=== PATIENT | female | born 1965 | race Caucasian/White ===

== ENCOUNTER 2019-09-22 01:46 | Outpatient (CLI) | payer BC, SELFPAY ==
[2019-09-22 16:44] LABS: Abs Immature Grans 0.01 k/cumm (0.0-0.09); Absolute Basophil Count 0.04 k/cumm (0.0-0.2); Absolute Eosinophil Count 0.27 k/cumm (0.0-0.7); Absolute Lymphocyte Count 2.13 k/cumm (1.2-3.4); Absolute Monocyte Count 0.42 k/cumm (0.11-0.7); Absolute Neutrophil Count 3.82 k/cumm (1.2-6.7); Basophils % 0.6; HCT 42.5 % (36.0-46.0); HGB 14.6 g/dL (12.0-15.5); Immature Grans % 0.1 %; Lymphocytes % 31.8; Mean Corp. HGB Concentration 34.4 g/dL (32.0-36.0); Mean Corpuscular Hemoglobin 29.3 pg (27.0-33.0); Mean Corpuscular Volume 85.2 fL (80-95); Mean Platelet Volume 9.8 fL (8.0-11.0); Monocytes % 6.3; Neutrophils % 57.2; Platelet Count 262 x1000/uL (130-400); RBC 4.99 m/cumm (4.00-5.20); RBC Distribution Width 15.1 % (11.7-14.6); White Blood Cell Count 6.69 k/cumm (4.4-10.8)
[2019-09-22 18:22] LABS: ALT 23 U/L (14-59); AST 12 U/L (15-37); Albumin 4.1 g/dL (3.4-5.0); Alkaline Phosphatase 71 U/L (46-116); Anion Gap 8.8 mmol/L (3-11); BUN 11 mg/dL (7-18); Bilirubin, Total 0.2 mg/dL (0.2-1.0); CO2 27.2 mmol/L (21.0-32.0); CREATININE 0.71 mg/dL (0.55-1.02); Calcium 8.7 mg/dL (8.5-10.1); Chloride 104 mmol/L (98-107); Ferritin 162 ng/mL (8-252); Glucose 118 mg/dL (74-106); Potassium 3.8 mmol/L (3.5-5.1); Sodium 140 mmol/L (136-145); Total Protein 7.3 g/dL (6.4-8.2)
== END 2019-09-22 02:06 ==
PROVIDERS: PCP Physician Assistant Medical; Visit Provider Internal Medicine Hematology & Oncology
DX: D50.9 Iron deficiency anemia, unspecified (principal)
CPT/HCPCS: 36415; 80053; 82728; 85025

== ENCOUNTER 2021-04-14 01:17 | Outpatient (CLI) | payer BC, SELFPAY ==
[2021-04-14 13:11] LABS: Source Nasal/Nares
[2021-04-14 15:32] LABS: COVID-19 PCR Negative (Negative)
== END 2021-04-14 01:18 | disposition home or self-care (01) ==
LOC: LBO 01:17
PROVIDERS: PCP Physician Assistant Medical; Visit Provider Otolaryngology
DX: Z20.822 Contact with and (suspected) exposure to COVID-19 (principal); Z01.818 Encounter for other preprocedural examination
CPT/HCPCS: 87635

== ENCOUNTER 2021-04-17 06:17 | Day surgery (SDC) | payer BC, SELFPAY ==
[2021-04-17] VITALS (8 sets, daily range): BP systolic 93–147; BP diastolic 59–93; PULSE 66–76; RESP 16–21; TEMP 36.4–36.7; O2SAT 93–97; BMI 31.0
--- NOTE | 2021-04-17 06:49 | W.ANESPRE ---
General Info Date of Service Date Performed: 04/17/21 Height: 5 ft 7 in Weight: 89.8 kg Body Mass Index (BMI): 31.0 Surgical Procedure: Operation Date: 04/17/21 07:40 Proposed Procedures Side Surgeon p FESS WITH RT maxillary antrostomy, rt polyectomy Carlos Dobbins MD Meds Allergies and Home Medications Allergies Allergy/AdvReac Type Severity Reaction Status Date / Time seasonal environmental Allergy Uncoded 04/17/21 06:39 allergies Home Medication Medication Instructions Recorded L norgest/E estradiol-E estrad 1 tab PO DAILY 03/22/21 0.15 mg-30 mcg (84)/10 mcg(7) tabs,3mos escitalopram oxalate 20 mg tablet 20 mg PO DAILY 03/22/21 ibuprofen 200 mg tablet 200 mg PO Q6H PRN 03/22/21 meloxicam 7.5 mg tablet 7.5 mg PO DAILY 03/22/21 omeprazole 40 mg capsule,delayed 40 mg PO DAILY 03/22/21 release enalapril maleate 2.5 mg tablet 2.5 mg PO DAILY 04/03/21 Current Visit Medications: Current Medications Generic Name Dose Route Start Last Admin Trade Name Freq PRN Reason Stop Dose Admin Dexamethasone 12 mg 04/17/21 06:00 Dexamethasone 10 Mg/Ml Vial IVP 04/17/21 23:59 PREOP ART Ringer's Solution 1,000 mls @ 80 mls/hr 04/17/21 06:00 IV 05/14/21 23:59 INFUSION ART Cefazolin Sodium/Dextrose 2 gm in 50 mls @ 100 mls/hr 04/17/21 06:00 Ancef Duplex IVPB 05/14/21 23:59 PREOP ART Tranexamic Acid 1,000 mg/ 60 mls @ 360 mls/hr 04/17/21 06:00 Sodium Chloride IVPB 04/17/21 23:59 PREOP ART IV Miscellaneous Supplies 1 each 04/17/21 06:00 Iv Access IV 05/14/21 23:59 DIRECTED ART Sodium Chloride 0 ml 04/17/21 06:00 Normal Saline Flush 10 Ml Syr IV 05/14/21 23:59 PRN PRN Sodium Chloride 0 ml 04/17/21 06:00 Normal Saline 10 Ml Vial IJ 05/14/21 23:59 DIRECTED PRN Sterile Water 0 ml 04/17/21 06:00 Water,Injection,Sterile 10 Ml Vial IJ 05/14/21 23:59 DIRECTED PRN PFSH Active Problems Active Problems: Problem Status Onset Code Nasal obstruction J34.89 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 Hx of tubal ligation Z98.51 Low ferritin level R79.0 History of left lateral epicondylitis Z87.39 Lump of right breast N63.10 Hx of immune disorder Z86.2 Abnormal findings on diagnostic imaging of breast R92.8 Hyperglycemia R73.9 Lack of energy R53.83 Insomnia G47.00 Depressive disorder F32.9 Generalized anxiety disorder F41.1 Nasal polyp J33.9 Left shoulder pain M25.512 Medical History Medical History Abnormal findings on diagnostic imaging of breast Depressive disorder Generalized anxiety disorder History of left lateral epicondylitis Hx of immune disorder Hyperglycemia Insomnia Lack of energy Left shoulder pain Low ferritin level Lump of right breast Nasal polyp Surgical History Surgical History Hx of tubal ligation Tobacco Smoking/Tobacco Use Status: Never Alcohol Alcohol Intake: never Substance Use Substance use: Never Substance use type: does not use Vital Signs and Lab Results Vital Signs Most Recent Vital Signs in EMR: Most Recent Vital Signs Temp Pulse Resp BP Pulse Ox 36.6 C 74 16 147/72 H 95 04/17/21 06:32 04/17/21 06:32 04/17/21 06:32 04/17/21 06:32 04/17/21 06:32 Lab Results Blood Type / Crossmatch: No Data to Display Complete Blood Count: No Data to Display Complete Metabolic Panel: No Data to Display Liver Function Panel: No Data to Display Coagulation Panel: No Data to Display Cardiac Panel: No Data to Display Arterial Blood Gas: No Data to Display Venous Blood Gas: No Data to Display Pancreas Panel: No Data to Display Thyroid Panel: No Data to Display Infectious Disease: Coronavirus (COVID-19)(PCR) Negative (Negative) 04/14/21 10:11 04/14/21 Coronavirus 2019 Source Nasal/Nares 04/14/21 10:11 04/14/21 Blood Cultures: No Data to Display Toxicology Panel: No Data to Display Panel: No Data to Display Anesthesia Assessment and Plan Anesthesia History Personal History: No History of Anesthesia Complications Family History: No Family History of Anesthesia Complications Exercise Tolerance Exercise Tolerance: Metabolic Equivalents>4 Pertinent Negatives Pertinent Negatives: No Symptoms of GERD, No Major Cardiovascular Symptoms or Complaints, No Major Pulmonary Symptoms or Complaints and No History of CVA/TIA Cardiac & Pulmonary Exam Cardiac Exam: Normal S1/S2 Heart Sounds Pulmonary Exam: Clear Bilateral Breath Sounds Airway Exam Known Difficult Airway: No Mallampati Class: 2 Mouth Opening: Normal (> 3cm) Thyromental Distance: Greater than 3 cm Neck Range of Motion: Full ROM Neck Circumference: Normal Teeth Condition: Normal Dentition ASA Classification ASA Score: ASA 2 Emergency Case?: No NPO Status NPO Status: NPO Clears >2 hours, Solids >8 hours Status Status: Negative HCG Anesthesia Plan Resuscitation Status: Full Code Anesthesia Technique: General Anesthesia Airway Planned: Endotracheal Tube Monitors Used: Standard Monitors
[2021-04-17] MEDS: Lactated Ringers 1,000 ML 80 ML IV (06:50)
[2021-04-17] MEDS: ceFAZolin 2 GM/50 ML BAG IVPB (07:43)
[2021-04-17] MEDS: Dexamethasone 10 MG/ML VIAL 12 MG IVP (07:48)
--- NOTE | 2021-04-17 07:55 | SINUS_PTH ---
PATIENT: Isabel Austin LOC: [facility] U#:[id number] AGE/SX: 55/F ROOM: RE04/17/[address]: Carlos Dobbins MD : 1965 BED: DIS: 04/17/2021 SPEC #: [id number] RECD: 04/17/21 12:38 STATUS: JO-ANN REQ #: [id number] ABDIFATAH: 04/17/21 07:[address]: Carlos Dobbins DEPT: Surgical Specimen RECD BY: Desi Covington ENTERED: 04/17/21 12:40 SP TYPE: SINUS OTHR DR: Ivette Baron Tissues: 1 - SINUS BIOPSY Procedures: GROSS AND MICRO LEVEL 3 Comments: [id number]
[2021-04-17] MEDS: Cocaine Nasal 4% 4 ML BTL (08:04)
--- NOTE | 2021-04-17 08:26 | W.PM.DSUDISC ---
Discharge Plan Disposition Patient Disposition: HOME Condition: Good Discharge Details Attending Provider: Carlos Dobbins Primary Care Provider: Ivette Baron Home Meds and New Rx's Prescriptions: New cephalexin 750 mg capsule 750 mg PO BID 7 Days Qty: 14 RF: 0 prednisone 50 mg tablet 50 mg PO DAILY 7 Days Qty: 7 RF: 0 No Action escitalopram oxalate 20 mg tablet 20 mg PO DAILY RF: 0 ibuprofen 200 mg tablet 200 mg PO Q6H PRNRF: 0 meloxicam 7.5 mg tablet 7.5 mg PO DAILY RF: 0 omeprazole 40 mg capsule,delayed release(DR/EC) 40 mg PO DAILY RF: 0 L norgest/e.estradiol-e.estrad [Simpesse] 0.15 mg-30 mcg (84)/10 mcg (7) tablets,dose pack,3 month 1 tab PO DAILY RF: 0 enalapril maleate 2.5 mg tablet 2.5 mg PO DAILY RF: 0 Discharge Instructions Stand Alone Forms: ENT-FESS Instr. Shilpi Referrals: Carlos Dobbins MD [ [facility]] - (2 weeks, please call for appointment before patient departs) Diet:: As Tolerated Discharge Orders Discharge Orders: Discharge Order (Routine); Ordered 04/17/21 Ordered By: Carlos Dobbins
--- NOTE | 2021-04-17 08:27 | ROE_ITS ---
Operative Note Operative Note DATE OF PROCEDURE: 04/17/21 PRE-OP DIAGNOSIS: Right-sided polypoid mass arising from the maxillary sinus POST-OP DIAGNOSIS: same PROCEDURE: Functional endoscopic sinus surgery with right maxillary antrostomy, and the right polypectomy including debridement of the right maxillary sinus SURGEON: Carlos Dobbins ANESTHESIA TYPE: General LMA/ETT Refer to Anesthesia Record ESTIMATED BLOOD LOSS: 5 PATHOLOGY: other (Right nasal polypoid mass) COMPLICATIONS: None Patient was transported to: PACU Patient's condition: stable Indications: Patient with longstanding right-sided nasal obstruction secondary to a polypoid mass arising from the right maxillary sinus. Options were explained to the patient regarding further management. She wished to proceed. H&P was reviewed. Consent was reviewed. Findings: Right-sided transition polypoid mass emerging from the right maxillary sinus, without evidence of purulent debris or infection. Nothing to suggest secondary mass Procedure Description: The patient was positioned in a supine position and prepped and draped in appropriate fashion after obtaining an adequate level of general endotracheal anesthesia. 1% lidocaine with 1/100,000 epinephrine was injected into the uncinate process, right middle turbinate, and right inferior turbinate. Following this, cocaine soaked nasal pledgets were placed into the nasal cavity and left for 5 minutes. After 5 minutes these were removed and then using the 0 degree scope for visualization, and a StraightShot microdebrider with a 2 mm blade, the nasal cavity was examined and the polypoid mass identified. The polypoid mass was removed, with removal extending into the maxillary sinus. Wide maxillary antrostomy was performed. The uncinate process appear to be eroded by the polypoid mass. Once the polypoid mass had been debrided back to the mucosa within the maxillary sinus, the right maxillary sinus was examined using a 30 degree scope, revealing no fungal mycetoma, or evidence of secondary mass. Bleeding was minimal. No packing was applied. The patient was then awakened and extubated by anesthesia after ensuring that there were no other masses within the nasal cavity on either side. I was present throughout the entire case. Specimen was placed in formalin and sent to patholo gy
--- NOTE | 2021-04-17 08:51 | W.ANESPOSTOP ---
Postoperative Evaluation Date, Time and Location Date Performed: 04/17/21 Time Performed: 08:51 Patient Location: Day Surgery Unit Vital Signs Most Recent Imported Vital Signs: Most Recent Vital Signs Temp Pulse Resp BP Pulse Ox 36.7 C 67 16 130/84 94 04/17/21 08:40 04/17/21 08:40 04/17/21 08:40 04/17/21 08:40 04/17/21 08:40 Pain Score Most Recent Pain Score: Most Recent Pain Score Pain Level 2 04/17/21 08:40 Assessment Mental Status: Awake (Alert & Oriented to Patient Baseline) Airway and Respiratory Function: Patent airway with normal (patient baseline) respiratory exam Cardiovascular Function: Hemodynamically Stable Hydration Status: Adequately Hydrated Nausea & Vomiting: No Nausea or Vomiting Pain: Pt. Denies Any Pain Peripheral Nerve Block: Patient did not receive a nerve block
[2021-04-17] MEDS: Acetaminophen Solution 650 MG/20.3 ML CUP PO (08:56)
== END 2021-04-17 09:26 | disposition home or self-care (01) ==
PROVIDERS: PCP Physician Assistant Medical; Visit Provider Otolaryngology
PROC: 09QM4ZZ Repair Nasal Septum, Percutaneous Endoscopic Approach (ICD-10-PCS; CPT 30520; principal; 2021-04-17 07:30)
DX: J33.0 Polyp of nasal cavity (principal)
CPT/HCPCS: 31267; 88305; 88304; J0690; J1100; J2001; J2405

== ENCOUNTER 2022-01-30 02:09 | Outpatient (CLI) | payer BC, SELFPAY ==
--- OUTSIDE RECORDS SUMMARY | 2022-01-30 02:10 | XMS_ITS | Encounter Summary ---
:1965 [place] [address] Care Team Providers Name Role Phone Fox Tian MD Primary Care Provider Reason for Visit Reason Comments Medication Management Specialty Refill Management Encounter Details Date Type Department Care Team Description 10/16/2021 Specialty Pharmacy Pharmacy [place] [facility] Todd Haro, [facility] Specialty Refill [place], [place] Management [phone] Social History Tobacco Use Types Packs/Day Years Used Date Never Smoker Smokeless Tobacco: Never Used Alcohol Use Standard Drinks/Week Comments Not Currently 0 (1 standard drink = 0.6 oz pure alcoho l) Financial Resource Strain Answer Date Recorded How hard is it for you to pay for the very basics like Not v kenia hard 08/02/2021 food, housing, medical care, and heating? Transportation Needs Answer Date Recorded In the past 12 months, has lack of transportation kept you f rom No 08/02/2021 medical appointments or from getting medications? In the past 12 months, has lack of transportation kept you f rom No 08/02/2021 meetings, work, or getting things needed for daily living? Sex Assigned at Date Recorded Not on file documented as of this encounter Progress Notes Todd Haro [facility] - 10/16/2021 11:41 AM EDT Clinical Management Plan: Refill Specialty Pharmacy Consultation; Todd Haro [facility] Comprehensive Medication Management (CMM) Isabel Neeraj Norman Ms. Isabel Austin is a 56 y.o. (1965) female who was contacted in regard to a specialty medication refill reminder. Contact made with patient regarding Ibrance. A review of the medication therapy was performed. The medication was refilled as scheduled, and all medication related questions and concerns were addressed. The specialty pharmacy staff will follow up with the patient 5-7 days prior to next refill. Was a change made to the Care Plan: No Allergies and Drug intolerance: No Known Allergies Medication Reconciliation Discrepancies (compared to [facility] med list) No Specialty Pharmacy Refill Questionnaire Refill Questionnaire 10/16/2021 What is the name of the specialty medication you are refilling? ibrance Are you taking any new medications? No Any new medical condition? No Any new allergies? No Any new side effects that are bothersome? No What date will you need this fill by? 10/21/2021 Adherence: Any missed doses? No Patient understands no changes to current drug regimen were made. Todd Haro RPH 10/16/21 11:42 AM documented in this encounter Plan of Treatment Upcoming Encounters Date Type Specialty Care Team Description 01/30/2022 Infusion Hematology and Oncology 02/27/2022 Infusion Hematology and Oncology 03/27/2022 Infusion Hematology and Oncology 04/18/2022 [facility] HEMATOLOGY/[place], [place] [address] (Wo rk) documented as of this encounter Goals Goal Patient Goal Associated Recent Patient-Stated? Author Type Problems Progress DH Home Medication Patient No Dari marr, Compliance and Facing Vladimir Singh, Understanding Action Plan [facility] Note: Formatting of this note might be d ifferent from the original. Slow or prevent progression and maintain quality of life, based on outcomes and quality of life assessed at follow-up visits documented as of this encounter Visit Diagnoses Not on filedocumented in this encounter Care Teams Telephone Interviewer Relationship Specialty Start Date End Date Fox Tian MD PCP - General 06/06/[address] [place] [phone] documented as of this encounter
--- OUTSIDE RECORDS SUMMARY | 2022-01-30 02:10 | XMS_ITS | Encounter Summary ---
:1965 Author Organization [facility] [place] [address] Care Team Providers Name Role Phone Fox Tian MD Primary Care Provider Reason for Visit Diagnostic Test (Routine) - Closed Specialty Diagnoses / Procedures Referred By Contact Refer red To Contact Radiology Diagnoses Malignant neoplasm of upper-outer quadrant of right breast in female, estrogen receptor positive Carey Desai MD [facility] Rad Nuclear Med Procedures NM Bone Scan Whole Body [facility] HEMATOLOGY/[place] [address] [place] [address] Referral ID Status Reason Start Date Expiration Date Visits V isits Requested Authorized [id number] Closed Specialty 09/15/2021 03/18/2023 1 1 Service Requested Encounter Details Date Type Department Care Team Description 01/02/2022 Hospital Encounter Nuclear Medicine at [facility] Mary Hitchcock MD [place] [phone] HEMATOLOGY/ONCOLOGY [phone] [place], [place] [address] (Wo rk) Social History Tobacco Use Types Packs/Day Years [...] on file documented as of this encounter Medications at Time of Discharge Medication Sig Dispensed Refills Start Date End Date prochlorperazine (Compazine) Take 1 tablet by 30 tablet 0 0 09/28/2021 10 mg Tablet mouth every 6 hours as needed for Nausea. meloxicam (MOBIC) 15 mg Take 15 mg by mouth 0 Tablet daily. traZODone (DESYREL) 150 mg Take 1 tablet by 30 tablet 11 07/2021 Tablet mouth nightly. letrozole (Femara) 2.5 mg Take 1 tablet by 30 tablet 11 09/2021 Tablet mouth daily. palbociclib (Ibrance) 125 mg Take 1 tablet (125 21 tablet 11 08/17/2021 tabletIndications: mg) by mouth daily. HR-positive, HER2-negative Take for 21 days advanced breast cancer followed by 7 days off. Call clinic before starting medication. Indications: hormone receptor (HR)-positive, HER2-negative advanced breast cancer escitalopram (LEXAPRO) 20 mg TAKE ONE TABLET BY 3 01/17/2019 Tablet MOUTH EVERY DAY enalapril (VASOTEC) 2.5 mg 0 9 Tablet omeprazole (PRILOSEC) 40 mg TAKE ONE CAPSULE BY 14 12/27/2018 Capsule, Delayed MOUTH EVERY DAY Release(E.C.) documented as of this encounter Plan of Treatment Upcoming Encounters Date Type Specialty Care Team Description 01/30/2022 Infusion Hematology and Oncology 02/27/2022 Infusion Hematology and Oncology 03/27/2022 Infusion Hematology and Oncology 04/18/2022 Office Visit Hematology and Oncology Carey Higuera MD [facility], [place] [address] (Wo rk) documented as of this encounter Goals Goal Patient Goal Associated Recent Patient-Stated? Author Type Problems Progress Home Medication Patient No Dari n, Compliance and Facing Vladimir Singh, Understanding Action Plan [facility] Note: Formatting of this note might be d ifferent from the original. Slow or prevent progression and maintain quality of life, based on outcomes and quality of life assessed at follow-up visits documented as of this encounter Procedures Procedure Name Priority Date/Time Associated Diagnosis Comme nts NM BONE SCAN WHOLE Routine 01/02/2022 11:11 AM Malignant neopl asm Results for this BODY EDT of upper-outer procedure are in quadrant of right the result s breast in female, section. estrogen receptor positive documented in this encounter Results NM Bone Scan Whole Body (01/02/2022 11:11 AM EDT) Anatomical Region Laterality Modality Nuclear Medicine Specimen (Source) Anatomical Location Collection Method / Collectio n Time Received Time / Laterality Volume Impressions 01/02/2022 11:56 AM EDT 1. ??New MDP avid osseous metastases within the medial left iliac bone and in the superolateral left acetabulum correspond ing to sclerotic lesions on CT scan. 2. ??Interval decreased in intensity of previously seen MDP avid lesions in the T2 and T10 vertebra and in the left post erior third and right posterior sixth ribs. I have personally reviewed the image(s) and the resident's interpretation and agree with the findings, Neeraj Leary at 01/02/2022 11:56 AM Thank you for letting us participate in the care of this patient. ??If you are a health care provider and have any questi ons regarding this report, please contact the number below. ??For patients who have questions please contact the health manager medicare marketing that requested your imaging first. ? Narrative 01/02/2022 11:56 AM EDT EXAMINATION: NM BONE SCAN WHOLE BODY CLINICAL HISTORY: Breast cancer, assess treatment response TECHNIQUE: Three hours following the int ravenous administration of 22.4 mCi of technetium-99m MDP, planar images of the skeleton in anterior and posterior projection were obtained. COMPARISON: Nuclear medicine bone scan d ated 08/07/2021 as well as chest abdomen and pelvis dated 01/02/2022 FINDINGS: New MDP avid lesions in the medial left iliac bone and in the superolateral left acetabulum, which correspond to scleroti c lesions on CT from same day Persistent but modest interval decreased intensity of MDP avid lesions in the T2 and T10 vertebrae, as well as the left p osterior third and right posterior sixth ribs. Normal renally excreted activity in the kidneys and in the urinary bladder. Procedure Note Jorgito Cisse MD - 01/02/2022Formatti ng of this note might be different from the original. EXAMINATION: NM BONE SCAN WHOLE BODY CLINICAL HISTORY: Breast cancer, assess treatment response TECHNIQUE: Three hours following the int ravenous administration of 22.4 mCi of technetium-99m MDP, planar images of the skeleton in anterior and posterior projection were obtained. COMPARISON: Nuclear medicine bone scan d ated 08/07/2021 as well as chest abdomen and pelvis dated 01/02/2022 FINDINGS: New MDP avid lesions in the medial left iliac bone and in the superolateral left acetabulum, which correspond to scleroti c lesions on CT from same day Persistent but modest interval decreased intensity of MDP avid lesions in the T2 and T10 vertebrae, as well as the left p osterior third and right posterior sixth ribs. Normal renally excreted activity in the kidneys and in the urinary bladder. IMPRESSION 1. New MDP avid osseous metastases withi n the medial left iliac bone and in the superolateral left acetabulum correspond ing to sclerotic lesions on CT scan. 2. Interval decreased in intensity of pr eviously seen MDP avid lesions in the T2 and T10 vertebra and in the left post erior third and right posterior sixth ribs. I have personally reviewed the image(s) and the resident's interpretation and agree with the findings, Neeraj Leary at 01/02/2022 11:56 AM Thank you for letting us participate in the care of this patient. If you are a health care provider and have any questi ons regarding this report, please contact the number below. For patients w ho have questions please contact the health manager medicare marketing that requested your imaging first. Carey Desai MD IMG NM ORDERABLES documented in this encounter Visit Diagnoses Not on filedocumented in this encounter Care Teams Executive Assistant Relationship Specialty Start Date End Date Fox Tian MD PCP - General 06/06/[address] [place] [phone] documented as of this encounter
--- OUTSIDE RECORDS SUMMARY | 2022-01-30 02:10 | XMS_ITS | Encounter Summary ---
:1965 Author Organization [facility] Address [address] [place] [address] Care Team Providers Name Role Phone Fox Tian MD Primary Care Provider Reason for Visit Treatment/Therapy Plan Authorization (Routine) - Authorized Specialty Diagnoses / Procedures Referred By Contact Refer red To Contact Hematology and Oncology Diagnoses Malignant neoplasm of upper-outer quadrant of right breast in female, estrogen receptor positive Carey Desai, [facility] [place] [facility] Hem Onc 3k Procedures TC DENOSUMAB, 1MG, INJECTION [id number] (GOSERELIN) [facility] [address] JENNIFER Alfonso HEMATOLOGY/ONCOLOGY [address] [place] [address] Referral ID Status Reason Start Date Expiration Date Visits V isits Requested Authorized [id number] Authorized 09/01/2021 09/01/2022 99 99 Encounter Details Date Type Department Care Team Description 12/05/2021 Hospital Encounter Hematology and Maligna nt neoplasm of Oncology at [facility] upper-outer quadrant of [facility] right carine ast in female, [place] [address] positive [phone] Social History Tobacco Use Types Packs/Day Years [...] on file documented as of this encounter Last Filed Vital Signs Vital Sign Reading Time Taken Comments Blood Pressure - - Pulse - - Temperature - - Respiratory Rate - - Oxygen Saturation - - Inhaled Oxygen Concentration - - Weight 90.7 kg (199 lb 15.7 oz) 12/05/2021 2:39 PM EDT Height - - Body Mass Index 30.95 09/12/2021 10:06 AM EST documented in this encounter Medications at Time of Discharge [...] DAY Release(E.C.) documented as of this encounter Progress Notes Madeleine Pereyra RN - 12/05/2021 3:08 PM EDT Patient Name: Isabel Austin Patient Age: 56 y.o. Birthdate: 1965 Admit date: 12/05/2021 Attending Physician: No att. providers found Access visit. See MAR and/or flowsheet. documented in this encounter Plan of Treatment Upcoming Encounters Date Type Specialty Care Team Description 01/30/2022 Infusion Hematology and Oncology 02/27/2022 Infusion Hematology and Oncology 03/27/2022 Infusion Hematology and Oncology 04/18/2022 Office Visit Hematology and Oncology Carey Higuera MD [facility] MEDICAL [facility] HEMATOLOGY/ONCOL [place], [place] [address] (Wo rk) documented as of this encounter Goals Goal Patient Goal Associated Recent Patient-Stated? Author Type Problems Progress DH Home Medication Patient No Dari n, Compliance and Facing Vladimir Singh, Understanding Action Plan [facility] Note: Formatting of this note might be d ifferent from the original. Slow or prevent progression and maintain quality of life, based on outcomes and quality of life assessed at follow-up visits documented as of this encounter Visit Diagnoses Diagnosis Malignant neoplasm of upper-outer quadra nt of right breast in female, estrogen receptor positive documented in this encounter Administered Medications Inactive Administered Medications - up to 3 most recent administrations Medication Order MAR Action Action Date Dose Rate Site denosumab (Xgeva) (120 mg/1.7 Given 12/05/2021 3:08 PM EDT 120 m g Left Arm mL) subcutaneous injection 120 mg 120 mg, Subcutaneous, ONCE, 1 dose, On Sat12/05/21 at 1515, Bring to room temperature 15-30 mins before administration. goserelin (ZOLADEX) implant 3.6 mg Given 12/05/2021 3:01 PM EDT 3.6 mg 3.6 mg, Subcutaneous, ONCE, 1 dose, On Sat12/05/21 at 1515, Routine documented in this encounter Care Teams Power System Engineer Relationship Specialty Start Date End Date Fox Tian MD PCP - General 06/06/[address] [place] [phone] documented as of this encounter
--- OUTSIDE RECORDS SUMMARY | 2022-01-30 02:10 | XMS_ITS | Encounter Summary ---
:1965 Author Organization [facility] [place] [address] Care Team Providers Name Role Phone Fox Tian MD Primary Care Provider Reason for Visit Reason Comments Medication Refill Encounter Details Date Type Department Care Team Description 11/09/2021 Specialty Pharmacy Pharmacy at [facility] Joan Stephenson, [place] [phone] Social History Tobacco Use Types Packs/Day Years [...] documented as of this encounter Progress Notes Joan Stephenson [facility] - 11/09/2021 12:10 PM EDT Clinical Management Plan: Refill Specialty Pharmacy Consultation; Joan Stephenson [facility] Comprehensive Medication Management (CMM) Isabel Neeraj Norman [...] Known Allergies Medication Reconciliation Discrepancies ([facility]) No Specialty Pharmacy Refill Questionnaire Refill Questionnaire 11/09/2021 What is the name of the specialty medication you are refilling? Ibrance Are you taking any new medications? No Any new medical condition? No Any new allergies? - Any new side effects that are bothersome? No What date will you need this fill by? 11/18/2021 Adherence: Any missed doses? No Patient understands no changes to current drug regimen were made. Joan Stephenson RPH 11/09/21 12:11 PM documented in this encounter Plan of Treatment Upcoming Encounters Date Type Specialty Care Team Description 01/30/2022 Infusion Hematology and Oncology 02/27/2022 Infusion Hematology and Oncology 03/27/2022 Infusion Hematology and Oncology 04/18/2022 Office Visit Hematology and Oncology [facility] Carey villalpando MD [facility] HEMATOLOGY/ONCOL [place], [place] [address] (Wo rk) documented as of this encounter Goals Goal Patient Goal Associated Recent Patient-Stated? Author Type Problems Progress DH Home Medication Patient No Dari marr, Compliance and Facing Vladimir Singh, Understanding Action Plan [facility] Note: Formatting of this note might be d ifferent from the original. Slow or prevent progression and maintain quality of life, based on outcomes and quality of life assessed at follow-up visits documented as of this encounter Visit Diagnoses Not on filedocumented in this encounter Care Teams Bladder Tier Relationship Specialty Start Date End Date Fox Tian MD PCP - General 06/06/[address] [place] [phone] documented as of this encounter
--- OUTSIDE RECORDS SUMMARY | 2022-01-30 02:10 | XMS_ITS | Encounter Summary ---
:1965 Author Organization [facility] Address [address] [place] [address] Care Team Providers Name Role Phone Fox Tian MD Primary Care Provider Reason for Visit Reason Comments Specialty Pharmacy Review Ibrance Tablet Encounter Details Date Type Department Care Team Description 01/02/2022 Specialty Pharmacy Pharmacy at [facility] Shayna [facility] Review ([address] Tablet ) [place] [phone] Social History Tobacco Use Types Packs/Day Years [...] documented as of this encounter Progress Notes Shayna Black - 01/02/2022 11:59 PM EDT The [facility] has completed a benefits investigation for Isabel Austin to review their eligibility to fill at [facility]. Per patient's medication list they are prescribed Ibrance 125mg tablet and the medication is able to be filled at the [facility]. Patient is currently filling medication with [facility]. documented in this encounter Plan of Treatment Upcoming Encounters Date Type Specialty Care Team Description 01/30/2022 Infusion Hematology and Oncology 02/27/2022 Infusion Hematology and Oncology 03/27/2022 Infusion Hematology and Oncology 04/18/2022 [facility] HEMATOLOGY/ONCOL Valerio [place], [place] [address] (Wo rk) documented as of this encounter Goals Goal Patient Goal Associated Recent Patient-Stated? Author Type Problems Progress DH Home Medication Patient No Dari marr, Compliance and Facing Vladimir Singh, Understanding Action Plan [facility] Note: Formatting of this note might be d ifferent from the original. Slow or prevent progression and maintain quality of life, based on outcomes and quality of life assessed at follow-up visits documented as of this encounter Visit Diagnoses Not on filedocumented in this encounter Care Teams Boat Outboard Engine Mechanic Relationship Specialty Start Date End Date Fox Tian MD PCP - General 06/06/[address] [place] [phone] documented as of this encounter
--- OUTSIDE RECORDS SUMMARY | 2022-01-30 02:10 | XMS_ITS | Encounter Summary ---
:1965 Author Organization [facility] [place] [address] Care Team Providers Name Role Phone Fox Tian MD Primary Care Provider Reason for Referral Diagnostic Test (Routine) - Closed Specialty Diagnoses / Procedures Referred By Contact Refer red To Contact Radiology Diagnoses Malignant neoplasm of upper-outer quadrant of right breast in female, estrogen receptor positive Carey Desai MD [facility] Rad Nuclear Med Procedures NM Bone Scan Whole Body [facility] HEMATOLOGY/[place] [phone] [place] [address] Referral ID Status Reason Start Date Expiration Date Visits V isits Requested Authorized [id number] Closed Specialty 09/15/2021 03/18/2023 1 1 Service Requested Reason for Visit Diagnostic Test (Routine) - Closed Specialty Diagnoses / Procedures Referred By Contact Refer red To Contact Radiology Diagnoses Malignant neoplasm of upper-outer quadrant of right breast in female, estrogen receptor positive Caery Desai MD [facility] Rad Nuclear Med Procedures NM Bone Scan Whole Body [facility] HEMATOLOGY/[place] [address] [place] [address] Referral ID Status Reason Start Date Expiration Date Visits V isits Requested Authorized [id number] Closed Specialty 09/15/2021 03/18/2023 1 1 Service Requested Encounter Details Date Type Department Care Team Description 01/02/2022 Hospital Encounter Nuclear Medicine at Angie Desai Malignant neoplasm Carey Elizondo MD of [facility] ONE MEDICAL quadrant of [facility] breast in female, [place], [place] HEMATOLOGY/ONCOL estrogen re ceptor [phone] OGY positive [phone] [place] [address] Social History Tobacco Use Types Packs/Day Years [...] Higuera MD [facility] HEM[facility]/ONCOL Valerio [place], [place] [address] (Wo rk) documented as of this encounter Goals Goal Patient Goal Associated Recent Patient-Stated? Author Type Problems Progress DH Home Medication Patient No Dari n, Compliance and Facing Vladimir Singh, Understanding Action Plan [facility] Note: Formatting of this note might be [...] who have questions please contact the health career representative that requested your imaging first. ? Electronically signed by: Jorgito Cisse MD, [facility] ([phone]), at 01/02/2022 11:56 AM Narrative 01/02/2022 11:56 AM EDT EXAMINATION: NM [...] ho have questions please contact the health career representative that requested your imaging first. Electronically signed by: Jorgito Cisse MD, [facility] ([phone]), at 01/02/2022 11:56 AM Carey Desai MD IM NM ORDERABLES documented in this encounter Visit Diagnoses Diagnosis Malignant neoplasm of upper-outer quadra nt of right breast in female, estrogen receptor positive documented in this encounter Administered Medications Inactive Administered Medications - up to 3 most recent administrations Medication Order MAR Action Action Date Dose Rate Site technetium (Tc-99m) methylene Given 01/02/2022 8:25 AM 22.4 mCi Right Arm diphosphonate (MDP) injection EDT 0-30 mCi 0-30 mCi, Intravenous, ONCE PRN, 1 dose, Starting on Sat01/02/22 at 0830, Until Sat01/02/22 at 0825, Per Protocol, Radiology Contrast, Routine documented in this encounter Care Teams Pulp Roller Relationship Specialty Start Date End Date Fox Tian MD PCP - General 06/06/[address] [place] [phone] documented as of this encounter
--- OUTSIDE RECORDS SUMMARY | 2022-01-30 02:10 | XMS_ITS | Encounter Summary ---
:1965 Author Organization [facility] Address [address] [address] Care Team Providers Name Role Phone Fox Tian MD Primary Care Provider Reason for Visit Treatment/Therapy Plan Authorization (Routine) - Authorized Specialty Diagnoses / Procedures Referred By Contact Refer red To Contact Hematology and Oncology Diagnoses Malignant neoplasm of upper-outer quadrant of right breast in female, estrogen receptor positive Carey Desai, [facility] Hem Onc 3k Procedures TC DENOSUMAB, 1MG, INJECTION [id number] (GOSERELIN) [facility] Drive JENNIFER Alfonso HEMATOLOGY/ONCOLOGY [address] [place] [address] Referral ID Status Reason Start Date Expiration Date Visits V isits Requested Authorized [id number] Authorized 09/01/2021 09/01/2022 99 99 Encounter Details Date Type Department Care Team Description 01/02/2022 Hospital Encounter Hematology and Maligna nt neoplasm of Oncology at [facility] upper-outer quadrant of [facility] right carine ast in female, [place] [address] positive [phone] Social History Tobacco Use Types Packs/Day Years [...] documented as of this encounter Progress Notes Vega Leung RN - 01/02/2022 3:01 PM EDT Patient Name: Isabel Austin Patient Age: 56 y.o. Birthdate: 1965 Admit date: 01/02/2022 Attending Physician: Elena att. providers found Isabel Austin is a 56 y.o. female who presents to [facility] [place] today for medication injections of Xgeva & Zoladex. This patient meets criteria per their therapy plan to receive treatment at this date/time. Permission to treat from provider confirmed. See MAR for complete administration details. Injection administered to Left Arm for Xgeva & Left Lower Quadrant of Abdomen for Zoladex w/ lidocaine anesthetic premedicaiton. Tolerated well. documented in this encounter Plan of Treatment Upcoming Encounters Date Type Specialty Care Team Description 01/30/2022 Infusion Hematology and Oncology 02/27/2022 Infusion Hematology and Oncology 03/27/2022 Infusion Hematology and Oncology 04/18/2022 Office Visit Hematology and Oncology Carey Higuera MD [facility] HEMATOLOGY/ONCOL Valer[place], [place] [address] (Wo rk) documented as of this encounter Goals Goal Patient Goal Associated Recent Patient-Stated? Author Type Problems Progress DH Home Medication Patient No Dari marr, Compliance and Facing Vladimir Singh, Understanding Action Plan [facility] Note: Formatting of this note might be [...] Rate Site denosumab (Xgeva) (120 mg/1.7 Given 01/02/2022 2:47 PM EDT 120 m g Left Arm mL) subcutaneous injection 120 mg 120 mg, Subcutaneous, ONCE, 1 dose, On Sat01/02/22 at 1445, Bring to room temperature 15-30 mins before administration. goserelin (ZOLADEX) implant Given 01/02/2022 2:47 PM EDT 3.6 mg Left Lower Quadrant 3.6 mg 3.6 mg, Subcutaneous, ONCE, 1 dose, On Sat01/02/22 at 1445, Routine documented in this encounter Care Teams Algebra Tutor Relationship Specialty Start Date End Date Fox iTan MD PCP - General 06/06/[address] [place] [phone] documented as of this encounter
--- OUTSIDE RECORDS SUMMARY | 2022-01-30 02:10 | XMS_ITS | Encounter Summary ---
:1965 Author Organization [facility] Address [address] [place] [address] Care Team Providers Name Role Phone Fox Tian MD Primary Care Provider Encounter Details Date Type Department Care Team Description 01/02/2022 Hospital Encounter Hematology and Maligna nt [place] [facility]outer quadrant of [facility] right carine ast in female, [place] [address] positive [phone] Social History Tobacco Use Types Packs/Day Years [...] mg Take 1 tablet by 30 tablet 09/2021 Tablet mouth daily. palbociclib (Ibrance) 125 [...] Oncology 04/18/2022 [facility] HEMATOLOGY/ONCOL [place], [place] [address] (Wo rk) documented as of this encounter Goals Goal Patient Goal Associated Recent Patient-Stated? Author Type Problems Progress DH Home Medication Patient No Dari n, Compliance and Facing Vladimir Singh, Understanding Action Plan [facility] Note: Formatting of this note might be d ifferent from the original. Slow or prevent progression and maintain quality of life, based on outcomes and quality of life assessed at follow-up visits documented as of this encounter Procedures Procedure Name Priority Date/Time Associated Comments Diagnosis HEMOGRAM Routine 01/02/2022 12:57 Malignant neoplasm Resul ts for this PM EDT of upper-outer procedure are in quadrant of right the result s breast in female, section. estrogen receptor positive DIFFERENTIAL, Routine 01/02/2022 12:57 Malignant neoplasm Resu lts for this AUTOMATED PM EDT of upper-outer procedure are in quadrant of right the result s breast in female, section. estrogen receptor positive HC CA 15-3 (CANCER Routine 01/02/2022 12:57 Malignant neoplasm Results for this ANTIGEN) PM EDT of upper-outer procedure are in quadrant of right the result s breast in female, section. estrogen receptor positive HC CBC,PLT & AUTO DIFF Routine 01/02/2022 12:57 Malignant neop lasm PM EDT of upper-outer quadrant of right breast in female, estrogen receptor positive COMPREHENSIVE Routine 01/02/2022 12:57 Malignant neoplasm Resu lts for this METABOLIC PANEL PM EDT of upper-outer procedure are in (NON-FASTING) quadrant of right the resul ts breast in female, section. estrogen receptor positive documented in this encounter Results (ABNORMAL) Differential, Automated (01/02/2022 12:57 PM EDT) [facility] [place] gist Method Time Signature Neutrophils % 54.5 % [facility] Neutr Abs (ANC) 2.00 1.70 - [facility] 6.10 [facility] x10(3)/[facility] LABORATORY Lymphocytes % 36.0 % [facility] Lymphocytes Abs 1.3 0.9 - 3.2 [facility] x10(3)/[facility] LABORATORY Monocytes % 5.4 % [facility] Monocyte Abs 0.2 (L) 0.3 - 0.9 [facility] x10(3)/[facility] LABORATORY Eosinophils % 2.7 % [facility] Eosinophils Abs 0.1 0.0 - 0.4 [facility] x10(3)/[facility] LABORATORY Basophils % 1.1 % [facility] Basophils Abs 0.0 0.0 - 0.1 [facility] x10(3)/[facility] LABORATORY Immature Gran % 0.30 % [facility] Comment: Immature granulocytes(IG's)percentage an d absolute count will include metamyelocytes, myelocytes, and promyelo cytes. Blood smears from CBCs yielding IG's will be scanned manually for concor dance. If this scan disagrees with the automated IG or if promyelocytes are not ed, a manual differential will be performed. Mónica Gran Abs 0.01 0.00 - 0.04 x10(3)/[facility] LABORAT[facility] Specimen Anatomical Collection Method Collection Time Receive d Time (Source) Location / / Volume Laterality Blood 01/02/2022 12:57 01/02/2022 1:11 PM EDT PM EDT Resulting Agency Comment Spec In Lab Carey Desai MD HEMATOLOGY ORDERABLES Performing Organization Address City/State/[place] [address] (ABNORMAL) Hemogram (01/02/2022 12:57 PM EDT) Analysis Performed At Patho logist Time Signature WBC 3.7 (L) 4.0 - 9.5 [facility] LABORATORY RBC 4.19 4.00 - [facility] 5.21 [facility] x10(6)/[facility] LABORATORY Hemoglobin 13.8 11.7 - [facility] 15.5 g/dL [facility] LAB[facility]ORY Hematocrit 38.7 35.7 - [facility] 45.8 % [facility] LAB[facility] MCV 92.4 82.6 - [facility] 94.4 [facility] LABORATORY MCH 32.9 (H) 27.1 - [facility] 32.0 pg [facility]ORY MCHC 35.7 (H) 31.7 - [facility] 35.0 g/dL [facility] Platelets 273 145 - 357 [facility] x10(3)/[facility] LABORATORY RDWSD 46.3 (H) 37.0 - [facility] 46.0 [facility] LABORATORY RDWCV 13.7 11.5 - [facility] 14.1 % [facility] LABORATORY MPV 9.0 7.6 - 12.9 [facility] nRBC % Auto 0.0 % [facility] nRBC Abs Auto 0.000 0.000 - [facility] 0.000 [facility] x10(3)/[facility] LABORATORY Specimen Anatomical Collection Method Collection Time Receive d Time (Source) Location / / Volume Laterality Blood 01/02/2022 12:57 01/02/2022 1:11 PM EDT PM EDT Resulting Agency Comment Spec In Lab Carey Desai MD HEMATOLOGY ORDERABLES Performing Organization Address City/State/ZIP Code Ph[place] [address] Comprehensive metabolic panel (non-fasting) (01/02/2022 12:57 PM EDT) P athologist Signature Glucose Lvl 185 65 - 199 [facility] mg/dL [facility] Comment: Diabetes: >=200 mg/dL plus symp toms BUN 9 8 - 18 mg/dL [facility] Creatinine 0.81 0.70 - 1.20 mg/dL [facility] Sodium 138 135 - 145 mmol/L [facility] Potassium 3.7 3.5 - 5.0 mmol/L [facility] Comment: Please note: ??Patients with WBC >100,00 0 may have falsely elevated Potassium levels. ??For accurate Potassium quantif ication in these patients send serum separator tube (gold top) for subsequent determinations. ??Contact the Clinical Chemistry Laboratory if there are any qu estions. Chloride 101 98 - 107 mmol/L [facility] CO2 24 22 - 31 mmol/L [facility] Anion Gap 13 5 - 15 mmol/L [facility] Calcium 9.4 8.5 - 10.5 mg/dL [facility] Total Protein 7.1 6.1 - 8.0 g/dL [facility] Albumin 4.5 3.2 - 5.2 g/dL [facility] AST 23 0 - 30 unit/L [facility] ALT 26 0 - 30 unit/L [facility] Alk Phos 60 35 - 105 unit/L [facility] Total Bilirubin 0.2 0.2 - 1.3 mg/dL [facility] Estimated GFR 86 >=60 mL/min/1.73 m?? [facility] Comment: This patient's estimated GFR was calcula mae using the 2020 CKD-EPI equation. The estimated GFR can vary from the abel ured GFR by up to 30% in the absence of rapidly changing kidney function. Assess ment of the estimated GFR is not appropriate when creatinine concentratio ns are rapidly changing. For clinical situations in which a more precise estim ate of GFR is necessary, consider alternative methods of GFR estimation hardin ch as a 24-hour urine creatinine clearance. Assignment of CKD stage 1-5 for patients with an eGFR near the transition point between stages may be based on clinical assessment of muscle mass and symptoms in addition to eGFR. Specimen Anatomical Collection Method Collection Time Receive d Time (Source) Location / / Volume Laterality Blood 01/02/2022 12:57 01/02/2022 1:11 PM EDT PM EDT Resulting Agency Comment Spec In Lab Carey Desai MD CHEMISTRY ORDERABLES Performing Organization Address City/State/ZIP Code Phon e Number [address] (ABNORMAL) Cancer antigen 15-3 (01/02/2022 12:57 PM EDT) P athologist Signature CA 15-3 57 (H) <=25 [facility] unit/mL [facility] Comment: This result was generated using a Arthur Onelia immunoassay. ??Results obtained from other methods or manufacturers al ot be used interchangeably with this method. Specimen Anatomical Collection Method Collection Time Receive d Time (Source) Location / / Volume Laterality Blood 01/02/2022 12:57 01/02/2022 1:11 PM EDT PM EDT Resulting Agency Comment Spec In Lab Carey Desai MD CHEMISTRY ORDERABLES Performing Organization Address City/[facility]/ZIP [facility] [place] [address] documented in this encounter Visit Diagnoses Diagnosis Malignant neoplasm of upper-outer quadra nt of right breast in female, estrogen receptor positive documented in this encounter Care Teams Medical Administrative Assistant Relationship Specialty Start Date End Date Fox Tian MD PCP - General 06/06/[address] [place] [phone] documented as of this encounter
--- OUTSIDE RECORDS SUMMARY | 2022-01-30 02:10 | XMS_ITS | Encounter Summary ---
:1965 Author Organization [facility] [place] [address] Care Team Providers Name Role Phone Fox Tian MD Primary Care Provider Reason for Visit Reason Comments Medication Refill Encounter Details Date Type Department Care Team Description 01/04/2022 Specialty Pharmacy Pharmacy at [facility] [place] Joan Stephenson, [place] [phone] Social History Tobacco Use Types Packs/Day Years [...] of this encounter Progress Notes Joan Stephenson [facility] - 01/04/2022 2:11 PM EDT Clinical Management Plan: Refill Specialty Pharmacy Consultation; Joan Stephenson [facility] Comprehensive Medication Management (CMM) Isabel Neeraj Norman [...] Known Allergies Medication Reconciliation Discrepancies (compared to [facility] med list) No Specialty Pharmacy Refill Questionnaire Refill Questionnaire 01/04/2022 What is the name of the specialty medication you are refilling? Ibrance Are you taking any new medications? No Any new medical condition? No Any new allergies? No Any new side effects that are bothersome? No What date will you need this fill by? 01/12/2022 Adherence: Any missed doses? No Patient understands no changes to current drug regimen were made. Joan Stephenson RPH 01/04/22 2:13 PM documented in this encounter Plan of Treatment Upcoming Encounters Date Type Specialty Care Team Description 01/30/2022 Infusion Hematology and Oncology 02/27/2022 Infusion Hematology and Oncology 03/27/2022 Infusion Hematology and Oncology 04/18/2022 Office Visit Hematology and Oncology [facility] Carey villalpando MD [facility] HEMATOLOGY/ONCOL [place], [place] [address] (Wo rk) documented as of this encounter Goals Goal Patient Goal Associated Recent Patient-Stated? Author Type Problems Progress DH Home Medication Patient No Dari marr, Compliance and Facing Vladimir Singh, Understanding Action Plan [facility] Note: Formatting of this note might be d ifferent from the original. Slow or prevent progression and maintain quality of life, based on outcomes and quality of life assessed at follow-up visits documented as of this encounter Visit Diagnoses Not on filedocumented in this encounter Care Teams Basin Cleaner Relationship Specialty Start Date End Date Fox Tian MD PCP - General 06/06/[address] [place] [phone] documented as of this encounter
--- OUTSIDE RECORDS SUMMARY | 2022-01-30 02:10 | XMS_ITS | Encounter Summary ---
:1965 Author Organization [facility] Address [address] [place] [address] Care Team Providers Name Role Phone Fox Tian MD Primary Care Provider Encounter Details Date Type Department Care Team Description 11/07/2021 Hospital Encounter Hematology and Maligna nt neoplasm of Oncology at [facility] upper-outer quadrant of [facility] right carine ast in female, [place] [address] positive [phone] Social History Tobacco Use Types Packs/Day Years [...] Oncology 04/18/2022 [facility] HEMATOLOGY/ONCOL [place], [place] [address] (Wo rk) documented as of this encounter Goals Goal Patient Goal Associated Recent Patient-Stated? Author Type Problems Progress DH Home Medication Patient No Dari n, Compliance and Facing Vladimir Singh, Understanding Action Plan [facility] Note: Formatting of this note might be d ifferent from the original. Slow or prevent progression and maintain quality of life, based on outcomes and quality of life assessed at follow-up visits documented as of this encounter Procedures Procedure Name Priority Date/Time Associated Comments Diagnosis HEMOGRAM Routine 11/07/2021 1:55 Malignant neoplasm Resul ts for this PM EDT of upper-outer procedure are in quadrant of right the result s breast in female, section. estrogen receptor positive DIFFERENTIAL, Routine 11/07/2021 1:55 PM Malignant neoplasm Re sults for this AUTOMATED EDT of upper-outer procedure are in quadrant of right the result s breast in female, section. estrogen receptor positive HC VENIPUNCTURE Routine 11/07/2021 1:55 PM Malignant neoplasm Results for this EDT of upper-outer procedure are in quadrant of right the result s breast in female, section. estrogen receptor positive HC CBC,PLT & AUTO DIFF Routine 11/07/2021 1:55 PM Malignant ne oplasm EDT of upper-outer quadrant of right breast in female, estrogen receptor positive COMPREHENSIVE Routine 11/07/2021 1:55 PM Malignant neoplasm Re sults for this METABOLIC PANEL EDT of upper-outer procedure are in (NON-FASTING) quadrant of right the resul ts breast in female, section. estrogen receptor positive documented in this encounter Results (ABNORMAL) Differential, Automated (11/07/2021 1:55 PM EDT) [facility] gist Method Time Signature Neutrophils % 45.6 % [facility] Neutr Abs (ANC) 1.27 (L) 1.70 - [facility] 6.10 [facility] x10(3)/[facility] LABORATORY Lymphocytes % 41.7 % [facility] Lymphocytes Abs 1.2 0.9 - 3.2 [facility] x10(3)/[facility] LABORATORY Monocytes % 5.8 % [facility] Monocyte Abs 0.2 (L) 0.3 - 0.9 [facility] x10(3)/[facility] LABORATORY Eosinophils % 4.3 % [facility] Eosinophils Abs 0.1 0.0 - 0.4 [facility] x10(3)/[facility] LABORATORY Basophils % 2.2 % [facility] Basophils Abs 0.1 0.0 - 0.1 [facility] x10(3)/[facility] LABORATORY Immature Gran % 0.40 % [facility] Comment: Immature granulocytes(IG's)percentage an d absolute count will include metamyelocytes, myelocytes, and promyelo cytes. Blood smears from CBCs yielding IG's will be scanned manually for concor dance. If this scan disagrees with the automated IG or if promyelocytes are not ed, a manual differential will be performed. Mónica Gran Abs 0.01 0.00 - 0.04 x10(3)/[facility] LABORATORY Specimen Anatomical Collection Method Collection Time Receive d Time (Source) Location / / Volume Laterality Blood 11/07/2021 1:55 PM 2 1:58 EDT PM EDT Resulting Agency Comment Spec In Lab Helena Desai MD HEMATOLOGY ORDERABLES Performing Organization Address City/State/[place] [address] (ABNORMAL) Hemogram (11/07/2021 1:55 PM EDT) Analysis Performed At Patho logist Time Signature WBC 2.8 (L) 4.0 - 9.5 [facility] x10(3[facility] LABORATORY RBC 4.32 4.00 - [facility] 5.21 [facility] x10(6)/[facility] LABORATORY Hemoglobin 13.6 11.7 - [facility] g/dL [facility] Hematocrit 39.0 35.7 - [facility] 45.8 % [facility]ORATORY MCV 90.3 82.6 - [facility] 94.4 [facility] LABORATORY MCH 31.5 27.1 - [facility] 32.0 pg [facility]ORY MCHC 34.9 31.7 - [facility] 35.0 g/dL [facility] Platelets 252 145 - 357 [facility] x10(3)/[facility] LABORATORY RDWSD 51.8 (H) 37.0 - [facility] 46.0 [facility] LABORATORY RDWCV 15.7 (H) 11.5 - [facility] 14.1 % [facility] LABORATORY MPV 9.0 7.6 - 12.9 [facility] nRBC % Auto 0.0 % [facility] nRBC Abs Auto 0.000 0.000 - [facility] 0.000 [facility] x10(3)/[facility] LABORATORY Specimen Anatomical Collection Method Collection Time Receive d Time (Source) Location / / Volume Laterality Blood 11/07/2021 1:55 PM 2 1:58 EDT PM EDT Resulting Agency Comment Spec In Lab Helena Desai MD HEMATOLOGY ORDERABLES Performing Organization Address City/State/[place] [address] Comprehensive metabolic panel (non-fasting) (11/07/2021 1:55 PM EDT) P athologist Signature Glucose Lvl 112 65 - 199 [facility] mg/dL [facility]ORY Comment: Diabetes: >=200 mg/dL plus symp toms BUN 10 8 - 18 mg/dL [facility] LABORATORY Creatinine 0.96 0.70 - 1.20 mg/dL [facility] LABORATORY Sodium 141 135 - 145 mmol/L [facility] LABORATORY Potassium 3.9 3.5 - 5.0 mmol/L [facility] LABOR[facility]ORY Comment: Please note: ??Patients with WBC >100,00 0 may have falsely elevated Potassium levels. ??For accurate Potassium quantif ication in these patients send serum separator tube (gold top) for subsequent determinations. ??Contact the Clinical Chemistry Laboratory if there are any qu estions. Chloride 103 98 - 107 mmol/L [facility] CO2 25 22 - 31 mmol/L [facility] Anion Gap 13 5 - 15 mmol/L [facility] LABOR[facility]ORY Calcium 9.5 8.5 - 10.5 mg/dL [facility] LAB[facility]ORY Total Protein 7.0 6.1 - 8.0 g/dL [facility] LABORATORY Albumin 4.6 3.2 - 5.2 g/dL [facility] AST 21 0 - 30 unit/L [facility] ALT 29 0 - 30 unit/L [facility] LABOR[facility]ORY Alk Phos 68 35 - 105 unit/L [facility] Total Bilirubin 0.2 0.2 - 1.3 mg/dL [facility] LABORATORY Estimated GFR 67 >=60 mL/min/1.73 m?? [facility] Comment: This patient? s estimated glomerular filtration rate (eGFR) is between 67 mL/min/1.73 m2 (patients with less muscl e mass) and 77 mL/min/1.73 m2 (patients with more muscle mass) as determined by the CKD-EPI equation. Assessment of eGFR is not appropriate when creatinine concentrations are rapidly changing. For clinical decisions where creatinine clearance will affect therapy, a 24-hour urine creatinine clearance may b e advised. Assignment of CKD stage 1 - 5 for patien ts with an eGFR near the transition point between stages may be based on cli nical assessment of muscle mass and symptoms in addition to eGFR. Specimen Anatomical Collection Method Collection Time Receive d Time (Source) Location / / Volume Laterality Blood 11/07/2021 1:55 PM 2 1:58 EDT PM EDT Resulting Agency Comment Spec In Lab Helena Desai MD CHEMISTRY ORDERABLES Performing Organization Address City/State/ZIP Code Phon e Number [address] (ABNORMAL) Cancer antigen 15-3 (11/07/2021 1:55 PM EDT) P athologist Signature CA 15-3 59 (H) <=25 [facility] unit/mL [facility] LABORATORY Specimen Anatomical Collection Method Collection Time Receive d Time (Source) Location / / Volume Laterality Blood 11/07/2021 1:55 PM 2 1:58 EDT PM EDT Resulting Agency Comment Spec In Lab Helena Desai MD CHEMISTRY ORDERABLES Performing Organization Address City/State/[place] [address] documented in this encounter Visit Diagnoses Diagnosis 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
--- OUTSIDE RECORDS SUMMARY | 2022-01-30 02:10 | XMS_ITS | Encounter Summary ---
:1965 Author Organization [facility] Address [address] [place] [address] Care Team Providers Name Role Phone Fox Tian MD Primary Care Provider Encounter Details Date Type Department Care Team Description 12/05/2021 Hospital Encounter Hematology and Maligna nt neoplasm of Oncology at [facility] upper-outer quadrant of [facility] right carine ast in female, [place] [phone] positive [phone] Social History Tobacco Use Types Packs/Day Years [...] Oncology 04/18/2022 [facility] H[facility]/[place], [place] [address] (Wo rk) documented as of this encounter Goals Goal Patient Goal Associated Recent Patient-Stated? Author Type Problems Progress DH Home Medication Patient No Dari n, Compliance and Facing Vladimir Singh, Understanding Action Plan [facility] Note: Formatting of this note might be d ifferent from the original. Slow or prevent progression and maintain quality of life, based on outcomes and quality of life assessed at follow-up visits documented as of this encounter Procedures Procedure Name Priority Date/Time Associated Comments Diagnosis HEMOGRAM Routine 12/05/2021 2:01 Malignant neoplasm Resul ts for this PM EDT of upper-outer procedure are in quadrant of right the result s breast in female, section. estrogen receptor positive DIFFERENTIAL, Routine 12/05/2021 2:01 PM Malignant neoplasm Re sults for this AUTOMATED EDT of upper-outer procedure are in quadrant of right the result s breast in female, section. estrogen receptor positive HC CA 15-3 (CANCER Routine 12/05/2021 2:01 PM Malignant neopla sm Results for this ANTIGEN) EDT of upper-outer procedure are in quadrant of right the result s breast in female, section. estrogen receptor positive HC VENIPUNCTURE Routine 12/05/2021 2:01 PM Malignant neoplasm EDT of upper-outer quadrant of right breast in female, estrogen receptor positive COMPREHENSIVE Routine 12/05/2021 2:01 PM Malignant neoplasm Re sults for this METABOLIC PANEL EDT of upper-outer procedure are in (NON-FASTING) quadrant of right the resul ts breast in female, section. estrogen receptor positive documented in this encounter Results (ABNORMAL) Differential, Automated (12/05/2021 2:01 PM EDT) [facility] gist Method Time Signature Neutrophils % 45.1 % [facility] Neutr Abs (ANC) 1.52 (L) 1.70 - [facility] 6.10 [facility] x10(3)/[facility] LABORATORY Lymphocytes % 43.2 % [facility] Lymphocytes Abs 1.4 0.9 - 3.2 [facility] x10(3)/[facility] LABORATORY Monocytes % 6.3 % [facility] Monocyte Abs 0.2 (L) 0.3 - 0.9 [facility] x10(3)/[facility] LABORATORY Eosinophils % 3.3 % [facility] Eosinophils Abs 0.1 0.0 - 0.4 [facility] x10(3)/[facility] LABORATORY Basophils % 2.1 % [facility] Basophils Abs 0.1 0.0 - 0.1 [facility] x10(3)/[facility] LABORATORY Immature Gran % 0.00 % [facility] Comment: Immature granulocytes(IG's)percentage an d absolute count will include metamyelocytes, myelocytes, and promyelo cytes. Blood smears from CBCs yielding IG's will be scanned manually for concor dance. If this scan disagrees with the automated IG or if promyelocytes are not ed, a manual differential will be performed. Mónica Gran Abs 0.00 0.00 - 0.04 x10(3)/[facility] Specimen Anatomical Collection Method Collection Time Receive d Time (Source) Location / / Volume Laterality Blood 12/05/2021 2:01 PM 2 2:14 EDT PM EDT Resulting Agency Comment Spec In Lab Helena Desai MD HEMATOLOGY ORDERABLES Performing Organization Address City/State/[place] [address] (ABNORMAL) Hemogram (12/05/2021 2:01 PM EDT) Analysis Performed At Patho logist Time Signature WBC 3.4 (L) 4.0 - 9.5 [facility] x10(3)/[facility] LABORATORY RBC 4.55 4.00 - [place] 5.21 [facility] x10(6)/[facility] LABORATORY Hemoglobin 14.3 11.7 - [place] 15.5 g/dL [facility] Hematocrit 41.7 35.7 - [facility] 45.8 % [facility] MCV 91.6 82.6 - [facility] 94.4 [facility] LAB[facility] MCH 31.4 27.1 - [facility] 32.0 pg [facility] MCHC 34.3 31.7 - [facility] 35.0 g/dL [facility] Platelets 307 145 - 357 [facility] x10(3)/[facility] LABORATORY RDWSD 50.5 (H) 37.0 - [facility] 46.0 [facility] LABORATORY RDWCV 15.1 (H) 11.5 - [facility] 14.1 % [facility] MPV 8.9 7.6 - 12.9 [facility] nRBC % Auto 0.0 % [facility] nRBC Abs Auto 0.000 0.000 - [facility] 0.000 [facility] x10(3)/[facility] LABORATORY Specimen Anatomical Collection Method Collection Time Receive d Time (Source) Location / / Volume Laterality Blood 12/05/2021 2:01 PM 2 2:14 EDT PM EDT Resulting Agency Comment Spec In Lab Helena Desai MD HEMATOLOGY ORDERABLES Performing Organization Address City/State/ZIP Code Phon e Number [place] (ABNORMAL) Cancer antigen 15-3 (12/05/2021 2:01 PM EDT) athologist Signature CA 15-3 65 (H) <=25 [facility] unit/mL [facility] Specimen Anatomical Collection Method Collection Time Receive d Time (Source) Location / / Volume Laterality Blood 12/05/2021 2:01 PM 2 2:14 EDT PM EDT Resulting Agency Comment Spec In Lab Helena Desai MD CHEMISTRY ORDERABLES Performing Organization Address City/State/ZIP Code Phon e Number [address] Comprehensive metabolic panel (non-fasting) (12/05/2021 2:01 PM EDT) athologist Signature Glucose Lvl 105 65 - 199 [facility] mg/dL [facility] Comment: Diabetes: >=200 mg/dL plus symp toms BUN 9 8 - 18 mg/dL [facility] Creatinine 0.83 0.70 - 1.20 mg/dL [facility] Sodium 141 135 - 145 mmol/L [facility] Potassium 3.5 3.5 - 5.0 mmol/L [facility] Comment: Please note: ??Patients with WBC >100,00 0 may have falsely elevated Potassium levels. ??For accurate Potassium quantif ication in these patients send serum separator tube (gold top) for subsequent determinations. ??Contact the Clinical Chemistry Laboratory if there are any qu estions. Chloride 103 98 - 107 mmol/L [facility] CO2 25 22 - 31 mmol/L [facility] Anion Gap 13 5 - 15 mmol/L [facility] Calcium 9.7 8.5 - 10.5 mg/dL [facility] Total Protein 7.2 6.1 - 8.0 g/dL [facility] Albumin 4.7 3.2 - 5.2 g/dL [facility] AST 25 0 - 30 unit/L [facility] ALT 29 0 - 30 unit/L [facility] Alk Phos 68 35 - 105 unit/L [facility] Total Bilirubin 0.3 0.2 - 1.3 mg/dL [facility] Estimated GFR 79 >=60 mL/min/1.73 m?? [facility] Comment: This patient? 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
--- OUTSIDE RECORDS SUMMARY | 2022-01-30 02:10 | XMS_ITS | Encounter Summary ---
:1965 Author Organization [facility] [place] [address] Care Team Providers Name Role Phone Fox Tian MD Primary Care Provider Reason for Visit Reason Comments Medication Management Encounter Details Date Type Department Care Team Description 12/13/2021 Specialty Pharmacy Pharmacy at [facility], [facility] [place] [phone] Social History Tobacco Use Types Packs/Day Years [...] documented as of this encounter Progress Notes Lo Power RPH - 12/13/2021 4:03 PM EDT Clinical Management Plan: Refill Specialty Pharmacy Consultation; Lo Power [facility] Comprehensive Medication Management (CMM) Isabel Neeraj Austin Ms. Isabel Austin is a 56 y.o. [...] Known Allergies Medication Reconciliation Discrepancies (compared to [facility] med list) No Specialty Pharmacy Refill Questionnaire Refill Questionnaire 12/13/2021 What is the name of the specialty medication you are refilling? Ibrance Are you taking any new medications? No Any new medical condition? No Any new allergies? No Any new side effects that are bothersome? No What date will you need this fill by? 12/16/2021 Adherence: Any missed doses? No Patient understands no changes to current drug regimen were made. Lo Power RPH 12/13/21 4:04 PM documented in this encounter Plan of Treatment Upcoming Encounters Date Type Specialty Care Team Description 01/30/2022 Infusion Hematology and Oncology 02/27/2022 Infusion Hematology and Oncology 03/27/2022 Infusion Hematology and Oncology 04/18/2022 Office Visit Hematology and Oncology [facility] Carey villalpando MD [facility] HEMATOLOGY/[place], [place] [address] (Wo rk) documented as of this encounter Goals Goal Patient Goal Associated Recent Patient-Stated? Author Type Problems Progress DH Home Medication Patient No Dari marr, Compliance and Facing Vladimir Singh, Understanding Action Plan [facility] Note: Formatting of this note might be d ifferent from the original. Slow or prevent progression and maintain quality of life, based on outcomes and quality of life assessed at follow-up visits documented as of this encounter Visit Diagnoses Not on filedocumented in this encounter Care Teams Software Engineer Relationship Specialty Start Date End Date Fox Tian MD PCP - General 06/06/[address] [place] [phone] documented as of this encounter
--- OUTSIDE RECORDS SUMMARY | 2022-01-30 02:10 | XMS_ITS | Clinical Summary ---
:1965 Author Organization [facility] [place] [address] Care Team Providers Name Role Phone Fox Tian MD Primary Care Provider Allergies No known active allergies Medications Medication Sig Dispensed Refills Start Date End Date Status escitalopram (LEXAPRO) TAKE ONE TABLET 3 01/17/2019 Active 20 mg Tablet BY MOUTH EVERY DAY enalapril (VASOTEC) 2.5 0 01/30/2019 Active mg Tablet omeprazole (PRILOSEC) 40 TAKE ONE CAPSULE 14 12/28/19 19 Active mg Capsule, Delayed BY MOUTH EVERY Release(E.C.) DAY letrozole (Femara) 2.5 Take 1 tablet by 30 tablet 11 08/17/2021 Active mg Tablet mouth daily. palbociclib (Ibrance) Take 1 tablet 21 tablet 11 08/17/2021 Active 125 mg (125 mg) by tabletIndications: mouth daily. HR-positive, Take for 21 days HER2-negative advanced followed by 7 breast cancer days off. Call clinic before starting medication. Indications: hormone receptor (HR)-positive, HER2-negative advanced breast cancer traZODone (DESYREL) 150 Take 1 tablet by 30 tablet 11 2 Active mg Tablet mouth nightly. meloxicam (MOBIC) 15 mg Take 15 mg by 0 09/07/2021 Active Tablet mouth daily. prochlorperazine Take 1 tablet by 30 tablet 0 09/28/2021 Active (Compazine) 10 mg Tablet mouth every 6 hours as needed for Nausea. Active Problems Problem Noted Date Malignant neoplasm of upper-outer quadrant of right br east in female, 08/17/2021 estrogen receptor positive Malignant neoplasm of right breast in female, estrogen receptor positive 08/02/2021 Overview: 07/24/21 [facility]: ER+/DE+/HER2- right breast IDC and right axillary lymph node metastatic adenocarcinoma Encounters Date Type Specialty Care Team Description 01/04/2022 Specialty Pharmacy Pharmacy Joan Stephenson Medicat ion Refill R, [facility] 01/02/2022 Office Visit Hematology and Carey Desai Malignant neoplasm Oncology MD Caro of upper-outer quadrant of rig ht breast in [facility], estrogen recept or positive 01/02/2022 Hospital Encounter Hematology and Maligna nt neoplasm Oncology of upper-outer quadrant of rig ht breast in [facility], estrogen recept or positive 01/02/2022 Hospital Encounter Hematology and Maligna nt neoplasm Oncology of upper-outer quadrant of rig ht breast in [facility], estrogen recept or positive 01/02/2022 Hospital Encounter Radiology Carey Desai MD 01/02/2022 Hospital Encounter Radiology Carey Desai neoplasm MD Caro of upper-outer quadrant of rig ht breast in [facility], estrogen recept or positive 01/02/2022 Hospital Encounter Radiology Carey Desai neoplasm MD Caro of upper-outer quadrant of rig ht breast in [facility], estrogen recept or positive 01/02/2022 Specialty Pharmacy Pharmacy Shayna Black y Pharmacy Review (Ibrance Tablet ) 12/13/2021 Specialty Pharmacy Pharmacy Lo Power Medica tion [facility] Management 12/05/2021 Hospital Encounter Hematology and Maligna nt neoplasm Oncology of upper-outer quadrant of rig ht breast in [facility], estrogen recept or positive 12/05/2021 Hospital Encounter Hematology and Maligna nt neoplasm Oncology of upper-outer quadrant of rig ht breast in [facility], estrogen recept or positive 11/09/2021 Specialty Pharmacy Pharmacy Joan Stephenson Medicat ion Refill R, [facility] 11/07/2021 Hospital Encounter Hematology and Maligna nt neoplasm Oncology of upper-outer quadrant of rig ht breast in [facility], estrogen recept or positive 11/07/2021 Hospital Encounter Hematology and Maligna nt neoplasm Oncology of upper-outer quadrant of rig ht breast in [facility], estrogen recept or positive from Last 3 Months Immunizations Name Administration Dates Next Due Moderna Covid-19 (Heavy Line Technician 100mcg) Vaccine 08/18/2021, 2020, 10/14/2020 Family History Medical History Relation Comments Breast Cancer Sister Relation Status Comments Sister Social History Tobacco Use Types Packs/Day Years [...] Assigned at Date Recorded Not on file Last Filed Vital Signs Vital Sign Reading Time Taken Comments Blood Pressure 145/83 01/02/2022 1:06 PM EDT Pulse 97 01/02/2022 1:06 PM EDT Temperature 36.4 ??C (97.6 ??F) 01/02/2022 1:06 PM EDT Respiratory Rate 20 01/02/2022 1:06 PM EDT Oxygen Saturation 96% 01/02/2022 1:06 PM EDT Inhaled Oxygen Concentration - - Weight 92.5 kg (204 lb) 01/02/2022 1:06 PM EDT Height 172.3 cm (5' 7.84) 01/02/2022 1:06 PM EDT Body Mass Index 31.17 01/02/2022 1:06 PM EDT Plan of Treatment Upcoming Encounters Date Type Specialty Care Team Description 01/30/2022 Infusion Hematology and Oncology 02/27/2022 Infusion Hematology and Oncology 03/27/2022 Infusion Hematology and Oncology 04/18/2022 Office Visit Hematology and Oncology Carey Higuera MD [facility]/ONCOL DENNYValerio [place], [place] [address] (Wo rk) Health Maintenance Due Date Last Done Comments HIV screen 1984 Hepatitis C Screening 1984 Lipid Screening 1984 Tdap adult 1985 Tetanus vaccine 1985 HPV test 1996 PAP Smear 1996 Breast Cancer Share Decision 2006 Needed Colonoscopy 10/14/2011 Breast Cancer screening 2016 Zoster vaccine (1 of 2) 2016 Advance Directive 2021 Covid-19 Vaccine (4 - Booster for 12/16/2021 08/18/2021, , Moderna series) 10/14/2020 Influenza (Flu) vaccine (1 of 1 - 03/15/2022 Influenza standard series) Diabetes Screening (HgbA1C or 01/02/2025 01/02/2022, 2021, Glucose) 11/07/2021, Additional history exists Goals Goal Patient Goal Associated Recent Patient-Stated? Author Type Problems Progress DH Home Medication Patient No Dari marr, Compliance and Facing Vladimir Singh, Understanding Action Plan [facility] Note: Formatting of this note might be d ifferent from the original. Slow or prevent progression and maintain quality of life, based on outcomes and quality of life assessed at follow-up visits Procedures Procedure Name Priority Date/Time Associated Comments Diagnosis DIFFERENTIAL, Routine 01/02/2022 12:57 Malignant neoplasm Resu lts for this AUTOMATED PM EDT of upper-outer procedure are in quadrant of right the result s breast in female, section. estrogen receptor positive HEMOGRAM Routine 01/02/2022 12:57 Malignant neoplasm Resul [...] breast in female, section. estrogen receptor positive NM BONE SCAN WHOLE Routine 01/02/2022 11:11 Malignant neoplasm Results for this BODY AM EDT of upper-outer procedure are in quadrant of right the result s breast in female, section. estrogen receptor positive CT CHEST ABDOMEN Routine 01/02/2022 10:44 Malignant neoplasm R esults for this PELVIS W CONTRAST AM EDT of upper-outer procedur e are in (GENERIC) quadrant of right the result s breast in female, section. estrogen receptor positive DIFFERENTIAL, Routine 12/05/2021 2:01 PM Malignant neoplasm Re sults for this AUTOMATED EDT of upper-outer procedure are in quadrant of right the result s breast in female, section. estrogen receptor positive HEMOGRAM Routine 12/05/2021 2:01 PM Malignant neoplasm Res ults for this EDT of upper-outer procedure are in quadrant of right the result s breast in female, section. estrogen receptor positive HC CA 15-3 (CANCER Routine 12/05/2021 2:01 PM Malignant neopla sm Results for this ANTIGEN) EDT of upper-outer procedure are in quadrant of right the result s breast in female, section. estrogen receptor positive COMPREHENSIVE Routine 12/05/2021 2:01 PM Malignant neoplasm Re sults for this METABOLIC PANEL EDT of upper-outer procedure are in (NON-FASTING) quadrant of right the resul ts breast in female, section. estrogen receptor positive HC VENIPUNCTURE Routine 12/05/2021 2:01 PM Malignant neoplasm EDT of upper-outer quadrant of right breast in female, estrogen receptor positive DIFFERENTIAL, Routine 11/07/2021 1:55 PM Malignant neoplasm Re sults for this AUTOMATED EDT of upper-outer procedure are in quadrant of right the result s breast in female, section. estrogen receptor positive HEMOGRAM Routine 11/07/2021 1:55 PM Malignant neoplasm Res ults for this EDT of upper-outer procedure are [...] breast in female, section. estrogen receptor positive from Last 3 Months Results (ABNORMAL) Hemogram (01/02/2022 12:57 PM EDT)Only the most recent of3 results within the time period is included. Analysis Performed At Patho logist Time Signature WBC 3.7 (L) 4.0 - 9.5 [facility] x10(3)/[facility] LABORATORY RBC 4.19 4.00 - CAREY FREDA 5.21 [facility] x10(6)/[facility] LABORATORY Hemoglobin 13.8 11.7 - [facility] 15.5 g/dL [facility] LABORATORY Hematocrit 38.7 35.7 - [facility] 45.8 % [facility] LABORATORY MCV 92.4 82.6 - [facility] 94.4 [facility] LABORATORY MCH 32.9 (H) 27.1 - [facility] 32.0 pg [facility] LABORATORY MCHC 35.7 (H) 31.7 - [facility] 35.0 g/dL [facility] LABORATORY Platelets 273 145 - 357 [facility] x10(3)/[facility] LABORATORY RDWSD 46.3 (H) 37.0 - [facility] 46.0 [facility] LABORATORY RDWCV 13.7 11.5 - [facility] FREDA 14.1 % [facility] LABORATORY MPV 9.0 7.6 - 12.9 [facility] nRBC % Auto 0.0 % [facility] LABORATORY nRBC Abs Auto 0.000 0.000 - [facility] 0.000 [facility] x10(3)/[facility] LABORATORY Specimen Anatomical Collection Method Collection Time Receive d Time (Source) Location / / Volume Laterality Blood 01/02/2022 12:57 01/02/2022 1:11 PM EDT PM EDT Resulting Agency Comment Spec In Lab Carey Desai MD HEMATOLOGY ORDERABLES Performing Organization Address City/State/ZIP Code [place] [address] (ABNORMAL) Differential, Automated (01/02/2022 12:57 PM EDT)Only the most recent of3 resultswithin the time period is included. [facility] gist Method Time Signature Neutrophils % 54.5 % [facility] LABORATORY Neutr Abs (ANC) 2.00 1.70 - [facility] 6.10 [facility] x10(3)/[facility] LABORATORY Lymphocytes % 36.0 % [facility] LABORATORY Lymphocytes Abs 1.3 0.9 - 3.2 [facility] x10(3)/[facility] LABORATORY Monocytes % 5.4 % [facility] LABORATORY Monocyte Abs 0.2 (L) 0.3 - 0.9 [facility] x10(3)/[facility] LABORATORY Eosinophils % 2.7 % [facility] LABORATORY Eosinophils Abs 0.1 0.0 - 0.4 [facility] x10(3)/[facility] LABORATORY Basophils % 1.1 % [facility] LABORATORY Basophils Abs 0.0 0.0 - 0.1 [facility] x10(3)/[facility] LABORATORY Immature Gran % 0.30 % [facility] LABORATORY Comment: Immature granulocytes(IG's)percentage an d absolute count will include metamyelocytes, myelocytes, and promyelo cytes. Blood smears from CBCs yielding IG's will be scanned manually for concor dance. If this scan disagrees with the automated IG or if promyelocytes are not ed, a manual differential will be performed. Mónica Gran Abs 0.01 0.00 - 0.04 x10(3)/[facility] LABORATORY Specimen Anatomical Collection Method Collection Time Receive d Time (Source) Location / / Volume Laterality Blood 01/02/2022 12:57 01/02/2022 1:11 PM EDT PM EDT Resulting Agency Comment Spec In Lab Carey Desai MD HEMATOLOGY ORDERABLES Performing Organization Address City/State/ZIP [place] [address] (ABNORMAL) Cancer antigen 15-3 (01/02/2022 12:57 PM EDT)Only the most recent of3 resultswithin the time period is included. P athologist Signature CA 15-3 57 (H) <=25 [facility] unit/mL [facility] LABORATORY Comment: This result was generated using a Arthur Onelia immunoassay. ??Results obtained from other methods or manufacturers al ot be used interchangeably with this method. Specimen Anatomical Collection Method Collection Time Receive d Time (Source) Location / / Volume Laterality Blood 01/02/2022 12:57 01/02/2022 1:11 PM EDT PM EDT Resulting Agency Comment Spec In Lab Carey Desia MD CHEMISTRY ORDERABLES Performing Organization Address City/State/ZIP Code Phon e Number [place] [id number] Comprehensive metabolic panel (non-fasting) (01/02/2022 12:57 PM EDT)Only the most recent of3 resultswithin the time period is included. athologist Signature Glucose Lvl 185 65 - 199 [facility] mg/dL [facility] LABORATORY Comment: Diabetes: >=200 mg/dL plus symp toms BUN 9 8 - 18 mg/dL [facility] LABORATORY Creatinine 0.81 0.70 - 1.20 mg/dL [facility] LABORATORY Sodium 138 135 - 145 mmol/L [facility] LABORATORY Potassium 3.7 3.5 - 5.0 mmol/L [facility] LABORATORY Comment: Please note: ??Patients with WBC >100,00 0 may have falsely elevated Potassium levels. ??For accurate Potassium quantif ication in these patients send serum separator tube (gold top) for subsequent determinations. ??Contact the Clinical Chemistry Laboratory if there are any qu estions. Chloride 101 98 - 107 mmol/L [facility] LABORATORY CO2 24 22 - 31 mmol/L [facility] LABORATORY Anion Gap 13 5 - 15 mmol/L [facility] LABORATORY Calcium 9.4 8.5 - 10.5 mg/dL [facility] LABORATORY Total Protein 7.1 6.1 - 8.0 g/dL [facility] LABORATORY Albumin 4.5 3.2 - 5.2 g/dL [facility] LABORATORY AST 23 0 - 30 unit/L [facility] LABORATORY ALT 26 0 - 30 unit/L [facility] LABORATORY Alk Phos 60 35 - 105 unit/L [facility] LABORATORY Total Bilirubin 0.2 0.2 - 1.3 mg/dL [facility] LABORATORY Estimated GFR 86 >=60 mL/min/1.73 m?? [facility] LABORATORY Comment: This patient's estimated [...] Organization Address City/State/[place] [address] [place] Bone Scan Whole Body (01/02/2022 11:11 [...] who have questions please contact the health care associate that requested your imaging first. ? Narrative [...] ho have questions please contact the health care associate that requested your imaging first. Carey Desai MD IMG NM ORDERABLES CT Chest Abdomen Pelvis w Contrast (Generic) (01/02/2022 10:44 AM EDT) Anatomical Region Laterality Modality Abdomen, Pelvis Computed Tomography Specimen (Source) Anatomical Collection Method Collection Time Re ceived Time Location / / Volume Laterality 01/02/2022 11:00 AM EDT Impressions 01/02/2022 2:43 PM EDT 1. ??Decreased size of right breast mass . 2. ??Interval resolution of right-sided axillary lymphadenopathy. No new pathologically enlarged lymph nodes. 3. ??Decrease in size of liver metastase s. 4. ??Previously seen multifocal lytic os seous lesions are now sclerotic compatible with response to treatment. I t is not possible to determine if this there is residual tumor at these sites O RIF lesions have been completely treated. PET/CT may be useful if this di stinction is needed. 5. ??No new discrete osseous lesion is i dentified. No pathologic fracture. 6. ??Continued enlargement of heterogene ous right ovary. Ultrasound is recommended to ascertain for worrisome f eatures. I have personally reviewed the image(s) and the resident's interpretation and agree with the findings, Larisa Rucker MD at 01/02/2022 2:43 PM Thank you for letting us participate in the care of this patient. ??If you are a health care provider and have any questi ons regarding this report, please contact the number below. ??For patients who have questions please contact the health care associate that requested your imaging first. ? Narrative 01/02/2022 2:43 PM EDT EXAMINATION: CT CHEST ABDOMEN PELVIS W CONTRAST (GENERIC) CLINICAL HISTORY: Breast cancer, invasiv e, stage IV, assess treatment response TECHNIQUE: Helical CT of the chest, abdo men, and pelvis was performed following the intravenous administration of contra st. Administered 103.0 ml of OMNIPAQUE 300.00 mg/ml. Oral contrast was administ ered. COMPARISON: 08/03/2021. FINDINGS: Chest: Lungs and large airways: Trachea and kamron nstem bronchi are widely patent. No bronchiectasis. Dependent atelectasis. 3 subpleural rounded or ovoid nodules, 2 in the left lung, one in the right, are all unchanged. The largest is 7 mm (series 5 image 40, 47). These are favor ed to be intrapulmonary lymph nodes. No new findings. Pleura: No pleural effusion. Heart/vasculature: No cardiomegaly or pe ricardial effusion. No coronary artery calcification is. Left-sided 3 vessel ao rtic arch without aneurysm. The pulmonary arteries demonstrate normal co urse and caliber without central filling defect. Lymph nodes: No supraclavicular, axillar y, mediastinal, hilar, or internal mammary chain lymphadenopathy. There is a surgical clip within the right axilla. Mediastinum and maikel: Normal Soft tissues: Decreased size of right br east mass associated with surgical clip measuring 2.4 x 1.7 cm, previously 2.2 x 3.5 cm. Abdomen/pelvis: Liver: The liver is normal in size. Ther e is diffuse hypoattenuation of the liver parenchyma with sparing along the gallbladder fossa compatible with hepatic steatosis. Decreased size of ill -defined peripherally enhancing hypoattenuating lesions within the left and right lobes. The left lobe lesion measures 3.4 cm, previously 4.3 cm. The right lobe lesion measures 2.1 cm, previously 2.5 cm. The smaller lesion pr eviously seen in the dome of the liver is no longer identified. No new liver le sions. Bile ducts: Nondilated. Gallbladder: No calcified gallstones. No rmal caliber wall. Pancreas: Normal attenuation without daly radha dilatation. Spleen: Normal. Adrenals: Normal. Kidneys: Normal. Urinary Bladder: Decompressed. No wall t hickening or calculi. Vasculature: No aneurysm. Lymph Nodes: ??No enlarged lymph nodes. Bowel: Nondilated, no wall thickening. ? ?Normal terminal ileum and appendix. Mild, diffuse fecal loading of the colon . Peritoneum and mesentery: No ascites, fr ee air, or loculated fluid collection. No mesenteric inflammation. Reproductive organs: The uterus is sean l. The right ovary is enlarged to 4.4 x 4.7 x 5.4 cm, increased from 4.3 x 4.4 x 4.7 cm. It is heterogeneous in density. Normal left ovary, measuring 3.3 cm maxi cynthia, unchanged.. Osseous structures: Multifocal osseous l esions, most of which have now become completely or partially/peripherally scl erotic, compatible with osteoblastic response to treatment. No discrete new l esions identified. No pathologic fracture. Procedure Note Larisa Rucker MD - 01/02/2022Formatt ing of this note might be different from the original. EXAMINATION: CT CHEST ABDOMEN PELVIS W C ONTRAST (GENERIC) CLINICAL HISTORY: Breast cancer, invasiv e, stage IV, assess treatment response TECHNIQUE: Helical CT of the chest, abdo men, and pelvis was performed following the intravenous administration of contra st. Administered 103.0 ml of OMNIPAQUE 300.00 mg/ml. Oral contrast was administ ered. COMPARISON: 08/03/2021. FINDINGS: Chest: Lungs and large airways: Trachea and kamron nstem bronchi are widely patent. No bronchiectasis. Dependent atelectasis. 3 subpleural rounded or ovoid nodules, 2 in the left lung, one in the right, are all unchanged. The largest is 7 mm (series 5 image 40, 47). These are favor ed to be intrapulmonary lymph nodes. No new findings. Pleura: No pleural effusion. Heart/vasculature: No cardiomegaly or pe ricardial effusion. No coronary artery calcification is. Left-sided 3 vessel ao rtic arch without aneurysm. The pulmonary arteries demonstrate normal co urse and caliber without central filling defect. Lymph nodes: No supraclavicular, axillar y, mediastinal, hilar, or internal mammary chain lymphadenopathy. There is a surgical clip within the right axilla. Mediastinum and maikel: Normal Soft tissues: Decreased size of right br east mass associated with surgical clip measuring 2.4 x 1.7 cm, previously 2.2 x 3.5 cm. Abdomen/pelvis: Liver: The liver is normal in size. Ther e is diffuse hypoattenuation of the liver parenchyma with sparing along the gallbladder fossa compatible with hepatic steatosis. Decreased size of ill -defined peripherally enhancing hypoattenuating lesions within the left and right lobes. The left lobe lesion measures 3.4 cm, previously 4.3 cm. The right lobe lesion measures 2.1 cm, previously 2.5 cm. The smaller lesion pr eviously seen in the dome of the liver is no longer identified. No new liver le sions. Bile ducts: Nondilated. Gallbladder: No calcified gallstones. No rmal caliber wall. Pancreas: Normal attenuation without daly radha dilatation. Spleen: Normal. Adrenals: Normal. Kidneys: Normal. Urinary Bladder: Decompressed. No wall t hickening or calculi. Vasculature: No aneurysm. Lymph Nodes: No enlarged lymph nodes. Bowel: Nondilated, no wall thickening. N ormal terminal ileum and appendix. Mild, diffuse fecal loading of the colon . Peritoneum and mesentery: No ascites, fr ee air, or loculated fluid collection. No mesenteric inflammation. Reproductive organs: The uterus is sean l. The right ovary is enlarged to 4.4 x 4.7 x 5.4 cm, increased from 4.3 x 4.4 x 4.7 cm. It is heterogeneous in density. Normal left ovary, measuring 3.3 cm maxi cynthia, unchanged.. Osseous structures: Multifocal osseous l esions, most of which have now become completely or partially/peripherally scl erotic, compatible with osteoblastic response to treatment. No discrete new l esions identified. No pathologic fracture. IMPRESSION 1. Decreased size of right breast mass. 2. Interval resolution of right-sided ax illary lymphadenopathy. No new pathologically enlarged lymph nodes. 3. Decrease in size of liver metastases. 4. Previously seen multifocal lytic osse ous lesions are now sclerotic compatible with response to treatment. I t is not possible to determine if this there is residual tumor at these sites O RIF lesions have been completely treated. PET/CT may be useful if this di stinction is needed. 5. No new discrete osseous lesion is xavier ntified. No pathologic fracture. 6. Continued enlargement of heterogeneou s right ovary. Ultrasound is recommended to ascertain for worrisome f eatures. I have personally reviewed the image(s) and the resident's interpretation and agree with the findings, Larisa Rucker MD at 01/02/2022 2:43 PM Thank you for letting us participate in the care of this patient. If you are a health care provider and have any questi ons regarding this report, please contact the number below. For patients w ho have questions please contact the health care associate that requested your imaging first. Carey Desai MD IMG CT ORDERABLES from Last 3 Months Insurance Payer Benefit Plan Subscriber ID Effective Dates Phone Address Type / Group [facility] [id number] 2018-Presen [phone] [address] [facility] t 3 [facility] [id number] Advance Directives Latest Code Status on File Code Status Date Activated Date Inactivated Comments Attempt Cardiopulmonary Resuscitation - 08/28/2021 1:50 PM 022 4:34 AM Inpatient Code Status decision made by: Patient Care Teams Hand Cementer Relationship Specialty Start Date End Date Fox Tian MD PCP - General 06/06/[address] [place] [id number]
--- OUTSIDE RECORDS SUMMARY | 2022-01-30 02:10 | XMS_ITS | Encounter Summary ---
:1965 Author Organization [facility] Address [address] [place] [address] Care Team Providers Name Role Phone Fox Tian MD Primary Care Provider Reason for Visit Reason Comments Follow-up Encounter Details Date Type Department Care Team Description 01/02/2022 Office Visit Hematology and Carey Desai Malignant neoplasm of Oncology at [facility] [place] Caro upper-outer quadrant [facility] of right breast in Drive female, estrogen [place], [place] HEMATOLOGY/ONCOLOG receptor positive [phone] Y [phone] [place], [place] [address] Social History Tobacco Use Types Packs/Day Years [...] Mass Index 31.17 01/02/2022 1:06 PM EDT documented in this encounter Progress Notes Carey Desai MD - 01/02/2022 2:00 PM EDT Patient ID:??Isabel Austin??is a 56 y.o.??female. ?? Cc: breast cancer ?? Current treatment: First line letrozole + palbociclib + goserelin + xgeva started 09/12/21 Interval history: Etta is here with her daughter for f/u . She is doing well. Just finished out theschool year. 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 No new symptoms other than some mild achiness in her right hand/ wrist. No new repetitive motion activities. No regular exercise routine. Stable chronic left hip pain. No fevers/ chills/ sweats/ n/v/d/c. ?? HPI: ?? 55 yo who felt a lump in her right breast over the summer. Pain increased while laying on her right side and she sought medical attention. Imaging showed a mass in right UOQ and 1 abnormal lymph node with skin thickening, mild right nippleretraction. Mild chronic low back pain, and increasing pain in upper right back by shoulder blade. Taking meloxicam for back pain, doesn't really help with the shoulder pain. Lymph node biopsy was + for malignancy. She was referred for surgical and medical oncology consults with CT and bone scan for staging. Bone scan showed mets in 2 posterior ribs , T2 and T12. CT showed 2-3 large abnormal areas in the liver suspicious for metastases.? Started on letrozole and palbociclib + goserelin + xgeva with excellent tolerance. ? 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 Savage off, helps with grand children. Lives with , children and grand children near by.? HENT:??Negative. ?? Eyes:??Negative. ?? Respiratory:??Negative. ?? Cardiovascular:??Negative. ?? Gastrointestinal:??Negative. ?? Endocrine:??Negative. ?? Genitourinary: Positive for??menstrual problem.?Hx iron deficiency from heavy menses, started ocps for menses control several years ago, stopped at diagnosis of breast cancer; Ovarian function testing darrell-menopausal, now on goserelin. ?? 12 grandchildren.? Musculoskeletal: Positive for??arthralgias??and back pain. Skin:??Negative. ?? Allergic/Immunologic:??Negative. ?? Neurological:??Negative. ?? Hematological:??Negative. ?? Psychiatric/Behavioral:??Negative.? FHx: sister with breast cancer in her 20's, s/p double mastectomy doing well now. Parents , mother age 73 DM/ CHF; father at age 69 from [place]? Objective ?? Physical Exam Last value Range last 8 hrs Temperature Temp: 36.4 ??C (97.6 ??F) Temp: [36.4 ??C (97.6 ??F)] Heart Rate Heart Rate: 97 Heart Rate: [97] Blood Pressure BP: 145/83 BP: (145)/(83) Respiratory Rate Resp: 20 Resp: [20] SpO2 SpO2: 96 % SpO2: [96 %] Vitals??and nursing note??reviewed. Constitutional: ?Appearance: Normal appearance. HENT: ?Head: Normocephalic. Cardiovascular: ?Rate and Rhythm: Normal rate. ?Pulses: Normal pulses. Pulmonary: ?Effort: Pulmonary effort is normal. Musculoskeletal: ?General: Normal range of motion. ?Cervical back: Normal range of motion. Skin: ?General: Skin is warm??and dry. Neurological: ?General: No focal deficit??present. ?Mental Status: She is alert. Psychiatric: ?Mood and Affect: Mood??normal. ?Behavior: Behavior??normal. ?Thought Content: Thought content??normal. ?Judgment: Judgment??normal. ?CT, MRI, bone scan and labs viewed independently in detail and reviewed with Etta , comparing todays scan to last July. ?? Liver biopsy c/w same: er/pr + her2 neg ?Assessment & Plan ? No problem-specific Assessment & Plan notes found for this encounter. ?? 55 yo with de gini metastatic breast cancer. ER+ her2 neg. Excellent clinical and radiographic response to first 3 months of AI + CDK4/6 inhib. Doing well on current treatment. ? Bone mets at T2 and T10 improved, other areas in left iliac and left acetabulum asymptomatic. ? Pain currently well controlled on higher dose of meloxicam. ? Plan: continue Letrozole 2.5 mg daily Palbociclib 125 mg day 1-21, q 28 days Monitor blood counts monthly. xgeva monthly and Ovarian suppression with goserelin q 4 wks--arrange at [facility] ?? F/u 3 months with MD or PHOTONICS ENGINEERING TECHNOLOGIST? documented in this encounter Plan of Treatment Upcoming Encounters Date Type Specialty Care Team Description 01/30/2022 Infusion Hematology and Oncology 02/27/2022 Infusion Hematology and Oncology 03/27/2022 Infusion Hematology and Oncology 04/18/2022 Office Visit Hematology and Oncology Carey Higuera MD [facility] HEMAT[facility]/ONCOL [place], [place] [address] (Wo rk) documented as of this encounter Goals Goal Patient Goal Associated Recent Patient-Stated? Author Type Problems Progress DH Home Medication Patient No Dari marr, Compliance and Facing Vladimir Singh, Understanding Action Plan [facility] Note: Formatting of this note might be d ifferent from the original. Slow or prevent progression and maintain quality of life, based on outcomes and quality of life assessed at follow-up visits documented as of this encounter Visit Diagnoses Diagnosis Malignant neoplasm of upper-outer quadra nt of right breast in female, estrogen receptor positive documented in this encounter Care Teams Director Of Outreach Relationship Specialty Start Date End Date Fox Tian MD PCP - General 06/06/[address] [place] [phone] documented as of this encounter
--- OUTSIDE RECORDS SUMMARY | 2022-01-30 02:10 | XMS_ITS | Encounter Summary ---
:1965 Author Organization [facility] [address] Care Team Providers Name Role Phone Fox Tian MD Primary Care Provider Reason for Referral Diagnostic Test (Routine) - Closed Specialty Diagnoses / Procedures Referred By Contact Refer red To Contact Radiology Diagnoses Malignant neoplasm of upper-outer quadrant of right breast in female, estrogen receptor positive Carey Desai MD [facility] Rad Ct Scan Procedures CT Chest Abdomen Pelvis w Contrast (Generic) [facility] HEMATOLOGY/[place] [address] [place] [address] Referral ID Status Reason Start Date Expiration Date Visits V isits Requested Authorized [id number] Closed Specialty 12/22/2021 02/19/2022 1 1 Service Requested Reason for Visit Diagnostic Test (Routine) - Closed Specialty Diagnoses / Procedures Referred By Contact Refer red To Contact Radiology Diagnoses Malignant neoplasm of upper-outer quadrant of right breast in female, estrogen receptor positive Carey Desai MD [facility] Rad Ct Scan Procedures CT Chest Abdomen Pelvis w Contrast (Generic) [facility] HEMATOLOGY/[place] [address] [place] [address] Referral ID Status Reason Start Date Expiration Date Visits V isits Requested Authorized [id number] Closed Specialty 12/22/2021 02/19/2022 1 1 Service Requested Encounter Details Date Type Department Care Team Description 01/02/[address] Scan at [facility] [place] [place] Carey Desai Malignant neoplasm [facility] of right [employer], [place] CENTER breast in female, [phone] HEMATOLOGY/ONCOL estrogen receptor [phone] [place] [address] Social History Tobacco Use Types Packs/Day Years [...] Take 1 tablet by 30 tablet 11 0 09/2021 Tablet mouth daily. palbociclib (Ibrance) 125 [...] and Oncology Carey Higuera MD [facility] [address] (Wo rk) documented as of this encounter Goals Goal Patient Goal Associated Recent Patient-Stated? Author Type Problems Progress DH Home Medication Patient No Dari n, Compliance and Facing Vladimir Singh, Understanding Action Plan [facility] Note: Formatting of this note might be d ifferent from the original. Slow or prevent progression and maintain quality of life, based on outcomes and quality of life assessed at follow-up visits documented as of this encounter Procedures Procedure Name Priority Date/Time Associated Diagnosis Comme nts CT CHEST ABDOMEN Routine 01/02/2022 10:44 AM Malignant neoplas m Results for this PELVIS W CONTRAST EDT of upper-outer procedur e are in (GENERIC) quadrant of right the result s breast in female, section. estrogen receptor positive documented in this encounter Results CT Chest Abdomen Pelvis w Contrast (Generic) [...] have questions please contact the health career resource specialist that requested your imaging first. ? Electronically signed by: Larisa Rucker MD, [facility] ([phone]), at 01/02/2022 2:43 PM Narrative 01/02/2022 2:43 PM EDT EXAMINATION: CT [...] have questions please contact the health career resource specialist that requested your imaging first. Carey Desai MD IMG CT ORDERABLES documented in this encounter Visit Diagnoses Diagnosis Malignant neoplasm of upper-outer quadra nt of right breast in female, estrogen receptor positive documented in this encounter Administered Medications Inactive Administered Medications - up to 3 most recent administrations Medication Order MAR Action Action Date Dose Rate Site barium sulfate (Readi-Cat) 2.0 % Given 01/02/2022 10:45 AM EDT 9 00 mLs (w/v) oral liquid 450-900 mL 450-900 mL, Oral, ONCE PRN, 1 dose, Starting on Sat01/02/22 at 1045, Until Sat01/02/22 at 1045, Per Protocol, Radiology Contrast, Routine iohexoL (Omnipaque) (300 mg/mL) solution Given 01/02/2022 10:45 AM EDT 103 mLs 0-200 mL 0-200 mL, Intravenous, ONCE PRN, 1 dose, Starting on Sat01/02/22 at 1045, Until Sat01/02/22 at 1045, Per Protocol, Warning Vesicant/Irritant Medication , Radiology Contrast, Routine documented in this encounter Care Teams R And D Lab Technician Relationship Specialty Start Date End Date Fox Tian MD PCP - General 06/06/[address] [place] [phone] documented as of this encounter
--- OUTSIDE RECORDS SUMMARY | 2022-01-30 02:10 | XMS_ITS | Encounter Summary ---
:1965 Author Organization [facility] Address [address] [place] [address] Care Team Providers Name Role Phone Fox Tian MD Primary Care Provider Reason for Visit Treatment/Therapy Plan Authorization (Routine) - Authorized Specialty Diagnoses / Procedures Referred By Contact Refer red To Contact Hematology and Oncology Diagnoses Malignant neoplasm of upper-outer quadrant of right breast in female, estrogen receptor positive Carey Desai, [facility] Hem Onc 3k Procedures TC DENOSUMAB, 1MG, INJECTION [id number] (GOSERELIN) [facility] JENNIFER Alfonso HEMATOLOGY/ONCOLOGY [address] [place] [address] Referral ID Status Reason Start Date Expiration Date Visits V isits Requested Authorized [id number] Authorized 09/01/2021 09/01/2022 99 99 Encounter Details Date Type Department Care Team Description 11/07/2021 Hospital Encounter Hematology and Maligna nt neoplasm of Oncology at [facility] [place] upper-outer quadrant of [facility] right carine ast in female, [place] [address] positive [phone] Social History Tobacco Use Types Packs/Day Years [...] - Inhaled Oxygen Concentration - - Weight 92.1 kg (203 lb) 11/07/2021 3:02 PM EDT Height - - Body Mass Index 31.42 09/12/2021 10:06 AM EST documented in this [...] encounter Progress Notes Vega Leung RN - 11/07/2021 3:28 PM EDT Patient Name: Isabel Austin Patient Age: 56 y.o. Birthdate: 1965 Admit date: 11/07/2021 Attending Physician: No att. providers found Access visit. See MAR and/or flowsheet. Here for xgeva & zoladex injections. Tolerated well. documented in this encounter Plan of Treatment Upcoming Encounters Date Type Specialty Care Team Description 01/30/2022 Infusion Hematology and Oncology 02/27/2022 Infusion Hematology and Oncology 03/27/2022 Infusion Hematology and Oncology 04/18/2022 Office Visit Hematology and Oncology Carey Higuera MD [facility] HEMATOLOGY/ONCOL [place], [place] [address] (Wo rk) documented as of this encounter Goals Goal Patient Goal Associated Recent Patient-Stated? Author Type Problems Progress DH Home Medication Patient No Dari marr, Compliance and Facing Vladimir Singh, Understanding Action Plan [facility] Note: Formatting of this note might [...] Rate Site denosumab (Xgeva) (120 mg/1.7 Given 11/07/2021 3:17 PM EDT 120 m g Right Arm mL) subcutaneous injection 120 mg 120 mg, Subcutaneous, ONCE, 1 dose, On Sat11/07/21 at 1530, Bring to room temperature 15-30 mins before administration. goserelin (ZOLADEX) Given 11/07/2021 3:17 PM EDT 3.6 mg Right Upper Outer implant 3.6 mg Quadrant 3.6 mg, Subcutaneous, ONCE, 1 dose, On Sat11/07/21 at 1530, Routine documented in this encounter Care Teams Church Worker Relationship Specialty Start Date End Date Fox Tian MD PCP - General 06/06/[address] [place] [phone] documented as of this encounter
--- OUTSIDE RECORDS SUMMARY | 2022-01-30 02:10 | XMS_ITS | Encounter Summary ---
:1965 Author Organization [facility] Address [address] [address] Care Team Providers Name Role Phone Fox Tian MD Primary Care Provider Reason for Visit Treatment/Therapy Plan Authorization (Routine) - Authorized Specialty Diagnoses / Procedures Referred By Contact Refer red To Contact Hematology and Oncology Diagnoses Malignant neoplasm of upper-outer quadrant of right breast in female, estrogen receptor positive Carey Desai, [facility] [place] 3k Procedures TC DENOSUMAB, 1MG, INJECTION [id number] (GOSERELIN) [facility] [address] JENNIFER Alfonso HEMATOLOGY/ONCOLOGY [address] [place] [address] Referral ID Status Reason Start Date Expiration Date Visits V isits Requested Authorized [id number] Authorized 09/01/2021 09/01/2022 99 99 Encounter Details Date Type Department Care Team Description 10/10/2021 Hospital Encounter Hematology and Maligna [place] [facility] [place] upper-outer quadrant of [facility] right carine ast in female, [place] [address] positive [phone] Social History Tobacco Use Types Packs/Day Years [...] - Inhaled Oxygen Concentration - - Weight 92.8 kg (204 lb 9.6 oz) 10/10/2021 1:50 PM EDT Height - - Body Mass Index 31.66 09/12/2021 10:06 AM EST documented in this [...] encounter Progress Notes Madeleine Pereyra RN - 10/10/2021 3:01 PM EDT Patient Name: Isabel Austin Patient Age: 55 y.o. Birthdate: 1965 Admit date: 10/10/2021 Attending Physician: No att. providers found Access visit. See MAR and/or flowsheet. Xgeva and Zoladex given, tolerated well. documented in this encounter Plan of Treatment Upcoming Encounters Date Type Specialty Care Team Description 01/30/2022 Infusion Hematology and Oncology 02/27/2022 Infusion Hematology and Oncology 03/27/2022 Infusion Hematology and Oncology 04/18/2022 Office Visit Hematology and Oncology Carey Higuera MD [facility] HEMATOLOGY/ONCOL [place], [place] [address] (Wo rk) documented as of this encounter Goals Goal Patient Goal Associated Recent Patient-Stated? Author Type Problems Progress DH Home Medication Patient No Dari marr, Compliance and Facing Vladimir Singh, Understanding Action Plan [facility] Note: Formatting of this note might be [...] Rate Site denosumab (Xgeva) (120 mg/1.7 Given 10/10/2021 2:56 PM EDT 120 m g Left Arm mL) subcutaneous injection 120 mg 120 mg, Subcutaneous, ONCE, 1 dose, On Sat10/10/21 at 1500, Bring to room temperature 15-30 mins before administration. goserelin (ZOLADEX) implant Given 10/10/2021 2:59 PM EDT 3.6 mg Left Lower Quadrant 3.6 mg 3.6 mg, Subcutaneous, ONCE, 1 dose, On Sat10/10/21 at 1500, Routine documented in this encounter Care Teams Manager Film Relationship Specialty Start Date End Date Fox Tian MD PCP - General 06/06/[address] [place] [phone] documented as of this encounter
--- OUTSIDE RECORDS SUMMARY | 2022-01-30 02:11 | XMS_ITS | Encounter Summary ---
:1965 Author Organization [facility] [place] [address] Care Team Providers Name Role Phone Fox Tian MD Primary Care Provider Encounter Details Date Type Department Care Team Description 09/04/2021 Orders Only Hematology and Carey Desai Malignant [place]oplasm of [place] [facility] [place] Caro right breast in [facility] fem [place], estrogen [place] [address] HEMATOLOGY/ONCOLOG unspecified site of [phone] Y breast [place] [id number] Social History Tobacco Use Types Packs/Day Years [...] on file documented as of this encounter Plan of Treatment Upcoming Encounters Date Type Specialty Care Team Description 01/30/2022 Infusion Hematology and Oncology 02/27/2022 Infusion Hematology and Oncology 03/27/2022 Infusion Hematology and Oncology 04/18/2022 Office Visit Hematology and Oncology Carey Higuera MD [facility] HEMATOLOGY/ONCOL [place], [place] [address] (Wo rk) documented as of [...] follow-up visits documented as of this encounter Results (ABNORMAL) Vitamin D, 25-Hydroxy (09/12/2021 9:43 AM EST) [facility] gist Method Time Signature 25-OH Vit D 12 (L) 21 - 100 [facility] Total ng/mL [facility] 25-OH Vit D Deficient [facility] LABORATORY Specimen Anatomical Collection Method Collection Time Receive d Time (Source) Location / / Volume Laterality Blood 09/12/2021 9:43 AM 9:54 EST AM EST Resulting Agency Comment Spec In Lab Carey Desai MD CHEMISTRY ORDERABLES Performing Organization Address City/State/[place] [address] Comprehensive metabolic panel (non-fasting) (09/12/2021 9:43 AM EST) athologist Signature Glucose Lvl 130 65 - 199 [facility] mg/dL [facility] Comment: Diabetes: >=200 mg/dL plus symp toms BUN 11 8 - 18 mg/dL [facility] Creatinine 0.82 0.70 - 1.20 mg/dL [facility] Sodium 139 135 - 145 mmol/L [facility] Potassium 3.9 3.5 - 5.0 mmol/L [facility] Comment: Please note: ??Patients with WBC >100,00 0 may have falsely elevated Potassium levels. ??For accurate Potassium quantif ication in these patients send serum separator tube (gold top) for subsequent determinations. ??Contact the Clinical Chemistry Laboratory if there are any qu estions. Chloride 101 98 - 107 mmol/L [facility] CO2 25 22 - 31 mmol/L [facility] Anion Gap 13 5 - 15 mmol/L [facility] Calcium 9.9 8.5 - 10.5 mg/dL [facility] Total Protein 7.8 6.1 - 8.0 g/dL [facility] Albumin 5.0 3.2 - 5.2 g/dL [facility] AST 19 0 - 30 unit/L [facility] ALT 23 0 - 30 unit/L [facility] Alk Phos 103 35 - 105 unit/L [facility] Total Bilirubin 0.3 0.2 - 1.3 mg/dL [facility] Estimated GFR 81 >=60 mL/min/1.73 m?? [facility] Comment: This patient? s estimated glomerular filtration rate (eGFR) is between 81 mL/min/1.73 m2 (patients with less muscl e mass) and 94 mL/min/1.73 m2 (patients with more muscle mass) [...] (Source) Location / / Volume Laterality Blood 09/12/2021 9:43 AM 9:54 EST AM EST Resulting Agency Comment Spec In Lab Carey Desai MD CHEMISTRY ORDERABLES Performing Organization Address City/State/[place] [address] documented in this encounter Visit Diagnoses Diagnosis Malignant neoplasm of right breast in fe male, estrogen receptor positive, unspecified site of breast documented in this encounter Care Teams Sleeping Car Conductor Relationship Specialty Start Date End Date Fox Tian MD PCP - General 06/06/[address] [place] [phone] documented as of this encounter
--- OUTSIDE RECORDS SUMMARY | 2022-01-30 02:11 | XMS_ITS | Encounter Summary ---
:1965 Author Organization [facility] Address [place] [id number] Care Team Providers Name Role Phone Fox Tian MD Primary Care Provider Reason for Referral Diagnostic Test (Routine) - Closed Specialty Diagnoses / Procedures Referred By Contact Refer red To Contact Radiology Diagnoses Malignant neoplasm of upper-outer quadrant of right breast in female, estrogen receptor positive Carey Desai MD [facility] Rad Nuclear Med Procedures NM Bone Scan Whole Body [facility] HEMATOLOGY/[place] [address] [place] [address] Referral ID Status Reason Start Date Expiration Date Visits V isits Requested Authorized [id number] Closed Specialty 09/15/2021 03/18/2023 1 1 Service Requested Diagnostic Test (Routine) - Closed Specialty Diagnoses / Procedures Referred By Contact Refer red To Contact Radiology Diagnoses Malignant neoplasm of upper-outer quadrant of right breast in female, estrogen receptor positive Carey Desai MD [facility] Rad Ct Scan Procedures CT Chest Abdomen Pelvis w Contrast (Generic) [facility] HEMATOLOGY/[place] [address] [place] [address] Referral ID Status Reason Start Date Expiration Date Visits V isits Requested Authorized [id number] Closed Specialty 12/22/2021 02/19/2022 1 1 Service Requested Reason for Visit Reason Comments Follow-up Encounter Details Date Type Department Care Team Description 09/12/2021 Office Visit Hematology and Carey Desai MD [facility] HEMATOLOGY/[place] [address] Malignant neoplasm of [place]cology [place] [facility] [place], [facility] HEMATOLOGY/[place] [address] upper-outer quadrant [facility] of right breast in Drive female, estrogen [place], [place] [address] Social History Tobacco Use Types Packs/Day Years [...] Sign Reading Time Taken Comments Blood Pressure 127/87 09/12/2021 10:06 AM EST Pulse 85 09/12/2021 10:06 AM EST Temperature 36.9 ??C (98.4 ??F) 09/12/2021 10:06 AM EST Respiratory Rate 16 09/12/2021 10:06 AM EST Oxygen Saturation 97% 09/12/2021 10:06 AM EST Inhaled Oxygen Concentration - - Weight 89.4 kg (197 lb 3.2 oz) 09/12/2021 10:06 AM EST Height 171.2 cm (5' 7.4) 09/12/2021 10:06 AM EST Body Mass Index 30.52 09/12/2021 10:06 AM EST documented in this encounter Progress Notes Carey Desai MD - 09/12/2021 10:30 AM EST Patient ID: Isabel Austin is a 55 y.o. female. Cc: breast cancer Current treatment: First line letrozole + palbociclib, starting goserelin + xgeva today HPI: ?? 55 yo who felt a [...] abnormal areas in the liver suspicious for metastases. Started on letrozole and palbociclib with excellent tolerance. ?? Review of Systems Constitutional: Negative. 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 Lives with , children and grand children near by. HENT: Negative. Eyes: Negative. Respiratory: Negative. Cardiovascular: Negative. Gastrointestinal: Negative. Endocrine: Negative. Genitourinary: Positive for menstrual problem. Hx iron deficiency from heavy menses, started ocps for menses control several years ago, stopped atdiagnosis of breast cancer; no bleeding since. Ovarian function testing darrell-menopausal. ?? 12 grandchildren. Musculoskeletal: Positive for arthralgias and back pain. Skin: Negative. Allergic/Immunologic: Negative. Neurological: Negative. Hematological: Negative. Psychiatric/Behavioral: Negative. ?? FHx: sister with breast cancer in her 20's, s/p double mastectomy doing well now. Parents , mother age 73 DM/ CHF; father at age 69 from ID ? Objective Physical Exam Last value Range last 8 hrs Temperature Temp: 36.9 ??C (98.4 ??F) Temp: -- Heart Rate Heart Rate: 85 Heart Rate: -- Blood Pressure BP: 127/87 BP: -- Respiratory Rate Resp: 16 Resp: -- SpO2 SpO2: 97 % SpO2: -- Vitals and nursing note reviewed. Constitutional: Appearance: Normal appearance. HENT: Head: Normocephalic. Cardiovascular: Rate and Rhythm: Normal rate. Pulses: Normal pulses. Pulmonary: Effort: Pulmonary effort is normal. Musculoskeletal: General: Normal range of motion. Cervical back: Normal range of motion. Skin: General: Skin is warm and dry. Neurological: General: No focal deficit present. Mental Status: She is alert. Psychiatric: Mood and Affect: Mood normal. Behavior: Behavior normal. Thought Content: Thought content normal. Judgment: Judgment normal. ? CT, MRI, bone scan and labs reviewed Liver biopsy c/w same: er/pr + her2 neg ??Assessment & Plan ? No problem-specific Assessment & Plan notes found for this encounter. ?? 55 yo with de gini metastatic breast cancer. ER+ her2 neg Doing well on current treatment. ?? Bone mets to be treated with xgeva. She will contact her dentist for a check up. ?? Pain currently well controlled on higher dose of meloxicam. ?? Plan: continue Letrozole 2.5 mg daily Palbociclib 125 mg day 1-21, q 28 days Monitor blood counts monthly. xgeva monthly Ovarian suppression with goserelin q 4 wks ?? F/u 4 wks Restage in 3 months ? documented in this encounter Plan of Treatment Upcoming Encounters Date Type Specialty Care Team Description 01/30/2022 Infusion Hematology and Oncology 02/27/2022 Infusion Hematology and Oncology 03/27/2022 Infusion Hematology and Oncology 04/18/2022 Office Visit Hematology and Oncology Carey Higuera MD [facility] HEMATOLOGY/ONCOL [place], [place] [address] (Wo rk) Scheduled Orders Name Type Priority Associated Diagnoses Order S chedule CBC (with Diff) Lab Routine Malignant neoplasm of Demi ry 4 Weeks for 11 upper-outer quadrant Occurre nces starting of right breast in 2 until female, estrogen 09/15/2022, 4 completed receptor positive Comprehensive metabolic Lab Routine Malignant neoplas m of Every 4 Weeks for 11 panel (non-fasting) upper-outer quadrant Occurrences starting of right breast in 2 until female, estrogen 09/15/2022, 4 completed receptor positive Cancer antigen 15-3 Lab Routine Malignant neoplasm of Every 4 Weeks for 11 upper-outer quadrant Occurre nces starting of right breast in 2 until female, estrogen 09/15/2022, 4 completed receptor positive documented as of this encounter Goals Goal Patient Goal Associated Recent Patient-Stated? Author Type Problems Progress DH Home Medication Patient No Dari marr, Compliance and Facing Vladimir Singh, Understanding Action Plan [facility] Note: Formatting of this note might be d ifferent from the original. Slow or prevent progression and maintain quality of life, based on outcomes and quality of life assessed at follow-up visits documented as of this encounter Results (ABNORMAL) Cancer antigen 15-3 (01/02/2022 12:57 PM EDT) athologist Signature CA 15-3 57 (H) <=25 [facility] unit/mL [facility] Comment: This result was generated [...] Organization Address City/State/[place] [address] Comprehensive metabolic panel (non-fasting) (01/02/2022 12:57 PM EDT) athologist Signature Glucose Lvl 185 65 - 199 [facility] mg/dL [facility] Comment: Diabetes: >=200 mg/dL plus symp toms BUN 9 8 - 18 mg/dL [facility] Creatinine 0.81 0.70 - 1.20 mg/dL [facility] Sodium 138 135 - 145 mmol/L [facility] Potassium 3.7 3.5 - 5.0 mmol/L [facility] Comment: Please note: ??Patients with WBC >100,00 0 may have falsely elevated Potassium levels. ??For accurate Potassium quantif ication in these patients send serum separator tube (gold top) for subsequent determinations. ??Contact the Clinical Chemistry Laboratory if there are any qu estions. Chloride 101 98 - 107 mmol/L [facility] CO2 24 22 - 31 mmol/L [facility] Anion Gap 13 5 - 15 mmol/L [facility] Calcium 9.4 8.5 - 10.5 mg/dL [facility] Total Protein 7.1 6.1 - 8.0 g/dL [facility] Albumin 4.5 3.2 - 5.2 g/dL [facility] AST 23 0 - 30 unit/L [facility] ALT 26 0 - 30 unit/L [facility] Alk Phos 60 35 - 105 unit/L [facility] Total Bilirubin 0.2 0.2 - 1.3 mg/dL [facility] Estimated GFR 86 >=60 mL/min/1.73 m?? [facility] Comment: This patient's estimated GFR was [...] Organization Address City/State/ZIP Code Phon e Number [place] [phone] [place] Bone Scan Whole [...] who have questions please contact the health medicare specialist that requested your imaging first. ? Narrative [...] ho have questions please contact the health medicare specialist that requested your imaging first. Carey [...] who have questions please contact the health medicare specialist that requested your imaging first. ? Narrative [...] ho have questions please contact the health medicare specialist that requested your imaging first. Carey Desai MD IMG CT ORDERABLES (ABNORMAL) Cancer antigen 15-3 (12/05/2021 2:01 PM EDT) athologist Signature CA 15-3 65 (H) <=25 [facility] unit/mL [facility] Specimen Anatomical Collection Method Collection Time Receive d Time (Source) Location / / Volume Laterality Blood 12/05/2021 2:01 PM 2 2:14 EDT PM EDT Resulting Agency Comment Spec In Lab Carey Desai MD CHEMISTRY ORDERABLES Performing Organization Address City/State/[place] [address] Comprehensive metabolic panel (non-fasting) (12/05/2021 2:01 PM EDT) athologist Signature Glucose Lvl 105 65 - 199 [facility] mg/dL [facility] Comment: Diabetes: >=200 mg/dL plus symp toms BUN 9 8 - 18 mg/dL [facility] Creatinine 0.83 0.70 - 1.20 mg/dL [facility] Sodium 141 135 - 145 mmol/L [facility] Potassium 3.5 3.5 - 5.0 mmol/L [facility] Comment: Please note: ??Patients with WBC >100,00 0 may have falsely elevated Potassium levels. ??For accurate Potassium quantif ication in these patients send serum separator tube (gold top) for subsequent determinations. ??Contact the Clinical Chemistry Laboratory if there are any qu estions. Chloride 103 98 - 107 mmol/L [facility] CO2 25 22 - 31 mmol/L [facility] Anion Gap 13 5 - 15 mmol/L [facility] Calcium 9.7 8.5 - 10.5 mg/dL [facility] Total Protein 7.2 6.1 - 8.0 g/dL [facility] Albumin 4.7 3.2 - 5.2 g/dL [facility] AST 25 0 - 30 unit/L [facility] ALT 29 0 - 30 unit/L [facility] Alk Phos 68 35 - 105 unit/L [facility] Total Bilirubin 0.3 0.2 - 1.3 mg/dL [facility] Estimated GFR 79 >=60 mL/min/1.73 m?? [facility] Comment: This patient? s estimated [...] Organization Address City/State/[place] [address] (ABNORMAL) Cancer antigen 15-3 (11/07/2021 1:55 PM EDT) P athologist Signature CA 15-3 59 (H) <=25 [facility] unit/mL [facility] Specimen Anatomical Collection Method Collection Time Receive d Time (Source) Location / / Volume Laterality Blood 11/07/2021 1:55 PM 2 1:58 EDT PM EDT Resulting Agency Comment Spec In Lab Carey Desai MD CHEMISTRY ORDERABLES Performing Organization Address City/State/[place] [address] Comprehensive metabolic panel (non-fasting) (11/07/2021 1:55 PM EDT) P athologist Signature Glucose Lvl 112 65 - 199 [facility] mg/dL [facility] Comment: Diabetes: >=200 mg/dL plus symp toms BUN 10 8 - 18 mg/dL [facility] Creatinine 0.96 0.70 - 1.20 mg/dL [facility] Sodium 141 135 - 145 mmol/L [facility] Potassium 3.9 3.5 - 5.0 mmol/L [facility] Comment: Please note: ??Patients with WBC >100,00 0 may have falsely elevated Potassium levels. ??For accurate Potassium quantif ication in these patients send serum separator tube (gold top) for subsequent determinations. ??Contact the Clinical Chemistry Laboratory if there are any qu estions. Chloride 103 98 - 107 mmol/L [facility] CO2 25 22 - 31 mmol/L [facility] Anion Gap 13 5 - 15 mmol/L [facility] Calcium 9.5 8.5 - 10.5 mg/dL [facility] Total Protein 7.0 6.1 - 8.0 g/dL [facility] Albumin 4.6 3.2 - 5.2 g/dL [facility] AST 21 0 - 30 unit/L [facility] ALT 29 0 - 30 unit/L [facility] Alk Phos 68 35 - 105 unit/L [facility] Total Bilirubin 0.2 0.2 - 1.3 mg/dL [facility] Estimated GFR 67 >=60 mL/min/1.73 m?? [facility] Comment: This patient? s estimated [...] Organization Address City/State/ZIP Code Phon e Number [address] (ABNORMAL) Cancer antigen 15-3 (10/10/2021 1:40 PM EDT) P athologist Signature CA 15-3 67 (H) <=25 [facility] unit/mL [facility] Specimen Anatomical Collection Method Collection Time Receive d Time (Source) Location / / Volume Laterality Blood 10/10/2021 1:40 PM 2 1:48 EDT PM EDT Resulting Agency Comment Spec In Lab Carey Desai MD CHEMISTRY ORDERABLES Performing Organization Address City/State/[place] [address] Comprehensive metabolic panel (non-fasting) (10/10/2021 1:40 PM EDT) athologist Signature Glucose Lvl 126 65 - 199 [facility] mg/dL [facility] Comment: Diabetes: >=200 mg/dL plus symp toms BUN 10 8 - 18 mg/dL [facility] Creatinine 0.82 0.70 - 1.20 mg/dL [facility] Sodium 138 135 - 145 mmol/L [facility] Potassium 3.8 3.5 - 5.0 mmol/L [facility] Comment: Please note: ??Patients with WBC >100,00 0 may have falsely elevated Potassium levels. ??For accurate Potassium quantif ication in these patients send serum separator tube (gold top) for subsequent determinations. ??Contact the Clinical Chemistry Laboratory if there are any qu estions. Chloride 104 98 - 107 mmol/L [facility] CO2 25 22 - 31 mmol/L [facility] Anion Gap 9 5 - 15 mmol/L [facility] Calcium 9.2 8.5 - 10.5 mg/dL [facility] Total Protein 7.1 6.1 - 8.0 g/dL [facility] Albumin 4.7 3.2 - 5.2 g/dL [facility] AST 17 0 - 30 unit/L [facility] ALT 26 0 - 30 unit/L [facility] Alk Phos 80 35 - 105 unit/L [facility] Total Bilirubin 0.2 0.2 - 1.3 mg/dL [facility] Estimated GFR 81 >=60 mL/min/1.73 m?? [facility] Comment: This patient? s estimated [...] (Source) Location / / Volume Laterality Blood 10/10/2021 1:40 PM 2 1:48 EDT PM EDT Resulting Agency Comment Spec In Lab Carey Desai MD CHEMISTRY ORDERABLES Performing Organization Address City/State/ZIP Code Phon e Number [place] [phone] documented in this encounter Visit Diagnoses Diagnosis Malignant neoplasm of upper-outer quadra nt of right breast in female, estrogen receptor positive Malignant neoplasm of upper-outer quadra nt of right breast in female, estrogen receptor positive Malignant neoplasm of upper-outer quadra nt of right breast in female, estrogen receptor positive documented in this encounter Care Teams 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
--- OUTSIDE RECORDS SUMMARY | 2022-01-30 02:11 | XMS_ITS | Encounter Summary ---
:1965 Author Organization [facility] [place] [address] Care Team Providers Name Role Phone Fox Tian MD Primary Care Provider Encounter Details Date Type Department Care Team Description 07/28/2021 Telephone Hematology [place] [address] Social History Tobacco Use Types Packs/Day Years Used Date Never Smoker Smokeless Tobacco: Never Used Financial Resource Strain Answer Date Recorded How [...] on file documented as of this encounter Miscellaneous Notes Telephone Encounter - Joan Burger - 07/28/2021 9:41 AM EST Patient Name: Isabel Austin Patient : 1965 Attn: [facility] Image Library From: [facility] - [phone] Fed-Ex# [id number] - Please overnight [x] Urgent [x] For Review [] Please Reply [] Please Recycle Pursuant to the Federal Mammography Quality Standards Act-Section 900.12(c), (4), (ii) Comments: Please send all Mammograms, Ultrasounds & Breast MRIs or any scan pertaining to breastcancer. (CD, Films, Electronic Transfer & Reports) to [facility], [place] [address] If Questions call [phone] Notice of Confidentiality: The documents accompanying this FAX transmission cover contain information from [facility] that is confidential and privileged. The information is intended for the use of the individual or entity named on this transmittal sheet. If you are not the intended recipient, be aware that any disclosure, copying, distribution or use of the contents is prohibited. If you have received the FAX in error, please notify us by telephone (collect) immediately to permit us to arrange for theretrieval of the documents at no cost to you. documented in this encounter Plan of Treatment Upcoming Encounters Date Type Specialty Care Team Description 01/30/2022 Infusion Hematology and Oncology 02/27/2022 Infusion Hematology and Oncology 03/27/2022 Infusion Hematology and Oncology 04/18/2022 Office Visit Hematology and Oncology Carey Higuera MD [facility] HEMATOLOGY/ONCOL [place] [phone] (Wo rk) documented as of this encounter Visit Diagnoses Not on filedocumented in this encounter Care Teams Auto Tech Relationship Specialty Start Date End Date Fox Tian MD PCP - General 06/06/[address] [place] [phone] documented as of this encounter
--- OUTSIDE RECORDS SUMMARY | 2022-01-30 02:11 | XMS_ITS | Encounter Summary ---
:1965 Author Organization [facility] [place] [address] Care Team Providers Name Role Phone Fox Tian MD Primary Care Provider Reason for Visit Reason Comments Medication Management Patient Education Encounter Details Date Type Department Care Team Description 08/23/2021 Specialty Pharmacy Pharmacy [place] [facility] Vladimir Velasco Medication [facility], [facility] Managemen t; [place] [phone] Social History Tobacco Use Types Packs/Day Years [...] documented as of this encounter Progress Notes Vladimir Velasco RPH - 08/23/2021 12:56 PM EST Specialty Pharmacy Consultation; Vladimir Velasco RPH Comprehensive Medication Management (CMM) Isabel Neeraj Norman Diagnosis: breast cancer, metastatic Therapy Start Date: ~ 08/28/2021 Contact in person or via telephone: telephone Ms. Isabel Austin is a 55 y.o. (1965) female who was called today. I spoke with the patient regarding their specialty medication IBRANCE and a review of the drug therapy was performed. The medication was filled as scheduled, and all related questions and concerns were addressed. The specialty pharmacy staff will follow up with the patient 5-7 days prior to next refill. Is the patient willing to proceed with the Clinical Assessment? Yes Summary and Recommendations: Provided initial consultation and assessment with Isabel regarding her new Ibrance therapy. She will take one tablet (125mg) daily by mouth for 21 days followed by 7 days off. She was advised to takethe Ibrance at the same time everyday. She will take letrozole concomitantly every day. Isabel doesn't think she will need a calendar to keep track of her Ibrance regimen. We reviewed the warning andprecautions around hematologic and pulmonary toxicity, as well as common side effects - fatigue, gastrointestinal (poor appetite, nausea, diarrhea, mouth sores), rash, importance of checking blood chemistries when ordered, fever, and the importance of infection control, especially in the event of neutropenia. Additionally we will provide her with a drug monograph with each fill. She was advised to call the clinic and report any new symptoms which are bothersome and which she suspects may be side effects of the Ibrance. She also knows that she can call the pharmacy at any time with any questions or concerns. We reviewed her allergy list and reconciled her medication list. One drug interaction was found which could be considered significant (omeprazole can reduce absorption of Ibance) and how this might be mitigated by taking the Ibrance with a meal, but this will also be reported to her provider who may have further thoughts. Isabel's goal is to slow or prevent progression and maintain her quality of life. She presently rates her quality of lift at 8 on a scale of 1 to 10 (very good), has a minor complaint of rib pain which she rates at 2 or 3 on a scale of zero to 10, and said that her moodvaries sometimes. I offered to do a PHQ9 but she declined. I let her know that we have very good resources in the event that she ever feels she could use support for her mood. We discussed safe handling and storage and home safety in the context of possible fatigue from the Ibrance. We will ship the ibrance on 08/24/21 and Isabel will contact the clinic when she receives it, before using it. Clinic follow-up needed: yes - Isabel has regularly scheduled follow-up visits Allergies and Drug intolerance: No Known Allergies Problem List: Patient Active Problem List Diagnosis Code ??? Malignant neoplasm of right breast in female, estrogen receptor positive C50.911, Z17.0 ??? Malignant neoplasm of upper-outer quadrant of right breast in female, estrogen receptor heejlrsjQ91.411, Z17.0 Special Dietary or Hydration Requirements: no Medication reconciliation discrepancies (compared to [facility] med list): no Medication List: Current Outpatient Medications Medication Sig Note Dispense Refill ??? letrozole (Femara) 2.5 mg Tablet Take 1 tablet by mouth daily. 30 tablet 11 ??? palbociclib (Ibrance) 125 mg tablet Take 1 tablet (125 mg) by mouth daily. Take for 21 days followed by 7 days off. Call clinic before starting medication. Indications: hormone receptor (HR)-positive, HER2-negative advanced breast cancer 21 tablet 11 ??? escitalopram (LEXAPRO) 20 mg Tablet TAKE ONE TABLET BY MOUTH EVERY DAY 3 ??? meloxicam (MOBIC) 7.5 mg Tablet TAKE ONE TABLET BY MOUTH EVERY DAY 3 ??? enalapril (VASOTEC) 2.5 mg Tablet ??? omeprazole (PRILOSEC) 40 mg Capsule, Delayed Release(E.C.) TAKE ONE CAPSULE BY MOUTH EVERY DAY 14 ??? ALPRAZolam (XANAX) 0.25 mg Tablet TAKE 1 2 TABLETS BY MOUTH FOUR TIMES A DAY FOR SEVERE MUSCLE CRAMPS 08/23/2021: Not using 0 ??? amitriptyline (ELAVIL) 50 mg Tablet 08/23/2021: Not taking No current facility-administered medications for this visit. Most Recent Vitals: Ht Readings from Last 1 Encounters: 08/17/21 170.5 cm (5' 7.13) Wt Readings from Last 3 Encounters: 08/17/21 91.7 kg (202 lb 3.2 oz) 07/31/21 93 kg (205 lb) 07/31/21 93 kg (205 lb) Temp Readings from Last 3 Encounters: 08/17/21 36.2 ??C (97.2 ??F) (Temporal) 08/03/19 36.7 ??C (98.1 ??F) (Oral) 07/27/19 36.4 ??C (97.5 ??F) (Oral) BP Readings from Last 3 Encounters: 08/17/21 (!) 147/98 08/03/19 (!) 117/91 07/27/19 147/65 Pulse Readings from Last 3 Encounters: 08/17/21 80 08/03/19 71 07/27/19 71 There is no height or weight on file to calculate BMI. Pertinent Lab values: Lab Results Component Value Date NA 137 08/17/2021 K 3.6 08/17/2021 CL 103 08/17/2021 CO2 24 08/17/2021 BUN 7 (L) 08/17/2021 CREATININE 0.67 (L) 08/17/2021 GLUCOSE 120 08/17/2021 CALCIUM 9.6 08/17/2021 Lab Results Component Value Date ALT 18 08/17/2021 AST 20 08/17/2021 ALKPHOS 75 08/17/2021 BILITOT <0.2 (L) 08/17/2021 ALBUMIN 4.5 08/17/2021 PROT 7.2 08/17/2021 Lab Results Component Value Date WBC 6.2 08/17/2021 HGB 14.2 08/17/2021 HCT 42.2 08/17/2021 MCV 87.0 08/17/2021 PLATELET 252 08/17/2021 No results found for: HA1C There is no immunization history on file for this patient. Assessment and Recommendations: Patient Counseling Patient accepted offer to direct care counselor: select all, adherence/missed doses, cost of medications/cost implications, doses and administration, possible drug/OTC drug and food interactions, possible adverse side effects and management, pharmacy contact information, lab monitoring/follow up, possible drug/Rx drug interactions, safe handling, storage, and disposal, therapeutic rationale Other Topic: recommended no grapefruit juice Medication Management Summary Topics discussed: medication safety precautions education provided, drug interaction education provided to patient, safe handling, storage, and disposal discussed, possible adverse effects and management discussed, lab monitoring and follow-up discussed, cost of medications and cost implications discussed, adherence and missed doses discussed, health goals discussed, monitoring medication discussed, over the counter products discussed, recommendations to doctor discussed, reminder to refill or sweet pickle maker medication discussed, start medication discussed, timing of medications discussed, referral needs discussed Number of adverse drug events identified: 0 Time spent: 16-30 min Treatment Outcomes 08/23/2021 1442 Disease progression: Stable Patient Overall Status: Stable Reviewed in detail with patient: Dose appropriateness based on recommended standard dosing Current medication list including OTC medications Medication and disease problems Allergies Comorbid conditions/ Problem List Past adverse events if any Special needs of the patient including physical and cognitive limitations Goals of therapy and management strategies Warnings, precautions, and contraindications Side effects Drug-drug and drug-food interactions Administration instructions including dose, frequency and method Handling, storage, and disposal Verifying expiration dates on products before use Rotating medication inventory to use oldest product first Relevant lab data Treatments impact on disease Dose appropriateness based on recommended standard dosing schedule, including any variations from FDA approved dosing Patient verbalizes understanding and is able to read-back instructions on self-administration/injection, proper storage, drug stability, importance of adherence and management strategies, side effect avoidance and mitigation strategies, and interruptions in therapy: Yes Patient is aware a licensed pharmacist is available 24 hours a day, 7 days a week to discuss medication-related questions or concerns: Yes Patient verbalizes understanding of the common side effect profile of their medication. The patient is able to call 911 or seek urgent care if signs/symptoms of allergy or harmful adverse reactions occur: Yes Additional care/services needed: No Additional equipment/supplies required: No Patient satisfied with care/services provided: Yes Specialty Assessment: Physical and Cognitive Assessment: Functional limitations identified: No Cognitive limitations identified: No Concern regarding orientation/memory: No Concern with reasoning/judgement: No Is patient a fall risk: No Social Assessment: Does patient have a primary care administrative tech: No Does patient have an emergency contact on file: Yes Does patient need referral to social service liaison: No Does patient need referral to advocacy group: No Home Health Assessment: Is the patient in a safe home environment?: Yes Is the patient able to store their medication as directed?: Yes Does the patient have a support network at home?: Yes Reviewed potential home safety hazards with patient: Yes Economic Assessment: Patient is agreeable to medication copay: Yes Actual Copay: $: 0 Days Supply: 28 Welcome Packet and Rights and Responsibilities: Patient provided welcome packet/rights and responsibilities: Yes Specialty Med Adherence Patient Demonstrates Understanding of Importance of Adherence: Yes Therapy Assessment: Current Medication Dosing/Route/Frequency: IBRANCE: Take one tablet (125mg) by mouth daily. Take for21 days followed by 7 days off. Appropriate therapy: Yes Patient's Problems/Needs: recently diagnosed breast cancer with mets to lymph node, some rib pain Expected outcome: slow or prevent progression of the breast cancer Monitoring requirements for prescribed medication: CBC, periodic scans / labs, side effect monitoring, adherence monitoring Patient Goals: Hematology/Oncology related goals may include remission, palliative or hospice care, a bridge to future surgery, transplant, and radiation or infusion therapy. Patient's specific desired goal: slow or prevent progression and maintain quality of life Measured by: Imaging and labs, provider assessments, patient-reported symptoms, quality of life Time-frame to meet goal: assessed every 1 to 3 months or less frequently if outcomes are positive Care Plan Reviewed and Approved by both Pharmacist and Patient: Yes Interventions (if applicable): No Patient Status and Counseling: Is the patient experiencing pain? mild rib pain rated at 2 or 3 on a scale of zero to 10 Relevant monitoring results reviewed for bone marrow suppression, opportunistic infection, tumor lysis syndrome, metabolic disturbance and end organ dysfunction yes - discussed warnings and precautionsin detail. Pharmacist follow-up needed: Yes Patient understands any changes to current drug regimen were made at the appointment and that [facility] isprov[facility] recommendations (summary located at top of note) for provider review and follow up. Vladimir Velasco RPH 08/23/21 2:43 PM documented in this encounter Plan of Treatment Upcoming Encounters Date Type Specialty Care Team Description 01/30/2022 Infusion Hematology and Oncology 02/27/2022 Infusion Hematology and Oncology 03/27/2022 Infusion Hematology and Oncology 04/18/2022 Office Visit Hematology and Oncology Carey Higuera MD [facility] [place] [address] (Wo rk) documented as of this encounter Goals Goal Patient Goal Associated Recent Patient-Stated? Author Type Problems Progress DH Home Medication Patient No Dari marr, Compliance and Facing Vladimir Singh, Understanding Action Plan [facility] Note: Formatting of this note might be d ifferent from the original. Slow or prevent progression and maintain quality of life, based on outcomes and quality of life assessed at follow-up visits documented as of this encounter Visit Diagnoses Not on filedocumented in this encounter Care Teams Galvanizing Pot Runner Relationship Specialty Start Date End Date Fox Tian MD PCP - General 06/06/[address] [place] [phone] documented as of this encounter
--- OUTSIDE RECORDS SUMMARY | 2022-01-30 02:11 | XMS_ITS | Encounter Summary ---
:1965 Author Organization [facility] [place] [address] Care Team Providers Name Role Phone Fox Tian MD Primary Care Provider Encounter Details Date Type Department Care Team Description 07/28/2021 Telephone [place] [phone] Social History Tobacco Use Types Packs/Day Years [...] Miscellaneous Notes Telephone Encounter - Joan Burger Nelly - 07/28/2021 9:43 AM EST Isabel M Norman 1965 [id number] Referring provider: Ivette Baron Date of Referral: 07.27.2021 Please review outside breast imaging dated: 07.13.2021 Reason for exam and clinical history: Right breast solid mass 10 o'clock, abnormal lymph node right axilla Category: 5 Questions to be answered:?BX Sending Institution: [facility] Patient would like [place]: [facility] [place] pt at: documented in this encounter Plan of Treatment Upcoming Encounters Date Type Specialty Care Team Description 01/30/2022 Infusion Hematology and Oncology 02/27/2022 Infusion Hematology and Oncology 03/27/2022 Infusion Hematology and Oncology 04/18/2022 Office Visit Hematology and Oncology Carey Higuera MD [facility] HEMATOLOGY/[place], [place] [address] (Wo rk) documented as of this encounter Visit Diagnoses Not on filedocumented in this encounter Care Teams Cotton Bag Clipper Relationship Specialty Start Date End Date Fox Tian MD PCP - General 06/06/[address] [place] [phone] documented as of this encounter
--- OUTSIDE RECORDS SUMMARY | 2022-01-30 02:11 | XMS_ITS | Encounter Summary ---
:1965 Author Organization [facility] [place] [address] Care Team Providers Name Role Phone Fox Tian MD Primary Care Provider Encounter Details Date Type Department Care Team Description 07/24/2021 Ancillary Procedure Radiology Library at [id number] [place] [phone] Social History Tobacco Use Types Packs/Day Years [...] Visit Hematology and Oncology Carey Higuera MD [facility] [place] [address] (Wo rk) documented as of this encounter Procedures Procedure Name Priority Date/Time Associated Diagnosis Comme nts FILM Routine 07/24/2021 12:05 AM Results for this LIBRARY-STORAGE EST procedure ar e in ONLY US BREAST the results section. documented in this encounter Results Film Library Storage Only US Breast (07/24/2021 12:05 AM EST) Specimen (Source) Anatomical Location Collection Method / Collectio n Time Received Time / Laterality Volume Narrative DUSTIN - 07/28/2021 11:40 AM EST This exam is auto-finalizing. It's purpo se is for storage only. Ivette BRADLEY IMG FILM LIBRARY ORDERABLES Performing Organization Address City/State/ZIP Code Phon e Number [place], [place] documented in this encounter Visit Diagnoses Not on filedocumented in this encounter Care Teams Dramatic Director Relationship Specialty Start Date End Date Fox Tian MD PCP - General 06/06/[address] [place] [phone] documented as of this encounter
--- OUTSIDE RECORDS SUMMARY | 2022-01-30 02:11 | XMS_ITS | Encounter Summary ---
:1965 Author Organization [facility] [place] [address] Care Team Providers Name Role Phone Fox Tian MD Primary Care Provider Reason for Visit Reason Comments Medication Management Encounter Details Date Type Department Care Team Description 09/14/2021 Specialty Pharmacy Pharmacy at [facility] [place] [address] Social History Tobacco Use Types Packs/Day Years [...] documented as of this encounter Progress Notes Lore James RPH - 09/14/2021 9:23 AM EST Specialty Pharmacy Consultation; Lore James RPH Comprehensive Medication Management (CMM) Isabel M Norman Diagnosis: Breast cancer, metastatic Therapy Start Date: 08/26/21 Contact in person or via telephone:phone Ms. Isabel Austin is a 55 y.o. (1965) female who was contacted in regard to specialty medication. Spoke with patient regarding Ibrance. A review of the medication therapy was performed. The medication was Refilled as scheduled, and all medication related questions and concerns were addressed. The specialty pharmacy staff will follow up with the patient 5-7 days prior to next refill. Is the patient willing to proceed with the Clinical Assessment? Yes Summary and Recommendations: The patient was feeling well today and not experiencing any side effects such as nausea, rash, CONTRERAS, or edema. She did state that she felt her appetite had decreased and is trying to eat small, frequent, and flavorful meals. Medication list reviewed with no major interactions identified. The patient was asked to try and stop use of Omeprazole or take it only sparingly as it may diminish the effects ofthe Ibrance. She reports her meloxicam is working well and she just started trazodone for sleep but no longer uses lorazepam. Her blood pressure remains stable on recent visits and her eGFR was WNL. The patient is aware of the importance of lab follow up and infection prevention precautions such as pro per hand washing, appropriate vaccination, and wearing a mask during an illness. The importance of adherence to treatment and strategies to improve compliance including use of pill boxes, calendar reminders, or routine alarms was discussed. The patient was instructed to notify the clinic of any upcoming procedures or new medications and OTC products. Resources are available to the patient from the cancer center from dieticians to 7th grade social studies teacher. Administration, allergies, dosage, safe storage away from pets or children, handling and disposal was reviewed. The pharmacy's contact information and oper ating hours on-call services were given to the patient verbally as well as in writing. The medication will be mailed out for a $0 copay. Clinic follow-up needed: no Allergies and Drug intolerance: No Known Allergies Problem List: Patient Active Problem List Diagnosis Code ??? Malignant neoplasm of right breast in female, estrogen receptor positive C50.911, Z17.0 ??? Malignant neoplasm of upper-outer quadrant of right breast in female, estrogen receptor ljajulwsV27.411, Z17.0 Special Dietary or Hydration Requirements: no Medication Reconciliation Discrepancies (compared to [facility] med list) no Medication List: Current Outpatient Medications Medication Sig Dispense Refill ??? meloxicam (MOBIC) 15 mg Tablet Take 15 mg by mouth daily. ??? traZODone (DESYREL) 150 mg Tablet Take 1 tablet by mouth nightly. 30 tablet 11 ??? letrozole (Femara) 2.5 mg Tablet Take [...] ONE CAPSULE BY MOUTH EVERY DAY 14 No current facility-administered medications for this visit. Most Recent Vitals: Ht Readings from Last 1 Encounters: 09/12/21 171.2 cm (5' 7.4) Wt Readings from Last 3 Encounters: 09/12/21 89.4 kg (197 lb 3.2 oz) 08/17/21 91.7 kg (202 lb 3.2 oz) 07/31/21 93 kg (205 lb) Temp Readings from Last 3 Encounters: 09/12/21 36.9 ??C (98.4 ??F) (Temporal) 08/28/21 35.9 ??C (96.7 ??F) (Temporal) 08/17/21 36.2 ??C (97.2 ??F) (Temporal) BP Readings from Last 3 Encounters: 09/12/21 127/87 08/28/21 113/69 08/17/21 (!) 147/98 Pulse Readings from Last 3 Encounters: 09/12/21 85 08/28/21 66 08/17/21 80 There is no height or weight on file to calculate BMI. Pertinent Lab values: Lab Results Component Value Date NA 139 09/12/2021 K 3.9 09/12/2021 CL 101 09/12/2021 CO2 25 09/12/2021 BUN 11 09/12/2021 CREATININE 0.82 09/12/2021 GLUCOSE 130 09/12/2021 CALCIUM 9.9 09/12/2021 Lab Results Component Value Date ALT 23 09/12/2021 AST 19 09/12/2021 ALKPHOS 103 09/12/2021 BILITOT 0.3 09/12/2021 ALBUMIN 5.0 09/12/2021 PROT 7.8 09/12/2021 Lab Results Component Value Date WBC 2.6 (L) 09/12/2021 HGB 15.1 09/12/2021 HCT 44.4 09/12/2021 MCV 85.9 09/12/2021 PLATELET 176 09/12/2021 No results found for: HA1C There is no immunization history on file for this patient. Assessment and Recommendations: Patient Counseling Patient informed of specialty services: Yes Patient accepted offer to credit support counselor: adherence/missed doses, cost of medications/cost implications, doses and administration, possible drug/OTC drug and food interactions, possible adverse side effects and management, pharmacy contact information, lab monitoring/follow up, possible drug/Rx drug interactions, safe handling, storage, and disposal Medication Management Summary Topics discussed: lab monitoring and follow-up discussed, adherence and missed doses discussed, health goals discussed Number of adverse drug events identified: 0 Time spent: 16-30 min Treatment Outcomes 09/14/2021 0951 Disease progression: Stable Patient Overall Status: Stable [...] Social Assessment: Does patient have a primary animal care specialist: No Does patient have an emergency contact on file: Yes Does patient need referral to 7th grade social studies teacher: No Does patient need referral to advocacy [...] Demonstrates Understanding of Importance of Adherence: Yes Educational Information or Adherence Tools Provided: Yes Patient Reported X Missed Doses in the Last Month: 0 Provider-Estimated Medication Adherence Level: 90-100% Adherence Tools Used: alarm Therapy Assessment: Current Medication Dosing/Route/Frequency: Ibrance 125mg PO QD Appropriate Therapy: Yes Effective: to be determined with labs (CA 15-3) and scans at upcoming office visit Patient-Reported Side Effects: loss of appetite Patient assessed for pertinent side effects such as arthralgia, neuropathy, vision changes, cough, rash, hand/foot syndrome, hot flashes, nausea, and diarrhea or constipation. Adjunct medication needed? no Is the patient experiencing pain? no Patient Goals: Hematology/Oncology related goals may include remission, palliative or hospice care, a bridge to future surgery, transplant, and radiation or infusion therapy. Goals ??? DH Home Medication Compliance and Understanding Slow or prevent progression and maintain quality of life, based on outcomes and quality of life assessed at follow-up visits Is the patient on track to achieve goals of therapy? Yes Care Plan and Interventions: Care Plan Reviewed and Approved by both Pharmacist and Patient: Yes Did Care Plan Change? No Interventions (if applicable): no Patient experienced change in condition that affects treatment: no Patient Satisfied with Therapy: yes - . Pharmacist follow-up needed: No Patient understands no changes to current drug regimen were made at the appointment and that [facility] is providing recommendations (summary located at top of note) for provider review and follow up. Lore James RPH 09/14/21 9:51 AM documented in this encounter Plan of Treatment Upcoming Encounters Date Type Specialty Care Team Description 01/30/2022 Infusion Hematology and Oncology 02/27/2022 Infusion Hematology and Oncology 03/27/2022 Infusion Hematology and Oncology 04/18/2022 Office Visit Hematology and Oncology [facility] Carey villalpando MD [facility] HEMATOLOGY/[place], [place] [address] (Wo rk) documented as of this encounter Goals Goal Patient Goal Associated Recent Patient-Stated? Author Type Problems Progress DH Home Medication Patient No Dari n, Compliance and Facing Vladimir Singh, Understanding Action Plan [facility] Note: Formatting of this note might be d ifferent from the original. Slow or prevent progression and maintain quality of life, based on outcomes and quality of life assessed at follow-up visits documented as of this encounter Visit Diagnoses Not on filedocumented in this encounter Care Teams Photo Finisher Relationship Specialty Start Date End Date oFx Tian MD PCP - General 06/06/[address] [place] [phone] documented as of this encounter
--- OUTSIDE RECORDS SUMMARY | 2022-01-30 02:11 | XMS_ITS | Encounter Summary ---
:1965 Author Organization [facility] [place] [address] Care Team Providers Name Role Phone Fox Tian MD Primary Care Provider Encounter Details Date Type Department Care Team Description 07/24/2021 Ancillary Procedure Radiology Library at [facility] [place] [phone] Social History Tobacco Use Types Packs/Day Years [...] Visit Hematology and Oncology Carey Higuera MD [facility] HEMATOLOGY/[place], [place] [address] (Wo rk) documented as of this encounter Procedures Procedure Name Priority Date/Time Associated Diagnosis Comme nts FILM LIBRARY Routine 07/24/2021 12:00 AM Results for this STORAGE ONLY MAMMO EST procedure are in the results section. documented in this encounter Results Film Library- Storage Only Mammo (07/24/2021 12:00 AM EST) Specimen (Source) Anatomical Location Collection Method / Collectio n Time Received Time / Laterality Volume Narrative DUSTIN - 07/28/2021 11:38 AM EST This exam is auto-finalizing. It's purpo se is for storage only. Ivette BRADLEY IMG FILM LIBRARY ORDERABLES Performing Organization Address City/State/ZIP Code Phon e Number [place], [place] documented in this encounter Visit Diagnoses Not on filedocumented in this encounter Care Teams Edm Operator Relationship Specialty Start Date End Date Fox Tian MD PCP - General 06/06/[address] [place] [phone] documented as of this encounter
--- OUTSIDE RECORDS SUMMARY | 2022-01-30 02:11 | XMS_ITS | Encounter Summary ---
:1965 Author Organization [facility] [place] [address] Care Team Providers Name Role Phone Fox Tian MD Primary Care Provider Encounter Details Date Type Department Care Team Description 08/02/2021 Patient Outreach Hematology and Oncology José Miguel Kitchen, at [facility] [place] [address] Social History Tobacco Use Types Packs/Day Years Used Date Never Smoker Smokeless Tobacco: Never Used Financial Resource Strain Answer Date Recorded How hard is it for you to pay for the very basics like Not v kneia hard 08/02/2021 food, housing, medical care, and [...] documented as of this encounter Progress Notes Yessica Kitchen, RN - 08/02/2021 4:41 PM EST [facility] Nurse Navigation Patient Care Plan for the Comprehensive Breast Program (CBP) Reason for call: contacted Isabel Austin via phone to assess for nurse navigation services, per CBP notification, and to see if she had any questions prior to her surgical and medical oncology consultations at [facility]. Introduced her to the CBP. Isabel Austin is a 55 y.o. 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 Etta sounds positive and has support from her , children and grandchildren. Her son and his son live upstairs from them. Her other son lives down the road and her third child is nearby. Her will accompany her to appointments via phone. She appears to be coping ok but is anxious to meetwith a breast surgeon and medical oncologist to determine a treatment plan. 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 She's not sleeping very well right now and does have an appt. on 08/03 with her family doctor. She will discuss sleep/sleep aidesat that time. Menopausal status: LMP (Addendum 08/07: requested Etta please call back with this information) Dai is active. Plan: Appointments for breast MRI, CT, bone scan, and consultations with a breast surgeon and a medical oncologist have been scheduled. She was introduced to the CBP and told she would receive information about her diagnosis and treatment for her review (the Breast Cancer Treatment Handbook; [facility] Early- Stage: Invasive Breast Cancer and Early-Stage Breast Cancer: Systemic Adjuvant Treatment Options programs provided). Plan to meet with on the day of her consult apts. She understands that Kourtney Toro, SIOBHAN, CINDY and I are available to her for support/concerns. Addressed her questions and encouraged her to contact me with any additional questions or concerns. She has our contact information. FAMILY HISTORY Breast Cancer: Sister in her late 20's. She opted for b/l mastectomy. Etta does not believe she had any genetic testing. We did not discuss genetic counseling/testing for Etta. Laterality:Right Is this a recurrence:No Family history of breast cancer:Yes Family history of ovarian cancer: No Personal history or breast cancer:No Method of detection: Patient detected Method of diagnosis: Ultrasound Core Biopsy Identified Barriers: Patient comments or concerns: none identified at this time. She has applied for family emergency medical leave at school (up to 60 days) and will bring any forms for completion to her consutlation. Shehas no concerns regarding insurance, finances (for now) or transportation. documented in this encounter Plan of Treatment Upcoming Encounters Date Type Specialty Care Team Description 01/30/2022 Infusion Hematology and Oncology 02/27/2022 Infusion Hematology and Oncology 03/27/2022 Infusion Hematology and Oncology 04/18/2022 Office Visit Hematology and Oncology Carey Higuera MD [facility] HEMAT[facility]Y/[place] [address] (Wo rk) documented as of this encounter Visit Diagnoses Not on filedocumented in this encounter Care Teams Supervisor Cellars Relationship Specialty Start Date End Date Fox Tian MD PCP - General 06/06/[address] [place] [address] [phone] documented as of this encounter
--- OUTSIDE RECORDS SUMMARY | 2022-01-30 02:11 | XMS_ITS | Encounter Summary ---
:1965 Author Organization [facility] [place] [address] Care Team Providers Name Role Phone Fox Tina MD Primary Care Provider Encounter Details Date Type Department Care Team Description 08/02/2021 [place] [address] Social History Tobacco Use Types Packs/Day [...] Sig Dispensed Refills Start Date End Date escitalopram (LEXAPRO) 20 TAKE ONE TABLET BY 3 mg Tablet MOUTH EVERY DAY enalapril (VASOTEC) 2.5 mg 0 9 Tablet omeprazole (PRILOSEC) 40 TAKE ONE CAPSULE BY 14 mg Capsule, Delayed MOUTH EVERY DAY Release(E.C.) levonorgestrel-ethinyl Take by mouth 0 08/17/2021 estradiol (SEASONIQUE) daily. 0.15 mg-30 mcg (84)/10 mcg (7) Tablet, Dose Pack, 3 Months ALPRAZolam (XANAX) 0.25 mg TAKE 1 2 TABLETS BY 0 02/17/2019 09/04/2021 Tablet MOUTH FOUR TIMES A DAY FOR SEVERE MUSCLE CRAMPS meloxicam (MOBIC) 7.5 mg TAKE ONE TABLET BY 3 09/14/2021 Tablet MOUTH EVERY DAY amitriptyline (ELAVIL) 50 0 11/23/2018 09/04/2021 mg Tablet documented as of this encounter Plan of Treatment Upcoming Encounters Date Type Specialty Care Team Description 01/30/2022 Infusion Hematology and Oncology 02/27/2022 Infusion Hematology and Oncology 03/27/2022 Infusion Hematology and Oncology 04/18/2022 Office Visit Hematology and Oncology [facility] Carey villalpando MD [facility]/[place], [place] [address] (Wo rk) documented as of this encounter Procedures Procedure Name Priority Date/Time Associated Diagnosis Comme [facility] SURGICAL PATHOLOGY Routine 08/02/2021 3:05 PM Res ults for this REPORT EST procedure are i n the results section. documented in this encounter Results Surgical Pathology Report (08/02/2021 3:05 PM EST) Component Value Ref Test Analysis Performed At [facility] Method Time Signature Surgical [id number] ? Location: [facility] Pathology FREDA Report The signing pathologist has (i) examined the relevant preparation(s) for the [facility] specimen(s) and (ii) rendered or confirmed the diagnosis(es) . HOSPITAL LABORATORY . ?Surgic al Pathology DIAGNOSIS CONSULTATION CASE A- Needle biopsies: ?? Right breast, 10:30, 6 cm from nipple Diagnosis: ?- Invasive ductal carcinoma ? 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 of Pathology, [place], [place] SPECIMEN(S) SUBMITTED CONSULTATION CASE A - 11 slide(s) labeled [id number], collection date 07/24/19 22. [id number] Report to: [facility] Surgical Pathology Department [facility], [facility], [address], [place] ??[address] CLINICAL INFORMATION A. 3.2 cm irregular right br east mass; 10:30 6 cm FN; 1 12g cores; B. 2.2 cm right axillary lymph node; 3 18g cores SPECIMEN PROCESSING [facility] ([facility]) pathology slide(s) are reviewed. ??Refer to Diagnosis and Specimen Submitted for specific case infor dulce. For the full text of the [facility] report(s) please refer t o Non- Documentation Pathology in the electronic health record ( ?? eDH). Specimen (Source) Anatomical Collection Method Collection Time Re ceived Time Location / / Volume Laterality 08/02/2021 3:05 PM EST Carey Desai MD PATHOLOGY/CYTOLOGY ORDERABLE S Performing Organization Address City/State/[place] [address] documented in this encounter Visit Diagnoses Not on filedocumented in this encounter Care Teams Certified Pedorthotist Relationship Specialty Start Date End Date Fox Tian MD PCP - General 06/06/[address] [place] [phone] documented as of this encounter
--- OUTSIDE RECORDS SUMMARY | 2022-01-30 02:11 | XMS_ITS | Encounter Summary ---
:1965 Author Organization [facility] Address [address] [place] [address] Care Team Providers Name Role Phone Fox Tian MD Primary Care Provider Reason for Visit Reason Onset Date Comments Prior Authorization 09/08/2021 Molecular cancer danny ting - CPT 44330 is a covered benefit Encounter Details Date Type Department Care Team Description 09/08/2021 Telephone Revenue Management Corrie Dove Prior Authorization Division (Molecular cancer testing [facility] - CPT [address] benefit) [place] [address] Social History Tobacco Use Types Packs/Day [...] this encounter Miscellaneous Notes Telephone Encounter - Corrie Dove - 09/08/2021 7:16 AM EST Molecular cancer testing - CPT 42758 is a covered benefit: I received an e-mail from Kaia in [email or web address] and [employer] ([id number]) requesting coverage review for CPT 52446 which is to be done on the patient's right breast cancer tissue obtained on 08/28/21. Ordering provider is Carey Desai MD. Upon review, the patient's [place] [employer] policy [id number] is active. Per [employer]'s return, the PCP listed on the policy is Fox Tian MD. Per [place] [employer]'s website, CPT 20827 is a covered benefit with no authorization needed. I will e-mail Kaia to let her know CPT 90019 is a covered benefit for this member. documented in this encounter Plan of Treatment Upcoming Encounters Date Type Specialty Care Team Description 01/30/2022 Infusion Hematology and Oncology 02/27/2022 Infusion Hematology and Oncology 03/27/2022 Infusion Hematology and Oncology 04/18/2022 Office Visit Hematology and Oncology Carey Higuera MD [facility] HEMATOLOGY/ONCOL [place], [place] [address] (Wo rk) documented as of [...] on filedocumented in this encounter Care Teams Geothermal Production Manager Relationship Specialty Start Date End Date Fox Tian MD PCP - General 06/06/[address] [place] [phone] documented as of this encounter
--- OUTSIDE RECORDS SUMMARY | 2022-01-30 02:11 | XMS_ITS | Encounter Summary ---
:1965 Author Organization [facility] [place] [address] Care Team Providers Name Role Phone Fox Tian MD Primary Care Provider Reason for Referral Diagnostic Test (Routine) - Closed Specialty Diagnoses / Procedures Referred By Contact Refer red To Contact Radiology Diagnoses Malignant neoplasm of upper-outer quadrant of right breast in female, estrogen receptor positive Carey Desai MD [facility] Rad Ct Scan Procedures CT Guided Biopsy Liver [facility] HEMATOLOGY/[place] [address] [place] [address] Referral ID Status Reason Start Date Expiration Date Visits V isits Requested Authorized [id number] Closed Specialty 08/17/2021 02/14/2023 1 1 Service Requested Reason for Visit Diagnostic Test (Routine) - Closed Specialty Diagnoses / Procedures Referred By Contact Refer red To Contact Radiology Diagnoses Malignant neoplasm of upper-outer quadrant of right breast in female, estrogen receptor positive Carey Desai MD [facility] Rad Ct Scan Procedures CT Guided Biopsy Liver [facility] HEMATOLOGY/[place] [address] [place] [address] Referral ID Status Reason Start Date Expiration Date Visits V isits Requested Authorized [id number] Closed Specialty 08/17/2021 02/14/2023 1 1 Service Requested Encounter Details Date Type Department Care Team Description 08/28/[address] Scan at [facility] Carey Desai Malignant neoplasm [facility] MD aCro of upper-[address] [facility] quadrant of right [place], [place] [facility] breast in female, [id number] HEMATOLOGY/ONCOL estrogen receptor [phone] [place] [address] Social History Tobacco Use Types Packs/Day Years [...] Sign Reading Time Taken Comments Blood Pressure 113/69 08/28/2021 5:00 PM EST Pulse 66 08/28/2021 3:20 PM EST Temperature 35.9 ??C (96.7 ??F) 08/28/2021 3:33 PM EST Respiratory Rate 16 08/28/2021 5:00 PM EST Oxygen Saturation 93% 08/28/2021 5:00 PM EST Inhaled Oxygen Concentration - - Weight - - Height - - Body Mass Index - - documented in this encounter Discharge Instructions Discharge InstructionsFox Munson RN - 08/28/2021 2:43 PM EST [facility] Vascular and Interventional Radiology Biopsy Discharge Instructions Liver biopsy: call your doctor immediately if you develop a sudden onset of weakness, increased painor swelling at the biopsy site or heavy bleeding at the biopsy site. Activity And Diet: Go home and rest quietly for the remainder of the day. You may resume your normal activities tomorrow. Resume your usual diet after the procedure. Do not drive, sign any important/legal documents, or make any important decisions for 24 hours following sedation medications. When to call your healthcare provider: If you see any redness, swelling or drainage at the biopsy site. If you develop chills. If you have a fever greater than or equal to 101 degrees Fahrenheit. If you develop pain around the biopsy site. Bandage: Check the dressing/bandaid throughout the day for an increase in drainage. Keep the biopsy site dry for 24 hours. Replace the bandaid as needed. You may shower 24 hours after the biopsy. Medication: DO NOT take aspirin-containing products, ibuprofen, or blood-thinning medication for the next 24 hours unless your clinician says you may do so. Generally you may use acetaminophen as needed for discomfort unless you have liver disease and are instructed not to take acetaminophen. Biopsy Results The results of your biopsy should be available within 5 business days and will be reported to you byyour primary care coordinator or the clinician who ordered the biopsy. Please do not call us for results as we will not have them. If you have not been contacted by your clinician within 5 business days you should call that officefor further information. When to call the Interventional Radiology Department: Please call with any questions or concerns. Ifit is during regular office hours, please call [phone]. If it is after regular office hours, oron weekends or holidays, please call [phone] and ask to speak to the Technical Designer on callfor Interventional Radiology. You have received medication during your procedure to help lessen anxiety and keep you comfortable.These medications affect judgement and reaction time. We recommend that you do not drive, operate equipment, sign any important documents, or smoke unattended for 24 hours following your procedure. Because of the sedation, be careful on stairs, as you may be unsteady on your feet. You may resume your regular diet as tolerated. IV site -- slight redness, or tenderness is normal, you can use a warm compress. If tenderness and redness increases or foul drainage occurs, please contact your M. D. Revised 04/30/19 documented in this encounter Medications at Time of Discharge Medication Sig Dispensed Refills Start Date End Date letrozole (Femara) 2.5 mg Take 1 tablet by 30 tablet 11 09/2021 Tablet mouth daily. palbociclib (Ibrance) 125 Take 1 tablet (125 21 tablet 11 mg tabletIndications: mg) by mouth daily. HR-positive, Take for 21 days HER2-negative advanced followed by 7 days breast cancer off. Call clinic before starting medication. Indications: hormone receptor (HR)-positive, HER2-negative advanced breast cancer escitalopram (LEXAPRO) 20 TAKE ONE TABLET BY 3 mg Tablet MOUTH EVERY DAY enalapril (VASOTEC) 2.5 0 01/30/2019 mg Tablet omeprazole (PRILOSEC) 40 TAKE ONE CAPSULE BY 14 mg Capsule, Delayed MOUTH EVERY DAY Release(E.C.) ALPRAZolam (XANAX) 0.25 TAKE 1 2 TABLETS BY 0 12/201809/04/2021 mg Tablet MOUTH FOUR TIMES A DAY FOR SEVERE MUSCLE CRAMPS meloxicam (MOBIC) 7.5 mg TAKE ONE TABLET BY 3 09/14/2021 Tablet MOUTH EVERY DAY amitriptyline (ELAVIL) 50 0 11/23/2018 09/04/2021 mg Tablet documented as of this encounter Progress Notes Fox Munson RN - 08/28/2021 2:23 PM EST [facility] Name: ROWDY VEGA Date of : 1965 AGE: 55 y.o. Address: [address] [place] [phone] (home) Mobile: Telephone Information: Referring Provider: Carey Desai REASON FOR VISIT: Order Questions Answers Where will study be performed? [facility] Radiology [120] Is the patient on anticoagulant / antiplatelet therapy ? No Is this biopsy due to suspicion for disease progression Yes Does the patient have any pertinent outside imaging? No Reason for exam and clinical history: new dx breast cancer, abnormal liver CT Is the patient ? No Stat read required? No Does patient require sedation? None No Known Allergies Pertinent PMH: Patient Active Problem List Diagnosis Code ??? Malignant neoplasm of right breast in female, estrogen receptor positive C50.911, Z17.0 ??? Malignant neoplasm of upper-outer quadrant of right breast in female, estrogen receptor vubevkmgO58.411, Z17.0 Date/Procedure Meds Given/Comments 08/28/2021 Liver Biopsy Fentanyl 250mcg IV Midazolam 4mg IV Tolerated the procedure well. Never became sleepy 1423 to procedure room [address]1 via stretcher. Onto table supine. All monitors, O2, safety strap in place. Meds per protocol. Laboratory Results: Lab Results Component Value Date CREATININE 0.67 (L) 08/17/2021 Lab Results Component Value Date K 3.6 08/17/2021 Lab Results Component Value Date PLATELET 252 08/17/2021 Juliet Cope RN - 08/23/2021 10:41 AM EST [facility] DATABASE Name: ROWDY VEGA Date of : 1965 AGE: 55 y.o. Address: [address] [place] [phone] (home) Mobile: Telephone Information: Referring Provider: Carey Desai REASON FOR VISIT: Order Questions Answers Where will study be performed? [facility] Radiology [120] Is the patient on anticoagulant / antiplatelet therapy ? No Is this biopsy due to suspicion for disease progression Yes Does the patient have any pertinent outside imaging? No Reason for exam and clinical history: new dx breast cancer, abnormal liver CT Is the patient ? No Stat read required? No Does patient require sedation? None No Known Allergies Pertinent PMH: Patient Active Problem List Diagnosis Code ??? Malignant neoplasm of right breast in female, estrogen receptor positive C50.911, Z17.0 ??? Malignant neoplasm of upper-outer quadrant of right breast in female, estrogen receptor ajfaamuiU63.411, Z17.0 Date/Procedure Meds Given/Comments Laboratory Results: Lab Results Component Value Date CREATININE 0.67 (L) 08/17/2021 Lab Results Component Value Date K 3.6 08/17/2021 Lab Results Component Value Date PLATELET 252 08/17/2021 documented in this encounter H&P Notes Narda Angeles PA - 08/28/2021 1:50 PM EST INTERVENTIONAL RADIOLOGY FOCUSED H&P: Procedure: CT-guided liver biopsy The patient's history and physical exam have been reviewed and completed. There has been no intervalchange from that of the pre-operative history and physical exam done within the last 30 days. Physical Exam: Cardiovascular: Regular, Normal Pulmonary: Breath sounds clear to auscultation The planned procedure (and sedation plan if appropriate) , its benefits and risks, and alternatives were discussed with the patient. The patient consented to the procedure. PRE-SEDATION ASSESSMENT: Sedation Plan: moderate (conscious sedation) ASA: 2: Patient with mild systemic disease Mallampati: III: only the base of the uvula can be seen Confirm NPO status: Yes History of anesthetic complications: No Current medications reviewed: Yes Allergies reviewed: Yes Source Note - Heriberto Weathers MD - 08/18/2021 1:22 PM EST Images from the original note were not included. INTERVENTIONAL RADIOLOGY FOCUSED H&P and PRE-PROCEDURE NOTE: PCP: Fox Tian MD Referring Provider: No ref. provider found Planned Procedure: Planned procedure: liver lesion biopsy Procedure Indication: Staging/molecular profiling Procedure request received through Interventional Radiology eDH order queue. Presenting Diagnosis/ Complaint: Rowdy Vega is a 55 y.o. female with newly diagnosised breast cancer with axillary, bone and liver lesions on 08/11/21 CT. IR History: None Past Medical/Surgical History: Patient Active Problem List Diagnosis Code ??? Malignant neoplasm of right breast in female, estrogen receptor positive C50.911, Z17.0 ??? Malignant neoplasm of upper-outer quadrant of right breast in female, estrogen receptor swypbvcbR32.411, Z17.0 Past Medical History: Diagnosis Date ??? Malignant neoplasm of right breast in female, estrogen receptor positive 08/02/2021 07/24/21 bx [place]: ER+/SC+/HER2- right breast IDC and right axillary lymph node metastatic adenocarcinoma No past surgical history on file. Medications: Current Outpatient Medications on File Prior to Visit Medication Sig Dispense Refill ??? letrozole (Femara) 2.5 mg Tablet Take 1 tablet by mouth daily. 30 tablet 11 ??? palbociclib (Ibrance) 125 mg tablet Take 1 tablet (125 mg) by mouth daily. Take for 21 days followed by 7 days off. Call clinic before starting medication. Indications: hormone receptor (HR)-positive, HER2-negative advanced breast cancer 21 tablet 11 ??? ALPRAZolam (XANAX) 0.25 mg Tablet TAKE 1 2 TABLETS BY MOUTH FOUR TIMES A DAY FOR SEVERE MUSCLE CRAMPS 0 ??? escitalopram (LEXAPRO) 20 mg Tablet TAKE ONE TABLET BY MOUTH EVERY DAY 3 ??? meloxicam (MOBIC) 7.5 mg Tablet TAKE ONE TABLET BY MOUTH EVERY DAY 3 ??? amitriptyline (ELAVIL) 50 mg Tablet ??? enalapril (VASOTEC) 2.5 mg Tablet ??? omeprazole (PRILOSEC) 40 mg Capsule, Delayed Release(E.C.) TAKE ONE CAPSULE BY MOUTH EVERY DAY 14 No current facility-administered medications on file prior to visit. Allergies: Patient has no known allergies. Social History and Habits: Social History Socioeconomic History ??? Marital status: Spouse name: Not on file ??? Number of children: Not on file ??? Years of education: Not on file ??? Highest education level: Not on file Occupational History ??? Not on file Tobacco Use ??? Smoking status: Never Smoker ??? Smokeless tobacco: Never Used Vaping Use ??? Vaping Use: Never used Substance and Sexual Activity ??? Alcohol use: Not on file ??? Drug use: Not on file ??? Sexual activity: Not on file Other Topics Concern ??? Not on file Social History Narrative ??? Not on file Social Determinants of Health Financial Resource Strain: Low Risk ??? Difficulty of Paying Living Expenses: Not very hard Food Insecurity: Not on file Transportation Needs: No Transportation Needs ??? Lack of Transportation (Medical): No ??? Lack of Transportation (Non-Medical): No Physical Activity: Not on file Housing Stability: Not on file Significant Family History: Family History Problem Relation Age of Onset ??? Breast Cancer Sister Pertinent ROS: as per HPI Labs: Lab Results Component Value Date WBC 6.2 08/17/2021 ANC 3.82 09/22/2019 HCT 42.2 08/17/2021 PLATELET 252 08/17/2021 BUN 7 (L) 08/17/2021 CREATININE 0.67 (L) 08/17/2021 ALKPHOS 75 08/17/2021 AST 20 08/17/2021 ALBUMIN 4.5 08/17/2021 BILITOT <0.2 (L) 08/17/2021 ALT 18 08/17/2021 PROT 7.2 08/17/2021 K 3.6 08/17/2021 Imaging: Physical Exam: Pending (to be performed in angio the day of procedure) ASA: Pending (to be assessed in angio the day of procedure) Mallampati Class: Pending (to be assessed in angio the day of procedure) Assessment: 55 y.o. female with breast cancer and liver lesions with request for biopsy of liver lesion for staging and molecular characterization. I have reviewed the images and the target lesions is amenable to CT or US guided biopsy. Plan: Planned procedure: liver lesion biopsy Labs to be performed day of procedure: No labs Sedation: Moderate (Conscious sedation) Prophylactic antibiotic : None Contrast: No contrast Additional medications for procedure: Lidocaine Planned access site: RUQ Position: Supine Consent: Pending Medications to discontinue (and days held): None Case Urgency:: G- Other (non E or F elective cases) 08/18/2021 documented in this encounter Procedure Notes Milind Padilla MD - 08/28/2021 3:28 PM EST Images from the original note were not included. IR PROCEDURE NOTE Procedure: CT guided liver biopsy. Indication for Procedure: Per Rowdy Colmenares Norman is a 55 y.o. female with newly diagnosised breast cancer with axillary, bone and liver lesions on 08/11/21 CT. Procedure events and findings: After obtaining informed consent, pt was positioned supine. Initial non-contrast localizing scan was obtained showing two low-attenuation lesions as on prior CT. A site for bx was chosen targeting the more lateral, shorter distance and hoping to avoid costochondral cartilage. Access site was identified on the skin with the assistance of the CT laser lights. Due to the painful nature of the procedure, patient received split doses of intravenous fentanyl and versed from the IR nurse while pulse, pressure, and oxygen saturation were continuously monitored. The skin was marked and prepped, maximum sterile barrier technique was used throughout. Local anesthesia provided with 1% lidocaine, a 19ga coaxial needle was directed to the more lateral lesion with CT guidance. Due to respiration and rib location was not able to readily access the lesion. A new skinentry site was then chosen anteriorly targeting the midline hepatic lesion. The skin was again prepped and draped. Local anesthesia provided with 1% lidocaine. A 19- gauge coaxial needle was directed into the lesion with CT guidance. Three 20- gauge 2 cm core biopsies were obtained. Post scan performed with no evidence of complication. Medications: Fentanyl 250mcg IV, Versed 4mg IV, 1% Lidocaine <10ccs subcutaneous. Est Blood Loss: <5cc. Complications: No immediate. Impression: 1. Low attenuation hepatic lesions as on prior CT. 2. CT-guided biopsy of the larger, midline lesion with three 20-gauge cores obtained. Had initially tried unsuccessfully to biopsy the smaller more lateral lesion. 3. Post biopsy CT showed no evidence of complication. 4. Monitor in Recovery for 2 hours following biopsy. Resident/Fellow: None. Attending: Dr. Randy Roberts performed this procedure. I was present during the intraservice time as documented by the IR Nurse. documented in this encounter Plan of Treatment Upcoming Encounters Date Type Specialty Care Team Description 01/30/2022 Infusion Hematology and Oncology 02/27/2022 Infusion Hematology and Oncology 03/27/2022 Infusion Hematology and Oncology 04/18/2022 [facility] HEMAT[facility]/ONCOL [place], [place] [address] (Wo rk) documented as of this [...] Priority Date/Time Associated Diagnosis Comme nts CT GUIDED LIVER Routine 08/28/2021 3:37 PM Malignant neoplasm Results for this BIOPSY EST of upper-outer procedure are in quadrant of right the result s breast in female, section. estrogen receptor positive SURGICAL PATHOLOGY Routine 08/28/2021 2:47 PM Res ults for this REPORT EST procedure are i n the results section. SPECIMEN TO Routine 08/28/2021 2:17 PM Results f or this PATHOLOGY EST procedure are i n the results section. documented in this encounter Results CT Guided Biopsy Liver (08/28/2021 3:37 PM EST) Anatomical Region Laterality Modality Computed Tomography Specimen (Source) Anatomical Location Collection Method / Collectio n Time Received Time / Laterality Volume Narrative 08/28/2021 4:09 PM EST IR PROCEDURE NOTE ?? Procedure: CT guided liver biopsy. ?? Indication for Procedure: Per Dr. Gideon dial, ??Rowdy Vega??is a 55 y.o.??femal e??with newly diagnosised breast cancer with axillary, bone and liver les ions on 08/11/21 CT. ?? Procedure events and findings: After obt aining informed consent, pt was positioned supine. ??Initial non-contras t localizing scan was obtained showing two low-attenuation lesions as o n prior CT. ??A site for bx was chosen targeting the more lateral, short er distance and hoping to avoid costochondral cartilage. ??Access site w as identified on the skin with the assistance of the CT laser lights. ??Due to the painful nature of the procedure, patient received split doses of intravenous fentanyl and versed from the IR nurse while pulse, pressure, and oxygen saturation were continuously monitored. ?? The skin was marked and prepped, maximum sterile barrier technique was used throughout. ??Local anesthesia prov ided with 1% lidocaine, a 19ga coaxial needle was directed to the more lateral lesion with CT guidance. ?? Due to respiration and rib location was not able to readily access the lesion. ??A new skin entry site was then chosen anteriorly targeting the midline hepatic lesion. ??The skin was a gain prepped and draped. ??Local anesthesia provided with 1% lidocaine. ? ?A 19-gauge coaxial needle was directed into the lesion with CT guidanc e. ??Three 20-gauge 2 cm core biopsies were obtained. Post scan perfor med with no evidence of complication. ?? Medications: Fentanyl ??250mcg IV, Verse d 4mg IV, 1% Lidocaine <10ccs subcutaneous. ?? Est Blood Loss: <5cc. ?? Complications: ??No immediate. ?? Impression: ?? 1. ??Low attenuation hepatic lesions as on prior CT. ?? 2. ??CT-guided biopsy of the larger, mid line lesion with three 20-gauge cores obtained. ??Had initially tried un successfully to biopsy the smaller more lateral lesion. ?? 3. ??Post biopsy CT showed no evidence o f complication. ?? 4. ??Monitor in Recovery for 2 hours fol lowing biopsy. ?? Resident/Fellow: ??None. ?? Attending: I, Dr. Padilla performed this procedure. ??I was present during the intraservice time as documented by soy [place] Nurse.? Carey Desai MD IMG CT ORDERABLES Surgical Pathology Report (08/28/2021 2:47 PM EST) Component Value Ref Test Analysis Performed At [facility] Range Method Time Signature Surgical [id number] ? Location: [address] [place] [address] Pathology [facility] Report The signing pathologist has (i) examined the relevant preparation(s) for the [facility] specimen(s) and (ii) rendered or confirmed the diagnosis(es) . HOSPITAL LABORATORY . ?[facility] RESULTS TEST: HER2 (ERBB2) FISH, breast METHOD: Fluorescence in situ hybridization (FISH) with chromosome 17 centromere (17p11.1-q11.1) probe and a locus specific probe for the HER2 gene locus (17q11.2- q12). SAMPLE ANALYZED: A1-12 RESULT: ?NEGATIVE FOR HER2/JOHN AMPLIFICATION ? TOTAL # SIGNALS/TOTAL # NUCLEI COUNTED FOR H ER2 PROBE = 83 ? TOTAL # SIGNALS/TOTAL # NUCLEI COUNTED FOR CEP-17 PROBE = 83 ? HER2 TO CEP- 17 RATIO = 1.0 ?(NORMAL RANGE <2.0) ? TOTAL # NUCLEI COUNTED = 40 ? AVERAGE # HER2 signals/cell = 2.1 Interpretation: ??Paraffin-embedded tissue sections were s ubmitted for HER2 (ERBB2) gene amplification analysis by FISH. ??Direct analysis was performed using the [employer] Kit. ??Slide adequacy and signal enumeration were evaluated and satisfactory for both contr ol and patient slides. ??A signal ratio derived from the HER2 probe and the CEP-17 c entromere probe of ?2.0 is considered positive for HER2 gene amplification. The 2013 ASCO/CAP guideline recommendation for HER2 testing in breast cancer states that samples with a HER2 to CEP-17 ratio of les s than 2.0 are non-amplified. Specimens with a HER2 to CE P-17 range of ?2.0 are considered amplified. This test is approved by the U.S. FDA for clinical diagnosti c use. Reference: Massimo PERDOMO et al. Recommendations for human epidermal growth factor receptor 2 testing in breas t cancer: [place] Society of Clinical Oncology/College of [place]ologists cl inical practice guideline update. J Clin Oncol. 2013 May 15. Massimo PERDOMO et al. Human Epide rmal Growth Factor Receptor 2 Testing in Breast Cancer: [place] Society of Clinica l Oncology/College of [place] Clinical Practice Guideline Focused Update. Arch Pathol Lab Med. 2018 December 11/J Clin Oncol. 2017December 11. Electronically signed by: ?Chana Barnes MD Verified: ??09/08/2021 17:28 ??Pathologist Performed at: ??-[facility] Dept. of Pathology, [place], [place] ? Addendum ADDENDUM DISCUSSION Immunohistochemistry Studies . ADDENDUM DISCUSSION Specimen: Liver, core needle biopsy (A1) ER immunoreactivity: Positive (>90% cancer cells with immuno staining) Stain intensity: Strong SC immunoreactivity: Positive (20-30% cancer cells with immu nostaining) Stain intensity: Weak to moderate HER2 immunoreactivity: Equivocal (2+) Note: HER2 FISH is pending. ? *Diagnostic franks for hormone receptors (ASCO/CAP GUIDELINES, 2020): ?Negative immunoreactivity: <1% tumor cells with immuno staining ?Positive immunoreactivity: >=1% tumor cells with immun ostaining ??Low Positive: 1-10% tumor cells with immunostaining* *There are limited data on t he overall benefit of endocrine therapies for patients with low level (1-10%) ER e xpression, but they currently suggest possible benefit, so patients are considered eligible for endocrine treatment. There are data that suggest invasive cancers wi th these results are heterogeneous in both behavior and biology and often have gene expression profiles more similar to ER-negative cancers. [id number] Overexpression Assessment ?------- ?----- Interpretation ?Score ?Criteria ?------- ?----- Negative ?(0) ?No staining observe d or membrane ? staining that is incomplete and is ? faint/barely perceptible and within ?10% ? of tumor cells Negative ?(1+) ? Incomplete mem brane staining that is ? faint/barely perceptible and within >10% ? of tumor cells Equivocal ? (2+ ) ? Weak to moderate complete membrane staining ? observed within >10% of tumor cells Positive ?(3+) ? Circumferential membrane staining that ? is complete, intense, and within >10% of ? tumor cells Diagnostic categories have b een adjusted to reflect treatment guidelines (ASCO/CAP guidelines 2018) Immunohistochemical assays w ere performed on paraffin-embedded tissue sections fixed in 10% neutral buffered for [place] for 6-72 hours using the polymer system technique with appropriate positive a nd negative controls. The assays were performed according to the ceramic design engineer ' s ins tructions using Anti-ER (SP1), Anti-SC (16), and Anti-HER2 (4B5) antibodies. These tests were developed and their per formance characteristics determined by [facility]. They may not have been cleared or approved by the [place] Food and Drug Adm inistration. The FDA does not require such tests to go through premarket FDA revie w. These tests are used for clinical purposes and should not be regarded as investig ational or for research. This laboratory is certified . ADDENDUM DISCUSSION under the Clinical Laborato ry Improvement Amendments (CLIA) as qualified to perform high complexity clinical laboratory testing. Electronically signed by: ?Netta KEY, Jose Enrique Elizondo Verified: ??09/04/2021 10:12 ??Pathologist Performed at: ??-[facility] Dept. 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 Electronically signed by: ?Diandra KEY PhD, Lizabeth Verified: ??09/01/2021 16:13 ??Pathologist Performed at: ??-[facility] Dept. of Pathology, [place], [place] DISCUSSION The tumor in the present bio psy is morphologically similar to the patient's breast ductal carcinoma ([id number]). ADDITIONAL STUDIES Immunohistochemistry Studies: Formalin-fixed, paraffin-emb edded tissue sections are studied using the polymer technique with appropriate positive and negative controls. ?These IHC studies provide the pathologist wit h adjunctive diagnostic information. Antibody specificity has been verified by testin g antibodies on a series of in-house tissues with known immunohistochemical perform ance characteristics. The clinical interpretation of any antibody positive stain ing or its absence is evaluated within the context of clinical presentation, morp hology, histopathological criteria and other diagnostic tests. Block ? Antibody ?Result (Positive /Negative) A1 ? GATA3 ?Positive (strong , diffuse) A1 ? CK7 ?Positive A1 ? Mammaglobin ?Negative A1 ? CK20 ? Negative A1 ? CDX2 ? Negative SPECIMEN(S) SUBMITTED A - Liver, biopsy (Multiple) CLINICAL INFORMATION New diagnosis of breast canc er, abnormal liver CT, malignant neoplasm of upper outer quadrant of right breast and female, estrogen receptor posi tive SPECIMEN PROCESSING A - Labeled/Fixative: Liver, formalin. Quantity/Size: Three, averaging 1.1 x 0.1 cm Tissue Description: Wispy, olivo-white needle core biopsies. Sections/Processin-72 hours fixation ensured. Entirely submitted in 1 cassette labeled A1. ??pps Specimen (Source) Anatomical Collection Method Collection Time Re ceived Time Location / / Volume Laterality 08/28/2021 2:47 PM EST Carey Desai MD PATHOLOGY/CYTOLOGY ORDERABLE S Performing Organization Address City/[facility]/[place]IP [place] [address] Specimen to Pathology (08/28/2021 2:17 PM EST) Specimen Anatomical Collection Method Collection Time Receive d Time (Source) Location / / Volume Laterality AP Specimen 08/28/2021 2:17 PM 2 2:18 EST PM EST Narrative [facility] - 08/28/2021 2:18 PM EST Specimen requisition ordered. 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 - Titration dose 25-50 mcg IV, (based on patient response) every 3 minutes PRN, to maintain procedural pain less than 2 per pain Scale. Maximum dose: 50 mcg/dose, 250 mcg/hour For use in Interventional Radiology (IR) only for procedural sedation with direct provider supervision and verbal order., Angio/IR (Day of Procedure), Routine Given 08/28/2021 3:00 PM EST 50 mcg Given 08/28/2021 2:55 PM EST 50 mcg fentaNYL (PF) (Sublimaze) 50 mcg/mL inje ction 1 dose, Starting on Sat08/28/21 at 1418, Until Sat08/28/21 at 1435, Fox Munson.: cabinet override midazolam (pf) (Versed) (1 mg/mL) multi-dose Given 08/28/2021 3: 00 PM EST 1 mg injection 0.5-1 mg 0.5-1 mg, Intravenous, EVERY 3 MIN PRN, Starting on Sat08/28/21 at 1347, Until Sat08/28/21 at 1752, Sleep, - Start dose; 1 mg (Reduce dose to 0.5 mg if history of sedation sensitivity). - Titration dose: 0.5 mg - 1 mg (based on patient response) every 3 minutes PRN to obtain RASS score of -3. Maximum dose: 1 mg per dose, 5 mg/hour. For use in Interventional Radiology (IR) only for procedural sedation with direct provider supervision and verbal order., Angio/IR (Day of Procedure), Routine Given 08/28/2021 2:55 PM EST 1 mg Given 08/28/2021 2:50 PM EST 1 mg midazolam (PF) (Versed) 1 mg/mL injectio n 1 dose, Starting on Sat08/28/21 at 1419, Until Sat08/28/21 at 1435, Fox Munson: cabinet override documented in this encounter Care Teams Mine Safety Manager Relationship Specialty Start Date End Date Fox Tian MD PCP - General 06/06/[address] [place] [phone] documented as of this encounter
--- OUTSIDE RECORDS SUMMARY | 2022-01-30 02:11 | XMS_ITS | Encounter Summary ---
:1965 Author Organization [facility] [place] [address] Care Team Providers Name Role Phone Fox Tian MD Primary Care Provider Encounter Details Date Type Department Care Team Description 07/13/2021 Ancillary Procedure Radiology Library at [facility] [id number] [place] [phone] Social History Tobacco Use Types Packs/Day Years [...] Visit Hematology and Oncology Carey Higuera MD [facility] HEMATOLOGY/[place], [place] [address] (Wo rk) documented as of this encounter Procedures Procedure Name Priority Date/Time Associated Diagnosis Comme nts FILM LIBRARY Routine 07/13/2021 12:05 AM Results for this STORAGE ONLY MAMMO EST procedure are in the results section. documented in this encounter Results Film Library- Storage Only Mammo (07/13/2021 12:05 AM EST) Specimen (Source) Anatomical Location Collection Method / Collectio n Time Received Time / Laterality Volume Narrative DUSTIN - 07/28/2021 11:44 AM EST This exam is auto-finalizing. It's purpo se is for storage only. Ivette BRADLEY IMG FILM LIBRARY ORDERABLES Performing Organization Address City/State/ZIP Code Phon e Number [place], [place] documented in this encounter Visit Diagnoses Not on filedocumented in this encounter Care Teams Shoe Shiner Relationship Specialty Start Date End Date Fox Tian MD PCP - General 06/06/[address] [place] [phone] documented as of this encounter
--- OUTSIDE RECORDS SUMMARY | 2022-01-30 02:11 | XMS_ITS | Encounter Summary ---
:1965 Author Organization [facility] [place] [address] Care Team Providers Name Role Phone Fox Tian MD Primary Care Provider Encounter Details Date Type Department Care Team Description 08/01/2021 Telephone Hematology and Oncol dae at [facility] [place] [place] [phone] Social History Tobacco Use Types Packs/Day [...] this encounter Miscellaneous Notes Telephone Encounter - Melissa Patterson - 08/03/2021 11:14 AM EST Called [facility] at [phone] to check status, but was on hold for almost 30 minutes. Sent [email or web address] to request status update Telephone Encounter - Melissa Patterson - 08/01/2021 12:32 PM EST Faxed PA request for OncoType testing [id number] to [facility] at [phone] documented in this encounter Plan of Treatment Upcoming Encounters Date Type Specialty Care Team Description 01/30/2022 Infusion Hematology and Oncology 02/27/2022 Infusion Hematology and Oncology 03/27/2022 Infusion Hematology and Oncology 04/18/2022 Office Visit Hematology and Oncology Carey Higuera MD [facility] HEMATOLOGY/[place], [place] [address] (Wo rk) documented as of this encounter Visit Diagnoses Not on filedocumented in this encounter Care Teams Industrial Sweeper Cleaner Relationship Specialty Start Date End Date Fox Tian MD PCP - General 06/06/[address] [place] [phone] documented as of this encounter
--- OUTSIDE RECORDS SUMMARY | 2022-01-30 02:11 | XMS_ITS | Encounter Summary ---
:1965 Author Organization [facility] Address [facility] [place] [address] Care Team Providers Name Role Phone Fox Tian MD Primary Care Provider Reason for Visit Reason Comments Specialty Pharmacy Review palbociclib (Ibrance) 125 mg tablet Encounter Details Date Type Department Care Team Description 08/17/2021 Specialty Pharmacy Pharmacy at [facility] Special[facility] Pharm[facility] Lisa Howard Review (p [facility] [address] (Ibrance) 125 mg [place], [place] tablet ) [id number] Social History Tobacco Use Types Packs/Day Years [...] documented as of this encounter Progress Notes Lisa Snowden - 08/17/2021 11:59 PM EST The [facility] has completed a benefits investigation for Isabel Austin to review their eligibility to fill at [facility]. Per patient's medication list they are prescribed Ibrance 125mg tablet and the medication is able to be filled at the [facility]. documented in this encounter Plan of Treatment Upcoming Encounters Date Type Specialty Care Team Description 01/30/2022 Infusion Hematology and Oncology 02/27/2022 Infusion Hematology and Oncology 03/27/2022 Infusion Hematology and Oncology 04/18/2022 Office Visit Hematology and Oncology Carey Higuera MD [facility]/[place], [place] [address] (Wo rk) documented as of this encounter Goals Goal Patient Goal Associated Recent Patient-Stated? Author Type Problems Progress DH Home Medication Patient No Dari n, Compliance and Facing Vladimir Singh, Understanding Action Plan [facility] Note: Formatting of this note might be d ifferent from the original. Slow or prevent progression and maintain quality of life, based on outcomes and quality of life assessed at follow-up visits documented as of this encounter Visit Diagnoses Not on filedocumented in this encounter Care Teams Employment Coach Relationship Specialty Start Date End Date Fox Tian MD PCP - General 06/06/[address] [place] [phone] documented as of this encounter
--- OUTSIDE RECORDS SUMMARY | 2022-01-30 02:11 | XMS_ITS | Encounter Summary ---
:1965 Author Organization [facility] [place] [address] Care Team Providers Name Role Phone Fox Tian MD Primary Care Provider Encounter Details Date Type Department Care Team Description 08/04/2021 Telephone Hematology and Oncol dea at [facility] [place] [phone] Social History Tobacco Use Types Packs/Day [...] Notes Telephone Encounter - Melissa Patterson - 08/15/2021 12:55 PM EST Per [employer] web site, specimen was received on 08/09, but no ERD yet. Called [employer] at [phone], and spoke with Rachel who let me know that there was discrepency with accession number. They expected [id number] per our path report, but specimen from [facility] was labeled [id number]. Confirmed that this is the same sample and correct to test, so she will push along to the lab. Telephone Encounter - Melissa Patterson - 08/08/2021 12:36 PM EST Case marked as pending for PA. Called [employer] at [phone], 2 for billing and spoke with Sully who took PA info Telephone Encounter - Melissa Patterson - 08/08/2021 10:[address] Desai reached out to patient with CT results and let me know that she is pre-menopausal. Submitted request for OncoType testing online with [facility] Telephone Encounter - Melissa Patterson - 08/04/2021 4:01 PM EST Received and scanned approval letter from [facility]- auth# [id number]; valid 08/01/21-01/29/22 for [id number]. Requested patient's menopausal status, as this is required from [employer] for node+ patients- will submit when I have this info. documented in this encounter Plan of Treatment Upcoming Encounters Date Type Specialty Care Team Description 01/30/2022 Infusion Hematology and Oncology 02/27/2022 Infusion Hematology and Oncology 03/27/2022 Infusion Hematology and Oncology 04/18/2022 Office Visit Hematology and Oncology Carey Higuera MD [facility]AT[facility]/[place], [place] [address] (Wo rk) documented as of this encounter Visit Diagnoses Not on filedocumented in this encounter Care Teams Stone Mill Operator Relationship Specialty Start Date End Date Fox Tian MD PCP - General 06/06/[address] [place] [phone] documented as of this encounter
--- OUTSIDE RECORDS SUMMARY | 2022-01-30 02:11 | XMS_ITS | Encounter Summary ---
:1965 Author Organization [facility] [address] Care Team Providers Name Role Phone Fox Tian MD Primary Care Provider Reason for Referral Diagnostic Test (Routine) - Closed Specialty Diagnoses / Procedures Referred By Contact Refer red To Contact Radiology Diagnoses Malignant neoplasm of upper-outer quadrant of right breast in female, estrogen receptor positive Carey Desai MD [facility] Rad [facility] Scan Procedures CT Guided Biopsy Liver [facility] HEMATOLOGY/[place] [address] [place] [address] Referral ID Status Reason Start Date Expiration Date Visits V isits Requested Authorized [id number] Closed Specialty 08/17/2021 02/14/2023 1 1 Service Requested Reason for Visit Reason Comments Advice Only Consultation (Routine) - Closed Specialty Diagnoses / Procedures Referred By Contact Refer red To Contact Hematology and Oncology Diagnoses Breast cancer R IDC ER/MS +, Her2-, NODE + C/W KIERRA (dc) Ivette aBron, Carey Perez, Procedures [facility] [address] [facility] [phone] HEMATOLOGY/O NCOLOGY [place], [place] [address] Phone: Fax: Referral ID Status Reason Start Date Expiration Date Visits Requ ested Visits Authorized [id number] Closed 08/17/2021 08/17/2022 1 1 Encounter Details Date Type Department Care Team Description 08/17/2021 Office Visit Hematology and Carey Desai MD [facility] HEMATOLOGY/[place] [address] Malignant neoplasm of Oncology at [facility] Yessica Kitchen RN upper-outer quadrant [facility] of right breast in Drive female, estrogen [place], [place] [phone] Social History Tobacco Use Types Packs/Day Years [...] Sign Reading Time Taken Comments Blood Pressure 147/98 08/17/2021 11:02 AM EST Pulse 80 08/17/2021 11:02 AM EST Temperature 36.2 ??C (97.2 ??F) 08/17/2021 11:02 AM EST Respiratory Rate 18 08/17/2021 11:02 AM EST Oxygen Saturation 95% 08/17/2021 11:02 AM EST Inhaled Oxygen Concentration - - Weight 91.7 kg (202 lb 3.2 oz) 08/17/2021 11:02 AM EST Height 170.5 cm (5' 7.13) 08/17/2021 11:02 AM EST Body Mass Index 31.55 08/17/2021 11:02 AM EST documented in this encounter Progress Notes Carey Desai MD - 08/17/2021 11:00 AM EST Subjective Patient ID: Isabel Austin is a 55 y.o. female. 55 yo who felt a lump in [...] areas in the liver suspicious for metastases. Review of Systems Constitutional: Negative. 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 Lives with , children and grand children near by. HENT: Negative. Eyes: Negative. Respiratory: Negative. Cardiovascular: Negative. Gastrointestinal: Negative. Endocrine: Negative. Genitourinary: Positive for menstrual problem. Hx iron deficiency from heavy menses, started ocps for menses control several years ago, stopped atdiagnosis of breast cancer; no bleeding since. 12 grandchildren. Musculoskeletal: Positive for arthralgias and back pain. Skin: Negative. Allergic/Immunologic: Negative. Neurological: Negative. Hematological: Negative. Psychiatric/Behavioral: Negative. FHx: sister with breast cancer in her 20's, s/p double mastectomy doing well now. Parents , mother age 73 DM/ CHF; father at age 69 from [place] Objective Last value Range last 8 hrs Temperature Temp: 36.2 ??C (97.2 ??F) Temp: [36.2 ??C (97.2 ??F)] Heart Rate Heart Rate: 80 Heart Rate: [80] Blood Pressure BP: (!) 147/98 BP: (147)/(98) Respiratory Rate Resp: 18 Resp: [18] SpO2 SpO2: 95 % SpO2: [95 %] Physical Exam Vitals and nursing note reviewed. Constitutional: Appearance: [...] Content: Thought content normal. Judgment: Judgment normal. CT, MRI, bone scan and labs reviewed Recent Results (from the past 24 hour(s)) Cancer antigen 15-3 Result Value Ref Range CA 15-3 67 (H) <=25 unit/mL Comprehensive metabolic panel (non-fasting) Result Value Ref Range Glucose Lvl 120 65 - 199 mg/dL BUN 7 (L) 8 - 18 mg/dL Creatinine 0.67 (L) 0.70 - 1.20 mg/dL Sodium 137 135 - 145 mmol/L Potassium 3.6 3.5 - 5.0 mmol/L Chloride 103 98 - 107 mmol/L CO2 24 22 - 31 mmol/L Anion Gap 10 5 - 15 mmol/L Calcium 9.6 8.5 - 10.5 mg/dL Total Protein 7.2 6.1 - 8.0 g/dL Albumin 4.5 3.2 - 5.2 g/dL AST 20 0 - 30 unit/L ALT 18 0 - 30 unit/L Alk Phos 75 35 - 105 unit/L Total Bilirubin <0.2 (L) 0.2 - 1.3 mg/dL Estimated GFR 100 >=60 mL/min/1.73 m?? Estradiol Result Value Ref Range Estradiol 33 pg/mL Luteinizing Hormone Result Value Ref Range LH 7.1 mlU/ML Follicle Stimulating Hormone Result Value Ref Range FSH 15.1 mlU/ML Hemogram Result Value Ref Range WBC 6.2 4.0 - 9.5 x10(3)/mcL RBC 4.85 4.00 - 5.21 x10(6)/mcL Hemoglobin 14.2 11.7 - 15.5 g/dL Hematocrit 42.2 35.7 - 45.8 % MCV 87.0 82.6 - 94.4 fL MCH 29.3 27.1 - 32.0 pg MCHC 33.6 31.7 - 35.0 g/dL Platelets 252 145 - 357 x10(3)/mcL RDWSD 42.0 37.0 - 46.0 fL RDWCV 13.2 11.5 - 14.1 % MPV 10.1 7.6 - 12.9 fL nRBC % Auto 0.0 % nRBC Abs Auto 0.000 0.000 - 0.000 x10(3)/mcL Differential, Automated Result Value Ref Range Neutrophils % 63.2 % Neutr Abs (ANC) 3.89 1.70 - 6.10 x10(3)/mcL Lymphocytes % 26.6 % Lymphocytes Abs 1.6 0.9 - 3.2 x10(3)/mcL Monocytes % 6.3 % Monocyte Abs 0.4 0.3 - 0.9 x10(3)/mcL Eosinophils % 3.1 % Eosinophils Abs 0.2 0.0 - 0.4 x10(3)/mcL Basophils % 0.5 % Basophils Abs 0.0 0.0 - 0.1 x10(3)/mcL Immature Gran % 0.30 % Mónica Gran Abs 0.02 0.00 - 0.04 x10(3)/mcL Assessment & Plan No problem-specific Assessment & Plan notes found for this encounter. 55 yo with de gini metastatic breast cancer. ER+ her2 neg We discussed the diagnosis, pathology, biology, treatment options, prognostic and predictive features and the plan from here in detail with Etta and her daughter . First line therapy is AI + cdk4/6 inhibitor. Blood tests suggest she is pre-menopausal so given dysmennorrhea, will recommend OS + AI which will also control menses. Tissue biopsy for metastatic disease will confirm this is all one process, and allow for tissue for molecular profiling to assist with future treatment options. Bone mets to be treated with xgeva. Pain currently moderate, she will try increasing meloxicam, and we will hold off on RT for now. Plan: CT guided biopsy liver Letrozole 2.5 mg daily Palbociclib 125 mg day 1-21, q 28 days Monitor blood counts monthly. xgeva monthly Ovarian suppression with goserelin q 4 wks F/u 4 wks Restage in 3 months Isabel Diamond RN - 08/17/2021 11:00 AM EST Oral Chemotherapy Check Note 08/25/2021 Isabel Austin, 1965 Prescriptions for oral chemotherapy were reviewed as follows: Oral Chemotherapy Order palbociclib Ibrance: Order details: ?? Dose: 125 mg ?? Route: oral ?? Quantity to be dispensed #: 21 tablets ?? Number of refills: 11 eleven ?? Instructions: Take 1 tablet (125 mg) by mouth daily. Take for 21 days followed by 7 days off. ?? Cycle number and length: 21 days ?? Start date: 08/26/21 Plan of care compared to information in the medical record, including note from provider on 08/17/21 (date). The prescription was found To be complete and accurate. It was e-prescribed to Specialty pharmacy. Oral Chemotherapy Assessment Note 08/25/2021 Isabel Austin, 1965 Assessment of Isabel Austin???s living situation reveals that she lives with a caregiver. Name and contact information for caregiver: . The patient will be responsible for her medication administration. Medications reviewed, including prescription and non-prescription medications. Isabel Austin has no insurance coverage issues and co-pay is manageable The patient reports that he/she: ?? is able to swallow pills. ?? is able to open medication bottles/packages without problems. ?? is not experiencing any symptoms that will affect the ability to keep down medications (no nausea, vomiting, mucositis, or difficulty swallowing). ?? is willing to fill prescriptions with Specialty [facility]. What pharmacy would the patient like to have the medication dispensed from? [facility] The patient verifies: ?? ability to read and understand the drug label instructions. ?? understanding of treatment plan with oral chemotherapy. ?? understanding that medication will be dispensed from specialty pharmacy. This medication will be delivered to the home (instructed to call nurse if he/she does not hear from the pharmacy regarding delivery). documented in this encounter Plan of Treatment Upcoming Encounters Date Type Specialty Care Team Description 01/30/2022 Infusion Hematology and Oncology 02/27/2022 Infusion Hematology and Oncology 03/27/2022 Infusion Hematology and Oncology 04/18/2022 Office Visit Hematology and Oncology [facility] Carey villalpando MD [facility] HEMATOLOGY/ONCOL [place], [place] [address] (Wo rk) documented as of this encounter Goals Goal Patient Goal Associated Recent Patient-Stated? Author Type Problems Progress Home Medication Patient No Dari marr, Compliance and Facing Vladimir Singh, Understanding Action Plan [facility] Note: Formatting of this note might be d ifferent from the original. Slow or prevent progression and maintain quality of life, based on outcomes and quality of life assessed at follow-up visits documented as of this encounter Procedures Procedure Name Priority Date/Time Associated Comments Diagnosis HEMOGRAM Routine 08/17/2021 12:30 Malignant neoplasm Resul ts for this PM EST of upper-outer procedure are in quadrant of right the result s breast in female, section. estrogen receptor positive DIFFERENTIAL, Routine 08/17/2021 12:30 Malignant neoplasm Resu lts for this AUTOMATED PM EST of upper-outer procedure are in quadrant of right the result s breast in female, section. estrogen receptor positive HC CA 15-3 (CANCER Routine 08/17/2021 12:30 Malignant neoplasm Results for this ANTIGEN) PM EST of upper-outer procedure are in quadrant of right the result s breast in female, section. estrogen receptor positive HC ESTRADIOL, SERUM Routine 08/17/2021 12:30 Malignant neoplas m Results for this PM EST of upper-outer procedure are in quadrant of right the result s breast in female, section. estrogen receptor positive HC CBC,PLT & AUTO DIFF Routine 08/17/2021 12:30 Malignant neop lasm PM EST of upper-outer quadrant of right breast in female, estrogen receptor positive HC LH ASSAY, SERUM Routine 08/17/2021 12:30 Malignant neoplasm Results for this PM EST of upper-outer procedure are in quadrant of right the result s breast in female, section. estrogen receptor positive HC FSH ASSAY, SERUM Routine 08/17/2021 12:30 Malignant neoplas m Results for this PM EST of upper-outer procedure are in quadrant of right the result s breast in female, section. estrogen receptor positive COMPREHENSIVE Routine 08/17/2021 12:30 Malignant neoplasm Resu lts for this METABOLIC PANEL PM EST of upper-outer procedure are in (NON-FASTING) quadrant of right the resul ts breast in female, section. estrogen receptor positive documented in this encounter Results CT Guided Biopsy Liver (08/28/2021 3:37 PM EST) Anatomical Region Laterality Modality Computed Tomography Specimen (Source) Anatomical Location Collection Method / Collectio n Time Received Time / Laterality Volume Narrative 08/28/2021 4:09 PM EST IR PROCEDURE NOTE ?? Procedure: CT guided liver biopsy. ?? Indication for Procedure: Per Dr. Gideon dial, ??Isabel Austin??is a 55 y.o.??femal e??with newly diagnosised breast [...] the intraservice time as documented by soy guy IR Nurse.? Carey Desai MD IMG CT ORDERABLES Differential, Automated (08/17/2021 12:30 PM EST) P athologist Signature Neutrophils % 63.2 % [facility] Neutr Abs (ANC) 3.89 1.70 - [facility] 6.10 [facility] x10(3)/[facility] LABORATORY Lymphocytes % 26.6 % [facility] Lymphocytes Abs 1.6 0.9 - 3.2 [facility] x10(3)/[facility] LABORATORY Monocytes % 6.3 % [facility] Monocyte Abs 0.4 0.3 - 0.9 [facility] x10(3)/[facility] LABORATORY Eosinophils % 3.1 % [facility] Eosinophils Abs 0.2 0.0 - 0.4 [facility] x10(3)/[facility] LABORATORY Basophils % 0.5 % [facility] Basophils Abs 0.0 0.0 - 0.1 [facility] x10(3)/[facility]ORY Immature Gran % 0.30 % [facility] Comment: Immature granulocytes(IG's)percentage an d absolute count will include metamyelocytes, myelocytes, and promyelo cytes. Blood smears from CBCs yielding IG's will be scanned manually for concor dance. If this scan disagrees with the automated IG or if promyelocytes are not ed, a manual differential will be performed. Mónica Gran Abs 0.02 0.00 - 0.04 x10(3)/[facility] Specimen Anatomical Collection Method Collection Time Receive d Time (Source) Location / / Volume Laterality Blood 08/17/2021 12:30 08/17/2021 PM EST 12:39 PM EST Resulting Agency Comment Spec In Lab Carey Desai MD HEMATOLOGY ORDERABLES Performing Organization Address City/State/[place] [address] Hemogram (08/17/2021 12:30 PM EST) athologist Signature WBC 6.2 4.0 - 9.5 [facility] RBC 4.85 4.00 - [facility] 5.21 [facility] x10(6)/[facility] Hemoglobin 14.2 11.7 - [facility] g/dL [facility] Hematocrit 42.2 35.7 - [facility] 45.8 % [facility] MCV 87.0 82.6 - [facility] 94.4 [facility] LABORATORY MCH 29.3 27.1 - [facility] 32.0 pg [facility] MCHC 33.6 31.7 - [facility] 35.0 g/dL [facility] Platelets 252 145 - 357 [facility] x10(3)/[facility]ORY RDWSD 42.0 37.0 - [facility] 46.0 [facility]ATORY RDWCV 13.2 11.5 - [facility] 14.1 % [facility] MPV 10.1 7.6 - 12.9 [facility] FR[facility] LABORATORY nRBC % Auto 0.0 % [facility] nRBC Abs Auto 0.000 0.000 - [facility] x10(3)/[facility] LABORATORY Specimen Anatomical Collection Method Collection Time Receive d Time (Source) Location / / Volume Laterality Blood 08/17/2021 12:30 08/17/2021 PM EST 12:39 PM EST Resulting Agency Comment Spec In Lab Carey Desai MD HEMATOLOGY ORDERABLES Performing Organization Address City/State/[place] [address] (ABNORMAL) Cancer antigen 15-3 (08/17/2021 12:30 PM EST) athologist Signature CA 15-3 67 (H) <=25 [facility] unit/mL [facility] Specimen Anatomical Collection Method Collection Time Receive d Time (Source) Location / / Volume Laterality Blood 08/17/2021 12:30 08/17/2021 PM EST 12:39 PM EST Resulting Agency Comment Spec In Lab Carey Desai MD CHEMISTRY ORDERABLES Performing Organization Address City/State/[place] [address] (ABNORMAL) Comprehensive metabolic panel (non-fasting) (08/17/2021 12:30 PM EST) P athologist Signature Glucose Lvl 120 65 - 199 [facility] mg/dL [facility] Comment: Diabetes: >=200 mg/dL plus symp toms BUN 7 (L) 8 - 18 mg/dL [facility] Creatinine 0.67 (L) 0.70 - 1.20 mg/dL [facility] Sodium 137 135 - 145 mmol/L [facility] Potassium 3.6 3.5 - 5.0 mmol/L [facility] Comment: Please note: ??Patients with WBC >100,00 0 may have falsely elevated Potassium levels. ??For accurate Potassium quantif ication in these patients send serum separator tube (gold top) for subsequent determinations. ??Contact the Clinical Chemistry Laboratory if there are any qu estions. Chloride 103 98 - 107 mmol/L [facility] CO2 24 22 - 31 mmol/L [facility] Anion Gap 10 5 - 15 mmol/L [facility] Calcium 9.6 8.5 - 10.5 mg/dL [facility] Total Protein 7.2 6.1 - 8.0 g/dL [facility] Albumin 4.5 3.2 - 5.2 g/dL [facility] AST 20 0 - 30 unit/L [facility] ALT 18 0 - 30 unit/L [facility] Alk Phos 75 35 - 105 unit/L [facility] Total Bilirubin <0.2 (L) 0.2 - 1.3 mg/dL [facility] Estimated GFR 100 >=60 mL/min/1.73 m?? [facility] Comment: This patient? s estimated glomerular filtration rate (eGFR) is between 100 mL/min/1.73 m2 (patients with less muscl e mass) and 115 mL/min/1.73 m2 (patients with more muscle mass) as dete rmined by the CKD-EPI equation. Assessment of eGFR is not appropriate wh en creatinine concentrations are rapidly changing. For clinical decisions where creatinine clearance will affect therapy, a 24-hour urine creatinine yosef boris may be advised. Assignment of CKD stage 1 - 5 for patien ts with an eGFR near the transition point between stages may be based on cli nical assessment of muscle mass and symptoms in addition to eGFR. Specimen Anatomical Collection Method Collection Time Receive d Time (Source) Location / / Volume Laterality Blood 08/17/2021 12:30 08/17/2021 PM EST 12:39 PM EST Resulting Agency Comment Spec In Lab Carey Desai MD CHEMISTRY ORDERABLES Performing Organization Address City/State/[place] [address] Estradiol (08/17/2021 12:30 PM EST) athologist Signature Estradiol 33 pg/mL [facility] Comment: Reference ranges: Males: Adult: ? 11 to 43 pg/mL Females: Non- females: ?Follicular: ??12-233 pg/m L ?Ovulation: ?? 41-398 pg/m L ?Luteal: ?22-341 pg /mL ?Postmenopausal: ?? <5 - 1 38 pg/mL females: ?1st trimester: ??154-3243 pg/mL ?2nd trimester: ??1561-212 80 pg/mL ?3rd trimester: ??8525- >3 0000 pg/mL Specimen Anatomical Collection Method Collection Time Receive d Time (Source) Location / / Volume Laterality Blood 08/17/2021 12:30 08/17/2021 PM EST 12:39 PM EST Resulting Agency Comment Spec In Lab Carey Desai MD CHEMISTRY ORDERABLES Performing Organization Address City/[facility]/ZIP Code Phon e Dayan [address] Luteinizing Hormone (08/17/2021 12:30 PM EST) P athologist Signature LH 7.1 mlU/ML [facility] Comment: Reference Ranges Male: ? 1.7-8.6 mIU/mL Female ?? Follicular: ?2.4-12.6 m IU/mL ?? Ovulation: ? 14.0-95.6 mIU/mL ?? Luteal: ?1.0-11.4 mIU/mL ?? Postmenopausal: ?7.7-58.5 mIU /mL Specimen Anatomical Collection Method Collection Time Receive d Time (Source) Location / / Volume Laterality Blood 08/17/2021 12:30 08/17/2021 PM EST 12:39 PM EST Resulting Agency Comment Spec In Lab Carey Desai MD CHEMISTRY ORDERABLES Performing Organization Address [facility] Phon e Dayan MALIK [address] Follicle Stimulating Hormone (08/17/2021 12:30 PM EST) P athologist Signature FSH 15.1 mlU/ML [facility] Comment: Reference Ranges Male: ? 1.5-12. 4 mIU/mL Female ?? Follicular: ?3.5-12.5 m IU/mL ?? Ovulation: ? 4.7-21.5 m IU/mL ?? Luteal: ?1.7-7.7 mIU/mL ?? Postmenopausal: ?25.8-134.8 m IU/mL Specimen Anatomical Collection Method Collection Time Receive d Time (Source) Location / / Volume Laterality Blood 08/17/2021 12:30 08/17/2021 PM EST 12:39 PM EST Resulting Agency Comment Spec In Lab Carey Desai MD CHEMISTRY ORDERABLES Performing Organization Address City/State/[place] [address] documented in this encounter Visit Diagnoses Diagnosis Malignant neoplasm of upper-outer quadra nt of right breast in female, estrogen receptor positive Malignant neoplasm of upper-outer quadra nt of right breast in female, estrogen receptor positive documented in this encounter Care Teams Tso Relationship Specialty Start Date End Date Fox Tian MD PCP - General 06/06/[address] [place] [phone] documented as of this encounter
--- OUTSIDE RECORDS SUMMARY | 2022-01-30 02:11 | XMS_ITS | Encounter Summary ---
:1965 Author Organization [facility] [place] [address] Care Team Providers Name Role Phone Fox Tian MD Primary Care Provider Encounter Details Date Type Department Care Team Description 09/14/2021 Orders Only Pharmacy at [facility] Lore Taylor, [facility] [place] [address] Social History Tobacco Use Types Packs/Day [...] Visit Hematology and Oncology Carey Higuera MD [facility] HEMATOLOGY/ONCOL [place], [place] [address] (Wo rk) documented as of this encounter Goals Goal Patient Goal Associated Recent Patient-Stated? Author Type Problems Progress DH Home Medication Patient No Dari n, Compliance and Facing Vladimir Singh, Understanding Action Plan [facility] Note: Formatting of this note might be d ifferent from the original. Slow or prevent progression and maintain quality of life, based on outcomes and quality of life assessed at follow-up visits documented as of this encounter Visit Diagnoses Not on filedocumented in this encounter Care Teams Security Escort Relationship Specialty Start Date End Date Fox Tian MD PCP - General 06/06/[address] [place] [phone] documented as of this encounter
--- OUTSIDE RECORDS SUMMARY | 2022-01-30 02:11 | XMS_ITS | Encounter Summary ---
:1965 Author Organization [facility] [place] [address] Care Team Providers Name Role Phone Fox Tian MD Primary Care Provider Encounter Details Date Type Department Care Team Description 08/02/2021 External Results Medical Records Provider, [place] [phone] Social History Tobacco Use Types Packs/Day [...] Visit Hematology and Oncology Carey Higuera MD [facility] HEMATOLOGY/[place]COL [place], [place] [address] (Wo rk) documented as of this encounter Procedures Procedure Name Priority Date/Time Associated Diagnosis Comme nts SURGICAL PATHOLOGY Routine 08/02/2021 Results f or this SCAN procedure are i n the results section . documented in this encounter Results Scan Doc: Surgical Pathology (08/02/2021) Narrative This result has an attachment that is no t available. Historical Provider MEDIA MGR SCAN EXT ORDR/RSLT documented in this encounter Visit Diagnoses Not on filedocumented in this encounter Care Teams Product Manufacturing Professional Relationship Specialty Start Date End Date Fox Tian MD PCP - General 06/06/[address] [place] [address] [phone] documented as of this encounter
--- OUTSIDE RECORDS SUMMARY | 2022-01-30 02:11 | XMS_ITS | Encounter Summary ---
:1965 Author Organization [facility] Address [address] [place] [address] Care Team Providers Name Role Phone Fox Tian MD Primary Care Provider Encounter Details Date Type Department Care Team Description 09/12/2021 Hospital Encounter Hematology and Maligna nt [place] of [place] [facility] [place] in female, [address] [facility] [address] receptor [address] positive, [place] [address] site of breast [phone] Social History Tobacco Use Types Packs/Day Years [...] Sig Dispensed Refills Start Date End Date meloxicam (MOBIC) 15 mg Take 15 mg by mouth 0 Tablet daily. letrozole (Femara) 2.5 mg Take 1 tablet [...] mg Capsule, Delayed MOUTH EVERY DAY Release(E.C.) meloxicam (MOBIC) 7.5 mg TAKE ONE TABLET BY 3 09/14/2021 Tablet MOUTH EVERY DAY documented as of this encounter Plan of Treatment Upcoming Encounters Date Type Specialty Care Team Description 01/30/2022 Infusion Hematology and Oncology 02/27/2022 Infusion Hematology and Oncology 03/27/2022 Infusion Hematology and Oncology 04/18/2022 Office Visit Hematology and Oncology Helena Higuera MD [facility] HEM[facility]Y/[place]COL [place], [place] [address] (Wo rk) documented as of this encounter Goals Goal Patient Goal Associated Recent Patient-Stated? Author Type Problems Progress DH Home Medication Patient No Dari marr, Compliance and Facing Vladimir Singh, Understanding Action Plan [facility] Note: Formatting of this note might be d ifferent from the original. Slow or prevent progression and maintain quality of life, based on outcomes and quality of life assessed at follow-up visits documented as of this encounter Procedures Procedure Name Priority Date/Time Associated Comments Diagnosis SCAN, PERIPHERAL BLOOD Routine 09/12/2021 9:43 AM Results for this EST procedure are i n the results section. HEMOGRAM Routine 09/12/2021 9:43 AM Malignant neoplasm Res ults for this EST of right breast in procedure are in female, estrogen the results receptor positive, section. unspecified site of breast DIFFERENTIAL, Routine 09/12/2021 9:43 AM Malignant neoplasm Re sults for this AUTOMATED EST of right breast in procedure are in female, estrogen the results receptor positive, section. unspecified site of breast HC VITAMIN D TOTAL-25 Routine 09/12/2021 9:43 AM Malignant laura plasm Results for this HYDROXY EST of right breast in procedure are in female, estrogen the results receptor positive, section. unspecified site of breast HC VENIPUNCTURE Routine 09/12/2021 9:43 AM Malignant neoplasm EST of right breast in female, estrogen receptor positive, unspecified site of breast COMPREHENSIVE Routine 09/12/2021 9:43 AM Malignant neoplasm Re sults for this METABOLIC PANEL EST of right breast in proced ure are in (NON-FASTING) female, estrogen the result s receptor positive, section. unspecified site of breast documented in this encounter Results Scan, Peripheral Blood (09/12/2021 9:43 AM EST) [facility] zweitgeist Method Time Signature Plat Estimate Normal [facility] RBC Morphology Normal [facility] Atypical Lymph Moderate [facility] Specimen Anatomical Collection Method Collection Time Receive d Time (Source) Location / / Volume Laterality Blood 09/12/2021 9:43 AM 9:54 EST AM EST Resulting Agency Comment Spec In Lab Helena Desai MD HEMATOLOGY ORDERABLES Performing Organization Address City/State/ZIP Code Phon e Number [place] [phone] (ABNORMAL) Differential, Automated (09/12/2021 9:43 AM EST) [facility] zweitgeist Method Time Signature Neutrophils % 45.9 % [facility] Neutr Abs (ANC) 1.21 (L) 1.70 - [facility] 6.10 [facility] x10(3)/[facility] L LABORATORY Lymphocytes % 46.4 % [facility] Lymphocytes Abs 1.2 0.9 - 3.2 [facility] x10(3)/[facility] LABORATORY Monocytes % 4.2 % [facility] Monocyte Abs 0.1 (L) 0.3 - 0.9 [facility] x10(3)/[facility] LABORATORY Eosinophils % 2.7 % [facility] Eosinophils Abs 0.1 0.0 - 0.4 [facility] x10(3)/[facility] LABORATORY Basophils % 0.8 % [facility] Basophils Abs 0.0 0.0 - 0.1 [facility] x10(3)/[facility] LABORATORY Immature Gran % 0.00 % [facility] Comment: Immature granulocytes(IG's)percentage an d absolute count will include metamyelocytes, myelocytes, and promyelo cytes. Blood smears from CBCs yielding IG's will be scanned manually for concor dance. If this scan disagrees with the automated IG or if promyelocytes are not ed, a manual differential will be performed. Mónica Gran Abs 0.00 0.00 - 0.04 x10(3)/[facility] MAR Y [facility] Specimen Anatomical Collection Method Collection Time Receive d Time (Source) Location / / Volume Laterality Blood 09/12/2021 9:43 AM 9:54 EST AM EST Resulting Agency Comment Spec In Lab Helena Desai MD HEMATOLOGY ORDERABLES Performing Organization Address City/State/Z[place] [address] (ABNORMAL) Hemogram (09/12/2021 9:43 AM EST) P athologist Signature WBC 2.6 (L) 4.0 - 9.5 [facility] x10(3)/[facility] LABORATORY RBC 5.17 4.00 - [facility] 5.21 [facility] x10(6)/[facility] LABORATORY Hemoglobin 15.1 11.7 - [facility] 15.5 g/dL [facility] Hematocrit 44.4 35.7 - [facility] 45.8 % [facility] MCV 85.9 82.6 - [facility] 94.4 [facility]OR[facility]ORY MCH 29.2 27.1 - [facility] 32.0 pg [facility] MCHC 34.0 31.7 - [facility] 35.0 g/dL [facility] Platelets 176 145 - 357 [facility] x10(3)/[facility] LABORATORY RDWSD 40.3 37.0 - [facility] FR[facility] 46.0 [facility] LABORATORY RDWCV 13.3 11.5 - [facility] 14.1 % [facility] MPV 9.0 7.6 - 12.9 [facility] LABORATORY nRBC % Auto 0.0 % [facility] nRBC Abs Auto 0.000 0.000 - [facility] 0.000 [facility] x10(3)/[facility] LABORATORY Specimen Anatomical Collection Method Collection Time Receive d Time (Source) Location / / Volume Laterality Blood 09/12/2021 9:43 AM 2 9:54 EST AM EST Resulting Agency Comment Spec In Lab Helena Desai MD HEMATOLOGY ORDERABLES Performing Organization Address City/[facility]/ZIP Code Phon e Number [address] (ABNORMAL) Vitamin D, 25-Hydroxy (09/12/2021 9:43 AM EST) Patholo gist Method Time Signature 25-OH Vit D 12 (L) 21 - 100 [facility] Total ng/mL [facility] 25-OH Vit D Deficient [facility] LABORATORY Specimen Anatomical Collection Method Collection Time Receive d Time (Source) Location / / Volume Laterality Blood 09/12/2021 9:43 AM 2 9:54 EST AM EST Resulting Agency Comment Spec In Lab Helena Desai MD CHEMISTRY ORDERABLES Performing Organization Address City/[facility]/[place] [address] Comprehensive metabolic panel (non-fasting) (09/12/2021 9:43 AM EST) P athologist Signature Glucose Lvl 130 65 - 199 [facility] mg/dL [facility] Comment: Diabetes: >=200 mg/dL plus symp toms BUN 11 8 - 18 mg/dL [facility] Creatinine 0.82 0.70 - 1.20 mg/dL [facility] Sodium 139 135 - 145 mmol/L [facility] Potassium 3.9 3.5 - 5.0 mmol/L [facility] Comment: Please note: ??Patients with WBC >100,00 0 may have falsely elevated Potassium levels. ??For accurate Potassium quantif ication in these patients send serum separator tube (gold top) for subsequent determinations. ??Contact the Clinical Chemistry Laboratory if there are any qu estions. Chloride 101 98 - 107 mmol/L [facility] CO2 25 22 - 31 mmol/L [facility] Anion Gap 13 5 - 15 mmol/L [facility] Calcium 9.9 8.5 - 10.5 mg/dL [facility] Total Protein 7.8 6.1 - 8.0 g/dL [facility] Albumin 5.0 3.2 - 5.2 g/dL [facility] AST 19 0 - 30 unit/L [facility] ALT 23 0 - 30 unit/L [facility] Alk Phos 103 35 - 105 unit/L [facility] Total Bilirubin 0.3 0.2 - 1.3 mg/dL [facility] Estimated GFR 81 >=60 mL/min/1.73 m?? [facility] Comment: This patient? s estimated [...] EST Resulting Agency Comment Spec In Lab Helena Desai MD CHEMISTRY ORDERABLES Performing Organization Address City/State/Z[place] [address] documented in this encounter Visit Diagnoses Diagnosis Malignant neoplasm of right breast in fe male, estrogen receptor positive, unspecified site of breast documented in this encounter Care Teams Premium Service Representative Relationship Specialty Start Date End Date Fox Tian MD PCP - General 06/06/[address] [place] [address] [phone] documented as of this encounter
--- OUTSIDE RECORDS SUMMARY | 2022-01-30 02:11 | XMS_ITS | Encounter Summary ---
:1965 Author Organization [facility] Address [place] [id number] Care Team Providers Name Role Phone Fox Tian MD Primary Care Provider Reason for Referral Diagnostic Test (Routine) - Closed Specialty Diagnoses / Procedures Referred By Contact Refer red To Contact Radiology Diagnoses Malignant neoplasm of right breast in female, estrogen receptor positive, unspecified site of breast Eliud Carty MD [facility] Rad Mri Procedures MRI Breast [place] [address] [place] [address] Referral ID Status Reason Start Date Expiration Date Visits V isits Requested Authorized [id number] Closed Specialty 08/04/2021 10/02/2021 1 1 Service Requested Reason for Visit Diagnostic Test (Routine) - Closed Specialty Diagnoses / Procedures Referred By Contact Refer red To Contact Radiology Diagnoses Malignant neoplasm of right breast in female, estrogen receptor positive, unspecified site of breast Eliud Carty MD [facility] Rad Mri Procedures MRI Breast [place] [address] [place] [address] Referral ID Status Reason Start Date Expiration Date Visits V isits Requested Authorized [id number] Closed Specialty 08/04/2021 10/02/2021 1 1 Service Requested Encounter Details Date Type Department Care Team Description 08/11/2021 Hospital Encounter MRI at [facility] Eliud Carty Malignant neoplasm [facility] MD Nelly of right breast in Drive [facility] female, estrogen [place], [place]ENTER receptor positive, [phone] GENERAL SURGERY unspecified site of [phone] [place] breast [address] Social History Tobacco Use Types Packs/Day Years [...] [facility] [place] [address] (Wo rk) documented as of this encounter Procedures Procedure Name Priority Date/Time Associated Diagnosis Comme nts MRI BREAST WWO Routine 08/11/2021 7:35 PM Malignant neoplasm R esults for this CONTRAST BILAT EST of right breast in procedu re are in female, estrogen the results receptor positive, section. unspecified site of breast documented in this encounter Results MRI Breast wwo Contrast Bilat (08/11/2021 7:35 PM EST) Anatomical Region Laterality Modality Breast N/A Magnetic Resonance Specimen (Source) Anatomical Location Collection Method / Collectio n Time Received Time / Laterality Volume Impressions 08/14/2021 10:03 AM EST 1. ??Limited study due to suboptimal con trast enhancement. 2. ??Large spiculated enhancing mass of the upper outer quadrant of the right breast measuring 7.5 x 4.9 x 6.2 cm, wit h associated nipple involvement and additional dermal tethering and involvem ent within the upper outer breast. Additional foci of disease are identifie d within the right breast consistent with multifocal disease. 3. ??Right axillary level 1 and 2 lympha denopathy, better characterized on CT 08/11/2021. 4. ??Limited evaluation of the left peter st, however no gross evidence of disease involvement. 5. 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 RECOMMENDATION:Clinical and/or surgical follow-up for known metastatic disease. LEFT BREAST BIRADS BI-RADS Category 1: N egative RIGHT BREAST BIRADS BI-RADS Category 6: Known Biopsy-Proven Malignancy I have personally reviewed the image(s) and the resident's interpretation and agree with the findings, Melissa mario MD at 08/14/2021 10:03 AM Thank you for letting us participate in the care of this patient. ??If you are a health care provider and have any questi ons regarding this report, please contact the number below. ??For patients who have questions please contact the health patient care representative that requested your imaging first. ? Electronically signed by: Melissa kan MD, [facility] ([phone]), at 08/14/2021 10:03 AM Narrative 08/14/2021 10:03 AM EST BILATERAL BREAST MRI CLINICAL INDICATION: Breast staging. 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 TECHNIQUE: Multiplanar sequences were obtained pre- and post- Dotarem enhancement, to include SPGR weighted dynamic run-off an d subtraction sequences obtained after the intravenous administration of 20 ccs of Dotarem. Computer algorithm analysis for lesion detection and kinetic contras t enhancement curve analysis was performed, using [employer] software. COMPARISON STUDIES: Compared and/or correlated with prior st udies including mammogram 07/13/2021, chest abdomen and pelvis 08/11/2021. FINDINGS: Background Enhancement Pattern (first po st Dotarem image): Marked (>75% breast) Amount of Fibroglandular Tissue: Extreme fibroglandular tissue LEFT Breast: No morphologic abnormalitie s on a background of extreme fibroglandular tissue. There are subopti mal enhancement characteristics, significantly limiting the evaluation. RIGHT Breast: There is suboptimal enhancement characte rized by little to no background or focal enhancement within the right breas t, limiting evaluation and further characterization (including enhancement kinetics) of disease involvement. Allowing for the study limitations, ther e is a large spiculated enhancing mass of the upper outer quadrant of the right breast measuring approximately 7.5 cm anterior-posterior by 4.9 cm craniocauda l by 6.2 cm transverse dimensions. The mass begins in the retroareolar region w ith associated nipple retraction and extends into the posterior third of the upper-outer quadrant, approximately 8 cm from the nipple. There is associated ski n tethering and thickening of the upper quadrant of the right breast adjacent to the skin marker. Additional foci of disease characterized by irregular spicu lated masses are seen within the anterior third of the lower outer and up per inner breast, consistent with multicentric disease. There is suboptima l enhancement characterized by no background or focal enhancement within t he right breast, limiting evaluation and further characterization of the disease involvement. Lymph Node Basins/Other: There are at least 8 enlarged and morpho logically abnormal lymph nodes, primarily of level 1, with a single lymp h node seen at level 2. The lymph nodes are better characterized on recent CT ch est abdomen pelvis 08/11/2021. No significant abnormalities are seen in th e chest wall. Liver metastases are redemonstrated, and better characterized on CT 08/11/2021. An area of enhancement in the inferior sternum suggest skeletal metastasis. Eliud Carty MD IMG MRI ORDERABLES documented in this encounter Visit Diagnoses Diagnosis Malignant neoplasm of right breast in fe male, estrogen receptor positive, unspecified site of breast documented in this encounter Administered Medications Inactive Administered Medications - up to 3 most recent administrations Medication Order MAR Action Action Date Dose Rate Site gadoterate meglumine (Dotarem) Given 08/11/2021 8:24 PM EST 20 m Ls (0.5 mMol/mL) injection solution 0-100 mL 0-100 mL, Intravenous, ONCE PRN, 1 dose, Starting on Sat08/11/21 at 2023, Until Sat08/11/21 at 2023, Per Protocol, Radiology Contrast, Routine documented in this encounter Care Teams Private Chef Relationship Specialty Start Date End Date Fox Tian MD PCP - General 06/06/[address] [place] [address] [phone] documented as of this encounter
--- OUTSIDE RECORDS SUMMARY | 2022-01-30 02:11 | XMS_ITS | Encounter Summary ---
:1965 Author Organization [facility] [place] [address] Care Team Providers Name Role Phone Fox Tian MD Primary Care Provider Reason for Referral Diagnostic Test (Routine) - Closed Specialty Diagnoses / Procedures Referred By Contact Refer red To Contact Radiology Diagnoses Malignant neoplasm of right breast in female, estrogen receptor positive, unspecified site of breast Eliud Carty MD [facility] Rad Nuclear Med Procedures [place] [address] [place] [address] Referral ID Status Reason Start Date Expiration Date Visits V isits Requested Authorized [id number] Closed Specialty 07/31/2021 01/28/2023 1 1 Service Requested Reason for Visit Diagnostic Test (Routine) - Closed Specialty Diagnoses / Procedures Referred By Contact Refer red To Contact Radiology Diagnoses Malignant neoplasm of right breast in female, estrogen receptor positive, unspecified site of breast Eliud Carty MD [facility] Rad Nuclear Med Procedures [place] [address] [place] [address] Referral ID Status Reason Start Date Expiration Date Visits V isits Requested Authorized [id number] Closed Specialty 07/31/2021 01/28/2023 1 1 Service Requested Encounter Details Date Type Department Care Team Description 08/07/2021 Hospital Encounter Nuclear Medicine at [facility], Leiud Malignant neoplasm Carey Villegas MD of right breast in [facility] female, e [facility] DR receptor positive, [place], [place] [address] [place], [place] breast [phone] [facility] Social History Tobacco Use Types Packs/Day Years [...] Higuera MD [facility]/[place] [place], [place] [address] (Wo rk) documented as of this encounter Procedures Procedure Name Priority Date/Time Associated Diagnosis Comme nts NM BONE SCAN WHOLE Routine 08/07/2021 2:51 PM Malignant neopla sm Results for this BODY EST of right breast in procedure are in female, estrogen the results receptor positive, section. unspecified site of breast documented in this encounter Results NM Bone Scan Whole Body (08/07/2021 2:51 PM EST) Anatomical Region Laterality Modality Nuclear Medicine Specimen (Source) Anatomical Location Collection Method / Collectio n Time Received Time / Laterality Volume Impressions 08/07/2021 4:19 PM EST 1. ??MDP avid lesions in the T2 and T12 vertebra, left posterior third rib, and right posterior sixth rib, highly suspic ious for osseous metastases. 2. ??These lesions will be further tio cterized on upcoming CT chest abdomen and pelvis which is scheduled to be performe d on 08/11/2021. I have personally reviewed the image(s) and the resident's interpretation and agree with the findings, Neeraj Leary at 08/07/2021 4:19 PM Thank you for letting us participate in the care of this patient. ??If you are a health care provider and have any questi ons regarding this report, please contact the number below. ??For patients who have questions please contact the health respiratory care program director that requested your imaging first. ? Electronically signed by: Jorgito Cisse MD, [facility] ([phone]), at 08/07/2021 4:19 PM Narrative 08/07/2021 4:19 PM EST EXAMINATION: NM BONE SCAN WHOLE BODY CLINICAL HISTORY: Breast cancer, staging known breast cancer TECHNIQUE: Three hours following the int ravenous administration of 25.2 mCi of technetium-99m MDP, planar images of the skeleton in anterior and posterior projection were obtained. COMPARISON: None FINDINGS: MDP avid lesions in the T2 and T12 verte bra, left posterior third rib, and right posterior sixth rib. Normal renally excreted activity in the kidneys and in the urinary bladder. Procedure Note Jorgito Cisse MD - 08/07/2021Formatti ng of this note might be different from the original. EXAMINATION: NM BONE SCAN WHOLE BODY CLINICAL HISTORY: Breast cancer, staging known breast cancer TECHNIQUE: Three hours following the int ravenous administration of 25.2 mCi of technetium-99m MDP, planar images of the skeleton in anterior and posterior projection were obtained. COMPARISON: None FINDINGS: MDP avid lesions in the T2 and T12 verte bra, left posterior third rib, and right posterior sixth rib. Normal renally excreted activity in the kidneys and in the urinary bladder. IMPRESSION 1. MDP avid lesions in the T2 and T12 ve rtebra, left posterior third rib, and right posterior sixth rib, highly suspic ious for osseous metastases. 2. These lesions will be further charact erized on upcoming CT chest abdomen and pelvis which is scheduled to be performe d on 08/11/2021. I have personally reviewed the image(s) and the resident's interpretation and agree with the findings, Neeraj Leary at 08/07/2021 4:19 PM Thank you for letting us participate in the care of this patient. If you are a health care provider and have any questi ons regarding this report, please contact the number below. For patients w ho have questions please contact the health respiratory care program director that requested your imaging first. Electronically signed by: Jorgito Cisse MD, [facility] ([phone]), at 08/07/2021 4:19 PM Eliud Carty MD [facility] NM ORDERABLES documented in this encounter Visit Diagnoses Diagnosis Malignant neoplasm of right breast in fe male, estrogen receptor positive, unspecified site of breast documented in this encounter Administered Medications Inactive Administered Medications - up to 3 most recent administrations Medication Order MAR Action Action Date Dose Rate Site technetium (Tc-99m) methylene Given 08/07/2021 11:45 AM EST 25.2 mCi diphosphonate (MDP) injection 0-30 mCi 0-30 mCi, Intravenous, ONCE PRN, 1 dose, Starting on Sat08/07/21 at 1150, Until Sat08/07/21 at 1145, Per Protocol, Radiology Contrast, Routine documented in this encounter Care Teams Spray Crew Relationship Specialty Start Date End Date Fox Tian MD PCP - General 06/06/[address] [place] [address] [phone] documented as of this encounter
--- OUTSIDE RECORDS SUMMARY | 2022-01-30 02:11 | XMS_ITS | Encounter Summary ---
:1965 Author Organization [facility] [place] [address] Care Team Providers Name Role Phone Fox Tian MD Primary Care Provider Encounter Details Date Type Department Care Team Description 08/11/2021 Laboratory Appointment Lab 3L [facility] Malignant neoplasm of [facility] right breast in [facility] female, e [address] receptor positive, [place], [place] [phone] breast [phone] Social History Tobacco Use Types Packs/Day Years [...] and Oncology Carey Higuera MD [facility] HEMATOLOGY/[facility] [place], [place] [address] (Wo rk) documented as of this encounter Procedures Procedure Name Priority Date/Time Associated Diagnosis Comme nts HEMOGRAM Routine 08/11/2021 3:53 PM Malignant neoplasm Res ults for this EST of right breast in procedure are in female, estrogen the results receptor positive, section. unspecified site of breast DIFFERENTIAL, Routine 08/11/2021 3:53 PM Malignant neoplasm Re sults for this AUTOMATED EST of right breast in procedure are in female, estrogen the results receptor positive, section. unspecified site of breast HC CBC,PLT & AUTO Routine 08/11/2021 3:53 PM Malignant neoplas m DIFF EST of right breast in female, estrogen receptor positive, unspecified site of breast HC VENIPUNCTURE Routine 08/11/2021 3:53 PM Malignant neoplasm Results for this EST of right breast in procedure are in female, estrogen the results receptor positive, section. unspecified site of breast documented in this encounter Results Differential, Automated (08/11/2021 3:53 PM EST) P athologist Signature Neutrophils % 59.2 % [facility] Neutr Abs (ANC) 3.83 1.70 - [facility] 6.10 [facility] x10(3)/[facility] LABORATORY Lymphocytes % 30.5 % [facility] Lymphocytes Abs 2.0 0.9 - 3.2 [facility] x10(3)/[facility] LABORATORY Monocytes % 7.1 % [facility] Monocyte Abs 0.5 0.3 - 0.9 [facility] x10(3)/[facility] LABORATORY Eosinophils % 2.2 % [facility] Eosinophils Abs 0.1 0.0 - 0.4 [facility] x10(3)/[facility] LABORATORY Basophils % 0.8 % [facility] Basophils Abs 0.0 0.0 - 0.1 [facility] x10(3)/[facility] LABORATORY Immature Gran % 0.20 % [facility] Comment: Immature granulocytes(IG's)percentage an d absolute count will include metamyelocytes, myelocytes, and promyelo cytes. Blood smears from CBCs yielding IG's will be scanned manually for concor dance. If this scan disagrees with the automated IG or if promyelocytes are not ed, a manual differential will be performed. Mónica Gran Abs 0.01 0.00 - 0.04 x10(3)/[facility] MAR Y [facility] LABORATORY Specimen Anatomical Collection Method Collection Time Receive d Time (Source) Location / / Volume Laterality Blood 08/11/2021 3:53 PM 2 4:04 EST PM EST Resulting Agency Comment Spec In Lab Eliud Carty MD HEMATOLOGY ORDERABLES Performing Organization Address City/State/[place] [address] Hemogram (08/11/2021 3:53 PM EST) athologist Signature WBC 6.5 4.0 - 9.5 [facility] x10(3)/[facility] LABORATORY RBC 4.99 4.00 - [facility] 5.21 [facility] x10(6)/[facility] LABORATORY Hemoglobin 14.6 11.7 - [facility] 15.5 g/dL [facility] LAB[facility]ORY Hematocrit 42.1 35.7 - [facility] 45.8 % [facility] MCV 84.4 82.6 - [facility] 94.4 [facility] LABORATORY MCH 29.3 27.1 - [facility] 32.0 pg [facility] MCHC 34.7 31.7 - [facility] 35.0 g/dL [facility] Platelets 262 145 - 357 [facility] x10(3)/[facility] LABORATORY RDWSD 40.0 37.0 - [facility] 46.0 [facility] LABORATORY RDWCV 13.0 11.5 - [facility] 14.1 % [facility] LABORATORY MPV 10.0 7.6 - 12.9 [facility] LABORATORY nRBC % Auto 0.0 % [facility] nRBC Abs Auto 0.000 0.000 - [facility] 0.000 [facility] x10(3)/[facility] LABORATORY Specimen Anatomical Collection Method Collection Time Receive d Time (Source) Location / / Volume Laterality Blood 08/11/2021 3:53 PM 2 4:04 EST PM EST Resulting Agency Comment Spec In Lab Eliud Carty MD HEMATOLOGY ORDERABLES Performing Organization Address City/State/[place] [address] (ABNORMAL) Comprehensive metabolic panel (non-fasting) (08/11/2021 3:53 PM EST) P athologist Signature Glucose Lvl 94 65 - 199 [facility] mg/dL [facility] Comment: Diabetes: >=200 mg/dL plus symp toms BUN 9 8 - 18 mg/dL [facility] Creatinine 0.81 0.70 - 1.20 mg/dL [facility] Sodium 138 135 - 145 mmol/L [facility] Potassium 4.0 3.5 - 5.0 mmol/L [facility] Comment: Please note: ??Patients with WBC >100,00 0 may have falsely elevated Potassium levels. ??For accurate Potassium quantif ication in these patients send serum separator tube (gold top) for subsequent determinations. ??Contact the Clinical Chemistry Laboratory if there are any qu estions. Chloride 104 98 - 107 mmol/L [facility] CO2 23 22 - 31 mmol/L [facility] Anion Gap 11 5 - 15 mmol/L [facility] Calcium 9.9 8.5 - 10.5 mg/dL [facility] Total Protein 7.4 6.1 - 8.0 g/dL [facility] Albumin 4.7 3.2 - 5.2 g/dL [facility] AST 18 0 - 30 unit/L [facility] ALT 18 0 - 30 unit/L [facility] Alk Phos 74 35 - 105 unit/L [facility] Total Bilirubin <0.2 (L) 0.2 - 1.3 mg/dL [facility] Estimated GFR 82 >=60 mL/min/1.73 m?? [facility] Comment: This patient? s estimated glomerular filtration rate (eGFR) is between 82 mL/min/1.73 m2 (patients with less muscl e mass) and 95 mL/min/1.73 m2 (patients with more muscle mass) [...] (Source) Location / / Volume Laterality Blood 08/11/2021 3:53 PM 2 4:04 EST PM EST Resulting Agency Comment Spec In Lab Eliud Carty MD CHEMISTRY ORDERABLES Performing Organization Address City/State/[place] [address] documented in this encounter Visit Diagnoses Diagnosis Malignant neoplasm of right breast in fe male, estrogen receptor positive, unspecified site of breast documented in this encounter Care Teams Hospital Medicine Director Relationship Specialty Start Date End Date Fox Tian MD PCP - General 06/06/[address] [place] [address] [phone] documented as of this encounter
--- OUTSIDE RECORDS SUMMARY | 2022-01-30 02:11 | XMS_ITS | Encounter Summary ---
:1965 Author Organization [place] [address] Care Team Providers Name Role Phone Fox Tian MD Primary Care Provider Reason for Referral Diagnostic Test (Routine) - Closed Specialty Diagnoses / Procedures Referred By Contact Refer red To Contact Radiology Diagnoses Malignant neoplasm of right breast in female, estrogen receptor positive, unspecified site of breast Eliud Carty MD [facility] Rad Ct Scan Procedures CT Chest Abdomen Pelvis w Contrast (Generic) [place] [address] [place] [address] Referral ID Status Reason Start Date Expiration Date Visits V isits Requested Authorized [id number] Closed Specialty 08/04/2021 10/02/2021 1 1 Service Requested Reason for Visit Diagnostic Test (Routine) - Closed Specialty Diagnoses / Procedures Referred By Contact Refer red To Contact Radiology Diagnoses Malignant neoplasm of right breast in female, estrogen receptor positive, unspecified site of breast Eliud Carty MD [facility] Rad Ct Scan Procedures CT Chest Abdomen Pelvis w Contrast (Generic) [place] [address] [place] [address] Referral ID Status Reason Start Date Expiration Date Visits V isits Requested Authorized [id number] Closed Specialty 08/04/2021 10/02/2021 1 1 Service Requested Encounter Details Date Type Department Care Team Description 08/11/[address] [place] [facility] Eliud Carty Malignant neoplasm [facility] MD Nelly of right breast in [facility] female, estrogen [place], [place] receptor positive, [phone] GENERAL SURGERY unspecified site of [phone] [place] breast [address] Social History Tobacco Use Types Packs/Day Years [...] MD [facility] HEMATOLOGY/[facility] [place], [place] [address] (Wo rk) documented as of this encounter Procedures Procedure Name Priority Date/Time Associated Diagnosis Comme nts CT CHEST ABDOMEN Routine 08/11/2021 6:43 PM Malignant neoplasm Results for this PELVIS W CONTRAST EST of right breast in proc edure are in (GENERIC) female, estrogen the results receptor positive, section. unspecified site of breast documented in this encounter Results CT Chest Abdomen Pelvis w Contrast (Generic) (08/11/2021 6:43 PM EST) Anatomical Region Laterality Modality Abdomen, Pelvis Computed Tomography Specimen (Source) Anatomical Collection Method Collection Time Re ceived Time Location / / Volume Laterality 08/11/2021 7:00 PM EST Impressions 08/11/2021 8:00 PM EST Metastatic breast cancer with multiple o sseous metastases, right axillary lymph node metastases, liver metastases, and b ilateral adnexal masses, which may also represent breast cancer metastases. Thank you for letting us participate in the care of this patient. ??If you are a health care provider and have any questi ons regarding this report, please contact the number below. ??For patients who have questions please contact the health team primary care physician that requested your imaging first. ? Narrative 08/11/2021 8:00 PM EST EXAMINATION: CT CHEST ABDOMEN PELVIS W CONTRAST (GENERIC) CLINICAL HISTORY: Breast cancer, staging TECHNIQUE: Helical CT of the chest, abdo men, and pelvis was performed following the intravenous administration of contra st. Administered 110.0 ml of OMNIPAQUE 350.00 mg/ml. Oral contrast was administ ered. COMPARISON: None FINDINGS: Chest: A mass in the right breast contai izzy a biopsy clip, 3.5 cm in size. Lungs and large airways: Normal. Pleura: No effusion. Heart/vasculature: Normal. Lymph nodes: At least 4 enlarged rounded lymph nodes in the right axilla, the largest 1.9 cm in diameter containing a biopsy clip. Mediastinum and maikel: Normal. Abdomen/pelvis: Liver: three poorly marginated heterogen eously hypodense masses in segments II, Mallorie and V/VIII. The largest mass in segm ent II measures 4.3 cm in size. Focal fatty infiltration adjacent to the gallb ladder fossa in segment IVb. Bile ducts: Nondilated. Gallbladder: No calcified gallstones. No rmal caliber wall. Pancreas: Normal attenuation without daly radha dilatation. Spleen: Normal. Adrenals: Normal. Kidneys: Normal. Urinary Bladder: Normal. Vasculature: No aneurysm. Lymph Nodes: ??No enlarged lymph nodes. Bowel: Nondilated, no wall thickening. N ormal appendix. Peritoneum and mesentery: No ascites, fr ee air, or loculated fluid collection. No mesenteric inflammation. Abdominal wall: Intact. Reproductive organs: 4.3 cm right, and 3 .3 cm left heterogeneously hypodense ovarian masses. Osseous structures: Lytic lesions in the right aspect of C7 vertebral body, and the lamina, posterior aspect of the left third rib, posterior aspect of the right sixth rib, anterior aspects of T9 and T10 vertebral bodies, a possible small focus in the anterior T12 vertebra l body, anterior aspect of L3 vertebral body, 3 lesions in the left ilium (serie s 3 image 125, 136, and 146), consistent with metastases. Procedure Note Devonte Villa MD - 08/11/2021For matting of this note might be different from the original. EXAMINATION: CT CHEST ABDOMEN PELVIS W C ONTRAST (GENERIC) CLINICAL HISTORY: Breast cancer, staging TECHNIQUE: Helical CT of the chest, abdo men, and pelvis was performed following the intravenous administration of contra st. Administered 110.0 ml of OMNIPAQUE 350.00 mg/ml. Oral contrast was administ ered. COMPARISON: None FINDINGS: Chest: A mass in the right breast contai izzy a biopsy clip, 3.5 cm in size. Lungs and large airways: Normal. Pleura: No effusion. Heart/vasculature: Normal. Lymph nodes: At least 4 enlarged rounded lymph nodes in the right axilla, the largest 1.9 cm in diameter containing a biopsy clip. Mediastinum and maikel: Normal. Abdomen/pelvis: Liver: three poorly marginated heterogen eously hypodense masses in segments II, Mallorie and V/VIII. The largest mass in segm ent II measures 4.3 cm in size. Focal fatty infiltration adjacent to the gallb ladder fossa in segment IVb. Bile ducts: Nondilated. Gallbladder: No calcified gallstones. No rmal caliber wall. Pancreas: Normal attenuation without daly radha dilatation. Spleen: Normal. Adrenals: Normal. Kidneys: Normal. Urinary Bladder: Normal. Vasculature: No aneurysm. Lymph Nodes: No enlarged lymph nodes. Bowel: Nondilated, no wall thickening. N ormal appendix. Peritoneum and mesentery: No ascites, fr ee air, or loculated fluid collection. No mesenteric inflammation. Abdominal wall: Intact. Reproductive organs: 4.3 cm right, and 3 .3 cm left heterogeneously hypodense ovarian masses. Osseous structures: Lytic lesions in the right aspect of C7 vertebral body, and the lamina, posterior aspect of the left third rib, posterior aspect of the right sixth rib, anterior aspects of T9 and T10 vertebral bodies, a possible small focus in the anterior T12 vertebra l body, anterior aspect of L3 vertebral body, 3 lesions in the left ilium (serie s 3 image 125, 136, and 146), consistent with metastases. IMPRESSION Metastatic breast cancer with multiple o sseous metastases, right axillary lymph node metastases, liver metastases, and b ilateral adnexal masses, which may also represent breast cancer metastases. Thank you for letting us participate in the care of this patient. If you are a health care provider and have any questi ons regarding this report, please contact the number below. For patients w ho have questions please contact the health team primary care physician that requested your imaging first. Eliud Carty MD IMG CT ORDERABLES documented in this encounter Visit Diagnoses Diagnosis Malignant neoplasm of right breast in fe male, estrogen receptor positive, unspecified site of breast documented in this encounter Administered Medications Inactive Administered Medications - up to 3 most recent administrations Medication Order MAR Action Action Date Dose Rate Site iohexoL (Omnipaque) (350 mg/mL) Given 08/11/2021 6:43 PM EST 110 mLs solution 0-200 mL 0-200 mL, Intravenous, ONCE PRN, 1 dose, Starting on Sat08/11/21 at 1843, Until Sat08/11/21 at 1843, Per Protocol, Warning Vesicant/Irritant Medication , Radiology Contrast, Routine iohexoL (Omnipaque) (350 mg/mL) solution 0-50 Given 6:43 PM EST 50 mLs mL 0-50 mL, Oral, ONCE PRN, 1 dose, Starting on Sat08/11/21 at 1843, Until Sat08/11/21 at 1843, Per Protocol, Warning Vesicant/Irritant Medication , Radiology Contrast, Routine documented in this encounter Care Teams Professional Volleyball Player Relationship Specialty Start Date End Date Fox Tian MD PCP - General 06/06/[address] [place] [phone] documented as of this encounter
--- OUTSIDE RECORDS SUMMARY | 2022-01-30 02:11 | XMS_ITS | Encounter Summary ---
:1965 Author Organization [place] [address] Care Team Providers Name Role Phone Fox Tian MD Primary Care Provider Encounter Details Date Type Department Care Team Description 09/04/2021 Orders Only Hematology and Oncology at Carey Nobles MD [facility] Caro bowser HEMATOLOGY/[place] [address] [place] [address] [phone] (Wo rk) Social History Tobacco Use Types [...] documented as of this encounter Progress Notes Carey Desai MD - 09/04/2021 9:45 AM EST GERMÁN Quiles to review liver biopsy results. Procedure went ok, a little sore, now better. Pathology consistent with metastatic breast cancer to liver, as expected. Starting goserelin and xgeva next week, reviewed process and risks/ benefits. Doing ok with letrozole and palbociclib. Pain control improved on higher dose of meloxicam. Sleep is fitful, wakes up and can't get back to sleep. Doesn't feel like it's pain that's waking herup, more likely stress. We will review that at her f/u next week, consider trazodone, counseling, pal care referral, etc. She agrees and her questions were answered. documented in this encounter Plan of Treatment Upcoming Encounters Date Type Specialty Care Team Description 01/30/2022 Infusion Hematology and Oncology 02/27/2022 Infusion Hematology and Oncology 03/27/2022 Infusion Hematology and Oncology 04/18/2022 Office Visit Hematology and Oncology Carey Higuera MD [facility] HEMATOLOGY/[place], [place] [address] (Wo rk) documented as of this encounter Goals Goal Patient Goal Associated Recent Patient-Stated? Author Type Problems Progress DH Home Medication Patient No Dari n, Compliance and Facing Vladimir Singh, Understanding Action Plan [facility] Note: Formatting of this note might be d ifferent from the original. Slow or prevent progression and maintain quality of life, based on outcomes and quality of life assessed at follow-up visits documented as of this encounter Visit Diagnoses Not on filedocumented in this encounter Care Teams Machine Operator Transplanter Relationship Specialty Start Date End Date Fox Tian MD PCP - General 06/06/[address] [place] [address] [phone] documented as of this encounter
--- OUTSIDE RECORDS SUMMARY | 2022-01-30 02:11 | XMS_ITS | Encounter Summary ---
:1965 Author Organization [facility] [place] [address] Care Team Providers Name Role Phone Fox Tian MD Primary Care Provider Encounter Details Date Type Department Care Team Description 07/31/2021 [facility] [place] [address] Social History Tobacco Use Types Packs/Day Years [...] Notes Telephone Encounter - Joan Burger - 07/31/2021 10:56 AM EST Patient Info: Isabel Austin 1965 Attn: [facility] Pathology Department From: Comprehensive Breast [facility] [phone] [x]Urgent [x] For Review [] Please Reply []Please Recycle Comments: Please overnight all Pathology slides to include Core Biopsy's and Surgical Path. Slides to include ER/SC & Her2. Mail to: Department of Pathology, [facility], Attn: [place] [address] Fed-Ex # [phone] If questions please call [phone] Notice of Confidentiality: The documents accompanying this FAX transmission cover contain information from [facility] that is confidential and privileged. The [...] of the documents at no cost to you documented in this encounter Plan of Treatment Upcoming Encounters Date Type Specialty Care Team Description 01/30/2022 Infusion Hematology and Oncology 02/27/2022 Infusion Hematology and Oncology 03/27/2022 Infusion Hematology and Oncology 04/18/2022 Office Visit Hematology and Oncology Carey Higuera MD [facility] HEMATOLOGY/[place]COL [place], [place] [address] (Wo rk) documented as of this encounter Visit Diagnoses Not on filedocumented in this encounter Care Teams Refractory Technician Relationship Specialty Start Date End Date Fox Tian MD PCP - General 06/06/[address] [place] [address] [phone] documented as of this encounter
--- OUTSIDE RECORDS SUMMARY | 2022-01-30 02:11 | XMS_ITS | Encounter Summary ---
:1965 Author Organization [facility] [place] [address] Care Team Providers Name Role Phone Fox Tian MD Primary Care Provider Reason for Referral Diagnostic Test (Routine) - Closed Specialty Diagnoses / Procedures Referred By Contact Refer red To Contact Radiology Diagnoses Malignant neoplasm of right breast in female, estrogen receptor positive, unspecified site of breast Eliud Carty MD [facility] Rad Nuclear Med Procedures [place] [address] [place] [address] Referral ID Status Reason Start Date Expiration Date Visits V isits Requested Authorized [id number] Closed Specialty 07/31/2021 01/28/2023 1 1 Service Requested iagnostic Test (Routine) - Closed Specialty Diagnoses / Procedures Referred By Contact Refer red To Contact Radiology Diagnoses Malignant neoplasm of right breast in female, estrogen receptor positive, unspecified site of breast Eliud Carty MD [facility] Rad Mri Procedures MRI Breast [place] [address] [place] [address] Referral ID Status Reason Start Date Expiration Date Visits V isits Requested Authorized [id number] Closed Specialty 08/04/2021 10/02/2021 1 1 Service Requested iagnostic Test (Routine) - Closed Specialty Diagnoses / Procedures Referred By Contact Refer red To Contact Radiology Diagnoses Malignant neoplasm of right breast in female, estrogen receptor positive, unspecified site of breast Eliud Carty MD [facility] Rad Ct Scan Procedures CT Chest Abdomen Pelvis w Contrast (Generic) [facility] [address] [place] [address] [place] [address] Referral ID Status Reason Start Date Expiration Date Visits V isits Requested Authorized [id number] Closed Specialty 08/04/2021 10/02/2021 1 1 Service Requested Encounter Details Date Type Department Care Team Description 07/31/2021 Orders Only General Surgery at Eliud Carty Mali gnreno neoplasm of [facility] MD right breast in [facility] fem [place], estrogen Drive DR receptor positive, [place] [address] GENERAL SURGERY unspecified site of [phone] [place], [place] [address] breast Social History Tobacco Use Types Packs/Day Years [...] 04/18/2022 Office Visit Hematology and Oncology Carey Higeura MD [facility] HEMATOLOGY/[place], [place] [address] (Wo rk) documented as of this encounter Results MRI Breast wwo Contrast [...] who have questions please contact the health rn critical care that requested your imaging first. ? Electronically signed by: Melissa kan MD, [facility] ([phone]), at 08/14/2021 10:03 AM Narrative 08/14/2021 10:03 [...] t enhancement curve analysis was performed, using [employer] software. COMPARISON STUDIES: Compared and/or correlated with [...] metastasis. Eliud Carty MD IMG MRI ORDERABLES CT Chest Abdomen Pelvis w Contrast [...] who have questions please contact the health rn critical care that requested your imaging first. ? Narrative [...] ho have questions please contact the health rn critical care that requested your imaging first. Eliud Carty MD IMG CT ORDERABLES (ABNORMAL) Comprehensive metabolic panel (non-fasting) (08/11/2021 3:53 PM EST) athologist Signature Glucose Lvl 94 65 - 199 [facility] mg/dL [facility] Comment: Diabetes: >=200 mg/dL plus symp toms BUN 9 8 - 18 mg/dL [facility] Creatinine 0.81 0.70 - 1.20 mg/dL [facility] Sodium 138 135 - 145 mmol/L [facility] Potassium 4.0 3.5 - 5.0 mmol/L [facility] Comment: Please note: ??Patients with WBC >100,00 0 may have falsely elevated Potassium levels. ??For accurate Potassium quantif ication in these patients send serum separator tube (gold top) for subsequent determinations. ??Contact the Clinical Chemistry Laboratory if there are any qu estions. Chloride 104 98 - 107 mmol/L [facility] CO2 23 22 - 31 mmol/L [facility] Anion Gap 11 5 - 15 mmol/L [facility] Calcium 9.9 8.5 - 10.5 mg/dL [facility] Total Protein 7.4 6.1 - 8.0 g/dL [facility] Albumin 4.7 3.2 - 5.2 g/dL [facility] AST 18 0 - 30 unit/L [facility] ALT 18 0 - 30 unit/L [facility] Alk Phos 74 35 - 105 unit/L [facility] Total Bilirubin <0.2 (L) 0.2 - 1.3 mg/dL [facility] Estimated GFR 82 >=60 mL/min/1.73 m?? [facility] Comment: This patient? s estimated [...] / Volume Laterality Blood 08/11/2021 3:53 PM 4:04 EST PM EST Resulting Agency Comment Spec In Lab Eliud Carty MD CHEMISTRY ORDERABLES Performing Organization Address City/State/[place] [address] NM Bone Scan Whole Body (08/07/2021 2:51 [...] who have questions please contact the health rn critical care that requested your imaging first. ? Narrative 08/07/2021 4:19 PM EST EXAMINATION: NM [...] ho have questions please contact the health rn critical care that requested your imaging first. Electronically signed by: Jorgito Cisse MD, [facility] ([phone]), at 08/07/2021 4:19 PM Eliud Carty MD [facility] [place] ORDERABLES documented in this encounter Visit Diagnoses Diagnosis Malignant neoplasm of right breast in fe male, estrogen receptor positive, unspecified site of breast Malignant neoplasm of right breast in fe male, estrogen receptor positive, unspecified site of breast Malignant neoplasm of right breast in fe male, estrogen receptor positive, unspecified site of breast Malignant neoplasm of right breast in fe male, estrogen receptor positive, unspecified site of breast documented in this encounter Care Teams Operating Room Tech Relationship Specialty Start Date End Date Fox Tian MD PCP - General 06/06/[address] [place] [phone] documented as of this encounter
--- OUTSIDE RECORDS SUMMARY | 2022-01-30 02:11 | XMS_ITS | Encounter Summary ---
:1965 Author Organization [facility] Address [address] [place] [address] Care Team Providers Name Role Phone Fox Tian MD Primary Care Provider Encounter Details Date Type Department Care Team Description 10/10/2021 Hospital Encounter Hematology and Maligna nt neoplasm of Oncology at [facility] upper-outer quadrant of [facility] right carine ast in female, [place] [address] positive [phone] Social History Tobacco Use Types Packs/Day Years [...] Oncology 04/18/2022 [facility] HEMATOLOGY/[place], [place] [address] (Wo rk) documented as of this encounter Goals Goal Patient Goal Associated Recent Patient-Stated? Author Type Problems Progress DH Home Medication Patient No Dari n, Compliance and Facing Vladimir Singh, Understanding Action Plan [facility] Note: Formatting of this note might be d ifferent from the original. Slow or prevent progression and maintain quality of life, based on outcomes and quality of life assessed at follow-up visits documented as of this encounter Procedures Procedure Name Priority Date/Time Associated Comments Diagnosis HEMOGRAM Routine 10/10/2021 1:40 Malignant neoplasm Resul ts for this PM EDT of upper-outer procedure are in quadrant of right the result s breast in female, section. estrogen receptor positive DIFFERENTIAL, Routine 10/10/2021 1:40 PM Malignant neoplasm Re sults for this AUTOMATED EDT of upper-outer procedure are in quadrant of right the result s breast in female, section. estrogen receptor positive HC VENIPUNCTURE Routine 10/10/2021 1:40 PM Malignant neoplasm Results for this EDT of upper-outer procedure are in quadrant of right the result s breast in female, section. estrogen receptor positive HC CBC,PLT & AUTO DIFF Routine 10/10/2021 1:40 PM Malignant ne oplasm EDT of upper-outer quadrant of right breast in female, estrogen receptor positive COMPREHENSIVE Routine 10/10/2021 1:40 PM Malignant neoplasm Re sults for this METABOLIC PANEL EDT of upper-outer procedure are in (NON-FASTING) quadrant of right the resul ts breast in female, section. estrogen receptor positive documented in this encounter Results (ABNORMAL) Differential, Automated (10/10/2021 1:40 PM EDT) [facility] gist Method Time Signature Neutrophils % 53.9 % [facility] Neutr Abs (ANC) 1.74 1.70 - [facility] 6.10 [facility] x10(3)/[facility] LABORATORY Lymphocytes % 36.8 % [facility] Lymphocytes Abs 1.2 0.9 - 3.2 [facility] x10(3)/[facility] LABORATORY Monocytes % 5.3 % [facility] Monocyte Abs 0.2 (L) 0.3 - 0.9 [facility] x10(3)/[facility] LABORATORY Eosinophils % 2.2 % [facility] Eosinophils Abs 0.1 0.0 - 0.4 [facility] x10(3)/[facility] LABORATORY Basophils % 1.5 % [facility] Basophils Abs 0.0 0.0 - 0.1 [facility] x10(3)/[facility] LABORATORY Immature Gran % 0.30 % [facility] Comment: Immature granulocytes(IG's)percentage an d absolute count will include metamyelocytes, myelocytes, and promyelo cytes. Blood smears from CBCs yielding IG's will be scanned manually for concor dance. If this scan disagrees with the automated IG or if promyelocytes are not ed, a manual differential will be performed. Mónica Gran Abs 0.01 0.00 - 0.04 x10(3)/[facility] Specimen Anatomical Collection Method Collection Time Receive d Time (Source) Location / / Volume Laterality Blood 10/10/2021 1:40 PM 2 1:48 EDT PM EDT Resulting Agency Comment Spec In Lab Helena Desai MD HEMATOLOGY ORDERABLES Performing Organization Address City/State/[place] [address] (ABNORMAL) Hemogram (10/10/2021 1:40 PM EDT) Analysis Performed At Patho logist Time Signature WBC 3.2 (L) 4.0 - 9.5 [facility] LABORATORY RBC 4.50 4.00 - [facility] FREDA 5.21 [facility] x10(6)/[facility] LABORATORY Hemoglobin 13.7 11.7 - [facility] 15.5 g/dL [facility] Hematocrit 40.4 35.7 - [facility] 45.8 % [facility] MCV 89.8 82.6 - [facility] 94.4 [facility] LABORATORY MCH 30.4 27.1 - [facility] FREDA 32.0 pg [facility] MCHC 33.9 31.7 - [facility] 35.0 g/dL [facility] Platelets 266 145 - 357 [facility] x10(3)/[facility] LABORATORY RDWSD 50.2 (H) 37.0 - [facility] 46.0 [facility] LABORATORY RDWCV 15.5 (H) 11.5 - [facility] 14.1 % [facility] MPV 9.0 7.6 - 12.9 [facility] LABORATORY nRBC % Auto 0.0 % [facility] nRBC Abs Auto 0.000 0.000 - [facility] 0.000 [facility] x10(3)/[facility] LABORATORY Specimen Anatomical Collection Method Collection Time Receive d Time (Source) Location / / Volume Laterality Blood 10/10/2021 1:40 PM 2 1:48 EDT PM EDT Resulting Agency Comment Spec In Lab Helena Desai MD HEMATOLOGY ORDERABLES Performing Organization Address City/[facility]/[place]IP [place] [address] Comprehensive metabolic panel (non-fasting) (10/10/2021 1:40 PM EDT) athologist Signature Glucose Lvl 126 65 - 199 [facility] mg/dL [facility] Comment: Diabetes: >=200 mg/dL plus symp toms BUN 10 8 - 18 mg/dL [facility] Creatinine 0.82 0.70 - 1.20 mg/dL [facility] Sodium 138 135 - 145 mmol/L [facility] Potassium 3.8 3.5 - 5.0 mmol/L [facility] Comment: Please note: ??Patients with WBC >100,00 0 may have falsely elevated Potassium levels. ??For accurate Potassium quantif ication in these patients send serum separator tube (gold top) for subsequent determinations. ??Contact the Clinical Chemistry Laboratory if there are any qu estions. Chloride 104 98 - 107 mmol/L [facility] CO2 25 22 - 31 mmol/L [facility] Anion Gap 9 5 - 15 mmol/L [facility] Calcium 9.2 8.5 - 10.5 mg/dL [facility] Total Protein 7.1 6.1 - 8.0 g/dL [facility] Albumin 4.7 3.2 - 5.2 g/dL [facility] AST 17 0 - 30 unit/L [facility] ALT 26 0 - 30 unit/L [facility] Alk Phos 80 35 - 105 unit/L [facility] Total Bilirubin 0.2 0.2 - 1.3 mg/dL [facility] Estimated GFR 81 >=60 mL/min/1.73 m?? [facility] Comment: This patient? s estimated [...] Organization Address City/State/[place] [address] (ABNORMAL) Cancer antigen 15-3 (10/10/2021 1:40 PM EDT) P athologist Signature [place] 15-3 67 (H) <=25 [facility] unit/mL [facility] Specimen Anatomical Collection Method Collection Time Receive d Time (Source) Location / / Volume Laterality Blood 10/10/2021 1:40 PM 2 1:48 EDT PM EDT Resulting Agency Comment Spec In Lab Helena Desai MD CHEMISTRY ORDERABLES Performing Organization Address City/State/[place] [address] documented in this encounter Visit Diagnoses Diagnosis 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
--- OUTSIDE RECORDS SUMMARY | 2022-01-30 02:11 | XMS_ITS | Encounter Summary ---
:1965 Author Organization [facility] Address [address] [place] [address] Care Team Providers Name Role Phone Fox Tian MD Primary Care Provider Reason for Visit (Routine) - Pending Review Specialty Diagnoses / Procedures Referred By Contact Refer red To Contact Radiology Diagnoses Breast mass, right Ivette Baron PA Procedures Request for 2nd read Mammo [address] [place] [id number] Referral ID Status Reason Start Date Expiration Date Visits V isits Requested Authorized [id number] Pending 07/28/2021 07/28/2022 1 1 Review Encounter Details Date Type Department Care Team Description 07/28/2021 Ancillary Procedure Radiology Library at [place], Breast mass, right [facility] KIRK Steele [address] [phone] Social History Tobacco Use Types Packs/Day Years [...] and Oncology Carey Higuera MD [facility] HEMATOLOGY/[place], [place] [address] (Wo rk) documented as of this encounter Procedures Procedure Name Priority Date/Time Associated Diagnosis Comme nts REQUEST FOR 2ND Routine 07/28/2021 12:12 PM Breast mass, right Results for this READ MAMMO EST procedure are i n the results section. documented in this encounter Results Request for 2nd read Mammo (07/28/2021 12:12 PM EST) Anatomical Region Laterality Modality SO Specimen (Source) Anatomical Location Collection Method / Collectio n Time Received Time / Laterality Volume Narrative 07/28/2021 2:37 PM EST INTERPRETATION OF OUTSIDE BREAST IMAGING I have been asked to consult on this pat ient by provider KIRK Glez because he/she believes a review of this study may change or alter the care of this patient. STUDIES FROM: [facility] DATES: 07/13/2021 TYPE OF EXAM: Screening mammogram CLINICAL HISTORY: ? BX; [facility]; Date of exam [id number]; I believe a reinterpretation o f this exam may alter care of Patient. Yes; Right breast solid mass 10 o'clock, abnormal lymph node right axilla, CAT 5, pt would like treatment at [facility]. ?? COMPARISONS: Images were available for comparison TECHNIQUE: CC and MLO views were obtaine d of bilateral breasts. 2-D directed digital capture, 3-D ??tomosynthesis and computer aided detection (CAD) were used. FINDINGS: FINDINGS: Breast density:The breasts are heterogen eously dense, which may obscure small masses Right breast: Right Breast Lesion # 1: 2 cm irregular hypodensity mass with indistinct margins within the upper outer quadrant, 10:30 a nd 6.5 - 7 cm from the nipple. Right Breast Lesion # 2: 0.7 cm group of fine pleomorphic and round calcifications, 4:00 radian and 3.0 cm f rom the nipple. Additional well-circumscribed retroareolar masses a re present as well as round calcifications. There is generalized increased density t hroughout the right breast parenchyma and there is skin thickening with mild r ight nipple retraction. Left breast: There are no suspicious microcalcificati ons, masses, or areas of distortion. Ultrasound was performed of the right br east and confirms the irregular mass in the right breast measures up to 3.8 cm i n diameter. There is at least one markedly abnormal right axillary lymph n ode suspicious for metastasis. Ultrasound-guided core biopsy was perfor med of the mass and axillary lymph node. Both sites were marked with cylinder sha ped clips. CONCLUSION: Findings consistent with loc ally advanced disease right breast cancer with skin thickening and adenopat hy, biopsy-proven metastatic disease to an axillary lymph node. BI-RADS Category 6: Known Biopsy-Proven Malignancy Please note: The interpretation of the [facility] Breast Imaging Radiologist subspecialist may differ fro m the original radiologists interpretation. This is usually not due to a deficiency of the original interpreting radiologist, rather due to the greater skill level afforded by sub-specialization in the field and/or r easonable variations in interpretations. If you have a concern regarding the D- interpretation you may contact the [facility] Breast Technical Manager Office at . I have personally reviewed the image(s) and the resident's interpretation and agree with the findings, Melissa mario MD at 07/28/2021 2:37 PM Thank you for letting us participate in the care of this patient. ??If you are a health care provider and have any questi ons regarding this report, please contact the number below. ??For patients who have questions please contact the health direct care counselor that requested your imaging first. ? Procedure Note Melissa Hennessy MD - 07/28/2021Form atting of this note might be different from the original. INTERPRETATION OF OUTSIDE BREAST IMAGING I have been asked to consult on this pat ient by provider KIRK Glez because he/she believes a review of this study may change or alter the care of this patient. STUDIES FROM: [facility] DATES: 07/13/2021 TYPE OF EXAM: Screening mammogram CLINICAL HISTORY: ? BX; [facility]; Date of exam [id number]; I believe a reinterpretation o f this exam may alter care of Patient. Yes; Right breast solid mass 10 o'clock, abnormal lymph node right axilla, CAT 5, pt would like treatment at [facility]. COMPARISONS: Images were available for comparison TECHNIQUE: CC and MLO views were obtaine d of bilateral breasts. 2-D directed digital capture, 3-D tomosynthesis and c omputer aided detection (CAD) were used. FINDINGS: FINDINGS: Breast density:The breasts are heterogen eously dense, which may obscure small masses Right breast: Right Breast Lesion # 1: 2 cm irregular hypodensity mass with indistinct margins within the upper outer quadrant, 10:30 a nd 6.5 - 7 cm from the nipple. Right Breast Lesion # 2: 0.7 cm group of fine pleomorphic and round calcifications, 4:00 radian and 3.0 cm f rom the nipple. Additional well-circumscribed retroareolar masses a re present as well as round calcifications. There is generalized increased density t hroughout the right breast parenchyma and there is skin thickening with mild r ight nipple retraction. Left breast: There are no suspicious microcalcificati ons, masses, or areas of distortion. Ultrasound was performed of the right br east and confirms the irregular mass in the right breast measures up to 3.8 cm i n diameter. There is at least one markedly abnormal right axillary lymph n ode suspicious for metastasis. Ultrasound-guided core biopsy was perfor med of the mass and axillary lymph node. Both sites were marked with cylinder sha ped clips. CONCLUSION: Findings consistent with loc ally advanced disease right breast cancer with skin thickening and adenopat hy, biopsy-proven metastatic disease to an axillary lymph node. BI-RADS Category 6: Known Biopsy-Proven Malignancy Please note: The interpretation of the [facility] Breast Imaging Radiologist subspecialist may differ fro m the original radiologists interpretation. This is usually not due to a deficiency of the original interpreting radiologist, rather due to the greater skill level afforded by sub-specialization in the field and/or r easonable variations in interpretations. If you have a concern regarding the D- interpretation you may contact the [facility] Breast Technical Manager Office at . I have personally reviewed the image(s) and the resident's interpretation and agree with the findings, Melissa mario MD at 07/28/2021 2:37 PM Thank you for letting us participate in the care of this patient. If you are a health care provider and have any questi ons regarding this report, please contact the number below. For patients w ho have questions please contact the health direct care counselor that requested your imaging first. Electronically signed by: Melissa kan MD, [facility] ([phone]), at 07/28/2021 2:37 PM Ivette BRADLEY IMG OUTSIDE INTERPRETATION O RDERABLES documented in this encounter Visit Diagnoses Diagnosis Breast mass, right Lump or mass in breast documented in this encounter Care Teams Optometry Doctor Relationship Specialty Start Date End Date Fox Tian MD PCP - General 06/06/[address] [place] [phone] documented as of this encounter
--- OUTSIDE RECORDS SUMMARY | 2022-01-30 02:11 | XMS_ITS | Encounter Summary ---
:1965 Author Organization [facility] [place] [address] Care Team Providers Name Role Phone Fox Tian MD Primary Care Provider Reason for Visit Reason Onset Date Comments Medication Refill 09/27/2021 Encounter Details Date Type Department Care Team Description 09/27/2021 Refill Hematology and Oncol [place]arily[place] [facility] [place], [place] [address] Social History Tobacco Use Types Packs/Day [...] this encounter Miscellaneous Notes Telephone Encounter - Isabel Sharma RN - 09/28/2021 3:00 PM EDT Received request via surescripts for refill ofCompazine. Per review of medical record, refill is appropriate. Script prepared and sent to provider for review, signature and escribe. documented in this encounter Plan of Treatment Upcoming Encounters Date Type Specialty Care Team Description 01/30/2022 Infusion Hematology and Oncology 02/27/2022 Infusion Hematology and Oncology 03/27/2022 Infusion Hematology and Oncology 04/18/2022 Office Visit Hematology and Oncology Carey Higuera MD [facility] HEMATOLOGY/ONCOL [place], [place] [address] (Wo rk) documented as of this encounter Goals Goal Patient Goal Associated Recent Patient-Stated? Author Type Problems Progress DH Home Medication Patient No Dari marr, Compliance and Facing Vladimir Singh, Understanding Action Plan [facility] Note: Formatting of this note might be d ifferent from the original. Slow or prevent progression and maintain quality of life, based on outcomes and quality of life assessed at follow-up visits documented as of this encounter Visit Diagnoses Not on filedocumented in this encounter Care Teams Passenger Coach Driver Relationship Specialty Start Date End Date Fox Tian MD PCP - General 06/06/[address] [place] [phone] documented as of this encounter
--- OUTSIDE RECORDS SUMMARY | 2022-01-30 02:11 | XMS_ITS | Encounter Summary ---
:1965 Author Organization [facility] Address [place] [address] Care Team Providers Name Role Phone Fox Tian MD Primary Care Provider Reason for Visit Reason Comments Prior Authorization Ibrance 125mg Tablets Encounter Details Date Type Department Care Team Description 08/18/2021 Specialty Pharmacy Pharm[place] [facility] [place]ana Watts Prior Authorization [facility] (Ibrance 125[address] Drive Tablets) [place] [id number] Social History Tobacco Use Types Packs/Day Years [...] documented as of this encounter Progress Notes Lana Watts W - 08/18/2021 10:22 AM EST [facility], Medication Prior Authorization Submission Patient: Isabel Austin Patient : 1965 Patient Address: [address] [facility] [address] (home) Medication Name: IBRANCE 125 MG TABLET Medication ID: [id number] Subscriber Insurance: Subscriber Insurance Comment: [facility] (IR[facility]) Fax: Physician: HELENA DESAI Physician Comment: Sent Via: [employer] Luna: [id number] Ref/Case/PA#: Medication Strength Frequency Requested: Take 1 tablet (125 mg) by mouth daily Qty/Day Supply: New Start: New to Therapy Diagnosis & ICD-10 Code: Malignant neoplasm of upper-outer quadrant of right breast in female, estrogen receptor positive - C50.411 Patient Notified: No Submission Notes: None Lana Watts 08/18/21 10:24 AM Lana Watts - 08/18/2021 10:22 AM EST [facility], Prior Authorization Denial Medication Name: IBRANCE 125 MG TABLET Medication ID: [id number] Case/Reference # : Denial Summary: Our pharmacist, Cristy is going to work on the appeal for this. Patient Notified of Denial: No Additional Information from insurance carrier. Please see below: None For any questions relating to this denial please reach out directly to your section's specialty pharmacist, or the specialty pharmacy team at [facility] Lana Watts 08/18/21 1:39 PM Cristy Andrew [facility] - 08/18/2021 10:22 AM EST [facility], Prior Authorization Appeal Patient: Isabel Austin Patient : 1965 Medication: Ibrance Physician: Dr. Helena Desai Sent Via: Fax Ref/Case/PA#: [id number] Appeal response time: 72 hours for verbal response Tamera Mart - 08/18/2021 10:22 AM EST [facility], Prior Authorization Appeal Approval Medication Name: IBRANCE 125 MG TABLET Medication ID: Appeal Result: Approved Appeal Decision Date: 08/22/2021 3:15 PM Approved from: 08/22/2021 to 08/22/2059 Reference Number: [id number] Can be filled with: [facility] Fillable at [facility]: Yes Patient Notified of Approval: To be contacted by [facility] for consult Additional Information regarding this Appeal: None For any questions relating to this appeal please reach out directly to your section's specialty pharmacist. Tamera Mart 08/23/21 8:41 AM documented in this encounter Plan of Treatment Upcoming Encounters Date Type Specialty Care Team Description 01/30/2022 Infusion Hematology and Oncology 02/27/2022 Infusion Hematology and Oncology 03/27/2022 Infusion Hematology and Oncology 04/18/2022 Office Visit Hematology and Oncology Helena Higuera MD [facility] HEMATOLOGY/ONCOL [place], [place] [address] (Wo rk) documented as of this encounter Goals Goal Patient Goal Associated Recent Patient-Stated? Author Type Problems Progress DH Home Medication Patient No Dari n, Compliance and Facing Vladimir P, Understanding Action Plan [facility] Note: Formatting of this note might be d ifferent from the original. Slow or prevent progression and maintain quality of life, based on outcomes and quality of life assessed at follow-up visits documented as of this encounter Visit Diagnoses Not on filedocumented in this encounter Care Teams Capacity Analyst Relationship Specialty Start Date End Date Fox Tian MD PCP - General 06/06/[address] [place] [phone] documented as of this encounter
--- OUTSIDE RECORDS SUMMARY | 2022-01-30 02:11 | XMS_ITS | Encounter Summary ---
:1965 Author Organization [facility] [place] [address] Care Team Providers Name Role Phone Fox Tian MD Primary Care Provider Encounter Details Date Type Department Care Team Description 08/18/2021 Notes Only Radiology at [facility] Heriberto Weathers MD [facility] [place] [address] RADIOLOGY DEPT [phone] [place] [phone] (Wo rk) Social History Tobacco Use Types [...] on file documented as of this encounter H&P Notes Heriberto Weathers MD - 08/18/2021 1:22 PM EST Images from the original note were not included. INTERVENTIONAL RADIOLOGY FOCUSED H&P and PRE-PROCEDURE NOTE: PCP: Fox Tian MD Referring Provider: No ref. provider found Planned Procedure: Planned procedure: liver lesion biopsy Procedure Indication: Staging/molecular profiling Procedure request received through Interventional Radiology [facility] order queue. Presenting Diagnosis/ Complaint: Isabel Austin is a 55 y.o. female with newly diagnosised breast cancer with axillary, bone and liver lesions on 08/11/21 CT. IR History: None Past Medical/Surgical History: Patient Active Problem List Diagnosis Code ??? Malignant neoplasm of right breast in female, estrogen receptor positive C50.911, Z17.0 ??? Malignant neoplasm of upper-outer quadrant of right breast in female, estrogen receptor czllrcslM03.411, Z17.0 Past Medical History: Diagnosis Date ??? Malignant neoplasm of right breast in female, estrogen receptor positive 08/02/2021 07/24/21 bx [place]: ER+/NE+/HER2- right breast IDC and right axillary lymph [...] elective cases) 08/18/2021 documented in this encounter Plan of Treatment Upcoming Encounters Date Type Specialty Care Team Description 01/30/2022 Infusion Hematology and Oncology 02/27/2022 Infusion Hematology and Oncology 03/27/2022 Infusion Hematology and Oncology 04/18/2022 Office Visit Hematology and Oncology Carey Higuera MD [facility] HEMATOLOGY/ONCOL [place], [place] [address] (Wo rk) documented as of this encounter Visit Diagnoses Not on filedocumented in this encounter Care Teams Grinder Watch Parts Relationship Specialty Start Date End Date Fox Tian MD PCP - General 06/06/[address] [place] [phone] documented as of this encounter
--- OUTSIDE RECORDS SUMMARY | 2022-01-30 02:11 | XMS_ITS | Encounter Summary ---
:1965 Author Organization [facility] [place] [address] Care Team Providers Name Role Phone Fox Tian MD Primary Care Provider Reason for Visit Reason Onset Date Comments Other 08/25/2021 Oral chemo check Encounter Details Date Type Department Care Team Description 08/25/2021 Telephone Hematology and Isabel Sharma, Other (Oral chemo Oncology at [facility] RN check) [place] [address] Social History Tobacco Use Types Packs/Day [...] Telephone Encounter - Isabel Sharma RN - 08/25/2021 3:51 PM EST Images from the original note were not included. Call received from patient Etta. She received her oral chemotherapy Ibrance and would like to check it over with RN. Medication checked with patient. Patient reports that pharmacist told her that she is taking omerprozole for acid reflux and that shereally should not take with Ibrance. Patient states she has been taking for years. Ivette Baron, PCP prescribes Would like to start tomorrow. Plan of care to start Ibrance tomorrow 08/26/21 and not take her omeprozole unless she has heartburn. RN will confirm with provider plan for medications and send [facility] to patient for an update. Message sent to provider. Carey Desai MD Andrews, Patricia A, RN Cc: P [facility] Hem Onc Breast Oncology Scheduling Yes if she can take the omeprazole and ibrance 12 hours apart that should work, I don't want her to stop the omeprazole altogether, thank you Etta reports she did have some heartburn after stopping her omeprazole this last weekend. Etta agrees to take the omeprazole at night 12 hours off from her Ibrance. If this does not work torelieve her heart burn she [facility] and go back to omeprazole in the AM. Wediscussed the best way to make this change if needed as we do not want her to take two doses in a 24hour period so she knows to skip a night and wait until the following night if this change is needed. documented in this encounter Plan of Treatment Upcoming Encounters Date Type Specialty Care Team Description 01/30/2022 Infusion Hematology and Oncology 02/27/2022 Infusion Hematology and Oncology 03/27/2022 Infusion Hematology and Oncology 04/18/2022 Office Visit Hematology and Oncology Carey Higuera MD [facility] HEMATOLOGY/ONCOL [place], [place] [address] (Wo rk) documented as of this encounter Goals Goal Patient Goal Associated Recent Patient-Stated? Author Type Problems Progress DH Home Medication Patient No Dari marr, Compliance and Facing Vladimir Singh, Understanding Action Plan [facility] Note: Formatting of this note might be d ifferent from the original. Slow or prevent progression and maintain quality of life, based on outcomes and quality of life assessed at follow-up visits documented as of this encounter Visit Diagnoses Not on filedocumented in this encounter Care Teams It Lead Relationship Specialty Start Date End Date Fox Tian MD PCP - General 06/06/[address] [place] [phone] documented as of this encounter
--- OUTSIDE RECORDS SUMMARY | 2022-01-30 02:11 | XMS_ITS | Encounter Summary ---
:1965 Author Organization [facility] [place] [address] Care Team Providers Name Role Phone Fox Tian MD Primary Care Provider Reason for Visit Diagnostic Test (Routine) - Closed Specialty Diagnoses / Procedures Referred By Contact Refer red To Contact Radiology Diagnoses Malignant neoplasm of right breast in female, estrogen receptor positive, unspecified site of breast Eliud Carty MD [facility] Rad Nuclear Med Procedures NM Bone Scan Whole Body [facility] [place] [address] [place] [address] Referral ID Status Reason Start Date Expiration Date Visits V isits Requested Authorized [id number] Closed Specialty 07/31/2021 01/28/2023 1 1 Service Requested Encounter Details Date Type Department Care Team Description 08/07/2021 [facility] [place] [address] [place] [address] [phone] (Wo rk) Social History Tobacco Use Types [...] and Oncology Carey Higuera MD [facility] HEMATOLOGY/ONCOL [place], [place] [address] (Wo rk) documented as of [...] who have questions please contact the health before and after school daycare worker that requested your imaging first. ? Electronically signed by: Jorgito Cisse MD, [facility] ([phone]), at 08/07/2021 4:19 PM Narrative 08/07/2021 4:19 [...] ho have questions please contact the health before and after school daycare worker that requested your imaging first. Electronically signed by: Jorgito Cisse MD, [facility] ([phone]), at 08/07/2021 4:19 PM Eliud Carty MD IMG NM ORDERABLES documented in this encounter Visit Diagnoses Not on filedocumented in this encounter Care Teams Beer Runner Relationship Specialty Start Date End Date Fox Tian MD PCP - General 06/06/[address] [place] [phone] documented as of this encounter
--- OUTSIDE RECORDS SUMMARY | 2022-01-30 02:11 | XMS_ITS | Encounter Summary ---
:1965 Author Organization [facility] [place] [address] Care Team Providers Name Role Phone Fox Tian MD Primary Care Provider Encounter Details Date Type Department Care Team Description 08/15/2021 Telephone Hematology and Oncology at Carey Nobles MD [facility] Caro bowser HEMATOLOGY/[place] [address] [place] [address] [phone] (Wo rk) Social History Tobacco Use Types [...] this encounter Miscellaneous Notes Telephone Encounter - Carey Desai MD - 08/15/2021 6:01 PM EST TC to Etta to review the CT results and to check in before her appt on . She saw the CT and MRI reports from Saturday. She understands the cancer has most likely spread beyond the breast and therefore surgery is no longer the first step in her treatment. Her surgical consultation with Dr. Carty has been canceled. She reports aching and itchiness in the right breast but not skin involvement, no redness or bleeding or discharge. She has mild to moderate pain in her shoulder but no back pain, numbness or tingling,or urinary retention or incontinence. We discussed the need for a liver biopsy which will be set up in the near future. She asked about the cyst on her ovary on the CT scan, says that's been there for many years. LMP was 3 yrs ago, but she's on ocp's for menses control of heavy bleeding. We discussed the most likely plan of ovarian suppression + palbociclib or abemaciclib. She'd like regular appts for labs and injections to be at [facility] which is closer for her. RT or surgery may be involved at some point to control symptoms. She was encouraged to bring someone with her to the appointment and to let us know any issues or concerns she may have regarding finances, employment, medication access, etc. We will review all of thisin detail at her appointment on . If the weather is bad she will call and change to telehealth. documented in this encounter Plan of Treatment Upcoming Encounters Date Type Specialty Care Team Description 01/30/2022 Infusion Hematology and Oncology 02/27/2022 Infusion Hematology and Oncology 03/27/2022 Infusion Hematology and Oncology 04/18/2022 Office Visit Hematology and Oncology Carey Higuera MD [facility] HEMATOLOGY/ONCOL [place], [place] [address] (Wo rk) documented as of this encounter Visit Diagnoses Not on filedocumented in this encounter Care Teams Communication Equipment Repairer Relationship Specialty Start Date End Date Fox Tian MD PCP - General 06/06/[address] [place] [phone] documented as of this encounter
--- OUTSIDE RECORDS SUMMARY | 2022-01-30 02:11 | XMS_ITS | Encounter Summary ---
:1965 Author Organization [facility] [address] Care Team Providers Name Role Phone Fox Tian MD Primary Care Provider Encounter Details Date Type Department Care Team Description 07/13/2021 Ancillary Procedure Radiology Library at [address] [place] [phone] Social History Tobacco Use Types Packs/Day Years [...] Visit Hematology and Oncology Carey Higuera MD [facility] HEMATOLOGY/ONCOL [place], [place] [address] (Wo rk) documented as of this encounter Procedures Procedure Name Priority Date/Time Associated Diagnosis Comme nts FILM Routine 07/13/2021 12:00 AM Results for this LIBRARY-STORAGE EST procedure ar e in ONLY US BREAST the results section. documented in this encounter Results Film Library Storage Only US Breast (07/13/2021 12:00 AM EST) Specimen (Source) Anatomical Location Collection Method / Collectio n Time Received Time / Laterality Volume Narrative DUSTIN - 07/28/2021 11:42 AM EST This exam is auto-finalizing. It's purpo se is for storage only. Ivette BRADLEY IMG FILM LIBRARY ORDERABLES Performing Organization Address City/State/ZIP Code Phon e Number [place], [place] documented in this encounter Visit Diagnoses Not on filedocumented in this encounter Care Teams Plastic Jig And Fixture Builder Relationship Specialty Start Date End Date Fox Tian MD PCP - General 06/06/[address] [place] [phone] documented as of this encounter
--- OUTSIDE RECORDS SUMMARY | 2022-01-30 02:11 | XMS_ITS | Encounter Summary ---
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 The bone scan showed suspicious areas in T2, T12, and bilateral posterior ribs. Ms Austin did look at the results in her portal and states she's had lower back pain off and on for years. She also had a fall at a pool last summer with right sided rib pain and did go in for xrays that did not show any fractures. The pain lasted several weeks. She first felt a lump in her breast 6 or so months ago, and noticed that it started causing pain when she laid on it a certain way, and that's when she sought medical attention. She isn't sure if the lump has grown since she first found it. I explained the breast cancer is ER+ so is often treated with 1-2 pills she can take by mouth every day. The bone scan looks possibly suspicious for the cancer having spread to the bone but that still needs to be verified by the CT scan and possibly by a biopsy. If it has, she likely won't be having breast surgery right away but she will still see Dr. Carty as planned next week to confirm once we have all the information. The treatment for this kind of breast cancer is very effective and can often control her symptoms and prevent further spread of the disease for a long time, often many years before the treatment has tochange. Ms Austin didn't have any more questions, and understands we will see her as planned next week to review all the results and information and the plan from here. documented in this encounter Plan of Treatment Upcoming Encounters Date Type Specialty Care Team Description 01/30/2022 Infusion Hematology and Oncology 02/27/2022 Infusion Hematology and Oncology 03/27/2022 Infusion Hematology and Oncology 04/18/2022 Office Visit Hematology and Oncology Carey Higuera MD [facility] HEMATOLOGY/ONCOL [place], [place] [address] (Wo rk) documented as of this encounter Visit Diagnoses Not on filedocumented in this encounter Care Teams Wildlife Conservation Officer Relationship Specialty Start Date End Date Fox Tian MD PCP - General 06/06/[address] [place] [phone] documented as of this encounter
--- OUTSIDE RECORDS SUMMARY | 2022-01-30 02:11 | XMS_ITS | Encounter Summary ---
:1965 Author Organization [facility] Address [facility] [place] [address] Care Team Providers Name Role Phone Fox Tian MD Primary Care Provider Reason for Visit Treatment/Therapy Plan Authorization (Routine) - Authorized Specialty Diagnoses / Procedures Referred By Contact Refer red To Contact Hematology and Oncology Diagnoses Malignant neoplasm of upper-outer quadrant of right breast in female, estrogen receptor positive Carey Desai, [facility] 3k Procedures TC DENOSUMAB, 1MG, INJECTION [id number] (GOSERELIN) [facility] [address] JENNIFER Alfonso HEMATOLOGY/ONCOLOGY [phone] [place] [address] Referral ID Status Reason Start Date Expiration Date Visits V isits Requested Authorized [id number] Authorized 09/01/2021 09/01/2022 99 99 Encounter Details Date Type Department Care Team Description 09/12/2021 Hospital Encounter Hematology and Maligna nt neoplasm of Oncology at [facility] upper-outer quadrant of [facility] right carine ast in female, [place] [address] positive [phone] Social History Tobacco Use Types Packs/Day Years [...] mouth 0 Tablet daily. traZODone (DESYREL) 150 Take 1 tablet by 30 tablet 11 2021 mg Tablet mouth nightly. letrozole (Femara) 2.5 mg [...] EVERY DAY documented as of this encounter Progress Notes Vega Leung RN - 09/12/2021 11:40 AM EST Patient Name: Isabel Austin Patient Age: 55 y.o. Birthdate: 1965 Admit date: 09/12/2021 Attending Physician: Elena att. providers found Access visit. See MAR and/or flowsheet. Here for subcutaneous injections of denosumab (xgeva) and goserelin (zoladex). Medication information packets provided.Tolerated injections well. documented in this encounter Plan of Treatment Upcoming Encounters Date Type Specialty Care Team Description 01/30/2022 Infusion Hematology and Oncology 02/27/2022 Infusion Hematology and Oncology 03/27/2022 Infusion Hematology and Oncology 04/18/2022 Office Visit Hematology and Oncology Carey Higuera MD [facility] HEMATOLOGY/ONCOL [place], [place] [address] (Wo rk) documented as of this encounter Goals Goal Patient Goal Associated Recent Patient-Stated? Author Type Problems Progress DH Home Medication Patient No Dari marr, Compliance and Facing Vladimir Singh, Understanding Action Plan [facility] Note: Formatting of this note [...] Rate Site denosumab (Xgeva) (120 mg/1.7 Given 09/12/2021 11:34 AM EST 120 mg Right Arm mL) subcutaneous injection 120 mg 120 mg, Subcutaneous, ONCE, 1 dose, On Sat09/12/21 at 1130, Bring to room temperature 15-30 mins before administration. goserelin (ZOLADEX) Given 09/12/2021 11:38 AM EST 3.6 mg Right Lower Quadrant implant 3.6 mg 3.6 mg, Subcutaneous, ONCE, 1 dose, On Sat09/12/21 at 1130, Routine documented in this encounter Care Teams Linen Controller Relationship Specialty Start Date End Date Fox Tian MD PCP - General 06/06/[address] [place] [phone] documented as of this encounter
--- OUTSIDE RECORDS SUMMARY | 2022-01-30 02:12 | XMS_ITS | Encounter Summary ---
:1965 Author Organization [facility] Address [address] [place] [address] Care Team Providers Name Role Phone Fox Tian MD Primary Care Provider Encounter Details Date Type Department Care Team Description 02/15/2014 [facility]illary [id number] [place] [phone] Social History Tobacco Use Types Packs/Day Years Used Date Never Assessed Financial Resource Strain Answer Date Recorded How [...] Higuera MD [facility] HEMATOLOGY/ONCOL [place], [place] [address] (Wo rk) documented as of this encounter Procedures Procedure Name Priority Date/Time Associated Diagnosis Comme nts FILM Routine 02/15/2014 12:00 AM Results for this LIBRARY-STORAGE EDT procedure ar e in ONLY US BREAST the results section. documented in this encounter Results Film Library Storage Only US Breast (02/15/2014 12:00 AM EDT) Specimen (Source) Anatomical Location Collection Method / Collectio n Time Received Time / Laterality Volume Narrative DUSTIN - 07/28/2021 11:47 AM EST This exam is auto-finalizing. It's purpo se is for storage only. Ivette BRADLEY IMKassie FILM LIBRARY ORDERABLES Performing Organization Address City/State/ZIP Code Phon e Number [place], [place] documented in this encounter Visit Diagnoses Not on filedocumented in this encounter Care Teams Orthotist Or Prosthetist Relationship Specialty Start Date End Date Fox Tian MD PCP - General 06/06/[address] [place] [address] [phone] documented as of this encounter
--- OUTSIDE RECORDS SUMMARY | 2022-01-30 02:12 | XMS_ITS | Encounter Summary ---
:1965 Author Organization [facility] Address [facility] [place] [address] Care Team Providers Name Role Phone Fox Tian MD Primary Care Provider Encounter Details Date Type Department Care Team Description 09/23/2019 External Results Hematology and Ignacia Enrique Iron d eficiency Oncology at [facility] [place] anemia, unspecified [facility] iron [place] [phone] Social History Tobacco Use Types Packs/Day Years [...] Visit Hematology and Oncology Carey Higuera MD [facility] HEMATOLOGY/[place], [place] 0[address] (Wo rk) documented as of this encounter Procedures Procedure Name Priority Date/Time Associated Comments Diagnosis CBC (WITH DIFF) Routine 09/22/2019 4:28 PM Iron deficiency Res ults for this EDT anemia, unspecified procedur e are in iron deficiency the results anemia type section. FERRITIN Routine 09/22/2019 4:28 PM Iron deficiency Result s for this EDT anemia, unspecified procedur e are in iron deficiency the results anemia type section. COMPREHENSIVE Routine 09/22/2019 4:28 PM Iron deficiency Resul ts for this METABOLIC PANEL EDT anemia, unspecified proce dure are in (NON-FASTING) iron deficiency the results anemia type section. documented in this encounter Results Ferritin (09/22/2019 4:28 PM EDT) P athologist Signature Ferritin 162 8 - 252 EXTERNAL LAB Specimen (Source) Anatomical Collection Method Collection Time Re ceived Time Location / / Volume Laterality Blood specimen 09/22/2019 4:28 PM (specimen) EDT Jesus Del Rio MD CHEMISTRY ORDERABLES Performing Organization Address City/State/ZIP Code Phon e Number EXTERNAL FACILITY EXTERNAL LAB (ABNORMAL) Comprehensive metabolic panel (non-fasting) (09/22/2019 4:28 PM EDT) Patholo gist Method Time Signature Glucose Lvl 118 74 - 106 EXTERNAL LAB (EXTERNAL/ ABN) BUN 11 7 - 18 EXTERNAL LAB Creatinine 0.71 0.55 - EXTERNAL LAB 1.02 Estimated GFR >60 EXTERNAL LAB Sodium 140 136 - 145 EXTERNAL LAB Potassium 3.8 3.5 - 5.1 EXTERNAL LAB Chloride 104 98 - 107 EXTERNAL LAB CO2 27 EXTERNAL LAB Calcium 8.7 8.5 - 10.1 EXTERNAL LAB Total Protein 7.3 6.4 - 8.2 EXTERNAL LAB Albumin 4.1 3.4 - 5.0 EXTERNAL LAB Total Bilirubin 0.2 0.2 - 1.0 EXTERNAL LAB Alk Phos 71 46 - 116 EXTERNAL LAB AST 12 15 - 37 EXTERNAL LAB (EXTERNAL/ ABN) ALT 23 14 - 59 EXTERNAL LAB Specimen (Source) Anatomical Collection Method Collection Time Re ceived Time Location / / Volume Laterality Blood specimen 09/22/2019 4:28 PM (specimen) EDT Jesus Del Rio MD CHEMISTRY ORDERABLES Performing Organization Address City/State/ZIP Code Phon e Number EXTERNAL FACILITY EXTERNAL LAB CBC (with Diff) (09/22/2019 4:28 PM EDT) P athologist Signature WBC 6.69 4.4 - 10.8 EXTERNAL LAB Hemoglobin 14.6 12.0 - EXTERNAL LAB 15.5 Hematocrit 42.5 36.0 - EXTERNAL LAB 46.0 Platelets 262 130 - 400 EXTERNAL LAB Neutr Abs (ANC) 3.82 1.2 - 6.7 EXTERNAL LAB Lymphocyte Abs 2.13 1.2 - 3.4 EXTERNAL LAB Specimen (Source) Anatomical Collection Method Collection Time Re ceived Time Location / / Volume Laterality Blood specimen 09/22/2019 4:28 PM (specimen) EDT Jesus Del Rio MD HEMATOLOGY ORDERABLES Performing Organization Address City/State/ZIP Code Phon e Number EXTERNAL FACILITY EXTERNAL LAB documented in this encounter Visit Diagnoses Diagnosis Iron deficiency anemia, unspecified iron deficiency anemia type documented in this encounter Care Teams Pipe Fitter Marine Relationship Specialty Start Date End Date Fox Tian MD PCP - General 06/06/[address] [place] [address] [phone] documented as of this encounter
--- OUTSIDE RECORDS SUMMARY | 2022-01-30 02:12 | XMS_ITS | Encounter Summary ---
:1965 Author Organization [facility] Address [facility] [place] [address] Care Team Providers Name Role Phone Fox Tian MD Primary Care Provider Encounter Details Date Type Department Care Team Description 05/08/2012 [facility] [id number] [place] [phone] Social History Tobacco Use Types Packs/Day Years [...] Hematology and Oncology Carey Higuera MD [facility] HEMATOLOGY/[place]COL [place], [place] [address] (Wo rk) documented as of this encounter Procedures Procedure Name Priority Date/Time Associated Diagnosis Comme nts FILM Routine 05/08/2012 12:00 AM Results for this LIBRARY-STORAGE EDT procedure ar e in ONLY US BREAST the results section. documented in this encounter Results Film Library Storage Only US Breast (05/08/2012 12:00 AM EDT) Specimen (Source) Anatomical Location Collection Method / Collectio n Time Received Time / Laterality Volume Narrative DUSTIN - 07/28/2021 11:50 AM EST This exam is auto-finalizing. It's purpo se is for storage only. Ivette BRADLEY IMKassie FILM LIBRARY ORDERABLES Performing Organization Address City/State/ZIP Code Phon e Number [place], [place] documented in this encounter Visit Diagnoses Not on filedocumented in this encounter Care Teams Civil Structural Engineer Relationship Specialty Start Date End Date Fox Tian MD PCP - General 06/06/[address] [place] [address] [phone] documented as of this encounter
--- OUTSIDE RECORDS SUMMARY | 2022-01-30 02:12 | XMS_ITS | Encounter Summary ---
:1965 Author Organization [facility] Address [place] [address] Care Team Providers Name Role Phone Fox Tian MD Primary Care Provider Encounter Details Date Type Department Care Team Description 08/02/2016 [facility]illary [id number] [place] [phone] Social History Tobacco Use Types Packs/Day Years [...] Visit Hematology and Oncology Carey Higuera MD [facility] HEMATOLOGY/ONCOL [place]PH [place], [place] 0[address] (Wo rk) documented as of this encounter Procedures Procedure Name Priority Date/Time Associated Diagnosis Comme nts FILM LIBRARY Routine 08/02/2016 12:00 AM Results for this STORAGE ONLY MAMMO EST procedure are in the results section. documented in this encounter Results Film Library- Storage Only Mammo (08/02/2016 12:00 AM EST) Specimen (Source) Anatomical Location Collection Method / Collectio n Time Received Time / Laterality Volume Narrative [facility] - 07/28/2021 11:42 AM EST This exam is auto-finalizing. It's purpo se is for storage only. Ivette BRADLEY IMKassie FILM LIBRARY ORDERABLES Performing Organization Address City/State/ZIP Code Phon e Number [place], [place] documented in this encounter Visit Diagnoses Not on filedocumented in this encounter Care Teams Oncology Navigator Relationship Specialty Start Date End Date Fox Tian MD PCP - General 06/06/[address] [place] [phone] documented as of this encounter
--- OUTSIDE RECORDS SUMMARY | 2022-01-30 02:12 | XMS_ITS | Encounter Summary ---
:1965 Author Organization [facility] Address [facility] [place] [address] Care Team Providers Name Role Phone Fox Tian MD Primary Care Provider Reason for Visit Reason Comments IV Medication Venofer Encounter Details Date Type Department Care Team Description 07/27/2019 Infusion [facility] [address] anemia type [place], [place] [phone] Social History Tobacco Use Types Packs/Day Years [...] Sign Reading Time Taken Comments Blood Pressure 147/65 07/27/2019 2:16 PM EST Pulse 71 07/27/2019 2:16 PM EST Temperature 36.4 ??C (97.5 ??F) 07/27/2019 2:16 PM EST Respiratory Rate 18 07/27/2019 2:16 PM EST Oxygen Saturation 96% 07/27/2019 2:16 PM EST Inhaled Oxygen Concentration - - Weight 92.7 kg (204 lb 6.4 oz) 07/27/2019 2:16 PM EST Height - - Body Mass Index 32.01 07/20/2019 2:04 PM EST documented in this encounter Progress Notes Desi Mercado RN - 07/27/2019 2:00 PM EST INFUSION THERAPY ADMINISTRATION NOTES DIAGNOSIS: Iron Deficiency REASON FOR VISIT: Armandofer, Week 2 of 3 SUBJECTIVE Etta offers no complaints. OBJECTIVE IV ACCESS: PIV REACTIONS (DESCRIPTION, TIME, INTERVENTION AND EFFECTIVENESS) none ASSESSMENT Isabel Austin was awake, alert and tolerated treatment well. Patient remained in clinic for 30 min post infusion to monitor for reactions. PLAN Return to clinic next week for week 3 of 3. documented in this encounter Plan of Treatment Upcoming Encounters Date Type Specialty Care Team Description 01/30/2022 Infusion Hematology and Oncology 02/27/2022 Infusion Hematology and Oncology 03/27/2022 Infusion Hematology and Oncology 04/18/2022 Office Visit Hematology and Oncology [facility] Carey villalpando MD [facility] HEMATOLOGY/[place]COL [place], [place] [address] (Wo rk) documented as of this encounter Visit Diagnoses Diagnosis Iron deficiency anemia, unspecified iron deficiency anemia type documented in this encounter Administered Medications Inactive Administered Medications - up to 3 most recent administrations Medication Order MAR Action Action Date Dose Rate Site iron sucrose (Venofer) 300 New Bag 07/27/2019 2:25 PM EST 300 mg 76.7 mL/hr mg in sodium chloride 0.9% 115 mL 300 mg, Intravenous, ONCE, 1 dose, On 07/27/19 at 1430, Administer over 90 Minutes, Week 3 Infusion, Outpatient Transfusion documented in this encounter Care Teams Injection Molding Machine Setter Relationship Specialty Start Date End Date Fox Tian MD PCP - General 06/06/[address] [place] [phone] documented as of this encounter
--- OUTSIDE RECORDS SUMMARY | 2022-01-30 02:12 | XMS_ITS | Encounter Summary ---
:1965 Author Organization [facility] Address [facility] [address] [place] [address] Care Team Providers Name Role Phone Fox Tian MD Primary Care Provider Reason for Visit Consultation (Routine) - Closed Specialty Diagnoses / Procedures Referred By Contact Refer red To Contact Hematology and Diagnoses Other specified abnormalities of plasma proteins FERRITIN LEVEL LOW Ivette Baron PA [facility] Hem Onc 3k Oncology [address] [place] [address] [place] [address] Phone: Fax: Referral ID Status Reason Start Date Expiration Date Visits V isits Requested Authorized [id number] Closed Consult, 02/19/2019 02/19/2020 1 [facility] Encounter Details Date Type Department Care Team Description 03/20/2019 Office Visit Hematology and Jesus Del Rio Iron def iciency Oncology at [facility] MD Shefali anemia, unspecified [facility] iro n deficiency anemia [address] [place], [place] [address] [phone] Social History Tobacco Use Types Packs/Day Years [...] Sign Reading Time Taken Comments Blood Pressure 133/75 03/20/2019 2:45 PM EDT Pulse 78 03/20/2019 2:45 PM EDT Temperature 37 ??C (98.6 ??F) 03/20/2019 2:45 PM EDT Respiratory Rate 17 03/20/2019 2:45 PM EDT Oxygen Saturation 94% 03/20/2019 2:45 PM EDT Inhaled Oxygen Concentration - - Weight 93.9 kg (207 lb) 03/20/2019 2:45 PM EDT Height 170.5 cm (5' 7.13) 03/20/2019 2:45 PM EDT Body Mass Index 32.3 03/20/2019 2:45 PM EDT documented in this encounter Progress Notes Jesus Del Rio MD - 03/20/2019 3:00 PM EDT OUTPATIENT HEMATOLOGY/ ONCOLOGY CONSULTATION HISTORY PRESENT ILLNESS This patient is a 53 y.o. female presenting for evaluation of iron deficiency, as referred by Fox Tian MD. Initial Presentation (03/20/19): This is a 53-year-old female with heavy menstrual periods and diffusemuscle cramps, and especially restless legs at night, who presents for evaluation of low iron. She has had similar symptoms when she was . At that time, she had a pretty significant anemia per her report. More recently, the symptoms have returned. The fact all of her large muscle groups.She has been taking oral iron every other day, but her ferritin has not risen, and the symptoms havenot improved. She denies fever, chills, night sweats. She denies any blood in her stools. She does endorse heavy menstrual periods, which she has had for her adult life. Ferritin=12 Hgb= 14.3, MCV=82 Treatment Course ?? 04/02- venofer 300mg IV x 3 doses INTERIM HISTORY See presentation SOCIAL HISTORY- reviewed with significant changes noted , 3 children, 12 grand children MEDICATIONS AND ALLERGIES- reviewed at this visit Medications 03/20/19 1451 Medication Sig Taking? ALPRAZolam (XANAX) 0.25 mg Tablet TAKE 1 2 TABLETS BY MOUTH FOUR TIMES A DAY FOR SEVERE MUSCLE CRAMPS Yes escitalopram (LEXAPRO) 20 mg Tablet TAKE ONE TABLET BY MOUTH EVERY DAY Yes meloxicam (MOBIC) 7.5 mg Tablet TAKE ONE TABLET BY MOUTH EVERY DAY Yes amitriptyline (ELAVIL) 50 mg Tablet Yes enalapril (VASOTEC) 2.5 mg Tablet Yes omeprazole (PRILOSEC) 40 mg Capsule, Delayed Release(E.C.) TAKE ONE CAPSULE BY MOUTH EVERY DAY Yes PAST MEDICAL HISTORY- reviewed Depression/ anxiety Insomnia due to restless legs PAST SURGICAL HISTORY No abdominal surgeries FAMILY HISTORY- reviewed Non contributory Father had CVA Sister - breast cancer Mother- DM COMPREHENSIVE REVIEW OF SYSTEMS Besides what is mentioned in the HPI, all other systems are negative PHYSICAL EXAMINATION Most Recent Vitals: 03/20/19 1445 BP: 133/75 Pulse: 78 Resp: 17 Temp: 37 ??C (98.6 ??F) SpO2: 94% NAD, pleasant, Heart is RRR Lung sounds are CTAB Abd is soft, NT/ ND, there is no palpable organomegally Lymphadenopathy is not appreciated in neck or axilla Joints are not swollen or inflamed There are no gross neurologic deficits. Facial movement is symmetric. Speech is fluent and congruent. Gait and balance are normal Affect and mood are appropriate for the situation There are no appreciable rashes LABORATORY EVALUATION No results found for this or any previous visit (from the past 24 hour(s)). RADIOGRAPHIC EVALUATION As above PATHOLOGY EVALUATION As above ASSESSMENT: Isabel Austin is a 53 y.o. female presents with low iron that has not responded to oral replacement. She is symptomatic in terms of diffuse muscle cramps and restless leg syndrome. Although she is not anemic, the symptoms, especially restless leg syndrome, can be attributed to theiron. Since she has not improved with oral iron, and she continues to have heavy menstrual periods, I would recommend 3 doses of IV iron. I did caution her that I am not sure this will help, but the symptoms are severe enough that it warrants a trial. I also encouraged her to talk with her PCP about some sort of contraception to help reduce the menses bleeding. I will see her back in 10 weeks to follow-up. Jesus Del Rio MD Pager: [phone] 03/20/2019 documented in this encounter Plan of Treatment Upcoming Encounters Date Type Specialty Care Team Description 01/30/2022 Infusion Hematology and Oncology 02/27/2022 Infusion Hematology and Oncology 03/27/2022 Infusion Hematology and Oncology 04/18/2022 Office Visit Hematology and Oncology Chamberl inCarey MD [facility] HEMATOLOGY/ONCOL [place], [place] [address] (Wo rk) documented as of this encounter Results (ABNORMAL) Ferritin (06/19/2019 1:13 PM EST) athologist Signature Ferritin 16 (L) 30 - 400 [facility] ng/mL [facility] Comment: Pediatric reference ranges not verified at [facility], interpret with caution. Reference ranges for females greater cinthia n 50 years of age approach values for men, i.e., 30-400 ng/mL. Specimen Anatomical Collection Method Collection Time Receive d Time (Source) Location / / Volume Laterality Blood specimen 06/19/2019 1:13 PM 019 1:21 (specimen) EST PM EST Resulting Agency Comment Spec In Lab Jesus Del Rio MD CHEMISTRY ORDERABLES Performing Organization Address City/State/[place] [address] documented in this encounter Visit Diagnoses Diagnosis Iron deficiency anemia, unspecified iron deficiency anemia type documented in this encounter Care Teams Head Sugar Reprocess Operator Relationship Specialty Start Date End Date Fox Tian MD PCP - General 06/06/10 [address] [place] [phone] documented as of this encounter
--- OUTSIDE RECORDS SUMMARY | 2022-01-30 02:12 | XMS_ITS | Encounter Summary ---
:1965 Author Organization [facility] Address [address] [place] [address] Care Team Providers Name Role Phone Fox Tian MD Primary Care Provider Reason for Visit Reason Comments IV Medication Week 2 Venofer Encounter Details Date Type Department Care Team Description 04/09/2019 Infusion [facility] [address] anemia type [place], [place] [phone] Social History Tobacco Use [...] Sign Reading Time Taken Comments Blood Pressure 135/63 04/09/2019 1:58 PM EDT Pulse 73 04/09/2019 1:58 PM EDT Temperature 36.8 ??C (98.2 ??F) 04/09/2019 1:58 PM EDT Respiratory Rate 18 04/09/2019 1:58 PM EDT Oxygen Saturation 97% 04/09/2019 1:58 PM EDT Inhaled Oxygen Concentration - - Weight 93.8 kg (206 lb 12.8 oz) 04/09/2019 1:58 PM EDT Height - - Body Mass Index 32.27 03/20/2019 2:45 PM EDT documented in this encounter Progress Notes Zahida Mercedes RN - 04/09/2019 2:00 PM EDT INFUSION THERAPY ADMINISTRATION NOTES DIAGNOSIS: Iron Deficiency REASON FOR VISIT: Venofer SUBJECTIVE Etta offers no complaints. OBJECTIVE VSS IV ACCESS: PIV #22 in top of left hand, site flushes easily with excellent blood return noted. PIV flushed with NS and removed after completion of treatment. REACTIONS (DESCRIPTION, TIME, INTERVENTION AND EFFECTIVENESS) none [...] Oncology 04/18/2022 Office Visit Hematology and Oncology [facility] Carey villalpando MD [facility] HEMATOLOGY/[place], [place] [address] (Wo rk) documented as of this encounter Visit Diagnoses Diagnosis Iron deficiency anemia, unspecified iron deficiency anemia type documented in this encounter Administered Medications Inactive Administered Medications - up to 3 most recent administrations Medication Order MAR Action Action Date Dose Rate Site iron sucrose (VENOFER) 300 New Bag 04/09/2019 2:23 PM EDT 300 mg 76.7 mL/hr mg in sodium chloride 0.9% 115 mL 300 mg, Intravenous, ONCE, 1 dose, On Mari 04/09/19 at 1430, Administer over 90 Minutes, Week 2 Infusion, Outpatient Transfusion documented in this encounter Care Teams Pipe Turner Relationship Specialty Start Date End Date Fox Tian MD PCP - General 06/06/[address] [place] [address] [phone] documented as of this encounter
--- OUTSIDE RECORDS SUMMARY | 2022-01-30 02:12 | XMS_ITS | Encounter Summary ---
:1965 Author Organization [facility] Address [address] [place] [address] Care Team Providers Name Role Phone Fox Tian MD Primary Care Provider Reason for Visit Reason Comments IV Medication Venofer Encounter Details Date Type Department Care Team Description 04/16/2019 Infusion Hematology Oncology at [facility] deficiency [facility] unspecified iron deficiency [address] anemia type [place], [place] [phone] Social History Tobacco Use [...] Sign Reading Time Taken Comments Blood Pressure 112/51 04/16/2019 1:55 PM EDT Pulse 72 04/16/2019 1:55 PM EDT Temperature 36.6 ??C (97.9 ??F) 04/16/2019 1:55 PM EDT Respiratory Rate 18 04/16/2019 1:55 PM EDT Oxygen Saturation - - Inhaled Oxygen Concentration - - Weight - - Height - - Body Mass Index - - documented in this encounter Progress Notes Jelena Patterson RN - 04/16/2019 2:00 PM EDT INFUSION THERAPY ADMINISTRATION NOTES DIAGNOSIS: Iron Deficiency REASON FOR VISIT: Venofer SUBJECTIVE Etta offers no complaints. OBJECTIVE VSS IV ACCESS: PIV #22 in top of Right hand, site flushes easily with excellent blood [...] Oncology 04/18/2022 Office Visit Hematology and Oncology [facility] Carey villalpando MD [facility] HEMATOLOGY/ONCOL [place], [place] [address] (Wo rk) documented as of this encounter Visit Diagnoses Diagnosis Iron deficiency anemia, unspecified iron deficiency anemia type documented in this encounter Administered Medications Inactive Administered Medications - up to 3 most recent administrations Medication Order MAR Action Action Date Dose Rate Site iron sucrose (VENOFER) 300 New Bag 04/16/2019 2:23 PM EDT 300 mg 76.7 mL/hr mg in sodium chloride 0.9% 115 mL 300 mg, Intravenous, ONCE, 1 dose, On Mari 04/16/19 at 1415, Administer over 90 Minutes, Week 3 Infusion, Outpatient Transfusion documented in this encounter Care Teams Water Chemist Relationship Specialty Start Date End Date Fox Tian MD PCP - General 06/06/[address] [place] [address] [phone] documented as of this encounter
--- OUTSIDE RECORDS SUMMARY | 2022-01-30 02:12 | XMS_ITS | Encounter Summary ---
:1965 Author Organization [facility] Address [facility] [place] [address] Care Team Providers Name Role Phone Fox Tian MD Primary Care Provider Encounter Details Date Type Department Care Team Description 02/15/2014 [id number] [place] [phone] Social History Tobacco Use Types Packs/Day Years [...] Oncology Carey Higuera MD [facility] HEMATOLOGY/ONCOL JOSEPH [place], [place] [address] (Wo rk) documented as of this encounter Procedures Procedure Name Priority Date/Time Associated Diagnosis Comme nts FILM LIBRARY Routine 02/15/2014 12:05 AM Results for this STORAGE ONLY MAMMO EDT procedure are in the results section. documented in this encounter Results Film Library- Storage Only Mammo (02/15/2014 12:05 AM EDT) Specimen (Source) Anatomical Location Collection Method / Collectio n Time Received Time / Laterality Volume Narrative DUSTIN - 07/28/2021 11:47 AM EST This exam is auto-finalizing. It's purpo se is for storage only. Ivette BRADLEY IMKassie FILM LIBRARY ORDERABLES Performing Organization Address City/State/ZIP Code Phon e Number [place], [place] documented in this encounter Visit Diagnoses Not on filedocumented in this encounter Care Teams Rice Dryer Mechanic Relationship Specialty Start Date End Date Fox Tian MD PCP - General 06/06/[address] [place] [phone] documented as of this encounter
--- OUTSIDE RECORDS SUMMARY | 2022-01-30 02:12 | XMS_ITS | Encounter Summary ---
:1965 Author Organization [facility] Address [facility] [place] [address] Care Team Providers Name Role Phone Fox Tian MD Primary Care Provider Encounter Details Date Type Department Care Team Description 09/18/2019 Orders Only Hematology and Jennifer Jay Iron defi ciency Oncology [place] [facility] Neeraj RN anemia, unspecified [facility] iron defi [place] [address] Social History Tobacco Use Types Packs/Day [...] Visit Hematology and Oncology Carey Higuera MD [facility] HEMATOLOGY/ONCOL DEN[place]erio [place], [place] [address] (Wo rk) documented as of this encounter Results Ferritin (09/22/2019 4:28 PM EDT) athologist Signature Ferritin 162 8 - 252 EXTERNAL LAB Specimen (Source) Anatomical Collection Method Collection Time Re ceived Time Location / / Volume Laterality Blood specimen 09/22/2019 4:28 PM (specimen) EDT Jesus Del Rio MD CHEMISTRY ORDERABLES Performing Organization Address City/State/ZIP Code Phon e Number EXTERNAL FACILITY EXTERNAL LAB (ABNORMAL) Comprehensive metabolic panel (non-fasting) (09/22/2019 4:28 PM EDT) [facility] gist Method Time Signature Glucose Lvl 118 [...] CBC (with Diff) (09/22/2019 4:28 PM EDT) athologist Signature WBC 6.69 4.4 - 10.8 [...] type documented in this encounter Care Teams Science Instructor Relationship Specialty Start Date End Date Fox Tian MD PCP - General 06/06/[address] [place] [phone] documented as of this encounter
--- OUTSIDE RECORDS SUMMARY | 2022-01-30 02:12 | XMS_ITS | Encounter Summary ---
:1965 Author Organization [facility] Address [facility] [place] [address] Care Team Providers Name Role Phone Fox Tian MD Primary Care Provider Encounter Details Date Type Department Care Team Description 02/04/2012 [facility]illary [id number] [place] [phone] [phone] Social History Tobacco Use Types Packs/Day Years [...] MD [facility] HEMATOLOGY/ONCOL JOSEPH [place], [place] [address] (Wo rk) documented as of this encounter Procedures Procedure Name Priority Date/Time Associated Diagnosis Comme nts FILM LIBRARY Routine 02/04/2012 12:00 AM Results for this STORAGE ONLY MAMMO EDT procedure are in the results section. documented in this encounter Results Film Library- Storage Only Mammo (02/04/2012 12:00 AM EDT) Specimen (Source) Anatomical Location Collection Method / Collectio n Time Received Time / Laterality Volume Narrative DUSTIN - 07/28/2021 11:43 AM EST This exam is auto-finalizing. It's purpo se is for storage only. Ivette BRADLEY IMKassie FILM LIBRARY ORDERABLES Performing Organization Address City/State/ZIP Code Phon e Number [place], [place] documented in this encounter Visit Diagnoses Not on filedocumented in this encounter Care Teams Mid Level Java Developer Relationship Specialty Start Date End Date Fox Tian MD PCP - General 06/06/[address] [place] [phone] documented as of this encounter
--- OUTSIDE RECORDS SUMMARY | 2022-01-30 02:12 | XMS_ITS | Encounter Summary ---
:1965 Author Organization [facility] Address [facility] [place] [id number] Care Team Providers Name Role Phone Fox Tian MD Primary Care Provider Encounter Details Date Type Department Care Team Description 11/13/2019 TH Visit Hematology and Jesus Del Rio Iron def iciency (TeleHealth) Oncology at [facility] MD Shefali anemia, unspecified [facility] iron defi ciency [facility] Dr anemia type [place] [phone] Social History Tobacco Use Types Packs/Day Years [...] documented as of this encounter Progress Notes Jesus Del Rio MD - 11/13/2019 10:00 AM EDT Heme Onc Telephone Note Due to the ID- break out, our Institution has decided to limit medical appointments that are not absolutely necessary. After weighing the risks vs benefits of a face-to- face encounter, I decided to call this patient, as I felt the risks of exposure in the clinic were too high, and the purpose ofthe appointment could be met through a telephone encounter. I called Isabel to discuss her case. She is a 54-year-old female with history of heavy menses, whopresented for iron deficiency. While her hemoglobin was normal, she was having diffuse muscle aches and restless leg syndrome at night. We repleted her iron with a 6 doses of Venofer. At last check, her ferritin was in the 150s. Her hemoglobin was 14.6. Unfortunately, the iron infusions have not significantly helped. She continues to have restless leg syndrome, and myalgias. She thinks the myalgias may have improved slightly. Given that the iron level is currently normal, I do not think that these issues are related to iron deficiency. I was hopeful that they might improve, but now that they have not I do not think further iron infusions will be helpful. In addition, she is started on a control to control her menses.She has not had her menses in a few months. I do not expect iron deficiency to return. I only had necessarily need to see Isabel again on a routine basis. I would encourage her PCP to check her iron roughly every year, and if it gets low I would be happy to see her back. 16 minutes were spent on this phone encounter Jesus Del Rio MD documented in this encounter Plan of Treatment Upcoming Encounters Date Type Specialty Care Team Description 01/30/2022 Infusion Hematology and Oncology 02/27/2022 Infusion Hematology and Oncology 03/27/2022 Infusion Hematology and Oncology 04/18/2022 Office Visit Hematology and Oncology Carey Higuera MD [facility] HEMATOLOGY/ONCOL [place], [place] [address] (Wo rk) documented as of this encounter Visit Diagnoses Diagnosis Iron deficiency anemia, unspecified iron deficiency anemia type documented in this encounter Care Teams Pathology Supervisor Relationship Specialty Start Date End Date Fox Tian MD PCP - General 06/06/[address] [place] [phone] documented as of this encounter
--- OUTSIDE RECORDS SUMMARY | 2022-01-30 02:12 | XMS_ITS | Encounter Summary ---
:1965 Author Organization [facility] Address [facility] [place] [address] Care Team Providers Name Role Phone Fox Tian MD Primary Care Provider Reason for Visit Reason Comments IV Medication Venofer week 1 of 3 Encounter Details Date Type Department Care Team Description 04/02/2019 Infusion Hematology Oncology at [facility] deficiency [facility] unspecified iron deficiency [address] anemia type [place], [place] [phone] Social History Tobacco Use [...] Sign Reading Time Taken Comments Blood Pressure 137/61 04/02/2019 1:41 PM EDT Pulse 58 04/02/2019 1:41 PM EDT Temperature 36.5 ??C (97.7 ??F) 04/02/2019 1:41 PM EDT Respiratory Rate 18 04/02/2019 1:41 PM EDT Oxygen Saturation 97% 04/02/2019 1:41 PM EDT Inhaled Oxygen Concentration - - Weight 94.8 kg (209 lb) 04/02/2019 1:41 PM EDT Height - - Body Mass Index 32.61 03/20/2019 2:45 PM EDT documented in this encounter Progress Notes Harish Davsi RN - 04/02/2019 2:00 PM EDT INFUSION THERAPY ADMINISTRATION NOTES DIAGNOSIS: Iron Deficiency REASON FOR VISIT: Venofer SUBJECTIVE Etta offers no complaints. OBJECTIVE LAB DATA: Ferritin done at [facility] on 01/19/19 was 12. IV ACCESS: PIV #24 in top of right hand, site flushes easily with excellent blood return noted. PIV flushed with NS and removed after completion of treatment. REACTIONS (DESCRIPTION, TIME, INTERVENTION AND EFFECTIVENESS) none ASSESSMENT Isabel Austin was awake, alert and tolerated treatment well. Patient remained in clinic for 30 min post infusion to monitor for reactions. PLAN Return to clinic next 04/09 for week 2 of 3. documented in this encounter Plan of Treatment Upcoming Encounters Date Type Specialty Care Team Description 01/30/2022 Infusion Hematology and Oncology 02/27/2022 Infusion Hematology and Oncology 03/27/2022 Infusion Hematology and Oncology 04/18/2022 Office Visit Hematology and Oncology [facility] Carey villalpando MD [facility] HEMATOLOGY/ONCOL [place], [place] [address] (Wo rk) documented as of this encounter Visit Diagnoses Diagnosis Iron deficiency anemia, unspecified iron deficiency anemia type documented in this encounter Administered Medications Inactive Administered Medications - up to 3 most recent administrations Medication Order MAR Action Action Date Dose Rate Site iron sucrose (VENOFER) 300 New Bag 04/02/2019 2:04 PM EDT 300 mg 76.7 mL/hr mg in sodium chloride 0.9% 115 mL 300 mg, Intravenous, ONCE, 1 dose, On Mari 04/02/19 at 1400, Administer over 90 Minutes, Week 1 Infusion, Outpatient Transfusion documented in this encounter Care Teams Green Chain Operator Relationship Specialty Start Date End Date Fox Tian MD PCP - General 06/06/[address] [place] [phone] documented as of this encounter
--- OUTSIDE RECORDS SUMMARY | 2022-01-30 02:12 | XMS_ITS | Encounter Summary ---
:1965 Author Organization [facility] Address [facility] [address] [place] [address] Care Team Providers Name Role Phone Fox Tian MD Primary Care Provider Encounter Details Date Type Department Care Team Description 02/05/2013 [facility]illary [facility] [place] [phone] Social History Tobacco Use Types Packs/Day Years [...] Visit Hematology and Oncology Carey Higuera MD [facility] HEMATOLOGY/ONCOL JOSEPH [place], [place] [address] (Wo rk) documented as of this encounter Procedures Procedure Name Priority Date/Time Associated Diagnosis Comme nts FILM Routine 02/05/2013 12:05 AM Results for this LIBRARY-STORAGE EDT procedure ar e in ONLY US BREAST the results section. documented in this encounter Results Film Library Storage Only US Breast (02/05/2013 12:05 AM EDT) Specimen (Source) Anatomical Location Collection Method / Collectio n Time Received Time / Laterality Volume Narrative DUSTIN - 07/28/2021 11:50 AM EST This exam is auto-finalizing. It's purpo se is for storage only. Ivette BRADLEY IMKassie FILM LIBRARY ORDERABLES Performing Organization Address City/State/ZIP Code Phon e Number [place], [place] documented in this encounter Visit Diagnoses Not on filedocumented in this encounter Care Teams Relationship Mgr Relationship Specialty Start Date End Date Fox Tian MD PCP - General 06/06/[address] [place] [phone] documented as of this encounter
--- OUTSIDE RECORDS SUMMARY | 2022-01-30 02:12 | XMS_ITS | Encounter Summary ---
:1965 Author Organization [facility] Address [facility] [place] [address] Care Team Providers Name Role Phone Fox Tian MD Primary Care Provider Encounter Details Date Type Department Care Team Description 02/05/2013 [facility] [place] [phone] Social History Tobacco Use Types Packs/Day Years [...] MD [facility] HEMATOLOGY/ONCOL JOSEPH [place], [place] [address] (Wo rk) documented as of this encounter Procedures Procedure Name Priority Date/Time Associated Diagnosis Comme nts FILM LIBRARY Routine 02/05/2013 12:00 AM Results for this STORAGE ONLY MAMMO EDT procedure are in the results section. documented in this encounter Results Film Library- Storage Only Mammo (02/05/2013 12:00 AM EDT) Specimen (Source) Anatomical Location Collection Method / Collectio n Time Received Time / Laterality Volume Narrative DUSTIN - 07/28/2021 11:49 AM EST This exam is auto-finalizing. It's purpo se is for storage only. Ivette BRADLEY IMKassie FILM LIBRARY ORDERABLES Performing Organization Address City/State/ZIP Code Phon e Number [place], [place] documented in this encounter Visit Diagnoses Not on filedocumented in this encounter Care Teams Mortgage Banker Relationship Specialty Start Date End Date Fox Tian MD PCP - General 06/06/[address] [place] [phone] documented as of this encounter
--- OUTSIDE RECORDS SUMMARY | 2022-01-30 02:12 | XMS_ITS | Encounter Summary ---
:1965 Author Organization [facility] [place] [address] Care Team Providers Name Role Phone Fox Tian MD Primary Care Provider Encounter Details Date Type Department Care Team Description 06/19/2019 Hospital Encounter Hematology and Iron de ficiency anemia, Oncology at [facility] unspecified iron [facility] [place] [address] Social History Tobacco Use Types Packs/Day [...] 04/18/2022 Office Visit Hematology and Oncology [facility] Helena villalpando MD [facility] HEMATOLOGY/ONCOL [place]PH [place], [place] [address] (Wo rk) documented as of this encounter Procedures Procedure Name Priority Date/Time Associated Diagnosis Comme nts HEMOGRAM Routine 06/19/2019 1:13 PM Iron deficiency Result s for this EST anemia, unspecified procedur e are in iron deficiency the results anemia type section. DIFFERENTIAL, Routine 06/19/2019 1:13 PM Iron deficiency Resul ts for this AUTOMATED EST anemia, unspecified procedur e are in iron deficiency the results anemia type section. HC CBC,PLT & AUTO Routine 06/19/2019 1:13 PM Iron deficiency DIFF EST anemia, unspecified iron deficiency anemia type HC FERRITIN, SERUM Routine 06/19/2019 1:13 PM Iron deficiency Results for this EST anemia, unspecified procedur e are in iron deficiency the results anemia type section. documented in this encounter Results Differential, Automated (06/19/2019 1:13 PM EST) P athologist Signature Neutrophils % 64.7 % [facility] Neutr Abs (ANC) 4.05 1.70 - [facility] 6.10 [facility] x10(3)/[facility] LABORATORY Lymphocytes % 27.2 % [facility] Lymphocytes Abs 1.7 0.9 - 3.2 [facility] x10(3)/[facility] LABORATORY Monocytes % 4.3 % [facility] Monocyte Abs 0.3 0.3 - 0.9 [facility] x10(3)/[facility] LABORATORY Eosinophils % 3.0 % [facility] Eosinophils Abs 0.2 0.0 - 0.4 [facility] x10(3)/[facility] LABORATORY Basophils % 0.6 % [facility] Basophils Abs 0.0 0.0 - 0.1 [facility] x10(3)/[facility] LABORATORY Immature Gran % 0.20 % [facility] Comment: Immature granulocytes(IG's)percentage an d absolute count will include metamyelocytes, myelocytes, and promyelo cytes. Blood smears from CBCs yielding IG's will be scanned manually for concor dance. If this scan disagrees with the automated IG or if promyelocytes are not ed, a manual differential will be performed. Mónica Gran Abs 0.01 0.00 - 0.04 x10(3)/[facility] Y [facility] LABORATORY Specimen Anatomical Collection Method Collection Time Receive d Time (Source) Location / / Volume Laterality Blood specimen 06/19/2019 1:13 PM 019 1:21 (specimen) EST PM EST Resulting Agency Comment Spec In Lab Jesus Del Rio MD HEMATOLOGY ORDERABLES Performing Organization Address City/State/[place] [address] Hemogram (06/19/2019 1:13 PM EST) P athologist Signature WBC 6.3 4.0 - 9.5 [facility] x10(3)/[facility] LABORATORY RBC 4.96 4.00 - [facility] 5.21 [facility] x10(6)/[facility] LABORATORY Hemoglobin 14.1 11.7 - [facility] 15.5 gm/dL [facility] Hematocrit 42.5 35.7 - [facility] 45.8 % [facility] MCV 85.7 82.6 - [facility] 94.4 fL [facility] LABORATORY MCH 28.4 27.1 - [facility] 32.0 pg [facility] LABOR[facility] MCHC 33.2 31.7 - HELENA BARBA 35.0 gm/dL [facility] LABORATORY Platelets 246 145 - 357 HELENA BARBA x10(3)/[facility] LABORATORY RDWSD 42.6 37.0 - HELENA DOYLECOCK 46.0 [facility] LABORATORY RDWCV 13.6 11.5 - HELENA BARBA 14.1 % [facility] LABORATORY MPV 10.2 7.6 - 12.9 HELENA BARBA [facility] LABORATORY nRBC % Auto 0.0 % [facility] LABORATORY nRBC Abs Auto 0.000 0.000 - HELENA BARBA 0.000 [facility] x10(3)/[facility] LABORATORY Specimen Anatomical Collection Method Collection Time Receive d Time (Source) Location / / Volume Laterality Blood specimen 06/19/2019 1:13 PM 019 1:21 (specimen) EST PM EST Resulting Agency Comment Spec In Lab Jesus Del Rio MD HEMATOLOGY ORDERABLES Performing Organization Address City/State/[place] [address] (ABNORMAL) Ferritin (06/19/2019 1:13 PM EST) athologist Signature Ferritin 16 (L) 30 - 400 HELENA FREDA ng/mL [facility] Comment: Pediatric reference ranges not verified at [facility], interpret with caution. Reference ranges for females [...] Organization Address City/State/[place] [address] documented in this encounter Visit Diagnoses Diagnosis Iron deficiency anemia, unspecified iron deficiency anemia type documented in this encounter Care Teams Spring Fitter Relationship Specialty Start Date End Date Fox Tian MD PCP - General 06/06/[address] [place] [phone] documented as of this encounter
--- OUTSIDE RECORDS SUMMARY | 2022-01-30 02:12 | XMS_ITS | Encounter Summary ---
:1965 Author Organization [facility] [place] [address] Care Team Providers Name Role Phone Fox Tian MD Primary Care Provider Encounter Details Date Type Department Care Team Description 09/18/2019 Telephone Hematology and Oncology [place] [phone] Social History Tobacco Use Types Packs/Day [...] this encounter Miscellaneous Notes Telephone Encounter - Jennifer Jay RN - 09/18/2019 12:30 PM EST Message received from secretary book keeper: Injection/Infusion Referral Services to be provided for pt are: LABS AT [facility] orders faxed to [facility]([phone]). documented in this encounter Plan of Treatment Upcoming Encounters Date Type Specialty Care Team Description 01/30/2022 Infusion Hematology and Oncology 02/27/2022 Infusion Hematology and Oncology 03/27/2022 Infusion Hematology and Oncology 04/18/2022 Office Visit Hematology and Oncology Carey Higuera MD [facility] HEMATOLOGY/ONCOL [place]PH [place], [place] [address] (Wo rk) documented as of this encounter Visit Diagnoses Not on filedocumented in this encounter Care Teams Mattress Filling Machine Tender Relationship Specialty Start Date End Date Fox Tian MD PCP - General 06/06/[address] [place] [phone] documented as of this encounter
--- OUTSIDE RECORDS SUMMARY | 2022-01-30 02:12 | XMS_ITS | Encounter Summary ---
:1965 Author Organization [facility] Address [address] [place] [address] Care Team Providers Name Role Phone Fox Tian MD Primary Care Provider Encounter Details Date Type Department Care Team Description 06/19/2019 Office Visit Hematology and Dav Del Rio MD [facility] [place] [address] Iron deficiency Oncology at [facility] Tiffany Gage MD [facility] DR HEMATOLOGY/[place] [address] anemia, unspecified [facility] iron [place] [address] Social History Tobacco Use Types Packs/Day Years [...] Sign Reading Time Taken Comments Blood Pressure 156/82 06/19/2019 2:35 PM EST Pulse 92 06/19/2019 2:35 PM EST Temperature 36.5 ??C (97.7 ??F) 06/19/2019 2:35 PM EST Respiratory Rate 12 06/19/2019 2:35 PM EST Oxygen Saturation 96% 06/19/2019 2:35 PM EST Inhaled Oxygen Concentration - - Weight 92.7 kg (204 lb 6.4 oz) 06/19/2019 2:35 PM EST Height 170.2 cm (5' 7) 06/19/2019 2:35 PM EST Body Mass Index 32.01 06/19/2019 2:35 PM EST documented in this encounter Progress Notes Jesus Del Rio MD - 06/19/2019 2:30 PM EST OUTPATIENT HEMATOLOGY/ ONCOLOGY CONSULTATION HISTORY PRESENT ILLNESS [...] 300mg IV x 3 doses INTERIM HISTORY Pt returns after 3 doses of venofer. She had a prolonged menses after starting control to control bleeding. Since then, she has not bled. No fevers/ chills/ night sweats. No infections. No issueswith venofer infusions. SOCIAL HISTORY- reviewed with significant changes noted , 3 children, 12 grand children MEDICATIONS AND ALLERGIES- reviewed at this visit Medications 06/19/19 5560 Medication Sig Taking? levonorgestrel-ethinyl estradiol (SEASONIQUE) 0.15 mg-30 mcg (84)/10 mcg (7) Tablet, Dose Pack, 3 Months Take by mouth daily. Yes ALPRAZolam (XANAX) 0.25 mg Tablet TAKE 1 [...] are negative PHYSICAL EXAMINATION Most Recent Vitals: 06/19/19 1435 BP: 156/82 Pulse: 92 Resp: 12 Temp: 36.5 ??C (97.7 ??F) SpO2: 96% NAD, pleasant, Exam not repeated LABORATORY EVALUATION No results found for this or any previous visit (from the past 24 hour(s)). RADIOGRAPHIC EVALUATION As above PATHOLOGY EVALUATION As above ASSESSMENT: Isabel Austin is a 53 y.o. female presents with low iron that has not responded to oral replacement. She is symptomatic in terms of diffuse muscle cramps and restless leg syndrome. Ferritin improved after venofer infusions, but still low. Pt continues to have symptoms. I would favor another course of venofer to get her iron into normal range. I will arrange these in [facility]. F/U in 3 months with CBC/ CMP/ Ferritin. Jesus Del Rio MD Pager: [phone] 06/23/2019 documented in this encounter Plan of Treatment Upcoming Encounters Date Type Specialty Care Team Description 01/30/2022 Infusion Hematology and Oncology 02/27/2022 Infusion Hematology and Oncology 03/27/2022 Infusion Hematology and Oncology 04/18/2022 Office Visit Hematology and Oncology [facility] Carey villalpando MD [facility] HEMATOLOGY/[place], [place] [address] (Wo rk) documented as of this encounter Visit Diagnoses Diagnosis Iron deficiency anemia, unspecified iron deficiency anemia type documented in this encounter Care Teams Textile Dyer Relationship Specialty Start Date End Date Fox Tian MD PCP - General 06/06/[address] [place] [address] [phone] documented as of this encounter
--- OUTSIDE RECORDS SUMMARY | 2022-01-30 02:12 | XMS_ITS | Encounter Summary ---
:1965 Author Organization [facility] Address [facility] [address] [place] [address] Care Team Providers Name Role Phone Fox Tian MD Primary Care Provider Encounter Details Date Type Department Care Team Description 08/17/2013 [facility] [place] [phone] Social History Tobacco Use Types Packs/Day Years [...] Higuera MD [facility] HEMATOLOGY/[place], [place] [address] (Wo rk) documented as of this encounter Procedures Procedure Name Priority Date/Time Associated Diagnosis Comme nts FILM Routine 08/17/2013 12:00 AM Results for this LIBRARY-STORAGE EST procedure ar e in ONLY US BREAST the results section. documented in this encounter Results Film Library Storage Only US Breast (08/17/2013 12:00 AM EST) Specimen (Source) Anatomical Location Collection Method / Collectio n Time Received Time / Laterality Volume Narrative [facility] - 07/28/2021 11:48 AM EST This exam is auto-finalizing. It's purpo se is for storage only. Ivette BRADLEY IMKassie FILM LIBRARY ORDERABLES Performing Organization Address City/State/ZIP Code Phon e Number [place], [place] documented in this encounter Visit Diagnoses Not on filedocumented in this encounter Care Teams Vacuum Cleaner Repairer Relationship Specialty Start Date End Date Fox Tian MD PCP - General 06/06/[address] [place] [phone] documented as of this encounter
--- OUTSIDE RECORDS SUMMARY | 2022-01-30 02:12 | XMS_ITS | Encounter Summary ---
:1965 Author Organization [facility] Address [facility] [place] [address] Care Team Providers Name Role Phone Fox Tian MD Primary Care Provider Reason for Visit Reason Comments IV Medication Venofer Encounter Details Date Type Department Care Team Description 07/20/2019 Infusion [facility] [address] anemia type [place], [place] [phone] Social History Tobacco Use [...] Sign Reading Time Taken Comments Blood Pressure 138/68 07/20/2019 2:04 PM EST Pulse 61 07/20/2019 2:04 PM EST Temperature 36.6 ??C (97.9 ??F) 07/20/2019 2:04 PM EST Respiratory Rate 18 07/20/2019 2:04 PM EST Oxygen Saturation 96% 07/20/2019 2:04 PM EST Inhaled Oxygen Concentration - - Weight 91.8 kg (202 lb 6.4 oz) 07/20/2019 2:04 PM EST Height 170.2 cm (5' 7) 07/20/2019 2:04 PM EST Body Mass Index 31.7 07/20/2019 2:04 PM EST documented in this encounter Progress Notes Zahida Mercedes RN - 07/20/2019 2:00 PM EST INFUSION THERAPY ADMINISTRATION NOTES DIAGNOSIS: Iron Deficiency REASON FOR VISIT: Venofer SUBJECTIVE Etta offers no complaints. OBJECTIVE IV ACCESS: PIV #22 in top of [...] Return to clinic next week for week 2 of 3. documented in this encounter Plan of Treatment Upcoming Encounters Date Type Specialty Care Team Description 01/30/2022 Infusion Hematology and Oncology 02/27/2022 Infusion Hematology and Oncology 03/27/2022 Infusion Hematology and Oncology 04/18/2022 Office Visit Hematology and Oncology [facility] Carey villalpando MD [facility] HEMATOLOGY/[place]COL [place], [place] [address] (Wo rk) documented as of this encounter Visit Diagnoses Diagnosis Iron deficiency anemia, unspecified iron deficiency anemia type documented in this encounter Administered Medications Inactive Administered Medications - up to 3 most recent administrations Medication Order MAR Action Action Date Dose Rate Site iron sucrose (Venofer) 300 New Bag 07/20/2019 3:02 PM EST 300 mg 76.7 mL/hr mg in sodium chloride 0.9% 115 mL 300 mg, Intravenous, ONCE, 1 dose, On Sat07/20/19 at 1430, Administer over 90 Minutes, Week 1 Infusion, Outpatient Transfusion documented in this encounter Care Teams Installation Drafter Relationship Specialty Start Date End Date Fox Tian MD PCP - General 06/06/[address] [place] [phone] documented as of this encounter
--- OUTSIDE RECORDS SUMMARY | 2022-01-30 02:12 | XMS_ITS | Encounter Summary ---
:1965 Author Organization [facility] Address [facility] [place] [address] Care Team Providers Name Role Phone Fox Tian MD Primary Care Provider Reason for Visit Reason Comments IV Access Venofer #3 of 3 Encounter Details Date Type Department Care Team Description 08/03/2019 Infusion Hematology Oncology at [facility] deficiency [facility] unspecified iron deficiency [address] anemia type [place], [place] [phone] Social History Tobacco Use [...] Sign Reading Time Taken Comments Blood Pressure 117/91 08/03/2019 2:08 PM EST Pulse 71 08/03/2019 2:08 PM EST Temperature 36.7 ??C (98.1 ??F) 08/03/2019 2:08 PM EST Respiratory Rate 18 08/03/2019 2:08 PM EST Oxygen Saturation 95% 08/03/2019 2:08 PM EST Inhaled Oxygen Concentration - - Weight 94.7 kg (208 lb 12.8 oz) 08/03/2019 2:08 PM EST Height 170 cm (5' 6.93) 08/03/2019 2:08 PM EST Body Mass Index 32.77 08/03/2019 2:08 PM EST documented in this encounter Progress Notes Jelena Patterson RN - 08/03/2019 2:00 PM EST INFUSION THERAPY ADMINISTRATION NOTES DIAGNOSIS: Iron Deficiency REASON FOR VISIT: Venofer, Week 3 of 3 SUBJECTIVE Etta offers no complaints. OBJECTIVE IV ACCESS: PIV REACTIONS (DESCRIPTION, TIME, INTERVENTION AND EFFECTIVENESS) none ASSESSMENT Isabel Austin was awake, alert and tolerated treatment well. Patient remained in clinic for 30 min post infusion to monitor for reactions. PLAN Return to clinic as scheduled documented in this encounter Plan of Treatment Upcoming Encounters Date Type Specialty Care Team Description 01/30/2022 Infusion Hematology and Oncology 02/27/2022 Infusion Hematology and Oncology 03/27/2022 Infusion Hematology and Oncology 04/18/2022 [facility] HEMATOLOGY/[place]COL [place], [place] [address] (Wo rk) documented as of this encounter Visit Diagnoses Diagnosis Iron deficiency anemia, unspecified iron deficiency anemia type documented in this encounter Administered Medications Inactive Administered Medications - up to 3 most recent administrations Medication Order MAR Action Action Date Dose Rate Site iron sucrose (Venofer) 300 New Bag 08/03/2019 2:30 PM EST 300 mg 76.7 mL/hr mg in sodium chloride 0.9% 115 mL 300 mg, Intravenous, ONCE, 1 dose, On 08/03/19 at 1430, Administer over 90 Minutes, Week 2 Infusion, Outpatient Transfusion documented in this encounter Care Teams Hat Brim Curler Relationship Specialty Start Date End Date Fox Tian MD PCP - General 06/06/[address] [place] [address] [phone] documented as of this encounter
--- OUTSIDE RECORDS SUMMARY | 2022-01-30 02:12 | XMS_ITS | Encounter Summary ---
:1965 Author Organization [facility] Address [place] [address] Care Team Providers Name Role Phone Fox Tian MD Primary Care Provider Encounter Details Date Type Department Care Team Description 02/04/2012 [facility] [place] [phone] Social History Tobacco Use Types Packs/Day Years [...] Visit Hematology and Oncology Carey Higuera MD [facility] HEMATOLOGY/[place], [place] [address] (Wo rk) documented as of this encounter Procedures Procedure Name Priority Date/Time Associated Diagnosis Comme nts FILM Routine 02/04/2012 12:05 AM Results for this LIBRARY-STORAGE EDT procedure ar e in ONLY US BREAST the results section. documented in this encounter Results Film Library Storage Only US Breast (02/04/2012 12:05 AM EDT) Specimen (Source) Anatomical Location Collection Method / Collectio n Time Received Time / Laterality Volume Narrative [facility] - 07/28/2021 11:43 AM EST This exam is auto-finalizing. It's purpo se is for storage only. Ivette BRADLEY IMKassie FILM LIBRARY ORDERABLES Performing Organization Address City/State/ZIP Code Phon e Number [place], [place] documented in this encounter Visit Diagnoses Not on filedocumented in this encounter Care Teams Fretted Instruments Inspector Relationship Specialty Start Date End Date Fox Tian MD PCP - General 06/06/[address] [place] [phone] documented as of this encounter
--- OUTSIDE RECORDS SUMMARY | 2022-01-30 02:13 | XMS_ITS | Encounter Summary ---
:1965 Author Organization [facility] Address [address] [place] [address] Care Team Providers Name Role Phone Ivette Baron Primary Care Provider Encounter Details Date Type Department Care Team Description 04/17/2021 Lab Requisition [facility] Carlos Dobbins MD Encounter for other Pathology [address] general examination Laboratory Medicine [facility] [address] [address] [facility] [phone] [place] [address] (Work) [phone] Social History Tobacco Use Types Packs/Day Years Used Date Never Assessed Sex Assigned at Date Recorded Not on file documented as of this encounter Plan of Treatment Not on filedocumented as of this encounter Procedures Procedure Name Priority Date/Time Associated Diagnosis Comme nts SURGICAL PATHOLOGY Today 04/17/2021 7:55 EDT Encounter for o ther Results for this general examination procedur e are in the results section. documented in this encounter Results SURGICAL PATHOLOGY (04/17/2021 7:55 EDT) Note to Patient The following [facility] pathology results CENTER have been interpreted LABORATORY by your pathologist SERVICES and may be available to you before your health provider has had the opportunity to review them. Please allow time for your provider to receive these results and explore management options, if applicable. Final Diagnosis A. NOSE, RIGHT, ANTROCHOANAL POLYP, EXCISION: [facility] - Features consistent with antrochoanal polyp(s). CENTER LABORATORY SERVICES Attestation By the signature [facility] Electronica lly below, the attending CENTER signed by [place] physician certifies LABORATORY Teresa Logan MD on that they have 1) SERVICES 04/19/2021 at 1147 personally conducted a gross and/or microscopic examination of the described specimen(s), and/or personally interpreted the results of laboratory testing of the described specimen(s), and 2) personally rendered or confirmed the above diagnosis. Clinical History Antrochoanal polyp [facility] LABORATORY SERVICES Gross Description A. [facility] Received in formalin rosemary d with proper patient identification (initials J, P) and antrochoanal polyp are multiple fragments of pink-yellow, opaque soft tissue (3.0 x 2.3 x 1.1 cm in aggregate). No CENTER firm areas identified. The specimen is entirely submitted in A1-A4. LABORATORY SERVICES KRIK MIMS(ASC) 04/17/2021 16:15 Performing Lab [facility] LABORATORY SERVICES Scanned Images [facility] LABORATORY SERVICES Specimen Tissue - Resection of nose (procedure) Performing Organization Address City/State/ZIP Code Phon e Number [facility] LABORATORY [address] [place] [address] SERVICES documented in this encounter Visit Diagnoses Diagnosis Encounter for other general examination documented in this encounter Care Teams Fiction Writer Relationship Specialty Start Date End Date Ivette Baron PA PCP - General 04/14/21 [address] [place], [place] [phone] documented as of this encounter
--- OUTSIDE RECORDS SUMMARY | 2022-01-30 02:13 | XMS_ITS | Encounter Summary ---
:1965 Author Organization [facility] Address [address] [place] [address] Care Team Providers Name Role Phone Unavailable Primary Care Provider Unavailable Encounter Details Date Type Department Care Team Description 09/09/2003 Results Only [facility] - Ivette Bagley PA conversion [address] [place] [address] [place], [place] [address] [phone] Social History Tobacco Use Types Packs/Day Years Used Date Never Assessed Sex Assigned at Date Recorded Not on file documented as of this encounter Plan of Treatment Not on filedocumented as of this encounter Procedures Procedure Name Priority Date/Time Associated Diagnosis Comme nts CYTOPATHOLOGY Routine 09/09/2003 0:00 EST Results for this procedure are i n the results section . documented in this encounter Results CYTOPATHOLOGY (09/09/2003 0:00 EST) Pathology Report: CYTOPATHOLOGY REPORT [facility] Reports generated via electronic interface contain randi ginal data; however they are lacking the format of the original re port. Caution should be taken when reading/interpreting unfo rmatted reports. Name: ? ROWDY EVGA ? Accession #: ? [id number] : ? 1965 (Age: 37) ??F ?Collect Date: ? 08/16 Location: ? [facility] ? Receive Date : ? 09/13/2003 Provider: ?IVETTE BRADLEY Copy to: ? Specimen/Source: ?ThinPrep Pap Test, Source Not Provided Last Menstrual Period: ? 08/28/03 Other: ? Additional clinical information: Cervix bled, last pap 6 years ago. HPVA - HPV testing requested if ASC-US on the current ThinPrep Pap test. ? SPECIMEN ADEQUACY ? Satisfactory for Evaluation - transformation zone component present - scant squamous epithelial component GENERAL CATEGORIZATION ? Negative for Intraepithelial Lesion or Malignan cy INTERPRETATION ? Shift in parmjit present suggestive of bacterial vaginosis. ? Document reviewed and electronically signed by: ? SANDRA Fishman(ASCP) ? Report Date: ??09/16/2003 10:19 End of Report Specimen Performing Organization Address City/State/ZIP Code Phon e Number [facility] [address] [place] [address] SERVICES [facility] [address] [place] [address] documented in this encounter Visit Diagnoses Not on filedocumented in this encounter
--- OUTSIDE RECORDS SUMMARY | 2022-01-30 02:13 | XMS_ITS | Encounter Summary ---
:1965 Author Organization [facility] Address [address] [place] [address] Care Team Providers Name Role Phone Ivette Baron Primary Care Provider Encounter Details Date Type Department Care Team Description 07/24/2021 Lab Requisition [facility] Lenore Baron for other Pathology & KIRK Steele general examination Laboratory Medicine - [address] [place] [address] [address] [facility] [address] [place], [place] [id number] Social History Tobacco Use Types Packs/Day Years Used Date Never Assessed Sex Assigned at Date Recorded Not on file documented as of this encounter Plan of Treatment Not on filedocumented as of this encounter Procedures Procedure Name Priority Date/Time Associated Diagnosis Comme nts SURGICAL PATHOLOGY Today 07/24/2021 10:00 Resul ts for this EST procedure are i n the results section. documented in this encounter Results SURGICAL PATHOLOGY (07/24/2021 10:00 EST) Ancillary Studies At the request of Dr. Carey andres, a block from [id number] (A1) was [facility] to [facility] [place] electronically For Oncotype results, please see scanned report in EPI C. LABORATORY signed by Praful, RS = 18 ; Distant recurrence risk at 9 years = 16% (95 CI: 11-20%) SERVICES Scottie Patterson MD on 08/31/2021 at 20 46 Ancillary Studies ESTROGEN AND PROGESTERONE RECEPTOR ASSAY RESULTS [facility] Tissue submitted: Paraffin e mbedded tissue block labelled [id number] (A1) from [facility] LABORATORY sig miko by CHECO Basilio MD on Immunohistochemical assays f or estrogen receptors (SP1, Mobile) and progesterone receptors (16, Leica) have been performed on this specimen. Intranuclear receptor complexes were visualized on tissue se 07/27/2021 at 1520 ctions using an HRP polymer immunohistochemical technique. This assay is intended for paraffin-embedded tissue fixed in 10% neutral buffered formalin for 6-72 hours. Results are reported as nega tive (<1% nuclear staining) or positive with the proportion of positive cells noted. Estrogen receptor expression in <5% of tumor cells may not have a strong interactio n with estrogen receptor modulators such as Tamoxifen. Reference: ASCO-CAP Guidelin e Recommendations for IHC testing of ER and CA. J Clin Oncol 2010;28:2739-0883. NOTE: One or more of the re agents used in immunoperoxidase testing in this case may not have been cleared or approved by the U.S. Food and Drug Administration (FDA). The FDA has determined that such cl earance or approval is not n ecessary. These tests are used for clinical purposes. They should not be regarded as investigational or for research. These reagents' performance characteristics have been de termined by [facility] and/or by the referring laboratory. The positive and negative controls worked appropriately. If immunoperoxidase staining has been performed on alcoh ol fixed cytology specimens, which has not been fully validated, the assays should be interpreted with caution and correlated with clinical data. This laboratory is certified under the Clinical Laborato ry Improvement Amendments of 1988 (CLIA-88) as qualified to perform high complexity clinical laboratory testing. INTERPRETATION: A. BREAST, RIGHT, 10:30 O'CLOCK, 6 CM FROM NIPPLE, NEE DLE CORE BIOPSY: - Adenocarcinoma, invasive. - Positive for estrogen receptors (in greater than 90 % of tumor cells). - Nuclear staining intensity: Strong. - Positive for progesterone receptors (in greater cinthia n 90% of tumor cells). - Nuclear staining intensity: Strong. COMMENT: Cold ischemic time and total formalin fixation time ap propriate: Yes HER2 RECEPTOR ASSAY RESULTS Tissue submitted: Paraffin e mbedded tissue block labelled [id number] (A1) from [facility] Fixative: Formalin This immunohistochemical ass ay is intended to paraffin-embedded tissue fixed in 10% neutral buffered formalin for 6-72 hours; 18-24 hour fixation with maximum tissue thickness of 3-4 millimeters is martina mmended for best assay perfo rmance. Time from biopsy to placement in formalin (cold ischemic time) should be minimized to less than one hour. Her2 should not be performed on alcohol fixed tissues. The assay was performed unde r appropriate conditions according to the [employer]'s instructions with appropriate assay and tissue controls using an Anti-Her2 (4B5) Rabbit Monoclonal Antibody (Mobile). Her2 Scoring Guidelines (invasive tumor component only ) 0 negative No staining or membrane staining in less t [place] 10% of cells 1+ negative Faint partial membrane staining in more th an 10% of cells 2+ weakly positive Moderate complete membrane staining in more than 10% of cells 3+ positive Strong complete membrane staining in more than 10% of cells Reference: ASCO-CAP Recommen dations for Her2 Testing. J Clin Oncol 2018; epub (www.jco.org December 31, 2017) *FDA statement Assay results Her2 IHC Score: 1+ Tumor location: Right Breast ; 10:30 o'clock Cold ischemic time and total formalin fixative time ap propriate: Yes Cells with complete membrane staining: None Membrane staining intensity: Faint to focally moderate , granular Partial membrane staining: Present in 70% of cells Cytoplasmic staining: Faint Staining pattern: Heterogeneous Staining in benign epithelium: Absent The Her2 assay performed is interpreted as: NEGATIVE Note to Patient The following [facility] pathology results have CENTER been interpreted by your LABORATORY pathologist and may be SERVICES available to you before your health provider has had the opportunity to review them. Please allow time for your provider to receive these results and explore management options, if applicable. Final Diagnosis A. BREAST, RIGHT, 10:30 O'CL OCK, 6 CM FROM NIPPLE, NEEDLE CORE BIOPSY: [facility] - Adenocarcinoma, invasive, ductal type, nuclear grade 2. See comment. CENTER - Ductal carcinoma in situ ( DCIS), solid pattern with central necrosis, nuclear grade 2. LABORATORY - Microcalcifications associated with DCIS. SERVICES B. LYMPH NODE, RIGHT AXILLA, NEEDLE CORE BIOPSY: - Metastatic adenocarcinoma. See comment. Diagnosis Comment The needle core biopsy [facility] from the right breast CENTER (A) confirms the LABORATORY presence of an invasive SERVICES ductal adenocarcinoma. Parts of the tumor exhibit prior ischemic change that has been replaced by fibrosis. The metastatic tumor in the axillary lymph node is morphologically similar to the breast carcinoma. Estrogen and progesterone receptor assays and Her2 studies have been ordered on the breast carcinoma and results will be issued in an Addendum. Attestation By the signature below, [facility] MEDICAL Elec aravindally the attending physician CENTER sign ed by Praful, certifies that they have LABORATORY Don trista Patterson MD on 1) personally conducted SERVICES 07/27 at 1515 a gross and/or microscopic examination of the described specimen(s), and/or personally interpreted the results of laboratory testing of the described specimen(s), and 2) personally rendered or confirmed the above diagnosis. Clinical History A. 3.2 cm irregular R [facility] breast mass; 10:30 6 cm CENTER FN; 2 12 G cores; B. 2.2 LABORATORY [address] R axillary LN; 3 18 G SERVICES cores Gross Description A. [facility] MEDICAL Received in formalin rosemary d with proper patient identification (initials J, P) and right breast 10:30 are two yellow and white fibrofatty tissue cores (2.0 cm and 1.9 cm in length, and each 0.3 cm in diameter). Entirely submitted in A1-A2. CENTER LABORATORY Time removed from patient: 1000 hours 07/24/2021 SERVICES Time placed in formalin: 1000 hours 07/24/2021 Time out of formalin: 1030 hours 07/25/2021 B. Received in formalin rosemary d with proper patient identification (initials J, P) and right axillary node are three yellow and white fibrofatty tissue cores (1.7 cm to 0.7 cm in length, and each 0.1 cm in diameter). Entirely submitted in B1-B2. Time removed from patient: 1000 hours 07/24/2021 Time placed in formalin: 1000 hours 07/24/2021 Time out of formalin: 1030 hours 07/25/2021 Yoni Louis 07/25/2021 10:29 Performing Lab [facility]ORAT[facility] SERVICES Scanned Images [facility] LABORATORY SERVICES Specimen Tissue - Lymph Node, Axillary Tissue specimen (specimen) - Lymph Node, Axillary Narrative This result has an attachment that is no t available. 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
--- OUTSIDE RECORDS SUMMARY | 2022-01-30 02:13 | XMS_ITS | Encounter Summary ---
:1965 Author Organization [facility] Address [address] [place] [address] Care Team Providers Name Role Phone Unknown, Provider Primary Care Provider Encounter Details Date Type Department Care Team Description 04/29/2019 Hospital Encounter [facility] [place] Unknown, Provider, [facility] [phone] [place] [address] (Work) [phone] Social History Tobacco Use Types Packs/Day Years Used Date Never Assessed Sex Assigned at Date Recorded Not on file documented as of this encounter Discharge Disposition Disposition Code Departure Means Destination Home or Self Half-Way documented in this encounter Plan of Treatment Not on filedocumented as of this encounter Visit Diagnoses Not on filedocumented in this encounter 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
--- OUTSIDE RECORDS SUMMARY | 2022-01-30 02:13 | XMS_ITS | Encounter Summary ---
:1965 Author Organization [facility] Address [address] [place] [address] Care Team Providers Name Role Phone Unknown, Provider Primary Care Provider Encounter Details Date Type Department Care Team Description 04/29/2019 Results Only [facility] [phone] MD [address]omen[address] [place], [place] [address] (Wo rk) Social History Tobacco Use Types Packs/Day Years Used Date Never Assessed Sex Assigned at Date Recorded Not on file documented as of this encounter Plan of Treatment Not on filedocumented as of this encounter Procedures Procedure Name Priority Date/Time Associated Diagnosis Comme nts SURGICAL PATHOLOGY Routine 04/29/2019 23:47 Resul ts for this EDT procedure are i n the results section. PAP TEST- RESULT Routine 04/29/2019 0:00 EDT Resu lts for this ONLY procedure are i n the results section. documented in this encounter Results SURGICAL PATHOLOGY (04/29/2019 23:47 EDT) Pathology Report: SURGICAL PATHOLOGY REPORT [facility] Reports generated via electronic interface contain randi ginal data; LABORATORY however they are lacking the format of the original re port. SERVICES Caution should be taken when reading/interpreting unfo rmatted reports. Name: ? ISABEL VEGA ? Accession #: ? [id number] ? : ? 1965 (Age: 53 ) ??F ? Collect Date: ? 04/29/2019 ? Location: ? [facility] ? Receive Date: ? 019 ? Provider: TOAN RUELAS MD Copy to: ? Final Pathologic Diagnosis: ENDOMETRIUM, BIOPSY: - Late-secretory and inactive endometrium with break d own. - No definitive polyp, atypical hyperplasia, or mark malignancy. Document reviewed and electronically signed by: Shanell Sanchez MD Report ??Date: 05/06/2019 05:36 By the signature above, the attending physician certif ies that he/she has personally conducted a gross and/or microscopic examin ation of the described specimens and rendered or confirmed the above diagnosi s. Specimen(s) Received: EMB Clinical History: Abnormal uterine bleeding Gross Description: ? Received in formalin labelled with proper patient identification (initials J, P) and not otherwise spec ified is an aggregate of clotted blood, blood tinged mucus and red-brown tissue f ragments (2.0 x 1.5 x 0.3 cm). Submitted in toto in blocks 1-2. KIRK Llanes (ASCP) 04/30/2019 7:10 AM End of Report Specimen Performing Organization Address City/State/ZIP Code Phon e Number [facility] [address] [place] [phone] SERVICES PAP TEST- RESULT ONLY (04/29/2019 0:00 EDT) Pathology Report: CYTOPATHOLOGY REPORT [facility] Reports generated via electronic interface contain randi ginal data; SERVICES however they are lacking the format of the original re port. Caution should be taken when reading/interpreting unfo rmatted reports. Name: ? ISABEL VEGA ? Accession #: ? [id number] ? : ? 1965 (Age: 53 ) ??F ?Collect Da te: ? 04/29/2019 ? Location: ? [facility] ? Receive Date: ? 019 ? Provider: TOAN RUELAS MD Copy to: ? Final Report SPECIMEN ADEQUACY ? Satisfactory for Evaluation - transformation zone component present GENERAL CATEGORIZATION ? Negative for Intraepithelial Lesion or Malignan cy ?? Other: Additional clinical information: Z12.4 Z11.51 Specimen/Source: ??Pap Test, Cervix/Endocervix, ThinPr ep Imaging System with manual evaluation Document reviewed and electronically signed by: ? Iman Sanches, CT(ASCP) ? Report ??Date: 05/04/2019 13:07 HPV with Pap Test ? Date Ordered: ? 05/04/2019 ? Status: ?? Signed Out ?Date Complete: ? 05/05/2019 ? By: ??S ystem Interface ? Date Reported: ? 05/05/2019 ? Interpretation RESULT: Negative for HPV. No E6 or E7 mRNA is detected from HPV types 16,18,31,3 3,35, 39,45,51,52,56,58,59,66, and 68 by contact center associate media mae amplification. Comments Document reviewed and electronically signed by: ? System Interface ? Report date: 05/05/2019 By the signature above, the attending physician certif ies that he/she has personally conducted a gross and/or microscopic examin ation of the described specimens and rendered or confirmed the above diagnosi s. 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
--- OUTSIDE RECORDS SUMMARY | 2022-01-30 02:13 | XMS_ITS | Clinical Summary ---
:1965 Author Organization [facility] Address [address] [place] [address] Care Team Providers Name Role Phone Ivette Baron Primary Care Provider Social History Tobacco Use Types Packs/Day Years Used Date Never Assessed Sex Assigned at Date Recorded Not on file Plan of Treatment Health Maintenance Due Date Last Done Comments Hepatitis C Screen 1965 COVID-19 Vaccine (1) 10/14/1971 Insurance Payer Benefit Plan / Subscriber ID Effective Dates Phone Addre ss Type Group [place] [facility] [id number] 2021-Present [address] [place] [address] Care Teams Engineering Mathematician Relationship Specialty Start Date End Date Ivette Baron PA PCP - General 04/14/[address] [place] [phone]
[2022-01-30 09:10] LABS: Abs Immature Grans 0.01 10^3/uL (0.0-0.06); Absolute Basophil Count 0.07 10^3/uL (0.0-0.2); Absolute Eosinophil Count 0.11 10^3/uL (0.0-0.7); Absolute Lymphocyte Count 1.66 10^3/uL (1.2-3.4); Absolute Monocyte Count 0.24 10^3/uL (0.1-0.8); Absolute Neutrophil Count 3.22 10^3/uL (1.2-6.7); Basophils % 1.3; Eosinophils % 2.1; HCT 37.8 % (36.0-46.0); HGB 13.3 g/dL (11.2-15.7); Immature Grans % 0.2; Lymphocytes % 31.3; MCH 32.7 pg (27.0-33.0); MCHC 35.2 % (32.0-36.0); MCV 93 fL (80-95); MPV 8.7 fL (8.0-11.0); Monocytes % 4.5; Neutrophils % 60.6; Platelet Count 273 10^3/uL (130-400); RBC 4.07 10^6/uL (3.93-5.22); RDW 13.5 % (11.7-14.6); RDW-SD 45.6 fL; WBC 5.31 10^3/uL (4.4-10.8)
[2022-01-30 10:00] LABS: ALT 35 U/L (14-59); AST 14 U/L (15-37); Alkaline Phosphatase 62 U/L (46-116); Anion Gap 10.4 mmol/L (3-11); BUN 15 mg/dL (7-18); Bilirubin, Total 0.3 mg/dL (0.2-1.0); CO2 26.6 mmol/L (21.0-32.0); Calcium 9.3 mg/dL (8.5-10.1); Chloride 103 mmol/L (98-107); Estimated GFR 57.56 (mL/min/1.73m2); Glucose 121 mg/dL (74-106); Potassium 3.7 mmol/L (3.5-5.1); Sodium 140 mmol/L (136-145); Total Protein 7.3 g/dL (6.4-8.2)
[2022-02-01 13:12] LABS: Cancer Ag 15-3 55 U/mL (<30)
== END 2022-01-30 02:10 | disposition home or self-care (01) ==
LOC: LBO 02:09
PROVIDERS: PCP Physician Assistant Medical; Visit Provider Internal Medicine Medical Oncology
DX: C50.411 Malignant neoplasm of upper-outer quadrant of right female breast (principal); Z17.0 Estrogen receptor positive status [ER+]
CPT/HCPCS: 36415; 80053; 86304; 85025; 86300

== ENCOUNTER 2022-02-27 01:30 | Outpatient (CLI) | payer BC, SELFPAY ==
[2022-02-27 09:22] LABS: Abs Immature Grans 0.01 10^3/uL (0.0-0.06); Absolute Basophil Count 0.04 10^3/uL (0.0-0.2); Absolute Eosinophil Count 0.09 10^3/uL (0.0-0.7); Absolute Lymphocyte Count 1.04 10^3/uL (1.2-3.4); Absolute Monocyte Count 0.21 10^3/uL (0.1-0.8); Absolute Neutrophil Count 1.31 10^3/uL (1.2-6.7); Basophils % 1.5; Eosinophils % 3.3; HCT 38.2 % (36.0-46.0); HGB 13.3 g/dL (11.2-15.7); Immature Grans % 0.4; Lymphocytes % 38.5; MCH 32.6 pg (27.0-33.0); MCHC 34.8 % (32.0-36.0); MCV 94 fL (80-95); MPV 9.1 fL (8.0-11.0); Monocytes % 7.8; Neutrophils % 48.5; Platelet Count 229 10^3/uL (130-400); RBC 4.08 10^6/uL (3.93-5.22); RDW 13.2 % (11.7-14.6); RDW-SD 45.1 fL
[2022-02-27 09:35] LABS: ALT 49 U/L (14-59); AST 22 U/L (15-37); Albumin 3.9 g/dL (3.4-5.0); Alkaline Phosphatase 70 U/L (46-116); Anion Gap 8.7 mmol/L (3-11); BUN 11 mg/dL (7-18); Bilirubin, Total 0.3 mg/dL (0.2-1.0); CO2 28.3 mmol/L (21.0-32.0); CREATININE 0.9 mg/dL (0.55-1.02); Calcium 9.1 mg/dL (8.5-10.1); Chloride 104 mmol/L (98-107); Glucose 128 mg/dL (74-106); Sodium 141 mmol/L (136-145); Total Protein 7.2 g/dL (6.4-8.2)
[2022-02-28 13:39] LABS: Cancer Ag 15-3 55 U/mL (<30)
== END 2022-02-27 01:31 | disposition home or self-care (01) ==
LOC: LBO 01:30
PROVIDERS: PCP Physician Assistant Medical; Visit Provider Internal Medicine Medical Oncology
DX: C50.411 Malignant neoplasm of upper-outer quadrant of right female breast (principal); Z17.0 Estrogen receptor positive status [ER+]
CPT/HCPCS: 36415; 80053; 86304; 85025; 86300

== ENCOUNTER 2022-03-27 03:36 | Outpatient (CLI) | payer BC, SELFPAY ==
[2022-03-27 09:29] LABS: Absolute Basophil Count 0.06 10^3/uL (0.0-0.2); Absolute Eosinophil Count 0.09 10^3/uL (0.0-0.7); Absolute Lymphocyte Count 1.07 10^3/uL (1.2-3.4); Absolute Monocyte Count 0.18 10^3/uL (0.1-0.8); Basophils % 2.1; Eosinophils % 3.2; HCT 38.7 % (36.0-46.0); HGB 13.4 g/dL (11.2-15.7); Lymphocytes % 38.2; MCHC 34.6 % (32.0-36.0); MCV 92 fL (80-95); Monocytes % 6.4; Neutrophils % 50.1; Platelet Count 257 10^3/uL (130-400); RBC 4.19 10^6/uL (3.93-5.22); RDW 12.9 % (11.7-14.6); RDW-SD 43.4 fL
[2022-03-27 09:55] LABS: ALT 40 U/L (14-59); AST 16 U/L (15-37); Alkaline Phosphatase 61 U/L (46-116); BUN 14 mg/dL (7-18); Bilirubin, Total 0.2 mg/dL (0.2-1.0); CREATININE 0.9 mg/dL (0.55-1.02); Calcium 9.1 mg/dL (8.5-10.1); Chloride 103 mmol/L (98-107); Glucose 109 mg/dL (74-106); Potassium 3.5 mmol/L (3.5-5.1); Sodium 137 mmol/L (136-145); Total Protein 7.3 g/dL (6.4-8.2)
[2022-03-28 15:59] LABS: Cancer Ag 15-3 53 U/mL (<30)
== END 2022-03-27 03:37 | disposition home or self-care (01) ==
LOC: LBO 03:36
PROVIDERS: PCP Physician Assistant Medical; Visit Provider Internal Medicine Medical Oncology
DX: C50.411 Malignant neoplasm of upper-outer quadrant of right female breast (principal)
CPT/HCPCS: 36415; 80053; 86304; 85025; 86300

== ENCOUNTER 2022-04-25 02:23 | Outpatient (CLI) | payer BC, SELFPAY ==
[2022-04-25 12:45] LABS: Absolute Basophil Count 0.05 10^3/uL (0.0-0.2); Absolute Eosinophil Count 0.08 10^3/uL (0.0-0.7); Absolute Lymphocyte Count 1.44 10^3/uL (1.2-3.4); Absolute Monocyte Count 0.28 10^3/uL (0.1-0.8); Absolute Neutrophil Count 1.73 10^3/uL (1.2-6.7); Basophils % 1.4; Eosinophils % 2.2; HCT 37.8 % (36.0-46.0); HGB 13.5 g/dL (11.2-15.7); Lymphocytes % 40.2; MCH 32.5 pg (27.0-33.0); MCHC 35.7 % (32.0-36.0); MCV 91 fL (80-95); MPV 8.9 fL (8.0-11.0); Monocytes % 7.8; Neutrophils % 48.4; Platelet Count 243 10^3/uL (130-400); RBC 4.15 10^6/uL (3.93-5.22); RDW 12.9 % (11.7-14.6); WBC 3.58 10^3/uL (4.4-10.8)
[2022-04-25 13:08] LABS: ALT 42 U/L (14-59); AST 19 U/L (15-37); Albumin 4.3 g/dL (3.4-5.0); Alkaline Phosphatase 64 U/L (46-116); Anion Gap 9.6 mmol/L (3-11); BUN 17 mg/dL (7-18); Bilirubin, Total 0.3 mg/dL (0.2-1.0); CO2 27.4 mmol/L (21.0-32.0); CREATININE 0.8 mg/dL (0.55-1.02); Calcium 9.2 mg/dL (8.5-10.1); Chloride 105 mmol/L (98-107); Estimated GFR 86.96 (mL/min/1.73m2); Glucose 121 mg/dL (74-106); Potassium 3.8 mmol/L (3.5-5.1); Sodium 142 mmol/L (136-145); Total Protein 7.5 g/dL (6.4-8.2)
[2022-04-26 15:39] LABS: Cancer Ag 15-3 57 U/mL (<30)
== END 2022-04-25 02:24 | disposition home or self-care (01) ==
LOC: LBO 02:23
PROVIDERS: PCP Physician Assistant Medical; Visit Provider Internal Medicine Medical Oncology
DX: C50.411 Malignant neoplasm of upper-outer quadrant of right female breast (principal); Z17.0 Estrogen receptor positive status [ER+]
CPT/HCPCS: 36415; 80053; 86304; 85025; 86300

== ENCOUNTER 2022-05-23 03:15 | Outpatient (CLI) | payer BC, SELFPAY ==
[2022-05-23 10:02] LABS: Abs Immature Grans 0.01 10^3/uL (0.0-0.06); Absolute Basophil Count 0.05 10^3/uL (0.0-0.2); Absolute Eosinophil Count 0.05 10^3/uL (0.0-0.7); Absolute Lymphocyte Count 0.98 10^3/uL (1.2-3.4); Absolute Monocyte Count 0.15 10^3/uL (0.1-0.8); Basophils % 1.7; Eosinophils % 1.7; HCT 38.9 % (36.0-46.0); HGB 13.6 g/dL (11.2-15.7); Immature Grans % 0.3; Lymphocytes % 34.1; MCH 32.2 pg (27.0-33.0); MCV 92 fL (80-95); Monocytes % 5.2; Platelet Count 231 10^3/uL (130-400); RBC 4.22 10^6/uL (3.93-5.22); RDW-SD 43.2 fL; WBC 2.87 10^3/uL (4.4-10.8)
[2022-05-23 10:03] LABS: Absolute Neutrophil Count 1.64 10^3/uL (1.2-6.7)
[2022-05-23 10:18] LABS: ALT 33 U/L (14-59); AST 19 U/L (15-37); Albumin 4.2 g/dL (3.4-5.0); Alkaline Phosphatase 57 U/L (46-116); Anion Gap 8.7 mmol/L (3-11); BUN 12 mg/dL (7-18); Bilirubin, Total 0.3 mg/dL (0.2-1.0); CO2 27.3 mmol/L (21.0-32.0); Calcium 8.8 mg/dL (8.5-10.1); Chloride 105 mmol/L (98-107); Estimated GFR 66.53 (mL/min/1.73m2); Glucose 136 mg/dL (74-106); Potassium 3.6 mmol/L (3.5-5.1); Sodium 141 mmol/L (136-145); Total Protein 7.3 g/dL (6.4-8.2)
[2022-05-24 13:28] LABS: Cancer Ag 15-3 54 U/mL (<30)
== END 2022-05-23 03:16 | disposition home or self-care (01) ==
LOC: LBO 03:15
PROVIDERS: PCP Physician Assistant Medical; Visit Provider Internal Medicine Medical Oncology
DX: C50.411 Malignant neoplasm of upper-outer quadrant of right female breast (principal); Z17.0 Estrogen receptor positive status [ER+]
CPT/HCPCS: 36415; 80053; 86304; 85025; 86300

== ENCOUNTER 2022-06-20 03:56 | Outpatient (CLI) | payer BC, SELFPAY ==
[2022-06-20 09:30] LABS: Absolute Basophil Count 0.03 10^3/uL (0.0-0.2); Absolute Eosinophil Count 0.06 10^3/uL (0.0-0.7); Absolute Lymphocyte Count 0.92 10^3/uL (1.2-3.4); Absolute Monocyte Count 0.18 10^3/uL (0.1-0.8); Absolute Neutrophil Count 1.14 10^3/uL (1.2-6.7); Basophils % 1.3; Eosinophils % 2.6; HCT 40.3 % (36.0-46.0); HGB 14.2 g/dL (11.2-15.7); Lymphocytes % 39.5; MCH 32.4 pg (27.0-33.0); MCHC 35.2 % (32.0-36.0); MCV 92 fL (80-95); MPV 8.7 fL (8.0-11.0); Monocytes % 7.7; Neutrophils % 48.9; Platelet Count 212 10^3/uL (130-400); RBC 4.38 10^6/uL (3.93-5.22); RDW 13.5 % (11.7-14.6); RDW-SD 45.3 fL; WBC 2.33 10^3/uL (4.4-10.8)
[2022-06-20 09:43] LABS: ALT 30 U/L (14-59); AST 21 U/L (15-37); Albumin 4.3 g/dL (3.4-5.0); Alkaline Phosphatase 64 U/L (46-116); Anion Gap 8.4 mmol/L (3-11); BUN 10 mg/dL (7-18); Bilirubin, Total 0.2 mg/dL (0.2-1.0); CO2 29.6 mmol/L (21.0-32.0); CREATININE 0.9 mg/dL (0.55-1.02); Calcium 9.6 mg/dL (8.5-10.1); Chloride 104 mmol/L (98-107); Glucose 121 mg/dL (74-106); Potassium 3.8 mmol/L (3.5-5.1); Sodium 142 mmol/L (136-145); Total Protein 7.7 g/dL (6.4-8.2)
[2022-06-21 19:45] LABS: Cancer Ag 15-3 59 U/mL (<30)
== END 2022-06-20 03:57 | disposition home or self-care (01) ==
LOC: LBO 03:56
PROVIDERS: PCP Physician Assistant Medical; Visit Provider Internal Medicine Medical Oncology
DX: C50.411 Malignant neoplasm of upper-outer quadrant of right female breast (principal)
CPT/HCPCS: 36415; 80053; 86304; 85025; 86300

== ENCOUNTER 2022-07-18 04:44 | Outpatient (CLI) | payer BC, SELFPAY ==
[2022-07-18 09:42] LABS: Absolute Basophil Count 0.05 10^3/uL (0.0-0.2); Absolute Eosinophil Count 0.07 10^3/uL (0.0-0.7); Absolute Lymphocyte Count 1.29 10^3/uL (1.2-3.4); Absolute Monocyte Count 0.18 10^3/uL (0.1-0.8); Absolute Neutrophil Count 1.37 10^3/uL (1.2-6.7); Basophils % 1.7; Eosinophils % 2.4; HCT 37.5 % (36.0-46.0); Lymphocytes % 43.6; MCH 32.7 pg (27.0-33.0); MCHC 34.7 % (32.0-36.0); MCV 94 fL (80-95); MPV 8.8 fL (8.0-11.0); Monocytes % 6.1; Neutrophils % 46.2; Platelet Count 189 10^3/uL (130-400); RBC 3.98 10^6/uL (3.93-5.22); RDW 14.1 % (11.7-14.6); RDW-SD 47.8 fL; WBC 2.96 10^3/uL (4.4-10.8)
[2022-07-18 10:04] LABS: ALT 25 U/L (14-59); AST 20 U/L (15-37); Albumin 4.1 g/dL (3.4-5.0); Alkaline Phosphatase 57 U/L (46-116); Anion Gap 6.3 mmol/L (3-11); BUN 14 mg/dL (7-18); Bilirubin, Total 0.3 mg/dL (0.2-1.0); CO2 29.7 mmol/L (21.0-32.0); Chloride 106 mmol/L (98-107); Estimated GFR 66.53 (mL/min/1.73m2); Glucose 139 mg/dL (74-106); Potassium 3.9 mmol/L (3.5-5.1); Sodium 142 mmol/L (136-145); Total Protein 7.3 g/dL (6.4-8.2)
[2022-07-19 17:47] LABS: Cancer Ag 15-3 56 U/mL (<30)
== END 2022-07-18 04:45 | disposition home or self-care (01) ==
LOC: LBO 04:44
PROVIDERS: PCP Physician Assistant Medical; Visit Provider Internal Medicine Medical Oncology
DX: C50.411 Malignant neoplasm of upper-outer quadrant of right female breast (principal); Z17.0 Estrogen receptor positive status [ER+]
CPT/HCPCS: 36415; 80053; 86304; 85025; 86300

== ENCOUNTER 2022-08-15 04:15 | Outpatient (CLI) | payer BC, SELFPAY ==
[2022-08-15 08:27] LABS: Abs Immature Grans 0.01 10^3/uL (0.0-0.06); Absolute Basophil Count 0.05 10^3/uL (0.0-0.2); Absolute Eosinophil Count 0.12 10^3/uL (0.0-0.7); Absolute Lymphocyte Count 0.92 10^3/uL (1.2-3.4); Absolute Monocyte Count 0.14 10^3/uL (0.1-0.8); Absolute Neutrophil Count 1.61 10^3/uL (1.2-6.7); Basophils % 1.8; Eosinophils % 4.2; HCT 39.1 % (36.0-46.0); HGB 13.5 g/dL (11.2-15.7); Immature Grans % 0.4; Lymphocytes % 32.3; MCH 32.8 pg (27.0-33.0); MCHC 34.5 % (32.0-36.0); MCV 95 fL (80-95); MPV 8.9 fL (8.0-11.0); Monocytes % 4.9; Neutrophils % 56.4; Platelet Count 233 10^3/uL (130-400); RBC 4.12 10^6/uL (3.93-5.22); RDW 14.4 % (11.7-14.6); RDW-SD 49.6 fL; WBC 2.85 10^3/uL (4.4-10.8)
[2022-08-15 08:53] LABS: ALT 29 U/L (14-59); AST 19 U/L (15-37); Albumin 4.3 g/dL (3.4-5.0); Alkaline Phosphatase 57 U/L (46-116); Anion Gap 7.9 mmol/L (3-11); BUN 9 mg/dL (7-18); Bilirubin, Total 0.3 mg/dL (0.2-1.0); CO2 28.1 mmol/L (21.0-32.0); CREATININE 0.9 mg/dL (0.55-1.02); Calcium 9.2 mg/dL (8.5-10.1); Chloride 105 mmol/L (98-107); Glucose 137 mg/dL (74-106); Potassium 3.8 mmol/L (3.5-5.1); Sodium 141 mmol/L (136-145); Total Protein 7.4 g/dL (6.4-8.2)
[2022-08-16 14:14] LABS: Cancer Ag 15-3 61 U/mL (<30)
== END 2022-08-15 04:16 | disposition home or self-care (01) ==
LOC: LBO 04:15
PROVIDERS: PCP Physician Assistant Medical; Visit Provider Internal Medicine Medical Oncology
DX: C50.411 Malignant neoplasm of upper-outer quadrant of right female breast (principal)
CPT/HCPCS: 36415; 80053; 86304; 85025; 86300

== ENCOUNTER 2022-09-13 03:16 | Outpatient (CLI) | payer BC, SELFPAY ==
[2022-09-13 13:33] LABS: Abs Immature Grans 0.01 10^3/uL (0.0-0.06); Absolute Basophil Count 0.04 10^3/uL (0.0-0.2); Absolute Eosinophil Count 0.06 10^3/uL (0.0-0.7); Absolute Lymphocyte Count 1.23 10^3/uL (1.2-3.4); Absolute Monocyte Count 0.24 10^3/uL (0.1-0.8); Absolute Neutrophil Count 1.46 10^3/uL (1.2-6.7); Basophils % 1.3; HCT 38.2 % (36.0-46.0); HGB 13.5 g/dL (11.2-15.7); Immature Grans % 0.3; Lymphocytes % 40.5; MCH 33.1 pg (27.0-33.0); MCHC 35.3 % (32.0-36.0); MCV 94 fL (80-95); MPV 8.8 fL (8.0-11.0); Monocytes % 7.9; Platelet Count 198 10^3/uL (130-400); RBC 4.08 10^6/uL (3.93-5.22); RDW 13.6 % (11.7-14.6); WBC 3.04 10^3/uL (4.4-10.8)
[2022-09-13 13:49] LABS: ALT 36 U/L (14-59); AST 17 U/L (15-37); Albumin 4.2 g/dL (3.4-5.0); Alkaline Phosphatase 62 U/L (46-116); Anion Gap 6.5 mmol/L (3-11); BUN 8 mg/dL (7-18); Bilirubin, Total 0.2 mg/dL (0.2-1.0); CO2 30.5 mmol/L (21.0-32.0); CREATININE 0.8 mg/dL (0.55-1.02); Chloride 103 mmol/L (98-107); Estimated GFR 86.96 (mL/min/1.73m2); Glucose 114 mg/dL (74-106); Potassium 3.8 mmol/L (3.5-5.1); Sodium 140 mmol/L (136-145); Total Protein 7.4 g/dL (6.4-8.2)
[2022-09-14 17:54] LABS: Cancer Ag 15-3 55 U/mL (<30)
== END 2022-09-13 03:17 | disposition home or self-care (01) ==
LOC: LBO 03:17
PROVIDERS: PCP Physician Assistant Medical; Visit Provider Internal Medicine Medical Oncology
DX: C50.111 Malignant neoplasm of central portion of right female breast (principal); C50.411 Malignant neoplasm of upper-outer quadrant of right female breast; Z17.0 Estrogen receptor positive status [ER+]
CPT/HCPCS: 36415; 80053; 86304; 85025; 86300

== ENCOUNTER 2022-10-12 01:43 | Outpatient (CLI) | payer BC, SELFPAY ==
[2022-10-12 13:40] LABS: Abs Immature Grans 0.01 10^3/uL (0.0-0.06); Absolute Basophil Count 0.06 10^3/uL (0.0-0.2); Absolute Eosinophil Count 0.09 10^3/uL (0.0-0.7); Absolute Lymphocyte Count 1.57 10^3/uL (1.2-3.4); Absolute Monocyte Count 0.16 10^3/uL (0.1-0.8); Absolute Neutrophil Count 1.85 10^3/uL (1.2-6.7); Basophils % 1.6; Eosinophils % 2.4; HCT 38.6 % (36.0-46.0); HGB 13.9 g/dL (11.2-15.7); Immature Grans % 0.3; MCH 32.9 pg (27.0-33.0); MCV 91 fL (80-95); MPV 8.6 fL (8.0-11.0); Monocytes % 4.3; Neutrophils % 49.4; Platelet Count 194 10^3/uL (130-400); RBC 4.23 10^6/uL (3.93-5.22); RDW 13.7 % (11.7-14.6); RDW-SD 45.2 fL; WBC 3.74 10^3/uL (4.4-10.8)
[2022-10-12 13:57] LABS: ALT 24 U/L (14-59); AST 13 U/L (15-37); Albumin 4.1 g/dL (3.4-5.0); Alkaline Phosphatase 57 U/L (46-116); Anion Gap 10.2 mmol/L (3-11); BUN 12 mg/dL (7-18); Bilirubin, Total 0.3 mg/dL (0.2-1.0); CO2 25.8 mmol/L (21.0-32.0); CREATININE 0.8 mg/dL (0.55-1.02); Calcium 8.4 mg/dL (8.5-10.1); Chloride 105 mmol/L (98-107); Estimated GFR 86.96 (mL/min/1.73m2); Glucose 148 mg/dL (74-106); Potassium 3.5 mmol/L (3.5-5.1); Sodium 141 mmol/L (136-145); Total Protein 7.3 g/dL (6.4-8.2)
[2022-10-15 10:35] LABS: Cancer Ag 15-3 55 U/mL (<30)
== END 2022-10-12 01:44 | disposition home or self-care (01) ==
LOC: LBO 01:43
PROVIDERS: PCP Physician Assistant Medical; Visit Provider Internal Medicine Medical Oncology
DX: C50.011 Malignant neoplasm of nipple and areola, right female breast (principal); Z17.0 Estrogen receptor positive status [ER+]; C50.411 Malignant neoplasm of upper-outer quadrant of right female breast
CPT/HCPCS: 36415; 80053; 86304; 85025; 86300

== ENCOUNTER 2022-11-15 01:37 | Outpatient (CLI) | payer BC, SELFPAY ==
[2022-11-15 13:21] LABS: Absolute Basophil Count 0.05 10^3/uL (0.0-0.2); Absolute Eosinophil Count 0.05 10^3/uL (0.0-0.7); Absolute Lymphocyte Count 1.13 10^3/uL (1.2-3.4); Absolute Monocyte Count 0.28 10^3/uL (0.1-0.8); Absolute Neutrophil Count 1.01 10^3/uL (1.2-6.7); HCT 40.2 % (36.0-46.0); HGB 14.5 g/dL (11.2-15.7); Lymphocytes % 44.8; MCH 33.4 pg (27.0-33.0); MCHC 36.1 % (32.0-36.0); MCV 93 fL (80-95); MPV 8.7 fL (8.0-11.0); Monocytes % 11.1; Neutrophils % 40.1; Platelet Count 167 10^3/uL (130-400); RBC 4.34 10^6/uL (3.93-5.22); RDW 13.6 % (11.7-14.6); RDW-SD 46.5 fL; WBC 2.52 10^3/uL (4.4-10.8)
[2022-11-15 13:45] LABS: ALT 46 U/L (14-59); AST 22 U/L (15-37); Albumin 4.2 g/dL (3.4-5.0); Alkaline Phosphatase 64 U/L (46-116); Anion Gap 4.6 mmol/L (3-11); BUN 10 mg/dL (7-18); Bilirubin, Total 0.3 mg/dL (0.2-1.0); CO2 29.4 mmol/L (21.0-32.0); CREATININE 0.9 mg/dL (0.55-1.02); Chloride 105 mmol/L (98-107); Estimated GFR 75.03 (mL/min/1.73m2); Glucose 119 mg/dL (74-106); Potassium 3.9 mmol/L (3.5-5.1); Sodium 139 mmol/L (136-145); Total Protein 7.7 g/dL (6.4-8.2)
[2022-11-16 17:26] LABS: Cancer Ag 15-3 61 U/mL (<30)
== END 2022-11-15 01:38 | disposition home or self-care (01) ==
PROVIDERS: PCP Physician Assistant Medical; Visit Provider Internal Medicine Medical Oncology
DX: C50.011 Malignant neoplasm of nipple and areola, right female breast (principal); Z17.0 Estrogen receptor positive status [ER+]; C50.411 Malignant neoplasm of upper-outer quadrant of right female breast
CPT/HCPCS: 36415; 80053; 86304; 85025; 86300

== ENCOUNTER 2022-12-13 04:45 | Outpatient (CLI) | payer BC, SELFPAY ==
[2022-12-13 13:23] LABS: Absolute Basophil Count 0.07 10^3/uL (0.0-0.2); Absolute Eosinophil Count 0.03 10^3/uL (0.0-0.7); Absolute Lymphocyte Count 1.25 10^3/uL (1.2-3.4); Absolute Monocyte Count 0.21 10^3/uL (0.1-0.8); Absolute Neutrophil Count 1.12 10^3/uL (1.2-6.7); Basophils % 2.6; Eosinophils % 1.1; HCT 36.7 % (36.0-46.0); Lymphocytes % 46.6; MCH 33.2 pg (27.0-33.0); MCHC 35.4 % (32.0-36.0); MCV 94 fL (80-95); Monocytes % 7.8; Neutrophils % 41.9; Platelet Count 170 10^3/uL (130-400); RBC 3.92 10^6/uL (3.93-5.22); RDW 13.9 % (11.7-14.6); RDW-SD 46.6 fL; WBC 2.68 10^3/uL (4.4-10.8)
[2022-12-13 13:28] LABS: ALT 43 U/L (14-59); AST 21 U/L (15-37); Albumin 4.1 g/dL (3.4-5.0); Alkaline Phosphatase 57 U/L (46-116); BUN 10 mg/dL (7-18); Bilirubin, Total 0.3 mg/dL (0.2-1.0); CREATININE 0.9 mg/dL (0.55-1.02); Calcium 9.1 mg/dL (8.5-10.1); Chloride 104 mmol/L (98-107); Estimated GFR 75.03 (mL/min/1.73m2); Glucose 142 mg/dL (74-106); Potassium 3.5 mmol/L (3.5-5.1); Sodium 141 mmol/L (136-145); Total Protein 7.3 g/dL (6.4-8.2)
[2022-12-14 17:56] LABS: Cancer Ag 15-3 54 U/mL (<30)
== END 2022-12-13 04:46 | disposition home or self-care (01) ==
LOC: LBO 04:45
PROVIDERS: PCP Physician Assistant Medical; Visit Provider Internal Medicine Medical Oncology
DX: C50.011 Malignant neoplasm of nipple and areola, right female breast (principal); Z17.0 Estrogen receptor positive status [ER+]
CPT/HCPCS: 36415; 80053; 86304; 85025; 86300

== ENCOUNTER 2023-01-10 04:13 | Outpatient (CLI) | payer BC, SELFPAY ==
[2023-01-10 13:17] LABS: ALT 55 U/L (14-59); AST 27 U/L (15-37); Albumin 4.3 g/dL (3.4-5.0); Alkaline Phosphatase 59 U/L (46-116); Anion Gap 8.8 mmol/L (3-11); BUN 10 mg/dL (7-18); Bilirubin, Total 0.4 mg/dL (0.2-1.0); CO2 29.2 mmol/L (21.0-32.0); CREATININE 0.8 mg/dL (0.55-1.02); Chloride 102 mmol/L (98-107); Estimated GFR 86.42 (mL/min/1.73m2); Glucose 128 mg/dL (74-106); Potassium 3.7 mmol/L (3.5-5.1); Sodium 140 mmol/L (136-145); Total Protein 7.6 g/dL (6.4-8.2)
[2023-01-11 18:18] LABS: Cancer Ag 15-3 52 U/mL (<30)
== END 2023-01-10 04:14 | disposition home or self-care (01) ==
PROVIDERS: PCP Physician Assistant Medical; Visit Provider Internal Medicine Medical Oncology
DX: C50.011 Malignant neoplasm of nipple and areola, right female breast (principal); Z17.0 Estrogen receptor positive status [ER+]
CPT/HCPCS: 36415; 80053; 86304; 82378; 86300

== ENCOUNTER 2023-01-14 13:59 | Outpatient (CLI) | payer BC, SELFPAY ==
[2023-01-14 13:49] LABS: Abs Immature Grans 0.01 10^3/uL (0.0-0.06); Absolute Basophil Count 0.07 10^3/uL (0.0-0.2); Absolute Eosinophil Count 0.05 10^3/uL (0.0-0.7); Absolute Lymphocyte Count 1.44 10^3/uL (1.2-3.4); Absolute Monocyte Count 0.48 10^3/uL (0.1-0.8); Absolute Neutrophil Count 1.36 10^3/uL (1.2-6.7); Basophils % 2.1; Eosinophils % 1.5; HCT 38.2 % (36.0-46.0); HGB 13.4 g/dL (11.2-15.7); Immature Grans % 0.3; Lymphocytes % 42.2; MCH 32.8 pg (27.0-33.0); MCHC 35.1 % (32.0-36.0); MCV 93 fL (80-95); MPV 8.9 fL (8.0-11.0); Monocytes % 14.1; Neutrophils % 39.8; Platelet Count 154 10^3/uL (130-400); RBC 4.09 10^6/uL (3.93-5.22); RDW 13.6 % (11.7-14.6); RDW-SD 46.7 fL; WBC 3.41 10^3/uL (4.4-10.8)
== END 2023-01-14 14:00 | disposition home or self-care (01) ==
LOC: LBO 14:00
PROVIDERS: PCP Physician Assistant Medical; Visit Provider Internal Medicine Medical Oncology
DX: C50.011 Malignant neoplasm of nipple and areola, right female breast (principal); C50.411 Malignant neoplasm of upper-outer quadrant of right female breast; Z17.0 Estrogen receptor positive status [ER+]
CPT/HCPCS: 85025

== ENCOUNTER 2023-02-07 03:58 | Outpatient (CLI) | payer BC, SELFPAY ==
[2023-02-07 15:42] LABS: Absolute Basophil Count 0.07 10^3/uL (0.0-0.2); Absolute Eosinophil Count 0.04 10^3/uL (0.0-0.7); Absolute Lymphocyte Count 1.43 10^3/uL (1.2-3.4); Absolute Monocyte Count 0.38 10^3/uL (0.1-0.8); Absolute Neutrophil Count 1.15 10^3/uL (1.2-6.7); Basophils % 2.3; Eosinophils % 1.3; HCT 37.7 % (36.0-46.0); HGB 13.4 g/dL (11.2-15.7); Lymphocytes % 46.6; MCH 33.2 pg (27.0-33.0); MCHC 35.5 % (32.0-36.0); MCV 93 fL (80-95); MPV 9.1 fL (8.0-11.0); Monocytes % 12.4; Neutrophils % 37.4; Platelet Count 178 10^3/uL (130-400); RBC 4.04 10^6/uL (3.93-5.22); RDW 13.7 % (11.7-14.6); RDW-SD 46.4 fL; WBC 3.07 10^3/uL (4.4-10.8)
[2023-02-07 15:44] LABS: Calcium 9.2 mg/dL (8.5-10.1)
[2023-02-07 15:45] LABS: ALT 45 U/L (14-59); AST 21 U/L (15-37); Albumin 4.2 g/dL (3.4-5.0); Alkaline Phosphatase 55 U/L (46-116); Anion Gap 8.4 mmol/L (3-11); BUN 9 mg/dL (7-18); Bilirubin, Total 0.3 mg/dL (0.2-1.0); CO2 29.6 mmol/L (21.0-32.0); CREATININE 0.8 mg/dL (0.55-1.02); Chloride 105 mmol/L (98-107); Estimated GFR 86.42 (mL/min/1.73m2); Glucose 122 mg/dL (74-106); Potassium 3.7 mmol/L (3.5-5.1); Sodium 143 mmol/L (136-145); Total Protein 7.4 g/dL (6.4-8.2)
[2023-02-11 11:58] LABS: Cancer Ag 15-3 52 U/mL (<30)
== END 2023-02-07 03:59 | disposition home or self-care (01) ==
LOC: LBO 03:58
PROVIDERS: PCP Physician Assistant Medical; Visit Provider Internal Medicine Medical Oncology
DX: C50.011 Malignant neoplasm of nipple and areola, right female breast (principal); Z17.0 Estrogen receptor positive status [ER+]
CPT/HCPCS: 80053; 86304; 85025; 86300

== ENCOUNTER 2023-03-07 04:10 | Outpatient (CLI) | payer BC, SELFPAY ==
[2023-03-07 07:31] LABS: HCT 37.9 % (36.0-46.0); HGB 13.3 g/dL (11.2-15.7); MCH 32.7 pg (27.0-33.0); MCHC 35.1 % (32.0-36.0); MCV 93 fL (80-95); Platelet Count 154 10^3/uL (130-400); RBC 4.07 10^6/uL (3.93-5.22); RDW 13.6 % (11.7-14.6); WBC 2.09 10^3/uL (4.4-10.8)
[2023-03-07 07:46] LABS: Absolute Basophil Count 0.02 10^3/uL (0.0-0.2); Absolute Eosinophil Count 0.04 10^3/uL (0.0-0.7); Absolute Lymphocyte Count 0.86 10^3/uL (1.2-3.4); Absolute Monocyte Count 0.36 10^3/uL (0.1-0.8); Absolute Neutrophil Count 0.82 10^3/uL (1.2-6.7); Atypical Lymphocytes % 1; Bands % 1
[2023-03-07 07:47] LABS: Diff Comment Manual Differential
[2023-03-07 07:59] LABS: ALT 38 U/L (14-59); AST 23 U/L (15-37); Alkaline Phosphatase 58 U/L (46-116); Anion Gap 7.4 mmol/L (3-11); BUN 15 mg/dL (7-18); Bilirubin, Total 0.3 mg/dL (0.2-1.0); CO2 24.6 mmol/L (21.0-32.0); CREATININE 0.9 mg/dL (0.55-1.02); Calcium 9.2 mg/dL (8.5-10.1); Chloride 105 mmol/L (98-107); Estimated GFR 75.03 (mL/min/1.73m2); Glucose 118 mg/dL (74-106); Potassium 3.8 mmol/L (3.5-5.1); Sodium 137 mmol/L (136-145)
[2023-03-08 18:07] LABS: Cancer Ag 15-3 53 U/mL (<30)
== END 2023-03-07 04:11 | disposition home or self-care (01) ==
LOC: LBO 04:10
PROVIDERS: PCP Physician Assistant Medical; Visit Provider Internal Medicine Medical Oncology
DX: Z17.0 Estrogen receptor positive status [ER+] (principal); C50.011 Malignant neoplasm of nipple and areola, right female breast
CPT/HCPCS: 36415; 80053; 86304; 85025; 86300

== ENCOUNTER 2023-04-04 03:35 | Outpatient (CLI) | payer MEDICAID, SELFPAY ==
[2023-04-04 07:53] LABS: Abs Immature Grans 0.01 10^3/uL (0.0-0.06); Absolute Basophil Count 0.06 10^3/uL (0.0-0.2); Absolute Eosinophil Count 0.03 10^3/uL (0.0-0.7); Absolute Monocyte Count 0.25 10^3/uL (0.1-0.8); Absolute Neutrophil Count 0.98 10^3/uL (1.2-6.7); Basophils % 2.7; Eosinophils % 1.3; HCT 36.6 % (36.0-46.0); Immature Grans % 0.4; Lymphocytes % 40.4; MCH 32.9 pg (27.0-33.0); MCHC 35.5 % (32.0-36.0); MCV 93 fL (80-95); MPV 9.3 fL (8.0-11.0); Monocytes % 11.2; Platelet Count 135 10^3/uL (130-400); RBC 3.95 10^6/uL (3.93-5.22); RDW 13.5 % (11.7-14.6); RDW-SD 45.5 fL; WBC 2.23 10^3/uL (4.4-10.8)
[2023-04-04 08:11] LABS: Diff Comment Diff Reviewed; RBC Morphology Normal
[2023-04-04 08:15] LABS: ALT 41 U/L (14-59); AST 20 U/L (15-37); Albumin 3.9 g/dL (3.4-5.0); Alkaline Phosphatase 49 U/L (46-116); Anion Gap 9.8 mmol/L (3-11); BUN 15 mg/dL (7-18); Bilirubin, Total 0.3 mg/dL (0.2-1.0); CO2 28.2 mmol/L (21.0-32.0); CREATININE 0.9 mg/dL (0.55-1.02); Calcium 9.4 mg/dL (8.5-10.1); Chloride 102 mmol/L (98-107); Estimated GFR 75.03 (mL/min/1.73m2); Glucose 108 mg/dL (74-106); Potassium 3.7 mmol/L (3.5-5.1); Sodium 140 mmol/L (136-145); Total Protein 7.2 g/dL (6.4-8.2)
[2023-04-06 14:09] LABS: Cancer Ag 15-3 49 U/mL (<30)
== END 2023-04-04 03:36 | disposition home or self-care (01) ==
LOC: LBO 03:36
PROVIDERS: PCP Physician Assistant Medical; Visit Provider Internal Medicine Medical Oncology
DX: C50.011 Malignant neoplasm of nipple and areola, right female breast (principal); Z17.0 Estrogen receptor positive status [ER+]; C50.411 Malignant neoplasm of upper-outer quadrant of right female breast
CPT/HCPCS: 36415; 80053; 86304; 85025; 86300

== ENCOUNTER 2023-05-02 04:38 | Outpatient (CLI) | payer MEDICAID, SELFPAY ==
[2023-05-02 07:27] LABS: Absolute Basophil Count 0.07 10^3/uL (0.0-0.2); Absolute Eosinophil Count 0.04 10^3/uL (0.0-0.7); Absolute Lymphocyte Count 1.03 10^3/uL (1.2-3.4); Absolute Monocyte Count 0.32 10^3/uL (0.1-0.8); Basophils % 2.9; Eosinophils % 1.7; HCT 39.3 % (36.0-46.0); HGB 13.9 g/dL (11.2-15.7); Lymphocytes % 42.7; MCH 32.3 pg (27.0-33.0); MCHC 35.4 % (32.0-36.0); MCV 91 fL (80-95); MPV 8.9 fL (8.0-11.0); Monocytes % 13.3; Neutrophils % 39.4; Platelet Count 163 10^3/uL (130-400); RBC 4.31 10^6/uL (3.93-5.22); RDW 13.8 % (11.7-14.6); RDW-SD 45.7 fL; WBC 2.41 10^3/uL (4.4-10.8)
[2023-05-02 07:38] LABS: Absolute Neutrophil Count 0.95 10^3/uL (1.2-6.7); Diff Comment Diff Reviewed; RBC Morphology Normal
[2023-05-02 07:45] LABS: ALT 40 U/L (14-59); AST 19 U/L (15-37); Alkaline Phosphatase 68 U/L (46-116); Anion Gap 9.6 mmol/L (3-11); BUN 11 mg/dL (7-18); Bilirubin, Total 0.3 mg/dL (0.2-1.0); CO2 25.4 mmol/L (21.0-32.0); CREATININE 0.8 mg/dL (0.55-1.02); Calcium 9.4 mg/dL (8.5-10.1); Chloride 104 mmol/L (98-107); Estimated GFR 86.42 (mL/min/1.73m2); Glucose 108 mg/dL (74-106); Potassium 3.8 mmol/L (3.5-5.1); Sodium 139 mmol/L (136-145); Total Protein 7.3 g/dL (6.4-8.2)
[2023-05-04 12:59] LABS: Cancer Ag 15-3 50 U/mL (<30)
== END 2023-05-02 04:39 | disposition home or self-care (01) ==
LOC: LBO 04:42
PROVIDERS: PCP Physician Assistant Medical; Visit Provider Internal Medicine Medical Oncology
DX: C50.011 Malignant neoplasm of nipple and areola, right female breast (principal); C50.411 Malignant neoplasm of upper-outer quadrant of right female breast
CPT/HCPCS: 36415; 80053; 86304; 85025; 86300

== ENCOUNTER 2023-05-21 10:10 | Outpatient (CLI) | payer MEDICAID, SELFPAY ==
[2023-05-21 09:41] LABS: Abs Immature Grans 0.01 10^3/uL (0.0-0.06); HCT 38.9 % (36.0-46.0); HGB 13.5 g/dL (11.2-15.7); MCH 32.2 pg (27.0-33.0); MCHC 34.7 % (32.0-36.0); MCV 93 fL (80-95); MPV 8.6 fL (8.0-11.0); Platelet Count 206 10^3/uL (130-400); RBC 4.19 10^6/uL (3.93-5.22); RDW 13.9 % (11.7-14.6); RDW-SD 47.3 fL; WBC 2.45 10^3/uL (4.4-10.8)
[2023-05-21 09:58] LABS: ALT 50 U/L (14-59); AST 28 U/L (15-37); Albumin 4.1 g/dL (3.4-5.0); Alkaline Phosphatase 56 U/L (46-116); Anion Gap 7.1 mmol/L (3-11); BUN 11 mg/dL (7-18); Bilirubin, Total 0.3 mg/dL (0.2-1.0); CO2 28.9 mmol/L (21.0-32.0); CREATININE 0.8 mg/dL (0.55-1.02); Calcium 9.8 mg/dL (8.5-10.1); Chloride 103 mmol/L (98-107); Estimated GFR 86.42 (mL/min/1.73m2); Glucose 128 mg/dL (74-106); Potassium 3.6 mmol/L (3.5-5.1); Sodium 139 mmol/L (136-145); Total Protein 7.2 g/dL (6.4-8.2)
[2023-05-21 10:02] LABS: Absolute Basophil Count 0.17 10^3/uL (0.0-0.2); Absolute Eosinophil Count 0.12 10^3/uL (0.0-0.7); Absolute Lymphocyte Count 1.13 10^3/uL (1.2-3.4); Absolute Monocyte Count 0.15 10^3/uL (0.1-0.8); Absolute Neutrophil Count 0.88 10^3/uL (1.2-6.7); Atypical Lymphocytes % 6; Bands % 0; Diff Comment Manual Differential; RBC Morphology Normal
[2023-05-22 16:18] LABS: Cancer Ag 15-3 52 U/mL (<30)
== END 2023-05-21 10:11 | disposition home or self-care (01) ==
LOC: LBO 10:12
PROVIDERS: PCP Physician Assistant Medical; Visit Provider Internal Medicine Hematology & Oncology
DX: C50.912 Malignant neoplasm of unspecified site of left female breast (principal)
CPT/HCPCS: 36415; 80053; 86304; 85025; 86300

== ENCOUNTER 2023-06-25 04:47 | Outpatient (CLI) | payer MEDICAID, SELFPAY ==
[2023-06-25 08:45] LABS: Abs Immature Grans 0.01 10^3/uL (0.0-0.06); Absolute Basophil Count 0.05 10^3/uL (0.0-0.2); Absolute Eosinophil Count 0.06 10^3/uL (0.0-0.7); Absolute Lymphocyte Count 0.95 10^3/uL (1.2-3.4); Absolute Monocyte Count 0.29 10^3/uL (0.1-0.8); Absolute Neutrophil Count 1.07 10^3/uL (1.2-6.7); Basophils % 2.1; Eosinophils % 2.5; HCT 39.5 % (36.0-46.0); HGB 13.8 g/dL (11.2-15.7); Immature Grans % 0.4; Lymphocytes % 39.1; MCH 31.9 pg (27.0-33.0); MCHC 34.9 % (32.0-36.0); MCV 91 fL (80-95); MPV 8.7 fL (8.0-11.0); Monocytes % 11.9; Platelet Count 153 10^3/uL (130-400); RBC 4.33 10^6/uL (3.93-5.22); RDW 13.7 % (11.7-14.6); RDW-SD 45.8 fL; WBC 2.43 10^3/uL (4.4-10.8)
[2023-06-25 08:59] LABS: ALT 48 U/L (14-59); AST 24 U/L (15-37); Albumin 4.1 g/dL (3.4-5.0); Alkaline Phosphatase 49 U/L (46-116); Anion Gap 6.8 mmol/L (3-11); BUN 8 mg/dL (7-18); Bilirubin, Total 0.4 mg/dL (0.2-1.0); CO2 29.2 mmol/L (21.0-32.0); CREATININE 0.8 mg/dL (0.55-1.02); Calcium 8.7 mg/dL (8.5-10.1); Chloride 104 mmol/L (98-107); Estimated GFR 86.42 (mL/min/1.73m2); Glucose 107 mg/dL (74-106); Potassium 3.9 mmol/L (3.5-5.1); Sodium 140 mmol/L (136-145); Total Protein 7.3 g/dL (6.4-8.2)
[2023-06-27 13:54] LABS: Cancer Ag 15-3 56 U/mL (<30)
== END 2023-06-25 04:48 | disposition home or self-care (01) ==
PROVIDERS: PCP Physician Assistant Medical; Visit Provider Internal Medicine Hematology & Oncology
DX: C50.011 Malignant neoplasm of nipple and areola, right female breast (principal)
CPT/HCPCS: 36415; 80053; 86304; 85025; 86300

== ENCOUNTER 2023-07-23 02:51 | Outpatient (CLI) | payer MEDICAID, SELFPAY ==
[2023-07-23 14:07] LABS: Absolute Basophil Count 0.05 10^3/uL (0.0-0.2); Absolute Eosinophil Count 0.05 10^3/uL (0.0-0.7); Absolute Lymphocyte Count 1.29 10^3/uL (1.2-3.4); Absolute Monocyte Count 0.36 10^3/uL (0.1-0.8); Absolute Neutrophil Count 1.05 10^3/uL (1.2-6.7); Basophils % 1.8; Eosinophils % 1.8; HCT 40.6 % (36.0-46.0); HGB 14.2 g/dL (11.2-15.7); Lymphocytes % 46.1; MCH 31.5 pg (27.0-33.0); MCV 90 fL (80-95); MPV 8.8 fL (8.0-11.0); Monocytes % 12.9; Neutrophils % 37.4; Platelet Count 160 10^3/uL (130-400); RBC 4.51 10^6/uL (3.93-5.22); RDW 13.7 % (11.7-14.6); RDW-SD 45.1 fL
[2023-07-23 18:50] LABS: ALT 54 U/L (14-59); AST 27 U/L (15-37); Albumin 4.4 g/dL (3.4-5.0); Alkaline Phosphatase 52 U/L (46-116); Anion Gap 8.8 mmol/L (3-11); BUN 12 mg/dL (7-18); Bilirubin, Total 0.3 mg/dL (0.2-1.0); CO2 29.2 mmol/L (21.0-32.0); CREATININE 0.8 mg/dL (0.55-1.02); Calcium 9.5 mg/dL (8.5-10.1); Chloride 104 mmol/L (98-107); Estimated GFR 86.42 (mL/min/1.73m2); Glucose 96 mg/dL (74-106); Potassium 3.6 mmol/L (3.5-5.1); Sodium 142 mmol/L (136-145); Total Protein 7.5 g/dL (6.4-8.2)
[2023-07-25 19:45] LABS: Cancer Ag 15-3 60 U/mL (<30)
== END 2023-07-23 02:52 | disposition home or self-care (01) ==
PROVIDERS: PCP Physician Assistant Medical; Visit Provider Internal Medicine Hematology & Oncology
DX: C50.919 Malignant neoplasm of unspecified site of unspecified female breast (principal)
CPT/HCPCS: 36415; 80053; 86300; 85025

== ENCOUNTER 2023-08-20 04:39 | Outpatient (CLI) | payer MEDICAID, SELFPAY ==
[2023-08-20 14:32] LABS: Abs Immature Grans 0.01 10^3/uL (0.0-0.06); Absolute Basophil Count 0.06 10^3/uL (0.0-0.2); Absolute Eosinophil Count 0.04 10^3/uL (0.0-0.7); Absolute Lymphocyte Count 1.21 10^3/uL (1.2-3.4); Absolute Monocyte Count 0.18 10^3/uL (0.1-0.8); Basophils % 2.2; Eosinophils % 1.5; HCT 38.5 % (36.0-46.0); HGB 13.6 g/dL (11.2-15.7); Immature Grans % 0.4; Lymphocytes % 44.8; MCH 31.4 pg (27.0-33.0); MCHC 35.3 % (32.0-36.0); MCV 89 fL (80-95); MPV 8.9 fL (8.0-11.0); Monocytes % 6.7; Neutrophils % 44.4; Platelet Count 163 10^3/uL (130-400); RBC 4.33 10^6/uL (3.93-5.22); RDW 13.8 % (11.7-14.6); RDW-SD 44.4 fL
[2023-08-20 14:48] LABS: ALT 82 U/L (14-59); AST 46 U/L (15-37); Albumin 4.2 g/dL (3.4-5.0); Alkaline Phosphatase 48 U/L (46-116); Anion Gap 9.6 mmol/L (3-11); BUN 11 mg/dL (7-18); Bilirubin, Total 0.4 mg/dL (0.2-1.0); CO2 28.4 mmol/L (21.0-32.0); CREATININE 0.8 mg/dL (0.55-1.02); Calcium 9.3 mg/dL (8.5-10.1); Chloride 102 mmol/L (98-107); Estimated GFR 86.42 (mL/min/1.73m2); Glucose 186 mg/dL (74-106); Potassium 3.3 mmol/L (3.5-5.1); Sodium 140 mmol/L (136-145); Total Protein 7.6 g/dL (6.4-8.2)
[2023-08-27 10:08] LABS: Cancer Ag 15-3 54 U/mL (<30)
== END 2023-08-20 04:40 | disposition home or self-care (01) ==
LOC: LBO 04:39
PROVIDERS: PCP Physician Assistant Medical; Visit Provider Internal Medicine Hematology & Oncology
DX: C50.411 Malignant neoplasm of upper-outer quadrant of right female breast (principal); Z17.0 Estrogen receptor positive status [ER+]
CPT/HCPCS: 36415; 80053; 86300; 85025

== ENCOUNTER 2023-09-17 04:34 | Outpatient (CLI) | payer MEDICAID, SELFPAY ==
[2023-09-17 14:05] LABS: Abs Immature Grans 0.01 10^3/uL (0.0-0.06); Absolute Basophil Count 0.06 10^3/uL (0.0-0.2); Absolute Eosinophil Count 0.07 10^3/uL (0.0-0.7); Absolute Lymphocyte Count 1.18 10^3/uL (1.2-3.4); Absolute Monocyte Count 0.26 10^3/uL (0.1-0.8); Basophils % 2.3; Eosinophils % 2.7; HCT 39.8 % (36.0-46.0); HGB 13.9 g/dL (11.2-15.7); Immature Grans % 0.4; Lymphocytes % 45.7; MCH 31.8 pg (27.0-33.0); MCHC 34.9 % (32.0-36.0); MCV 91 fL (80-95); MPV 8.5 fL (8.0-11.0); Monocytes % 10.1; Neutrophils % 38.8; Platelet Count 170 10^3/uL (130-400); RBC 4.37 10^6/uL (3.93-5.22); RDW 14.2 % (11.7-14.6); RDW-SD 46.9 fL; WBC 2.58 10^3/uL (4.4-10.8)
[2023-09-17 14:21] LABS: ALT 58 U/L (14-59); AST 32 U/L (15-37); Albumin 4.3 g/dL (3.4-5.0); Alkaline Phosphatase 56 U/L (46-116); Anion Gap 10.2 mmol/L (3-11); BUN 12 mg/dL (7-18); Bilirubin, Total 0.4 mg/dL (0.2-1.0); CO2 28.8 mmol/L (21.0-32.0); CREATININE 0.8 mg/dL (0.55-1.02); Calcium 9.6 mg/dL (8.5-10.1); Chloride 102 mmol/L (98-107); Estimated GFR 86.42 (mL/min/1.73m2); Glucose 84 mg/dL (74-106); Potassium 3.6 mmol/L (3.5-5.1); Sodium 141 mmol/L (136-145); Total Protein 7.6 g/dL (6.4-8.2)
[2023-09-19 16:58] LABS: Cancer Ag 15-3 58 U/mL (<30)
== END 2023-09-17 04:35 | disposition home or self-care (01) ==
PROVIDERS: PCP Physician Assistant Medical; Visit Provider Internal Medicine Hematology & Oncology
DX: C50.919 Malignant neoplasm of unspecified site of unspecified female breast (principal)
CPT/HCPCS: 36415; 80053; 86300; 85025

== ENCOUNTER 2023-10-15 04:48 | Outpatient (CLI) | payer MEDICAID, SELFPAY ==
[2023-10-15 14:17] LABS: Abs Immature Grans 0.01 10^3/uL (0.0-0.06); Absolute Basophil Count 0.06 10^3/uL (0.0-0.2); Absolute Eosinophil Count 0.04 10^3/uL (0.0-0.7); Absolute Lymphocyte Count 1.34 10^3/uL (1.2-3.4); Absolute Monocyte Count 0.32 10^3/uL (0.1-0.8); Absolute Neutrophil Count 1.21 10^3/uL (1.2-6.7); Eosinophils % 1.3; HGB 12.8 g/dL (11.2-15.7); Immature Grans % 0.3; MCH 32.3 pg (27.0-33.0); MCHC 35.6 % (32.0-36.0); MCV 91 fL (80-95); MPV 8.9 fL (8.0-11.0); Monocytes % 10.7; Neutrophils % 40.7; Platelet Count 177 10^3/uL (130-400); RBC 3.96 10^6/uL (3.93-5.22); RDW 14.1 % (11.7-14.6); RDW-SD 47.1 fL; WBC 2.98 10^3/uL (4.4-10.8)
[2023-10-15 14:35] LABS: ALT 52 U/L (14-59); AST 25 U/L (15-37); Alkaline Phosphatase 64 U/L (46-116); Anion Gap 10.8 mmol/L (3-11); BUN 9 mg/dL (7-18); Bilirubin, Total 0.3 mg/dL (0.2-1.0); CO2 26.2 mmol/L (21.0-32.0); CREATININE 0.7 mg/dL (0.55-1.02); Calcium 8.7 mg/dL (8.5-10.1); Chloride 106 mmol/L (98-107); Estimated GFR 100.81 (mL/min/1.73m2); Glucose 107 mg/dL (74-106); Potassium 3.7 mmol/L (3.5-5.1); Sodium 143 mmol/L (136-145); Total Protein 7.3 g/dL (6.4-8.2)
[2023-10-16 17:51] LABS: Cancer Ag 15-3 54 U/mL (<30)
== END 2023-10-15 04:49 | disposition home or self-care (01) ==
PROVIDERS: PCP Physician Assistant Medical; Visit Provider Internal Medicine Hematology & Oncology
DX: C50.911 Malignant neoplasm of unspecified site of right female breast (principal)
CPT/HCPCS: 36415; 80053; 86300; 85025

== ENCOUNTER 2023-11-12 05:54 | Outpatient (CLI) | payer MEDICAID, SELFPAY ==
[2023-11-12 14:43] LABS: Absolute Basophil Count 0.04 10^3/uL (0.0-0.2); Absolute Eosinophil Count 0.03 10^3/uL (0.0-0.7); Absolute Lymphocyte Count 0.99 10^3/uL (1.2-3.4); Absolute Monocyte Count 0.13 10^3/uL (0.1-0.8); Absolute Neutrophil Count 0.82 10^3/uL (1.2-6.7); Eosinophils % 1.5; HCT 38.6 % (36.0-46.0); HGB 13.7 g/dL (11.2-15.7); Lymphocytes % 49.3; MCH 32.9 pg (27.0-33.0); MCHC 35.5 % (32.0-36.0); MCV 93 fL (80-95); MPV 8.9 fL (8.0-11.0); Monocytes % 6.5; Neutrophils % 40.7; Platelet Count 155 10^3/uL (130-400); RBC 4.17 10^6/uL (3.93-5.22); RDW 13.9 % (11.7-14.6); RDW-SD 46.7 fL; WBC 2.01 10^3/uL (4.4-10.8)
[2023-11-12 14:57] LABS: Diff Comment Diff Reviewed; RBC Morphology Normal
[2023-11-12 14:59] LABS: ALT 52 U/L (14-59); AST 22 U/L (15-37); Albumin 4.2 g/dL (3.4-5.0); Alkaline Phosphatase 56 U/L (46-116); Anion Gap 8.3 mmol/L (3-11); BUN 10 mg/dL (7-18); Bilirubin, Total 0.3 mg/dL (0.2-1.0); CO2 28.7 mmol/L (21.0-32.0); CREATININE 0.8 mg/dL (0.55-1.02); Chloride 105 mmol/L (98-107); Estimated GFR 85.89 (mL/min/1.73m2); Glucose 131 mg/dL (74-106); Potassium 3.5 mmol/L (3.5-5.1); Sodium 142 mmol/L (136-145); Total Protein 7.3 g/dL (6.4-8.2)
[2023-11-13 17:45] LABS: Cancer Ag 15-3 51 U/mL (<30)
== END 2023-11-12 05:55 | disposition home or self-care (01) ==
PROVIDERS: PCP Physician Assistant Medical; Visit Provider Internal Medicine Hematology & Oncology
DX: C50.919 Malignant neoplasm of unspecified site of unspecified female breast (principal)
CPT/HCPCS: 36415; 80053; 86300; 85025

== ENCOUNTER 2023-12-05 09:22 | Outpatient (CLI) | payer MEDICAID, SELFPAY ==
--- NOTE | 2023-12-05 09:15 | RT.EKG_ITS ---
APPROVED REPORT Exam: Resting ECG Reason for Exam: PALPITATIONS Patient Location: O HR:58 bpm ECG Measurements Heart Rate 58 AXIS KS 181 P -33 QRSd 96 QRS -22 QT 443 T 26 QTc 436 Conclusion Sinus rhythm...normal P axis, V-rate 50- 99 Normal Electrocardiogram
== END 2023-12-05 09:23 | disposition home or self-care (01) ==
PROVIDERS: PCP Physician Assistant Medical; Visit Provider Internal Medicine Hematology & Oncology
DX: R00.2 Palpitations (principal)
CPT/HCPCS: 93005; 93010

== ENCOUNTER 2023-12-10 01:26 | Outpatient (CLI) | payer MEDICAID, SELFPAY ==
[2023-12-10 12:49] LABS: Abs Immature Grans 0.11 10^3/uL (0.0-0.06); Absolute Basophil Count 0.07 10^3/uL (0.0-0.2); Absolute Eosinophil Count 0.04 10^3/uL (0.0-0.7); Absolute Lymphocyte Count 1.14 10^3/uL (1.2-3.4); Absolute Monocyte Count 0.23 10^3/uL (0.1-0.8); Absolute Neutrophil Count 1.19 10^3/uL (1.2-6.7); Basophils % 2.5 %; Eosinophils % 1.4 %; HCT 39.8 % (36.0-46.0); MCH 32.5 pg (27.0-33.0); MCHC 35.2 % (32.0-36.0); MCV 92 fL (80-95); MPV 9.2 fL (8.0-11.0); Monocytes % 8.3 %; Neutrophils % 42.8 %; Platelet Count 181 10^3/uL (130-400); RBC 4.31 10^6/uL (3.93-5.22); RDW 13.8 % (11.7-14.6); RDW-SD 46.8 fL; WBC 2.78 10^3/uL (4.4-10.8)
[2023-12-10 13:25] LABS: ALT 53 U/L (14-59); AST 27 U/L (15-37); Albumin 4.3 g/dL (3.4-5.0); Alkaline Phosphatase 53 U/L (46-116); Anion Gap 8.8 mmol/L (3-11); BUN 10 mg/dL (7-18); Bilirubin, Total 0.3 mg/dL (0.2-1.0); CO2 29.2 mmol/L (21.0-32.0); CREATININE 0.8 mg/dL (0.55-1.02); Calcium 9.4 mg/dL (8.5-10.1); Chloride 103 mmol/L (98-107); Estimated GFR 85.89 (mL/min/1.73m2); Glucose 121 mg/dL (74-106); Potassium 3.9 mmol/L (3.5-5.1); Sodium 141 mmol/L (136-145); Total Protein 7.5 g/dL (6.4-8.2)
[2023-12-12 16:08] LABS: Cancer Ag 15-3 56 U/mL (<30)
== END 2023-12-10 01:27 | disposition home or self-care (01) ==
PROVIDERS: PCP Physician Assistant Medical; Visit Provider Internal Medicine Hematology & Oncology
DX: C50.111 Malignant neoplasm of central portion of right female breast (principal)
CPT/HCPCS: 36415; 80053; 86300; 85025

== ENCOUNTER 2023-12-23 08:03 | Outpatient (CLI) | payer MEDICAID, SELFPAY ==
--- NOTE | 2023-12-23 08:00 | RT.EKG_ITS ---
APPROVED REPORT Exam: Resting ECG Reason for Exam: AT RISK FOR LONG QT SYNDROME Patient Location: O HR:61 bpm ECG Measurements Heart Rate [address] 169 P 2 QRSd 91 QRS -24 QT 427 T 47 QTc 430 Conclusion Sinus rhythm...normal P axis, V-rate 50- 99 Borderline left axis deviation...QRS axis (-15,-29) Otherwise normal ECG
== END 2023-12-23 08:04 | disposition home or self-care (01) ==
PROVIDERS: PCP Physician Assistant Medical; Visit Provider Nurse Practitioner Family
DX: I45.81 Long QT syndrome (principal)
CPT/HCPCS: 93005; 93010

== ENCOUNTER 2024-01-07 02:43 | Outpatient (CLI) | payer MEDICAID, SELFPAY ==
[2024-01-07 09:20] LABS: Abs Immature Grans 0.01 10^3/uL (0.0-0.06); Absolute Basophil Count 0.05 10^3/uL (0.0-0.2); Absolute Eosinophil Count 0.03 10^3/uL (0.0-0.7); Absolute Monocyte Count 0.26 10^3/uL (0.1-0.8); Absolute Neutrophil Count 0.97 10^3/uL (1.2-6.7); Basophils % 2.2 %; Eosinophils % 1.3 %; HCT 38.4 % (36.0-46.0); HGB 13.5 g/dL (11.2-15.7); Immature Grans % 0.4 %; Lymphocytes % 43.1 %; MCH 33.2 pg (27.0-33.0); MCHC 35.2 % (32.0-36.0); MCV 94 fL (80-95); Monocytes % 11.2 %; Neutrophils % 41.8 %; Platelet Count 158 10^3/uL (130-400); RBC 4.07 10^6/uL (3.93-5.22); RDW 14.2 % (11.7-14.6); WBC 2.32 10^3/uL (4.4-10.8)
[2024-01-07 09:38] LABS: ALT 65 U/L (14-59); AST 33 U/L (15-37); Alkaline Phosphatase 70 U/L (46-116); Anion Gap 12.2 mmol/L (3-11); BUN 13 mg/dL (7-18); Bilirubin, Total 0.34 mg/dL (0.2-1.0); CO2 23.8 mmol/L (21.0-32.0); CREATININE 0.9 mg/dL (0.55-1.02); Calcium 9.1 mg/dL (8.5-10.1); Chloride 105 mmol/L (98-107); Estimated GFR 74.57 (mL/min/1.73m2); Glucose 150 mg/dL (74-106); Potassium 3.7 mmol/L (3.5-5.1); Sodium 141 mmol/L (136-145); Total Protein 7.1 g/dL (6.4-8.2)
[2024-01-07 09:46] LABS: Diff Comment Diff Reviewed; RBC Morphology Normal
[2024-01-09 15:59] LABS: Cancer Ag 15-3 58 U/mL (<30)
== END 2024-01-07 02:44 | disposition home or self-care (01) ==
PROVIDERS: PCP Physician Assistant Medical; Visit Provider Internal Medicine Hematology & Oncology
DX: C50.919 Malignant neoplasm of unspecified site of unspecified female breast (principal)
CPT/HCPCS: 36415; 80053; 86300; 85025

== ENCOUNTER 2024-01-09 11:26 | Outpatient (CLI) | payer MEDICAID, SELFPAY ==
--- NOTE | 2024-01-09 11:15 | RT.EKG_ITS ---
APPROVED REPORT Exam: Resting ECG Reason for Exam: At risk for long QT syndrome Patient Location: O HR:77 bpm ECG Measurements Heart Rate 77 AXIS DE 169 P 28 QRSd 93 QRS -30 QT 402 T 67 QTc 455 Conclusion Sinus rhythm...normal P axis, V-rate 50- 99 Normal Electrocardiogram
== END 2024-01-09 11:27 | disposition home or self-care (01) ==
PROVIDERS: PCP Physician Assistant Medical; Visit Provider Nurse Practitioner Family
DX: I45.81 Long QT syndrome (principal)
CPT/HCPCS: 93005; 93010

== ENCOUNTER 2024-01-28 03:35 | Outpatient (CLI) | payer MEDICAID, SELFPAY ==
[2024-01-28 12:23] LABS: Absolute Basophil Count 0.06 10^3/uL (0.0-0.2); Absolute Eosinophil Count 0.05 10^3/uL (0.0-0.7); Absolute Lymphocyte Count 0.94 10^3/uL (1.2-3.4); Absolute Monocyte Count 0.14 10^3/uL (0.1-0.8); Absolute Neutrophil Count 1.68 10^3/uL (1.2-6.7); Basophils % 2.1 %; Eosinophils % 1.7 %; HGB 13.3 g/dL (11.2-15.7); Lymphocytes % 32.8 %; MCH 32.5 pg (27.0-33.0); MCV 93 fL (80-95); MPV 8.8 fL (8.0-11.0); Monocytes % 4.9 %; Neutrophils % 58.5 %; Platelet Count 194 10^3/uL (130-400); RBC 4.09 10^6/uL (3.93-5.22); RDW 13.6 % (11.7-14.6); RDW-SD 45.9 fL; WBC 2.87 10^3/uL (4.4-10.8)
[2024-01-28 12:43] LABS: ALT 43 U/L (14-59); AST 20 U/L (15-37); Alkaline Phosphatase 73 U/L (46-116); Anion Gap 7.8 mmol/L (3-11); BUN 11 mg/dL (7-18); Bilirubin, Total 0.34 mg/dL (0.2-1.0); CO2 28.2 mmol/L (21.0-32.0); CREATININE 0.9 mg/dL (0.55-1.02); Calcium 9.4 mg/dL (8.5-10.1); Chloride 106 mmol/L (98-107); Estimated GFR 74.57 (mL/min/1.73m2); Glucose 109 mg/dL (74-106); Potassium 3.7 mmol/L (3.5-5.1); Sodium 142 mmol/L (136-145); Total Protein 7.4 g/dL (6.4-8.2)
[2024-01-30 12:48] LABS: Cancer Ag 15-3 55 U/mL (<30)
== END 2024-01-28 03:36 | disposition home or self-care (01) ==
LOC: LBO 03:35
PROVIDERS: PCP Physician Assistant Medical; Visit Provider Internal Medicine Hematology & Oncology
DX: C50.911 Malignant neoplasm of unspecified site of right female breast (principal)
CPT/HCPCS: 36415; 80053; 86300; 85025

== ENCOUNTER 2024-01-28 11:50 | Outpatient (CLI) | payer MEDICAID, SELFPAY ==
--- NOTE | 2024-01-28 11:45 | RT.EKG_ITS ---
APPROVED REPORT Exam: Resting ECG Reason for Exam: AT RISK FOR LONG QT SYNDROME Patient Location: O HR:69 bpm ECG Measurements Heart Rate 69 AXIS [place] 167 P 33 QRSd 92 QRS -22 QT 406 T 69 QTc 435 Conclusion Sinus rhythm...normal P axis, V-rate 50- 99 Borderline left axis deviation...QRS axis (-15,-29)
== END 2024-01-28 11:51 | disposition home or self-care (01) ==
PROVIDERS: PCP Physician Assistant Medical; Visit Provider Nurse Practitioner Family
DX: I45.81 Long QT syndrome (principal)
CPT/HCPCS: 93005; 93010

== ENCOUNTER 2024-03-03 01:54 | Outpatient (CLI) | payer MEDICAID, SELFPAY ==
[2024-03-03 12:45] LABS: Abs Immature Grans 0.02 10^3/uL (0.0-0.06); Absolute Basophil Count 0.08 10^3/uL (0.0-0.2); Absolute Eosinophil Count 0.06 10^3/uL (0.0-0.7); Absolute Lymphocyte Count 1.29 10^3/uL (1.2-3.4); Absolute Monocyte Count 0.45 10^3/uL (0.1-0.8); Absolute Neutrophil Count 1.59 10^3/uL (1.2-6.7); Basophils % 2.3 %; Eosinophils % 1.7 %; HCT 39.3 % (36.0-46.0); Immature Grans % 0.6 %; MCHC 35.6 % (32.0-36.0); MCV 93 fL (80-95); MPV 8.7 fL (8.0-11.0); Monocytes % 12.9 %; Neutrophils % 45.5 %; Platelet Count 168 10^3/uL (130-400); RBC 4.24 10^6/uL (3.93-5.22); RDW-SD 47.3 fL; WBC 3.49 10^3/uL (4.4-10.8)
[2024-03-03 13:53] LABS: ALT 85 U/L (14-59); AST 41 U/L (15-37); Albumin 4.4 g/dL (3.4-5.0); Alkaline Phosphatase 76 U/L (46-116); Anion Gap 9.5 mmol/L (3-11); BUN 11 mg/dL (7-18); Bilirubin, Total 0.42 mg/dL (0.2-1.0); CO2 27.5 mmol/L (21.0-32.0); CREATININE 0.8 mg/dL (0.55-1.02); Calcium 9.4 mg/dL (8.5-10.1); Chloride 105 mmol/L (98-107); Estimated GFR 85.89 (mL/min/1.73m2); Glucose 95 mg/dL (74-106); Potassium 3.3 mmol/L (3.5-5.1); Sodium 142 mmol/L (136-145); Total Protein 7.6 g/dL (6.4-8.2)
[2024-03-05 14:43] LABS: Cancer Ag 15-3 59 U/mL (<30)
== END 2024-03-03 01:55 | disposition home or self-care (01) ==
LOC: LBO 01:54
PROVIDERS: PCP Physician Assistant Medical; Visit Provider Internal Medicine Hematology & Oncology
DX: C50.911 Malignant neoplasm of unspecified site of right female breast (principal); C79.51 Secondary malignant neoplasm of bone; C78.7 Secondary malignant neoplasm of liver and intrahepatic bile duct; G89.3 Neoplasm related pain (acute) (chronic); R05.3 Chronic cough; Z51.5 Encounter for palliative care; Z71.89 Other specified counseling; F32.A Depression, unspecified; G47.9 Sleep disorder, unspecified
CPT/HCPCS: 36415; 80053; 86300; 85025

== ENCOUNTER 2024-03-17 09:55 | Outpatient (CLI) | payer MEDICAID, SELFPAY ==
--- NOTE | 2024-03-17 09:45 | RT.EKG_ITS ---
APPROVED REPORT Exam: Resting ECG Reason for Exam: MALIGNANT BREAST CANCER STAGE 4 Patient Location: O HR:60 bpm ECG Measurements Heart Rate 60 AXIS IN 162 P -14 QRSd 98 QRS -20 QT 440 T 75 QTc 440 Conclusion Sinus rhythm...normal P axis, V-rate 50- 99 RSR' in V1 or V2, probably normal variant...small R' only Minor T wave abnormalities...T/QRS ratio < 1/20 or flat T
== END 2024-03-17 09:56 | disposition home or self-care (01) ==
LOC: CARDOPNVT 09:55
PROVIDERS: PCP Physician Assistant Medical; Visit Provider Nurse Practitioner Family
DX: R94.31 Abnormal electrocardiogram [ECG] [EKG] (principal)
CPT/HCPCS: 93005; 93010

== ENCOUNTER 2024-03-31 03:08 | Outpatient (CLI) | payer MEDICAID, SELFPAY ==
[2024-03-31 11:45] LABS: Abs Immature Grans 0.02 10^3/uL (0.0-0.06); Absolute Basophil Count 0.05 10^3/uL (0.0-0.2); Absolute Eosinophil Count 0.02 10^3/uL (0.0-0.7); Absolute Lymphocyte Count 0.88 10^3/uL (1.2-3.4); Absolute Monocyte Count 0.41 10^3/uL (0.1-0.8); Absolute Neutrophil Count 3.14 10^3/uL (1.2-6.7); Basophils % 1.1 %; Eosinophils % 0.4 %; HCT 39.4 % (36.0-46.0); HGB 13.7 g/dL (11.2-15.7); Immature Grans % 0.4 %; Lymphocytes % 19.5 %; MCH 33.1 pg (27.0-33.0); MCHC 34.8 % (32.0-36.0); MCV 95 fL (80-95); MPV 9.2 fL (8.0-11.0); Monocytes % 9.1 %; Neutrophils % 69.5 %; Platelet Count 193 10^3/uL (130-400); RBC 4.14 10^6/uL (3.93-5.22); RDW 14.5 % (11.7-14.6); RDW-SD 50.4 fL; WBC 4.52 10^3/uL (4.4-10.8)
[2024-03-31 11:56] LABS: ALT 52 U/L (14-59); AST 23 U/L (15-37); Albumin 4.2 g/dL (3.4-5.0); Alkaline Phosphatase 74 U/L (46-116); Anion Gap 8.5 mmol/L (3-11); BUN 14 mg/dL (7-18); Bilirubin, Total 0.37 mg/dL (0.2-1.0); CO2 28.5 mmol/L (21.0-32.0); Calcium 9.8 mg/dL (8.5-10.1); Chloride 102 mmol/L (98-107); Estimated GFR 65.71 (mL/min/1.73m2); Glucose 116 mg/dL (74-106); Potassium 3.8 mmol/L (3.5-5.1); Sodium 139 mmol/L (136-145); Total Protein 7.5 g/dL (6.4-8.2)
[2024-04-02 18:59] LABS: Cancer Ag 15-3 58 U/mL (<30)
== END 2024-03-31 03:09 | disposition home or self-care (01) ==
LOC: LBO 03:09
PROVIDERS: PCP Physician Assistant Medical; Visit Provider Internal Medicine Hematology & Oncology
DX: C50.911 Malignant neoplasm of unspecified site of right female breast (principal)
CPT/HCPCS: 36415; 80053; 86300; 85025

== ENCOUNTER 2024-05-05 01:53 | Outpatient (CLI) | payer MEDICAID, SELFPAY ==
[2024-05-05 13:56] LABS: Absolute Basophil Count 0.06 10^3/uL (0.0-0.2); Absolute Eosinophil Count 0.06 10^3/uL (0.0-0.7); HCT 37.5 % (36.0-46.0); HGB 13.2 g/dL (11.2-15.7); MCH 33.3 pg (27.0-33.0); MCHC 35.2 % (32.0-36.0); MCV 95 fL (80-95); MPV 9.1 fL (8.0-11.0); Platelet Count 296 10^3/uL (130-400); RBC 3.96 10^6/uL (3.93-5.22); RDW 13.8 % (11.7-14.6); RDW-SD 47.7 fL; WBC 3.18 10^3/uL (4.4-10.8)
[2024-05-05 14:06] LABS: ALT 39 U/L (14-59); AST 25 U/L (15-37); Alkaline Phosphatase 88 U/L (46-116); Anion Gap 7.9 mmol/L (3-11); BUN 6 mg/dL (7-18); Bilirubin, Total 0.47 mg/dL (0.2-1.0); CO2 29.1 mmol/L (21.0-32.0); Calcium 9.6 mg/dL (8.5-10.1); Chloride 104 mmol/L (98-107); Estimated GFR 65.71 (mL/min/1.73m2); Glucose 111 mg/dL (74-106); Potassium 3.5 mmol/L (3.5-5.1); Sodium 141 mmol/L (136-145); Total Protein 7.4 g/dL (6.4-8.2)
[2024-05-05 14:13] LABS: Absolute Lymphocyte Count 0.83 10^3/uL (1.2-3.4); Absolute Monocyte Count 0.16 10^3/uL (0.1-0.8); Absolute Neutrophil Count 2.07 10^3/uL (1.2-6.7); Atypical Lymphocytes % 4 %; Diff Comment Manual Differential; Polychromasia Present
[2024-05-08 10:47] LABS: Cancer Ag 15-3 61 U/mL (<30)
== END 2024-05-05 01:54 | disposition home or self-care (01) ==
PROVIDERS: PCP Physician Assistant Medical; Visit Provider Internal Medicine Hematology & Oncology
DX: C50.919 Malignant neoplasm of unspecified site of unspecified female breast (principal)
CPT/HCPCS: 36415; 80053; 86300; 85025

== ENCOUNTER 2024-05-14 09:54 | Outpatient (CLI) | payer MEDICAID, SELFPAY ==
--- NOTE | 2024-05-14 10:00 | RT.EKG_ITS ---
APPROVED REPORT Exam: Resting ECG Reason for Exam: FOLLOW UP EKG Patient Location: O HR:62 bpm ECG Measurements Heart Rate 62 AXIS NJ 167 P 12 QRSd 101 QRS -24 QT 440 T 69 QTc 447 Conclusion Sinus rhythm...normal P axis, V-rate 50- 99 Borderline left axis deviation...QRS Normal Electrocardiogram
== END 2024-05-14 09:55 | disposition home or self-care (01) ==
PROVIDERS: PCP Physician Assistant Medical; Visit Provider Nurse Practitioner Family
DX: I45.81 Long QT syndrome (principal)
CPT/HCPCS: 93005; 93010

== ENCOUNTER 2024-06-02 02:59 | Outpatient (CLI) | payer MEDICAID, SELFPAY ==
[2024-06-02 13:28] LABS: Abs Immature Grans 0.01 10^3/uL (0.0-0.06); Absolute Basophil Count 0.05 10^3/uL (0.0-0.2); Absolute Eosinophil Count 0.04 10^3/uL (0.0-0.7); Absolute Lymphocyte Count 0.61 10^3/uL (1.2-3.4); Absolute Monocyte Count 0.05 10^3/uL (0.1-0.8); Absolute Neutrophil Count 1.79 10^3/uL (1.2-6.7); Eosinophils % 1.6 %; HCT 37.7 % (36.0-46.0); HGB 12.9 g/dL (11.2-15.7); Immature Grans % 0.4 %; Lymphocytes % 23.9 %; MCH 32.8 pg (27.0-33.0); MCHC 34.2 % (32.0-36.0); MCV 96 fL (80-95); Neutrophils % 70.1 %; Platelet Count 284 10^3/uL (130-400); RBC 3.93 10^6/uL (3.93-5.22); RDW 13.6 % (11.7-14.6); RDW-SD 47.9 fL; WBC 2.55 10^3/uL (4.4-10.8)
[2024-06-02 14:17] LABS: ALT 21 U/L (14-59); AST 16 U/L (15-37); Albumin 4.1 g/dL (3.4-5.0); Alkaline Phosphatase 83 U/L (46-116); Anion Gap 10.1 mmol/L (3-11); BUN 11 mg/dL (7-18); Bilirubin, Total 0.53 mg/dL (0.2-1.0); CO2 26.9 mmol/L (21.0-32.0); Calcium 9.8 mg/dL (8.5-10.1); Chloride 106 mmol/L (98-107); Estimated GFR 65.71 (mL/min/1.73m2); Glucose 191 mg/dL (74-106); Potassium 3.4 mmol/L (3.5-5.1); Sodium 143 mmol/L (136-145); Total Protein 7.4 g/dL (6.4-8.2)
[2024-06-04 12:50] LABS: Cancer Ag 15-3 57 U/mL (<30)
== END 2024-06-02 03:00 | disposition home or self-care (01) ==
LOC: LBO 02:59
PROVIDERS: PCP Physician Assistant Medical; Visit Provider Nurse Practitioner Family
DX: C50.411 Malignant neoplasm of upper-outer quadrant of right female breast (principal); Z17.0 Estrogen receptor positive status [ER+]
CPT/HCPCS: 36415; 80053; 86300; 85025

== ENCOUNTER 2024-10-21 00:49 | Outpatient (CLI) | payer MEDICAID, SELFPAY ==
--- NOTE | 2024-10-21 | DI.MRI_ITS ---
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 CONTRAST MATERIAL: IV Contrast: 18 mL of Dotarem contrast administered. COMPARISON: No exams were available for comparison FINDINGS: VENTRICLES AND EXTRA AXIAL SPACES: Normal in size and morphology for the patient's age. HEMORRHAGE: None. CEREBRAL PARENCHYMA: No focus of restricted diffusion to suggest acute infarct. No space-occupying le evelin identified. There are few scattered hyperintense foci in the white matter on the FLAIR and T2 we ighted images which do not show enhancement and likely reflect early chronic microvascular ischemic c hanges. MIDLINE SHIFT: None. BRAINSTEM/CEREBELLUM: Normal. CALVARIUM: Normal. ENHANCEMENT: No suspicious enhancement identified. VISUALIZED PARANASAL SINUSES/MASTOIDS: There is near complete opacification of the right maxillary si nus. There is also soft tissue extending into the right nasal passageway which may represent a nasal polyp. [place]: Normal flow void. PITUITARY GLAND: Unremarkable. OTHER FINDINGS: IMPRESSION: 1. No evidence of intracranial metastatic disease. 2. Opacification of the right maxillary sinus. There is soft tissue seen in the right nasal passagew ay which may represent a nasal polyp. Please correlate clinically. 3. No evidence of an acute infarct. DATA REPOSITORY:
[2024-10-21] MEDS: Normal Saline Flush 10 ML SYR IVP (10:27)
[2024-10-21] MEDS: Gadoterate meglumine 20 ML SYRINGE 18 ML IVP (10:28)
== END 2024-10-21 01:09 ==
LOC: DI 00:49
PROVIDERS: PCP Physician Assistant Medical; Visit Provider Student in an Organized Health Care Education/Training Program
DX: J32.0 Chronic maxillary sinusitis (principal); C50.011 Malignant neoplasm of nipple and areola, right female breast; Z17.0 Estrogen receptor positive status [ER+]
CPT/HCPCS: 70553